=== PATIENT | female | born 1985 | race Caucasian/White ===

== ENCOUNTER 2016-06-13 00:58 | Emergency (ER) | payer SELFPAY ==
[~2016-06-13] VITALS: Ht 170.2 cm; Wt 63.7 kg
[~2016-06-13 00:58] MED LIST: CLIN150 PO; SULF-154 PO
[2016-06-13 01:06] VITALS: BP 123/92; PULSE 88; RESP 16; TEMP 97.9; O2SAT 100
[2016-06-13] MEDS ORDERED: VANCOMYCIN INJ 1,000 MG in SODIUM CHLOR 0.9% 250 ML INJ 250 ML IV ONE (01:30)
[2016-06-13] MEDS ORDERED: PIPERACIL-TAZO 3.375 GM PREMIX 50 ML IV ONE (01:30)
[2016-06-13 01:32] VITALS: BP 136/104; PULSE 102; RESP 20; TEMP 97.9; O2SAT 95
[2016-06-13 02:04] LABS: BLOOD, URINE SMALL (NEG); GLUCOSE,URINE NEG (NEG); KETONE, URINE NEG (NEG)
--- NOTE | 2016-06-13 02:09 | RADHPO ---
EXAM DATE/TIME: 06/13/2016 01:47 [facility] COMPARISON: No previous studies available for comparison. INDICATIONS : Right leg pain and swelling after shooting up. MEDICAL HISTORY : IV drug use. SURGICAL HISTORY : None. ENCOUNTER: Initial ACUITY: 2 days PAIN SCORE: 10/10 LOCATION: Right distal medial lower leg FINDINGS: Two view examination of the right tibia demonstrates no evidence of fracture or dislocation. Bony mi neralization is normal. The soft tissue structures are intact. CONCLUSION: No acute fracture or radiopaque foreign body. Jarred Mayfield MD on June 13, 2016 at 2:07 Board Certified Radiologist. This report was verified electronically.
[2016-06-13 02:17] LABS: NITRITE,URINE POS (NEG)
[2016-06-13 02:19] LABS: URINE COLOR YELLOW (YELLW/STRAW)
[2016-06-13 02:20] LABS: BACTERIA, URINE MANY /hpf; MUCUS URINE MOD /lpf (OCC)
[2016-06-13 02:21] LABS: COMMENT (UR) CULTURE INDICATED; CULTURE IF INDICATED CULTURE INDICATED
--- NOTE | 2016-06-13 02:25 | RADHPO ---
EXAM DATE/TIME: 06/13/2016 01:51 [facility] COMPARISON: No previous studies available for comparison. INDICATIONS : Right foot pain and swelling after shooting up. MEDICAL HISTORY : IV drug use. SURGICAL HISTORY : None. ENCOUNTER: Initial ACUITY: 2 days PAIN SCORE: 10/10 LOCATION: Right foot FINDINGS: Three view examination of the right foot demonstrates no soft tissue swelling, dislocation, or fractu re. The tarsal bones appear intact. The interphalangeal and metatarsophalangeal joints are intact. The calcaneus is intact. Bony mineralization is normal. CONCLUSION: No acute fracture or radiopaque foreign body. Jarred Mayfield MD on June 13, 2016 at 2:23 Board Certified Radiologist. This report was verified electronically.
[2016-06-13 02:26] LABS: AMPHETAMINE, URINE POS (NEG); BARBITURATES, URINE NEG (NEG); COCAINE, URINE NEG (NEG)
[2016-06-13 03:47] LABS: AUTOMATED NEUTROPHIL # 3.5 TH/MM3 (1.8-7.7); BASOPHIL # 0.1 TH/MM3 (0-0.2); BASOPHIL % 0.8 % (0.0-2.0); EOSINOPHIL # 0.2 TH/MM3 (0-0.4); EOSINOPHIL % 2.6 % (0.0-4.0); HEMATOCRIT 38.5 % (35.0-46.0); HEMO FLAGS DIFF FINAL; LYMPH % 31.2 % (9.0-44.0); LYMPHOCYTE # 2.1 TH/MM3 (1.0-4.8); MEAN CELL VOLUME 86.6 FL (80.0-100.0); MEAN CORPUSCULAR HEMOGLOBIN 29.3 PG (27.0-34.0); MEAN CORPUSCULAR HGB CONC 33.8 % (32.0-36.0); MONO % 13.4 % (0.0-8.0); PLATELET COUNT 202 TH/MM3 (150-450); RED BLOOD COUNT 4.44 MIL/MM3 (4.00-5.30); RED CELL DISTRIBUTION WIDTH 12.9 % (11.6-17.2); WHITE BLOOD COUNT 6.8 TH/MM3 (4.0-11.0)
[2016-06-13 03:54] LABS: CHLORIDE 102 MEQ/L (98-107); POTASSIUM 3.2 MEQ/L (3.5-5.1); SODIUM (NA) 140 MEQ/L (136-145)
[2016-06-13 03:58] LABS: ANION GAP 8 MEQ/L (5-15); BICARBONATE 30.1 MEQ/L (21.0-32.0); BLOOD UREA NITROGEN 8 MG/DL (7-18)
[2016-06-13 04:00] LABS: ALT (GPT) 22 U/L (10-53); AST (GOT) 23 U/L (15-37)
[2016-06-13 04:01] LABS: GLOMERULAR FILTRATION RATE 90 ML/MIN (>89)
[2016-06-13 04:02] LABS: TOTAL BILIRUBIN ADULT 0.3 MG/DL (0.2-1.0)
[2016-06-13 04:03] LABS: ALKALINE PHOSPHATASE 65 U/L (45-117)
[2016-06-13 04:35] VITALS: BP 120/71; PULSE 93; RESP 18; O2SAT 100
--- NOTE | 2016-06-13 05:35 | PD ---
HPI Chief Complaint: Skin Problem Time Seen by Provider: 03:15 Travel History International Travel<30 days: No Contact w/Intl Traveler<30days: No Traveled to known affect area: No History of Present Illness HPI 31-year-old female presents to the emergency department by private transportation in the care of her father for evaluation of multiple skin lesions. Patient admits to being an IV drug user. Patient injects methamphetamine. Patient states she has used methamphetamine for 5 years. Patient has multiple areas of excoriation consistent with pruritus associated with methamphetamine use. Patient presents because of area of soft tissue swelling and firmness and tenderness without redness or fluctuance affecting the left forearm as well as an area in the medial distal aspect of her right lower extremity of redness with warmth and tenderness. Patient admits to injecting at multiple sites including these areas. Patient states that she went to [facility] this evening voluntarily in order to be evaluated for inpatient detox due to recurrence of use of methamphetamine after being released from half-way 2 weeks ago; at [facility] she was informed that until she had had the areas of possible infection addressed she could not be further assessed at that facility. Patient states that she is not suicidal and does not want to harm herself or others; although in the past she has done things to harm herself including cutting on her left forearm which she has done intermittently since her teenage years and reportedly approximately a week or so ago; she denies denies any suicidal ideation at this time or at that time. Patient states since she was 13 intermittently she will cut herself because of pain reportedly in attempt to relieve her pain. Patient has had no fever or chills no nausea or vomiting no ascending erythema to the axilla or groin. Patient occasionally has intermittent lower abdominal pain. Patient has had no dysuria frequency or urgency. Patient does not report any vaginal discharge or abnormal vaginal bleeding or pelvic pain. Patient denies . Last period was in May 27, 2016. Patient is 6 para 2 AB 4. Tetanus updated 2015. [facility] Past Medical History Narrative Medical Polysubstance abuse, IV drug abuse, depression, hepatitis C D&C, Ab4, tobacco use polysubstance use; nursing notes reviewed Cancer: No Cardiovascular Problems: No Diminished Hearing: No Endocrine: No Gastrointestinal Disorders: Yes Genitourinary: No Hepatitis: Yes (C) Immune Disorder: No Musculoskeletal: No Neurologic: No Psychiatric: No Reproductive: Yes (4 MISCARRIAGES) Respiratory: No Tetanus Vaccination: < 5 Years ?: Not LMP: 05/27/16 Menopausal: No : 6 Para: 2 Miscarriage: 4 Dilation and Curettage (D&C): Yes (3 TIMES) Past Surgical History Abdominal Surgery: No Cardiac Surgery: No Ear Surgery: No Endocrine Surgery: No Eye Surgery: No Genitourinary Surgery: No Gynecologic Surgery: Yes (D AND C) Neurologic Surgery: No Oral Surgery: No Thoracic Surgery: No Other Surgery: Yes (D AND C) Social History Alcohol Use: No Tobacco Use: Yes Substance Use: Yes Allergies-Medications (Allergen,Severity, Reaction): Coded Allergies: Codeine (Verified Adverse Reaction, Mild, Nausea/Vomiting, 06/13/16) *MDRO Multi-Drug Resistant Organism (Unverified Adverse Reaction, Unknown , 06/13/16) MRSA (leg wound) - 04/2014 MRSA 08/2014. Reported Meds & Prescriptions Reported Meds & Active Scripts Active Clindamycin (Clindamycin HCl) 150 Mg Cap 300 Mg PO Q6H 7 Days Bactrim DS (Sulfamethoxazole-Trimethoprim) 800-160 Mg Tab 1 Tab PO BID Review of Systems Except as stated in HPI: all other systems reviewed are Neg (11 that she has Bactrim and Cleocin medications Aceon and she wasn't she's on clindamycin and Bactrim right now thinner. Computer) General / Constitutional: No: Fever, Chills HENT: No: Headaches, Congestion, Neck Stiffness, Neck Pain Cardiovascular: No: Chest Pain or Discomfort Respiratory: No: Cough, Shortness of Breath, Hemoptysis Gastrointestinal: No: Nausea, Vomiting, Abdominal Pain Genitourinary: No: Urgency, Frequency, Dysuria Musculoskeletal: Positive: Myalgias, Arthralgias Skin: Positive Rash (extensive excoriation associated with methamphetamine use) , Positive Itching, Positive Lumps, Positive Lesions (heel of right foot possible FB), Positive Other (focal localized area of erythema distal right lower leg medial aspect) Neurologic: No: Weakness, Dizziness, Syncope Psychiatric: Positive: Anxiety, Depression, Substance Abuse, No: Suicidal Ideations, Homicidal Ideation Endocrine: No: Heat Intolerance Hematologic/Lymphatic: No: Easy Bruising Physical Exam Narrative GENERAL: Well-developed thin female in no acute distress no respiratory distress ; GCS 15 SKIN: Warm and dry. Diffuse excoriations affecting bilateral upper extremities trunk and bilateral lower extremities; left forearm area of induration without redness fluctuance or tenderness is noted no pointing; right lower extremity distal medial aspect area of erythema 7 cm x 7 cm without crepitus or eschar or vesicle or pustule or petechia or purpura. Mild tenderness to palpation. Associated soft tissue swelling at the ankle. Also the undersurface of right foot small area of unroofed vesicles were patient has been probing the area with a needle concerned about a possible retained foreign body/splinter no evidence of splinter or foreign body identified as directed inspection. No induration no purulent drainage no erythema no ecchymosis. Distally foot is neurovascular tendon intact. No changes concerning for septic emboli of the hands or feet. HEAD: Atraumatic. Normocephalic. EYES: Pupils equal and round. No scleral icterus. No injection or drainage. ENT: No nasal bleeding or discharge. Mucous membranes pink and moist. NECK: Trachea midline. No JVD. CARDIOVASCULAR: Regular rate and rhythm. RESPIRATORY: No accessory muscle use. Clear to auscultation. Breath sounds equal bilaterally. GASTROINTESTINAL: Abdomen soft, non-tender, nondistended. Hepatic and splenic margins not palpable. MUSCULOSKELETAL: Extremities without clubbing, cyanosis, or edema. No obvious deformities. Bilateral upper extremity radial pulses 2+ to palpation bilateral lower extremity dorsalis pedis pulses 2+ to palpation capillary refill less than 2 seconds throughout. No deformity. NEUROLOGICAL: Awake and alert. GCS 15. No obvious cranial nerve deficits. Motor grossly within normal limits. Five out of 5 muscle strength in the arms and legs. Normal speech. PSYCHIATRIC: Appropriate mood; insight and judgment normal. Data Data Last Documented VS Vital Signs Date Time Temp Pulse Resp B/P Pulse Ox O2 Delivery O2 Flow Rate FiO2 06/13/16 06:29 143/77 97 06/13/16 04:35 93 18 Room Air 06/13/16 01:32 97.9 Orders Complete Blood Count With Diff (06/13/16 01:23) Blood Culture (06/13/16 01:23) Iv Access Insert/Monitor (06/13/16 01:23) Tibia/Fibula (Ap/Lat) (06/13/16 ) Foot, Complete ([id number]) (06/13/16 ) Ed Urine Pregnancytest Poc (06/13/16 01:23) Drug Screen, Random Urine (06/13/16 01:23) Alcohol (Ethanol) (06/13/16 01:23) Comprehensive Metabolic Panel (06/13/16 01:23) Urinalysis - C+S If Indicated (06/13/16 01:23) Piperacil-Tazo 3.375 Gm Premix (Zosyn 3. (06/13/16 01:30) Vancomycin Inj (Vancomycin Inj) (06/13/16 01:30) Urine Culture (06/13/16 01:45) Resp Request For Service (06/13/16 ) Lidocaine Pf 1% Inj (Xylocaine-Mpf 1% In (06/13/16 05:45) Wound Culture And Gram Stain (06/13/16 05:35) Potassium Chloride (Kcl) (06/13/16 05:45) Sodium Chlorid 0.9% 500 Ml Inj (Ns 500 M (06/13/16 05:45) Labs Laboratory Tests Test 06/13/16 06/13/16 01:45 03:40 Urine Color YELLOW Urine Turbidity MOD Urine pH 6.0 Urine Specific [place] 1.023 Urine Protein 30 mg/dL Urine Glucose (UA) NEG mg/dL Urine Ketones NEG mg/dL Urine Occult Blood SMALL Urine Nitrite POS Urine Bilirubin NEG Urine Leukocyte Esterase MOD Urine RBC 4-9 /hpf Urine WBC 50-99 /hpf Urine WBC Clumps FEW Urine Squamous Epithelial 6-8 /hpf Cells Urine Bacteria MANY /hpf Urine Mucus MOD /lpf Microscopic Urinalysis Comment CULTURE INDICATED Urine Opiates Screen POS Urine Barbiturates Screen NEG Urine Amphetamines Screen POS Urine Benzodiazepines Screen POS Urine Cocaine Screen NEG Urine Cannabinoids Screen NEG White Blood Count 6.8 TH/MM3 Red Blood Count 4.44 MIL/MM3 Hemoglobin 13.0 GM/DL Hematocrit 38.5 % Mean Corpuscular Volume 86.6 FL Mean Corpuscular Hemoglobin 29.3 PG Mean Corpuscular Hemoglobin 33.8 % Concent Red Cell Distribution Width 12.9 % Platelet Count 202 TH/MM3 Mean Platelet Volume 8.1 FL Neutrophils (%) (Auto) 52.0 % Lymphocytes (%) (Auto) 31.2 % Monocytes (%) (Auto) 13.4 % Eosinophils (%) (Auto) 2.6 % Basophils (%) (Auto) 0.8 % Neutrophils # (Auto) 3.5 TH/MM3 Lymphocytes # (Auto) 2.1 TH/MM3 Monocytes # (Auto) 0.9 TH/MM3 Eosinophils # (Auto) 0.2 TH/MM3 Basophils # (Auto) 0.1 TH/MM3 CBC Comment DIFF FINAL Differential Comment Sodium Level 140 MEQ/L Potassium Level 3.2 MEQ/L Chloride Level 102 MEQ/L Carbon Dioxide Level 30.1 MEQ/L Anion Gap 8 MEQ/L Blood Urea Nitrogen 8 MG/DL Creatinine 0.75 MG/DL Estimat Glomerular Filtration 90 ML/MIN Rate Random Glucose 119 MG/DL Calcium Level 8.4 MG/DL Total Bilirubin 0.3 MG/DL Aspartate Amino Transf 23 U/L (AST/SGOT) Alanine Aminotransferase 22 U/L (ALT/SGPT) Alkaline Phosphatase 65 U/L Total Protein 6.8 GM/DL Albumin 2.9 GM/DL Ethyl Alcohol Level LESS THAN 3 MG/DL MDM Medical Decision Making Medical Screen Exam Complete: Yes Emergency Medical Condition: Yes Medical Record Reviewed: Yes Interpretation(s) Last Impressions Tibia/Fibula X-Ray 06/13/16 0000 Signed Impressions: Service Date/Time: Monday, June 13, 2016 01:47 - CONCLUSION: No acute fracture or radiopaque foreign body. Jarred Mayfield MD Foot X-Ray 06/13/16 0000 Signed Impressions: Service Date/Time: Monday, June 13, 2016 01:51 - CONCLUSION: No acute fracture or radiopaque foreign body. Jarred Mayfield MD CBC & BMP Diagram 06/13/16 03:40 Vital Signs Date Time Temp Pulse Resp B/P Pulse Ox O2 Delivery O2 Flow Rate FiO2 06/13/16 04:35 93 18 120/71 100 Room Air 06/13/16 01:32 85 06/13/16 01:32 97.9 102 20 136/104 95 Room Air 06/13/16 01:06 97.9 88 16 123/92 100 Differential Diagnosis Polysubstance abuse, cellulitis, abscess, retained foreign body, mood disorder, depression; also to consider endocarditis in view of IV drug abuse no findings for necrotizing fasciitis Narrative Course IV access obtained specimens collected and sent for resulting blood cultures obtained patient; administered IV antibiotics; patient refusing iv access to the neck area --peripheral or or central line [id number] test negative CBC is automated differential values in normal range; complete metabolic panel values in normal range except for hypokalemia and mild hypocalcemia patient given oral replacement of potassium; normal bicarbonate and no anion gap; urinalysis markedly abnormal with positive nitrites positive leukocyte Estrace positive white blood cells clumped white blood cells and many bacteria; patient given first dose of antibiotic in the emergency department. Urine drug screen resulted in positive for opiates benzodiazepines and amphetamines; serum alcohol less than 3, not elevated After IV fluids and antibiotics patient again reassessed and continues to deny being suicidal or homicidal; patient states her plan however is to follow-up with [facility] for inpatient detox program. Right heel reassessed and explored for possible foreign body which was not identified. Recommendation for patient to be admitted for ongoing IV antibiotics for management of cellulitis of the right lower leg, early abscess of the left forearm, and ongoing antibiotic management of UTI and until blood cultures resulted. Patient reports that she does not want to be admitted; she wants to be released to go to detox at [facility] facility. Patient is adamant she has no suicidal ideation or homicidal ideation. Patient has remained afebrile in the emergency department. Patient states symptoms have all began since she was released from half-way and resumed abuse of methamphetamine and she feels that if she can get to a detox facility that she will improve quickly. Risk benefits discussed in detail with the patient regarding ongoing IV antibiotic administration versus oral antibiotic administration as an outpatient. Patient understands risk and benefits. Patient has been cooperative and appropriate during visit in the emergency department with appropriate mood and affect; no opiates or sedatives or pain medications administered during the patient's ED stay; does not meet sirs criteria. Patient will nor be signed out ama but is aware of need for antibiotic compliance and to return to the hospital for any worsening of condition or fever. Sepsis Criteria SIRS Criteria (2 or more): Heart rate over 90 Diagnosis Primary Impression: Cellulitis of right lower leg Additional Impressions: Puncture wound of right foot Qualified Code: S91.331A - Puncture wound of right foot, initial encounter Polysubstance abuse Methamphetamine addiction Referrals: Primary Care Physician 2 days [facility] 1 day Patient Instructions: General Instructions Additional Instructions: Complete antibiotic as prescribed elevate right lower extremity keep heel puncture wound clean and dry take acetaminophen/tylenol as needed for fever 100.4F or greater Return to the emergency department for any concerns or change in condition Med/Other Pt SpecificInfo: Prescription(s) given Scripts Clindamycin 150 Mg [id number] Mg PO Q6H 7 Days Ref 0 Prov:Delia Devries MD 06/13/16 Sulfamethoxazole-Trimethoprim (Bactrim DS)800-160 Mg Tab1 Tab PO BID #20 TAB Ref 0 Prov:Delia Devries MD 06/13/16 Disposition: 01 DISCHARGE HOME Condition: Stable Delia Devries MD Jun 13, 2016 05:35
[2016-06-13] MEDS ORDERED: SODIUM CHLORID 0.9% 500 ML INJ 500 ML IV ONE (05:45)
[2016-06-13] MEDS ORDERED: POTASSIUM CHLORIDE 20 MEQ CONTROLLED RELEASE TAB PO ONE (05:45)
[2016-06-13] MEDS ORDERED: LIDOCAINE HCL 1% PF 30 ML VIAL INFIL ONE (05:45)
[2016-06-13] MEDS ORDERED: CLIN1CAP5 PO (06:07)
[2016-06-13] MEDS ORDERED: BACT800T5 PO (06:07)
[2016-06-13 06:29] VITALS: BP 143/77
== END 2016-06-13 06:45 | disposition home or self-care (01) ==
LOC: PHED 00:58
DX: L03.115 Cellulitis of right lower limb (principal); S91.331A Puncture wound without foreign body, right foot, initial encounter; N39.0 Urinary tract infection, site not specified; B95.61 Methicillin susceptible Staphylococcus aureus infection as the cause of diseases classified elsewhere; B96.20 Unspecified Escherichia coli [E. coli] as the cause of diseases classified elsewhere; E87.6 Hypokalemia; E83.51 Hypocalcemia; F15.20 Other stimulant dependence, uncomplicated; F13.20 Sedative, hypnotic or anxiolytic dependence, uncomplicated; F17.210 Nicotine dependence, cigarettes, uncomplicated; K75.9 Inflammatory liver disease, unspecified; L02.414 Cutaneous abscess of left upper limb
CPT/HCPCS: 73590; 73630; 80053; 80307; 81001; 84703; 85025; 86403; 87040; 87070; 87077; 87086; 87186; 96361; 96365; 99283; J2543; J3370; J7040; J7050

== ENCOUNTER 2016-12-15 15:07 | Inpatient (IN) | payer SELFPAY ==
[~2016-12-15] VITALS: Ht 170.2 cm; Wt 60.0 kg
[~2016-12-15 15:07] MED LIST changes: +BACT800T5 PO; -CLIN150 PO; +CLIN1CAP5 PO; -SULF-154 PO
[2016-12-15 15:09] VITALS: BP 118/81; PULSE 105; RESP 20; TEMP 98.5; O2SAT 100
[2016-12-15 15:42] VITALS: BP 111/60; PULSE 86; RESP 17; O2SAT 100
[2016-12-15] MEDS ORDERED: VANCOMYCIN INJ 1,000 MG in SODIUM CHLOR 0.9% 250 ML INJ 250 ML IV ONE (15:45)
[2016-12-15] MEDS ORDERED: ONDANSETRON HCL 4 MG/2 ML VIAL IV PUSH ONE (15:45)
[2016-12-15] MEDS ORDERED: MORPHINE SULFATE 4 MG/ML INJ IV PUSH ONE (15:45)
[2016-12-15] MEDS ORDERED: SODIUM CHLOR 0.9% 1000 ML INJ 1,000 ML IV ONE (15:45)
[2016-12-15] MEDS ORDERED: PIPERACIL-TAZO 4.5 GM PREMIX 100 ML IV ONE (15:45)
--- NOTE | 2016-12-15 16:08 | PD ---
HPI Chief Complaint: Skin Problem Time Seen by Provider: 15:39 Travel History International Travel<30 days: No Contact w/Intl Traveler<30days: No Traveled to known affect area: No History of Present Illness HPI 31-year-old female presents to the emergency department for evaluation of painful, erythematous right foot that started 2 days ago. Patient reports history of IV drug use. However, she states she has not injected in 3 weeks. She was using heroin. She states that she did not inject into her foot. She denies any history of cellulitis or osteomyelitis to her right foot. She believes she has a runny fevers at home. She reports history of hepatitis C, is not currently on any medications. She denies any chance of . She has no other complaints at this time. PFS Past Medical History Cancer: No Cardiovascular Problems: No Diminished Hearing: No Endocrine: No Gastrointestinal Disorders: Yes Genitourinary: No Hepatitis: Yes (C) Immune Disorder: No Musculoskeletal: No Neurologic: No Psychiatric: No Reproductive: Yes (4 MISCARRIAGES) Respiratory: No Tetanus Vaccination: < 5 Years Influenza Vaccination: Yes ?: Not LMP: 12/15/16 Menopausal: No : 6 Para: 2 Miscarriage: 4 Dilation and Curettage (D&C): Yes (3 TIMES) Past Surgical History Abdominal Surgery: No AICD: No Cardiac Surgery: No Ear Surgery: No Endocrine Surgery: No Eye Surgery: No Genitourinary Surgery: No Gynecologic Surgery: Yes (D AND C) Neurologic Surgery: No Oral Surgery: No Thoracic Surgery: No Other Surgery: Yes (D AND C) Social History Alcohol Use: No Tobacco Use: Yes Substance Use: Yes (hx opitates) Allergies-Medications (Allergen,Severity, Reaction): Coded Allergies: codeine (Unverified Adverse Reaction, Mild, Nausea/Vomiting, 11/20/16) *MDRO Multi-Drug Resistant Organism (Unverified Adverse Reaction, Unknown , 06/13/16) MRSA (leg wound) - 04/2014 MRSA 08/2014. Reported Meds & Prescriptions Reported Meds & Active Scripts Active No Active Prescriptions or Reported Medications Review of Systems Except as stated in HPI: all other systems reviewed are Neg Physical Exam Narrative GENERAL: Well-nourished, well-developed female patient, Ambulatory. Afebrile. SKIN: Focused skin assessment warm/dry. Right foot is erythematous and swollen. Erythema extends midway up the calf. No obvious abscess formation. HEAD: Normocephalic. Atraumatic. EYES: No scleral icterus. No injection or drainage. NECK: Supple, trachea midline. No JVD or lymphadenopathy. CARDIOVASCULAR: Regular rate and rhythm without murmurs, gallops, or rubs. Bilateral pedal pulses are 2+. RESPIRATORY: Breath sounds equal bilaterally. No accessory muscle use. Lungs sounds are clear to auscultation. GASTROINTESTINAL: Abdomen soft, non-tender, nondistended. MUSCULOSKELETAL: No cyanosis, or edema. BACK: Nontender without obvious deformity. No CVA tenderness. Data Data Last Documented VS Vital Signs Date Time Temp Pulse Resp B/P (MAP) Pulse Ox O2 Delivery O2 Flow Rate FiO2 12/15/16 16:48 92 17 106/64 (78) 99 Room Air 12/15/16 15:09 98.5 Orders Orders Complete Blood Count With Diff (12/15/16 15:45) Comprehensive Metabolic Panel (12/15/16 15:45) Prothrombin Time / Inr (Pt) (12/15/16 15:45) Act Partial Throm Time (Ptt) (12/15/16 15:45) Lactic Acid Sepsis Protocol (12/15/16 15:45) Blood Culture (12/15/16 15:45) Blood Glucose (12/15/16 15:45) Ecg Monitoring (12/15/16 15:45) Iv Access Insert/Monitor (12/15/16 15:45) Oximetry (12/15/16 15:45) Oxygen Administration (12/15/16 15:45) Westergren Sedimentation Rate (12/15/16 15:45) C-Reactive Protein (Crp) (12/15/16 15:45) Sodium Chlor 0.9% 1000 Ml Inj (Ns 1000 M (12/15/16 15:45) Morphine Inj (Morphine Inj) (12/15/16 15:45) Ondansetron Inj (Zofran Inj) (12/15/16 15:45) Foot, Complete (Cco2fyw) (12/15/16 ) Ed Urine Pregnancytest Poc (12/15/16 15:45) Vancomycin Inj (Vancomycin Inj) (12/15/16 15:45) Piperacil-Tazo 4.5 Gm Premix (Zosyn 4.5 (12/15/16 15:45) Comprehensive Metabolic Panel (12/16/16 06:00) Free Thyroxine (T4) (12/16/16 06:00) Hemoglobin (Hgb) A1c (12/16/16 06:00) Magnesium (Mg) (12/16/16 06:00) Phosphorus (Po4) (12/16/16 06:00) Thyroid Stimulating Hormone (12/16/16 06:00) Complete Blood Count With Diff (12/16/16 06:00) Admit Order (Ed Use Only) (12/15/16 17:21) Labs Laboratory Tests Test 12/15/16 16:05 White Blood Count 10.6 TH/MM3 Red Blood Count 4.69 MIL/MM3 Hemoglobin 13.6 GM/DL Hematocrit 41.0 % Mean Corpuscular Volume 87.4 FL Mean Corpuscular Hemoglobin 28.9 PG Mean Corpuscular Hemoglobin Concent 33.1 % Red Cell Distribution Width 15.5 % Platelet Count 172 TH/MM3 Mean Platelet Volume 7.4 FL Neutrophils (%) (Auto) 83.5 % Lymphocytes (%) (Auto) 9.6 % Monocytes (%) (Auto) 6.5 % Eosinophils (%) (Auto) 0.2 % Basophils (%) (Auto) 0.2 % Neutrophils # (Auto) 8.8 TH/MM3 Lymphocytes # (Auto) 1.0 TH/MM3 Monocytes # (Auto) 0.7 TH/MM3 Eosinophils # (Auto) 0.0 TH/MM3 Basophils # (Auto) 0.0 TH/MM3 CBC Comment DIFF FINAL Differential Comment Erythrocyte Sedimentation Rate 28 mm/hr Prothrombin Time 14.3 SEC Prothromb Time International Ratio 1.3 RATIO Activated Partial Thromboplast Time 33.4 SEC Blood Urea Nitrogen 19 MG/DL Creatinine 1.01 MG/DL Random Glucose 101 MG/DL Total Protein 8.4 GM/DL Albumin 3.4 GM/DL Calcium Level 8.8 MG/DL Alkaline Phosphatase 67 U/L Aspartate Amino Transf (AST/SGOT) 43 U/L Alanine Aminotransferase (ALT/SGPT) 47 U/L Total Bilirubin 0.4 MG/DL Sodium Level 134 MEQ/L Potassium Level 3.6 MEQ/L Chloride Level 101 MEQ/L Carbon Dioxide Level 28.6 MEQ/L Anion Gap 4 MEQ/L Estimat Glomerular Filtration Rate 64 ML/MIN Lactic Acid Level 1.1 mmol/L C-Reactive Protein 17.80 MG/DL MDM Medical Decision Making Medical Screen Exam Complete: Yes Emergency Medical Condition: Yes Medical Record Reviewed: Yes Interpretation(s) x-ray of the right foot - CONCLUSION: Dorsal and lateral soft tissue swelling. Right foot series otherwise unremarkable. Differential Diagnosis Cellulitis versus osteomyelitis versus abscess versus sepsis Narrative Course 31-year-old female presents to the emergency department for evaluation of painful, erythematous, warmth to the right foot. CBC, CMP, PTT, PT/INR, lactic acid, blood cultures 2, sedimentation rate, CRP, urine test are ordered and pending. X-ray of the right foot is ordered and pending. Patient is given normal saline 1 L IV bolus, morphine 4 mg IV, Zofran 4 mg IV, vancomycin 1 g IV, Zosyn 4.5 g IV. CBC shows normal CBC of 10.6, neutrophilia 83.5. Sedimentation rate is 28. CMP shows no acute abnormality. CRP is 17.80. Lactic acid is 1.1. Coags show no acute abnormality. ED urine test is negative. X-ray of the right foot shows Dorsal and lateral soft tissue swelling. Right foot series otherwise unremarkable. Hospitalist collections technician is paged for admission. Dr. Diaz accepted admission. Diagnosis Primary Impression: Cellulitis of right lower leg Admitting Information Admitting Physician Requests: Admit Scripts No Active Prescriptions or Reported Meds Dorene Meyers Dec 15, 2016 16:08
[2016-12-15 16:10] VITALS: O2SAT 100
[2016-12-15 16:20] LABS: AUTOMATED NEUTROPHIL # 8.8 TH/MM3 (1.8-7.7); BASOPHIL % 0.2 % (0.0-2.0); EOSINOPHIL % 0.2 % (0.0-4.0); HEMO FLAGS DIFF FINAL; LYMPH % 9.6 % (9.0-44.0); MEAN CELL VOLUME 87.4 FL (80.0-100.0); MEAN CORPUSCULAR HEMOGLOBIN 28.9 PG (27.0-34.0); MEAN CORPUSCULAR HGB CONC 33.1 % (32.0-36.0); MONO % 6.5 % (0.0-8.0); NEUT % 83.5 % (16.0-70.0); PLATELET COUNT 172 TH/MM3 (150-450); RED BLOOD COUNT 4.69 MIL/MM3 (4.00-5.30); RED CELL DISTRIBUTION WIDTH 15.5 % (11.6-17.2); WHITE BLOOD COUNT 10.6 TH/MM3 (4.0-11.0)
[2016-12-15 16:32] LABS: APTT (PATIENT) 33.4 SEC (24.3-30.1); INTERNATIONAL NORMALIZED RATIO 1.3 RATIO; PROTHROMBIN TIME - PATIENT 14.3 SEC (9.8-11.6)
[2016-12-15 16:35] LABS: ALT (GPT) 47 U/L (10-53); ANION GAP 4 MEQ/L (5-15); AST (GOT) 43 U/L (15-37); BICARBONATE 28.6 MEQ/L (21.0-32.0); BLOOD UREA NITROGEN 19 MG/DL (7-18); CHLORIDE 101 MEQ/L (98-107); GLOMERULAR FILTRATION RATE 64 ML/MIN (>89); POTASSIUM 3.6 MEQ/L (3.5-5.1); SODIUM (NA) 134 MEQ/L (136-145)
[2016-12-15 16:37] LABS: ALKALINE PHOSPHATASE 67 U/L (45-117); TOTAL BILIRUBIN ADULT 0.4 MG/DL (0.2-1.0)
[2016-12-15 16:48] VITALS: BP 106/64; PULSE 92; RESP 17; O2SAT 99
--- NOTE | 2016-12-15 17:02 | RADRPT ---
EXAM DATE/TIME: 12/15/2016 16:29 [facility] COMPARISON: FOOT RIGHT COMPLETE ([id number]), June 13, 2016, 1:51. INDICATIONS : Right foot pain and swelling. MEDICAL HISTORY : IV drug use. SURGICAL HISTORY : None. ENCOUNTER: Initial ACUITY: 1 week PAIN SCORE: 10/10 LOCATION: Right foot. FINDINGS: 3 views right foot. Bone alignment within normal limits. No evidence of fracture. Dorsal and lateral soft tissue swelling. No evidence of bone erosion. Small plantar and Achilles calcaneal spurs. CONCLUSION: Dorsal and lateral soft tissue swelling. Right foot series otherwise unremarkable. Kyle Vega MD on December 15, 2016 at 16:59 Board Certified Radiologist. This report was verified electronically.
[2016-12-15] MEDS ORDERED: NICOTINE 14 MG/24 HR PATCH T-DERMAL ONE (17:30)
[2016-12-15] MEDS ORDERED: ZOLPIDEM TARTRATE 5 MG TAB PO PRN (17:30)
[2016-12-15] MEDS ORDERED: MAGNESIUM HYDROXIDE SUSP 30 ML CUP PO PRN (17:30)
[2016-12-15] MEDS ORDERED: traMADol HCL 50 MG TAB PO PRN (17:30)
[2016-12-15] MEDS ORDERED: RESP: ALBUTEROL 2.5 MG/IPRATROPIUM 0.5 MG NEB (PRN) NEB (17:30)
[2016-12-15] MEDS ORDERED: SODIUM CHLORIDE 0.9% FLUSH 10 ML FLUSH IV FLUSH PRN ×2 (17:30→17:45)
[2016-12-15] MEDS ORDERED: ONDANSETRON HCL 4 MG/2 ML VIAL IVP PRN (17:30)
[2016-12-15] MEDS ORDERED: NALOXONE HCL 0.4 MG/ML AMP IV PRN (17:30)
[2016-12-15] MEDS ORDERED: LACTULOSE SYRUP 20 GM/30 ML CUP PO PRN (17:30)
[2016-12-15] MEDS ORDERED: SENNOSIDES 8.6 MG TAB PO PRN (17:30)
[2016-12-15] MEDS ORDERED: PROCHLORPERAZINE 25 MG SUPP RECTAL PRN (17:30)
[2016-12-15] MEDS ORDERED: ACETAMINOPHEN 325 MG TAB PO PRN ×2 (17:30)
[2016-12-15] MEDS ORDERED: BISACODYL 10 MG SUPP RECTAL PRN (17:30)
[2016-12-15] MEDS: THIAMINE HCL 100 MG TAB PO SCH (17:45)
[2016-12-15] MEDS ORDERED: HALOPERIDOL LACTATE 5 MG/ML AMP IM PRN (17:45)
[2016-12-15] MEDS ORDERED: LORazepam 2 MG TAB PO PRN (17:45)
[2016-12-15] MEDS ORDERED: LORazepam 2 MG/ML VIAL IV PUSH PRN ×4 (17:45)
[2016-12-15] MEDS ORDERED: LORazepam 1 MG TAB PO PRN (17:45)
[2016-12-15] MEDS: FOLIC ACID 1 MG TAB PO SCH (17:45)
[2016-12-15] MEDS ORDERED: cloNIDine HCL 0.1 MG TAB PO PRN (17:45)
[2016-12-15] MEDS ORDERED: FLUMAZENIL 0.5 MG/5 ML VIAL IV PUSH PRN (17:45)
[2016-12-15] MEDS: SODIUM CHLOR 0.9% 1000 ML INJ 1,000 ML IV SCH ×4 (18:00→23:27)
--- NOTE | 2016-12-15 18:41 | HHI.HP ---
[facility] Primary Care Physician Admission Diagnosis right foot cellulitis Diagnoses: Chief Complaint: Right foot pain Travel History International Travel<30 Days: No Contact w/Intl Traveler <30 Da: No Traveled to Known Affected Are: No History of Present Illness Written by Alan Amos, acting as scribe for Dr. Ian Diaz on 12/15/16 at 18: 27. Ms. Ogden is 31-year-old, with history of hepatitis C, IV drug use ( heroin), acid reflux, Blake's palsy (2010), MRSA (2015 of leg and a subsequent wound), nicotine addiction. Ms. Ogden reported sudden onset of right foot pain and swelling. She noted that while she has dogs and cats around her she "doesn't mess with them." She stated she does not recall any of the animals brushing against her foot to cause any type of skin injury. Since the onset of the swelling, she developed cold chills, nausea, and right leg pain extending to her hip. She stated taking ibuprofen has helped her discomfort. Regarding her IV drug use, she reported that she has not used in the past 3 weeks and denied injecting her foot. She stated her usual site was her left forearm. Upon interview, Ms. Ogden reported feeling feverish, body aches, chills, nauseous, pain in her right foot, and difficulty ambulating because of pain. Ms. Ogden summed up her symptoms as "if I were going through withdrawal again ". She denied vomiting, diarrhea, chest pain, headaches, cough, and shortness of breath. A 10 point review of systems was completed and, except as noted above, was negative. Patient states she has not used any drugs of any type in the past few weeks she states that she uses Suboxone to come off heroin Patient's boyfriend states that he is clean and that he just got [facility] and they are both trying to make a clean break Review of Systems Constitutional: COMPLAINS OF: Diaphoretic episodes, Fever, Chills, DENIES: Fatigue, Weight gain, Weight loss, Dizziness, Change in appetite Endocrine: DENIES: Abnorml menstrual pattern, Heat/cold intolerance, Polydipsia Eyes: DENIES: Blurred vision, Diplopia, Eye inflammation, Eye pain Ears, nose, mouth, throat: DENIES: Tinnitus, Hearing loss, Vertigo, Nasal discharge Respiratory: DENIES: Apneas, Cough, Snoring, Wheezing, Hemoptysis Cardiovascular: DENIES: Chest pain, Palpitations, Syncope, Dyspnea on Exertion Gastrointestinal: COMPLAINS OF: Diarrhea, Nausea, Vomiting, DENIES: Abdominal pain, Black stools, Bloody stools, Constipation Genitourinary: DENIES: Abnormal vaginal bleeding, Dysmenorrhea, Dyspareunia, Sexual dysfunction Musculoskeletal: COMPLAINS OF: Joint Swelling (right lower extremity), DENIES: Joint pain, Muscle aches, Stiffness Integumentary: COMPLAINS OF: Abnormal pigmentation (right lower extremity cellulitis), Rash (right lower extremity cellulitis) Hematologic/lymphatic: DENIES: Bruising, Lymphadenopathy Immunologic/allergic: DENIES: Eczema, Urticaria Neurologic: DENIES: Abnormal gait, Headache, Localized weakness, Paresthesias, Seizures, Speech Problems, Tremor Psychiatric: COMPLAINS OF: Anxiety, Depression, Agitation, DENIES: Confusion, Mood changes, Hallucinations Except as stated in HPI: all other systems reviewed are Neg Past Family Social History Past Medical History hepatitis C IV drug use (heroin) acid reflux Blake's palsy (2010) MRSA (2014 of leg and a subsequent wound) nicotine addiction. Past Surgical History Dilation and curettage 3. Reported Medications Reported Meds & Active Scripts Active No Active Prescriptions or Reported Medications Allergies: Coded Allergies: codeine (Unverified Adverse Reaction, Mild, Nausea/Vomiting, 11/20/16) *MDRO Multi-Drug Resistant Organism (Unverified Adverse Reaction, Unknown , 06/13/16) MRSA (leg wound) - 04/2014 MRSA 08/2014. Active Ordered Medications Current Medications Medications (Trade) Dose Ordered Sig/Kenny Route Start Time Stop Time Status Last Admin Sodium Chloride 1,000 ml @ 100 mls/hr Q10H IV 12/15/16 18:00 (NS Flush) 2 ml UNSCH PRN IV FLUSH 12/15/16 17:30 (NS Flush) 2 ml BID IV FLUSH 12/15/16 21:00 (Tylenol) 650 mg Q4H PRN PO 12/15/16 17:30 (Zofran Inj) 4 mg Q6H PRN IVP 12/15/16 17:30 (Compazine Supp) 25 mg Q12H PRN RI 12/15/16 17:30 UNV (Ambien) 5 mg HS PRN PO 12/15/16 17:30 (Lovenox Inj) 40 mg Q24H SQ 12/15/16 18:00 (Tylenol) 650 mg Q6H PRN PO 12/15/16 17:30 (Morphine Inj) 2 mg Q3H PRN IV 12/15/16 17:30 (Ultram) 50 mg Q4H PRN PO 12/15/16 17:30 (Ultram) 100 mg Q4H PRN PO 12/15/16 17:30 (Narcan Inj) 0.4 mg UNSCH PRN IV 12/15/16 17:30 (Elisha-Colace) 1 tab BID PO 12/15/16 21:00 (Milk Of Magnesia Liq) 30 ml Q12H PRN PO 12/15/16 17:30 (Senokot) 17.2 mg Q12H PRN PO 12/15/16 17:30 (Dulcolax Supp) 10 mg DAILY PRN RECTAL 12/15/16 17:30 (Lactulose Liq) 30 ml DAILY PRN PO 12/15/16 17:30 Piperacillin Sod/ Tazobactam Sod 100 ml @ 200 mls/hr Q6H IV 12/16/16 00:00 (Duoneb Neb) 1 ampule Q4HR NEB PRN NEB 12/15/16 17:30 (Habitrol 14 Mg Patch.24 Hr) 1 patch DAILY T-DERMAL 12/16/16 09:00 Miscellaneous Information 1 DAILY T-DERMAL 12/16/16 09:00 (NS Flush) 2 ml UNSCH PRN IV FLUSH 12/15/16 17:45 (NS Flush) 2 ml BID IV FLUSH 12/15/16 21:00 Sodium Chloride 1,000 ml @ 100 mls/hr Q10H IV 12/15/16 18:00 (Folate) 1 mg DAILY PO 12/15/16 17:45 12/20/16 17:44 (Vitamin B1) 100 mg DAILY PO 12/15/16 17:45 (Theragran M Tab) 1 tab DAILY PO 12/15/16 17:45 12/20/16 17:44 (Pepcid) 20 mg BID PO 12/15/16 21:00 (Catapres) 0.1 mg Q6H PRN PO 12/15/16 17:45 (Romazicon Inj) 0.2 mg Q1M PRN IV PUSH 12/15/16 17:45 (Ativan) 1 mg Q4H PRN PO 12/15/16 17:45 UNV (Ativan Inj) 1 mg Q4H PRN IV PUSH 12/15/16 17:45 UNV (Ativan) 2 mg Q2H PRN PO 12/15/16 17:45 UNV (Ativan Inj) 2 mg Q2H PRN IV PUSH 12/15/16 17:45 UNV (Ativan Inj) 2 mg Q1H PRN IV PUSH 12/15/16 17:45 UNV (Ativan Inj) 2 mg Q15M PRN IV PUSH 12/15/16 17:45 UNV (Haldol Inj) 2 mg Q15M PRN IM 12/15/16 17:45 Family History Paternal great grandmother and grandmothers both had breast cancer. Paternal side of the family positive for diabetes. Social History Alcohol use was denied. Patient has history of IV drug use-heroin. No use for the past 3 weeks. Patient reported smoking cigarettes since the age of 10; at least half pack a day. Physical Exam Vital Signs Vital Signs Date Time Temp Pulse Resp B/P (MAP) Pulse Ox O2 Delivery O2 Flow Rate FiO2 12/15/16 16:48 92 17 106/64 (78) 99 Room Air 12/15/16 16:10 100 Room Air 12/15/16 16:10 100 Room Air 12/15/16 15:42 86 17 111/60 (77) 100 Room Air 12/15/16 15:39 16 12/15/16 15:09 98.5 105 20 118/81 (93) 100 Room Air Physical Exam GENERAL: This is a thin, well-developed patient, in mild distress secondary to pain. SKIN: No rashes. Right foot is swollen, warm to the touch and seemingly painful upon palpation. Lesions noted on both feet. Well-healed cut gonsales noted on left forearm. Her skin was otherwise cool and dry. Multiple tattoos noted. HEAD: Atraumatic. Normocephalic. EYES: Pupils equal round and reactive. Extraocular motions intact. No scleral icterus. No injection or drainage. Slight eyelid lag noted on the right. ENT: Nose without bleeding or purulent drainage. Airway patent. NECK: Trachea midline. No lymphadenopathy. Supple and nontender. CARDIOVASCULAR: Regular rate and rhythm without murmurs, gallops, or rubs. RESPIRATORY: Clear to auscultation. Breath sounds equal bilaterally. No wheezes , rales, or rhonchi. GASTROINTESTINAL: Abdomen soft, non-tender, nondistended. No hepato- splenomegaly or guarding. MUSCULOSKELETAL: Extremities without clubbing, cyanosis, or edema, except as noted above. NEUROLOGICAL: Awake and alert. Cranial nerves II through XII generally intact. Patient did evidence asymmetrical smile of the right side. Motor and sensory grossly within normal limits. Five out of 5 muscle strength in all muscle groups. Speech was clear and fluent. Laboratory Laboratory Tests Test 12/15/16 16:05 White Blood Count 10.6 Red Blood Count 4.69 Hemoglobin 13.6 Hematocrit 41.0 Mean Corpuscular Volume 87.4 Mean Corpuscular Hemoglobin 28.9 Mean Corpuscular Hemoglobin Concent 33.1 Red Cell Distribution Width 15.5 Platelet Count 172 Mean Platelet Volume 7.4 Neutrophils (%) (Auto) 83.5 Lymphocytes (%) (Auto) 9.6 Monocytes (%) (Auto) 6.5 Eosinophils (%) (Auto) 0.2 Basophils (%) (Auto) 0.2 Neutrophils # (Auto) 8.8 Lymphocytes # (Auto) 1.0 Monocytes # (Auto) 0.7 Eosinophils # (Auto) 0.0 Basophils # (Auto) 0.0 CBC Comment DIFF FINAL Differential Comment Erythrocyte Sedimentation Rate 28 Prothrombin Time 14.3 Prothromb Time International Ratio 1.3 Activated Partial Thromboplast Time 33.4 Blood Urea Nitrogen 19 Creatinine 1.01 Random Glucose 101 Total Protein 8.4 Albumin 3.4 Calcium Level 8.8 Alkaline Phosphatase 67 Aspartate Amino Transf (AST/SGOT) 43 Alanine Aminotransferase (ALT/SGPT) 47 Total Bilirubin 0.4 Sodium Level 134 Potassium Level 3.6 Chloride Level 101 Carbon Dioxide Level 28.6 Anion Gap 4 Estimat Glomerular Filtration Rate 64 Lactic Acid Level 1.1 C-Reactive Protein 17.80 Date/Time Source Procedure Growth Status 12/15/16 16:05 Blood Peripheral Aerobic Blood Culture Pending Received 12/15/16 16:05 Blood Peripheral Anaerobic Blood Culture Pending Received Result Diagram: 12/15/16 1605 12/15/16 1605 Imaging Last Impressions Foot X-Ray 12/15/16 0000 Signed Impressions: Service Date/Time: Thursday, December 15, 2016 16:29 - CONCLUSION: Dorsal and lateral soft tissue swelling. Right foot series otherwise unremarkable. MD Scarlet Mcgovern VTE Risk Assessment Caprini VTE Risk Assessment: No/Low Risk (score <= 1) Caprini Risk Assessment Model Point Value = 1 Point Value = 2 Point Value = 3 Point Value = 5 Age 41-60 Minor surgery BMI > 25 kg/m2 Swollen legs Varicose veins or History of unexplained or recurrent spontaneous Oral contraceptives or hormone replacement Sepsis (< 1 month) Serious lung disease, including pneumonia (< 1 month) Abnormal pulmonary function Acute myocardial infarction Congestive heart failure (< 1 month) History of inflammatory bowel disease Medical patient at bed rest Age 61-74 Arthroscopic surgery Major open surgery (> 45 min) Laparoscopic surgery (> 45 min) Malignancy Confined to bed (> 72 hours) Immobilizing plaster cast Central venous access Age >= 75 History of VTE Family history of VTE Factor V Leiden Prothrombin 24404A Lupus anticoagulant Anticardiolipin antibodies Elevated serum homocysteine Heparin-induced thrombocytopenia Other congenital or acquired thrombophilia Stroke (< 1 month) Elective arthroplasty Hip, pelvis, or leg fracture Acute spinal cord injury (< 1 month) Prophylaxis Regimen Total Risk Factor Score Risk Level Prophylaxis Regimen 0-1 Low Early ambulation 2 Moderate Order ONE of the following: *Sequential Compression Device (SCD) *Heparin 5000 units SQ BID 3-4 Higher Order ONE of the following medications: *Heparin 5000 units SQ TID *Enoxaparin/Lovenox 40 mg SQ daily (WT < 150 kg, CrCl > 30 mL/min) *Enoxaparin/Lovenox 30 mg SQ daily (WT < 150 kg, CrCl > 10-29 mL/min) *Enoxaparin/Lovenox 30 mg SQ BID (WT < 150 kg, CrCl > 30 mL/min) AND/OR *Sequential Compression Device (SCD) 5 or more Highest Order ONE of the following medications: *Heparin 5000 units SQ TID (Preferred with Epidurals) *Enoxaparin/Lovenox 40 mg SQ daily (WT < 150 kg, CrCl > 30 mL/min) *Enoxaparin/Lovenox 30 mg SQ daily (WT < 150 kg, CrCl > 10-29 mL/min) *Enoxaparin/Lovenox 30 mg SQ BID (WT < 150 kg, CrCl > 30 mL/min) AND *Sequential Compression Device (SCD) Assessment and Plan Problem List: (1) Cellulitis of right lower leg ICD Code: L03.115 - Cellulitis of right lower limb Status: Acute (2) Puncture wound of right foot ICD Code: S91.331A - Puncture wound without foreign body, right foot, initial encounter Status: Acute Assessment and Plan Ms. Ogden is 31-year-old, with history of hepatitis C, IV drug use (heroin), acid reflux, Blake's palsy (2010), MRSA (2015 of leg and a subsequent wound), nicotine addiction. Ms. Ogden reported sudden onset of right foot pain and swelling. She noted that while she has dogs and cats around her she "doesn't mess with them." She stated she does not recall any of the animals brushing against her foot to cause any type of skin injury. Since the onset of the swelling, she developed cold chills, nausea, and right leg pain extending to her hip. She stated taking ibuprofen has helped her discomfort. Regarding her IV drug use, she reported that she has not used in the past 3 weeks and denied injecting her foot. She stated her usual site was her left forearm. Cellulitis of the right lower leg Puncture wound of the right foot -Admit to inpatient service -Zosyn 4.5 mg IV every 6 hours Add vancomycin with pharmacy to dose We'll get an echocardiogram Nausea -Zofran 4 mg every 6 hours when necessary Phenergan as needed rectally Hepatitis C -AST elevated, otherwise LFTs within normal limits. -Patient requests ibuprofen instead of acetaminophen for pain and fever control. Nicotine addiction -Nicotine patch 14 mg daily. Diet -Healthy heart DVT prophylaxis -Lovenox 40 mg subcutaneous daily GI prophylaxis -Pepcid 20 mg twice a day Withdrawal protocol. We'll make Catapres available as well as Pepcid and multivitamin thiamine and folic acid Have discussed with patient and RN and ANGELI Swan labs The exam, history, and the medical decision-making described in the above note were completed with the assistance of the mid-level provider. I reviewed and agree with the findings presented. I attest that I had a [id number] encounter with the patient on the same day, and personally performed and documented my assessment and findings in the medical record. Have discussed extensively with the patient and RN and family Code Status Full code Discussed Condition With Patient and male significant other at bedside as well as ER and physician family assistant Physician Certification 2 Midnight Certification Type: Admission for Inpatient Services Order for Inpatient Services The services are ordered in accordance with Medicare regulations or non- Medicare payer requirements, as applicable. In the case of services not specified as inpatient-only, they are appropriately provided as inpatient services in accordance with the 2-midnight benchmark. Estimated LOS (days): 3 Three days is the estimated time the patient will need to remain in the hospital , assuming treatment plan goals are met and no additional complications. Post-Hospital Plan: Not yet determined Problem Qualifiers (1) Puncture wound of right foot: Qualified Codes: S91.331A - Puncture wound without foreign body, right foot, initial encounter Alan Amos Jr. Dec 15, 2016 18:41 Rayo Diaz DO Dec 15, 2016 18:57
[2016-12-15 18:43] VITALS: BP 106/64; TEMP 97.8
[2016-12-15 20:00] VITALS: BP 100/51; PULSE 80; RESP 20; TEMP 97.1; O2SAT 96
[2016-12-15] MEDS: ENOXAPARIN SODIUM 40 MG/0.4 ML SYRINGE SQ SCH (20:51)
[2016-12-15] MEDS: MULTIVITAMINS/MINERALS THERAPEUTIC TAB PO SCH (20:51)
[2016-12-15] MEDS: FAMOTIDINE 20 MG TAB PO SCH (20:51)
[2016-12-15] MEDS: SODIUM CHLORIDE 0.9% FLUSH 10 ML FLUSH IV FLUSH SCH ×2 (20:54)
[2016-12-15] MEDS: DOCUSATE SODIUM 50 MG/SENNA 8.6 MG TAB PO SCH (20:54)
[2016-12-15] MEDS: PIPERACIL-TAZO 4.5 GM PREMIX 100 ML IV SCH (23:26)
[2016-12-15] MEDS: MORPHINE SULFATE 4 MG/ML INJ IV PRN (23:34)
[2016-12-15 23:49] LABS: ALT (GPT) 37 U/L (10-53); ANION GAP 7 MEQ/L (5-15); AST (GOT) 35 U/L (15-37); BICARBONATE 24.6 MEQ/L (21.0-32.0); BLOOD UREA NITROGEN 17 MG/DL (7-18); CHLORIDE 105 MEQ/L (98-107); GLOMERULAR FILTRATION RATE 100 ML/MIN (>89); MAGNESIUM 1.8 MG/DL (1.5-2.5); POTASSIUM 3.7 MEQ/L (3.5-5.1); SODIUM (NA) 137 MEQ/L (136-145)
[2016-12-15 23:53] LABS: ALCOHOL LESS THAN 3 MG/DL (0-5)
[2016-12-15 23:58] LABS: ALKALINE PHOSPHATASE 58 U/L (45-117); FREE T4 1.11 NG/DL (0.76-1.46); TOTAL BILIRUBIN ADULT 0.3 MG/DL (0.2-1.0)
[2016-12-16] VITALS: BP 94/52; PULSE 65; RESP 20; TEMP 96.9; O2SAT 99
[2016-12-16] LABS: CREATINE KINASE 48 U/L (26-192)
[2016-12-16 03:25] VITALS: BP 95/53; PULSE 69; RESP 19; TEMP 96; O2SAT 95
[2016-12-16] MEDS: MORPHINE SULFATE 4 MG/ML INJ IV PRN ×3 (03:28→12:11)
[2016-12-16] MEDS ORDERED: IBUPROFEN 600 MG TAB PO ONE (04:00)
[2016-12-16] MEDS: PIPERACIL-TAZO 4.5 GM PREMIX 100 ML IV SCH ×3 (05:13→19:40)
[2016-12-16] MEDS: traMADol HCL 50 MG TAB PO PRN ×4 (05:22→19:54)
[2016-12-16] MEDS: REMOVE OLD PATCH T-DERMAL SCH (07:24)
[2016-12-16] MEDS: NICOTINE 14 MG/24 HR PATCH T-DERMAL SCH (07:24)
[2016-12-16] MEDS: MULTIVITAMINS/MINERALS THERAPEUTIC TAB PO SCH (07:25)
[2016-12-16] MEDS: DOCUSATE SODIUM 50 MG/SENNA 8.6 MG TAB PO SCH ×2 (07:25→19:53)
[2016-12-16] MEDS: THIAMINE HCL 100 MG TAB PO SCH (07:25)
[2016-12-16] MEDS: SODIUM CHLORIDE 0.9% FLUSH 10 ML FLUSH IV FLUSH SCH ×4 (07:25→19:40)
[2016-12-16] MEDS: FAMOTIDINE 20 MG TAB PO SCH ×2 (07:25→19:53)
[2016-12-16] MEDS: FOLIC ACID 1 MG TAB PO SCH (07:26)
[2016-12-16 07:27] LABS: AUTOMATED NEUTROPHIL # 6.1 TH/MM3 (1.8-7.7); BASOPHIL % 0.2 % (0.0-2.0); EOSINOPHIL # 0.1 TH/MM3 (0-0.4); EOSINOPHIL % 1.3 % (0.0-4.0); HEMATOCRIT 36.6 % (35.0-46.0); HEMO FLAGS DIFF FINAL; LYMPHOCYTE # 1.1 TH/MM3 (1.0-4.8); MEAN CELL VOLUME 88.3 FL (80.0-100.0); MEAN CORPUSCULAR HEMOGLOBIN 29.1 PG (27.0-34.0); MONO % 10.3 % (0.0-8.0); NEUT % 75.2 % (16.0-70.0); PLATELET COUNT 128 TH/MM3 (150-450); RED BLOOD COUNT 4.15 MIL/MM3 (4.00-5.30); RED CELL DISTRIBUTION WIDTH 15.7 % (11.6-17.2); WHITE BLOOD COUNT 8.1 TH/MM3 (4.0-11.0)
[2016-12-16 08:00] VITALS: BP 120/67; PULSE 80; RESP 18; TEMP 95.6; O2SAT 99
[2016-12-16 12:00] VITALS: BP 101/54; PULSE 78; RESP 17; TEMP 96; O2SAT 100
[2016-12-16] MEDS: IBUPROFEN 600 MG TAB PO PRN ×2 (12:10→19:53)
[2016-12-16 12:44] LABS: HEMOGLOBIN A1a 0.9 %; HEMOGLOBIN A1b 0.8 %; HEMOGLOBIN Ao 86.8 %; HEMOGLOBIN F 0.8 %; HEMOGLOBIN LA1C 1.8 %; HEMOGLOBIN P3 3.4 %
[2016-12-16] MEDS: SODIUM CHLOR 0.9% 1000 ML INJ 1,000 ML IV SCH ×3 (14:00→19:23)
[2016-12-16 16:00] VITALS: BP 97/56; PULSE 74; RESP 16; TEMP 96.2; O2SAT 99
--- NOTE | 2016-12-16 17:02 | PD.POD.CON ---
Patient Intake Chief Complaint Right lower extremity cellulitis and edema Consult Requested by Dr. Diaz Reason for Consult Evaluate and treat possible abscess of right foot Primary Care Physician No Primary Care Physician History of Present Illness Amputation is a 31-year-old female with history of hepatitis C and IV drug abuse with heroin and methamphetamine. Approximately 3 days ago she started having swelling and pain in the right lower extremity. Her right lower extremity has always been more swollen than the left but it became worse and she developed fever and chills. Radiographs show soft tissue swelling of the dorsal aspect of the right foot. Coded Allergies: codeine (Unverified Adverse Reaction, Mild, Nausea/Vomiting, 11/20/16) *MDRO Multi-Drug Resistant Organism (Unverified Adverse Reaction, Unknown , 06/13/16) MRSA (leg wound) - 04/2014 MRSA 08/2014. Preferred Language to Discuss: Welsh Barriers to Learning: None Teaching Method: Discussion Vital Signs Date Time Temp Pulse Resp B/P (MAP) Pulse Ox O2 Delivery O2 Flow Rate FiO2 12/16/16 16:00 96.2 74 16 97/56 (70) 99 12/16/16 12:00 96.0 78 17 101/54 (70) 100 12/16/16 08:00 95.6 80 18 120/67 (84) 99 12/16/16 03:25 96.0 69 19 95/53 (67) 95 12/16/16 00:00 96.9 65 20 94/52 (66) 99 12/15/16 20:00 97.1 80 20 100/51 (67) 96 12/15/16 18:43 97.8 92 17 106/64 (78) 99 Pain scale used: 0-10 numeric scale Pain score: 6 Medications Current Medications Sodium Chloride 1,000 ml @ 999 mls/hr BOLUS ONCE IV Last administered on 16:24; Start 12/15/16 at 15:45; Stop 12/15/16 at 16:45; Status DC Morphine Sulfate (Morphine Inj) 4 mg ONCE ONCE IV PUSH Last administered on 16:25; Start 12/15/16 at 15:45; Stop 12/15/16 at 15:49; Status DC Ondansetron HCl (Zofran Inj) 4 mg ONCE ONCE IV PUSH Last administered on 16:25; Start 12/15/16 at 15:45; Stop 12/15/16 at 15:49; Status DC Vancomycin HCl 1000 mg/Sodium Chloride 250 ml @ 250 mls/hr ONCE ONCE IV Last administered on 12/15/16 17:20; Start 12/15/16 at 15:45; Stop 12/15/16 at 16:44; Status DC Piperacillin Sod/ Tazobactam Sod 100 ml @ 200 mls/hr ONCE ONCE IV Last administered on 12/15/16 16:25; Start 12/15/16 at 15:45; Stop 12/15/16 at 16:14; Status DC Sodium Chloride 1,000 ml @ 100 mls/hr Q10H IV Last administered on 12/16/16 14:00; Start 12/15/16 at 18:00 Sodium Chloride (NS Flush) 2 ml UNSCH PRN IV FLUSH FLUSH AFTER USING IV ACCESS Last administered on 12/16/16 03:29; Start 12/15/16 at 17:30 Sodium Chloride (NS Flush) 2 ml BID IV FLUSH Last administered on 12/16/16 07: 25; Start 12/15/16 at 21:00 Acetaminophen (Tylenol) 650 mg Q4H PRN PO TEMP > 100.4; Start 12/15/16 at 17:30 Ondansetron HCl (Zofran Inj) 4 mg Q6H PRN IVP NAUSEA OR VOMITING; Start at 17:30 Prochlorperazine (Compazine Supp) 25 mg Q12H PRN RECTAL NAUSEA OR VOMITING; Start 12/15/16 at 17:30 Zolpidem Tartrate (Ambien) 5 mg HS PRN PO INSOMNIA; Start 12/15/16 at 17:30 Enoxaparin Sodium (Lovenox Inj) 40 mg Q24H SQ Last administered on 12/15/16 20: 51; Start 12/15/16 at 18:00 Acetaminophen (Tylenol) 650 mg Q6H PRN PO PAIN SCALE 1 TO 2; Start 12/15/16 at 17:30 Morphine Sulfate (Morphine Inj) 2 mg Q3H PRN IV Pain6-10; if unable to take PO Last administered on 12/16/16 12:11; Start 12/15/16 at 17:30 Tramadol HCl (Ultram) 50 mg Q4H PRN PO PAIN SCALE 3 TO 5 Last administered on 20:51; Start 12/15/16 at 17:30 Tramadol HCl (Ultram) 100 mg Q4H PRN PO PAIN SCALE 6 TO 10 Last administered on 12/16/16 15:42; Start 12/15/16 at 17:30 Naloxone HCl (Narcan Inj) 0.4 mg UNSCH PRN IV SEE LABEL COMMENTS; Start at 17:30 Senna/Docusate Sodium (Elisha-Colace) 1 tab BID PO Last administered on 07:25; Start 12/15/16 at 21:00 Magnesium Hydroxide (Milk Of Magnesia Liq) 30 ml Q12H PRN PO MILD - MODERATE CONSTIPATION; Start 12/15/16 at 17:30 Sennosides (Senokot) 17.2 mg Q12H PRN PO MODERATE - SEVERE CONSTIPATION; Start 12/15/16 at 17:30 Bisacodyl (Dulcolax Supp) 10 mg DAILY PRN RECTAL SEVERE CONSITIPATION; Start at 17:30 Lactulose (Lactulose Liq) 30 ml DAILY PRN PO SEVERE CONSITIPATION; Start at 17:30 Piperacillin Sod/ Tazobactam Sod 100 ml @ 200 mls/hr Q6H IV Last administered on 12/16/16 12:12; Start 12/16/16 at 00:00 Albuterol/ Ipratropium (Duoneb Neb) 1 ampule Q4HR NEB PRN NEB SHORTNESS OF BREATH; Start 12/15/16 at 17:30 Nicotine (Habitrol 14 Mg Patch.24 Hr) 1 patch ONCE ONCE T-DERMAL Last administered on 12/15/16 20:50; Start 12/15/16 at 17:30; Stop 12/15/16 at 17:31; Status DC Nicotine (Habitrol 14 Mg Patch.24 Hr) 1 patch DAILY T-DERMAL Last administered on 12/16/16 07:24; Start 12/16/16 at 09:00 Miscellaneous Information 1 DAILY T-DERMAL Last administered on 12/16/16 07:24 ; Start 12/16/16 at 09:00 Sodium Chloride (NS Flush) 2 ml UNSCH PRN IV FLUSH FLUSH AFTER USING IV ACCESS ; Start 12/15/16 at 17:45 Sodium Chloride (NS Flush) 2 ml BID IV FLUSH ; Start 12/15/16 at 21:00 Sodium Chloride 1,000 ml @ 100 mls/hr Q10H IV ; Start 12/15/16 at 18:00 Folic Acid (Folate) 1 mg DAILY PO Last administered on 12/16/16 07:26; Start 12/15/16 at 17:45; Stop 12/20/16 at 17:44 Thiamine HCl (Vitamin B1) 100 mg DAILY PO Last administered on 12/16/16 07:25 ; Start 12/15/16 at 17:45 Multivitamins/ Minerals Therapeutic (Theragran M Tab) 1 tab DAILY PO Last administered on 12/16/16 07:25; Start 12/15/16 at 17:45; Stop 12/20/16 at 17:44 Famotidine (Pepcid) 20 mg BID PO Last administered on 12/16/16 07:25; Start at 21:00 Clonidine (Catapres) 0.1 mg Q6H PRN PO SEE LABEL COMMENTS; Start 12/15/16 at 17: 45 Flumazenil (Romazicon Inj) 0.2 mg Q1M PRN IV PUSH SEE LABEL COMMENTS; Start 12/15/16 at 17:45 Lorazepam (Ativan) 1 mg Q4H PRN PO CIWA 8 - 10; Start 12/15/16 at 17:45 Lorazepam (Ativan Inj) 1 mg Q4H PRN IV PUSH CIWA 8 - 10; Start 12/15/16 at 17:45 Lorazepam (Ativan) 2 mg Q2H PRN PO CIWA 11-14; Start 12/15/16 at 17:45 Lorazepam (Ativan Inj) 2 mg Q2H PRN IV PUSH CIWA 11-14; Start 12/15/16 at 17:45 Lorazepam (Ativan Inj) 2 mg Q1H PRN IV PUSH CIWA 15-20; Start 12/15/16 at 17:45 Lorazepam (Ativan Inj) 2 mg Q15M PRN IV PUSH CIWA > 20; Start 12/15/16 at 17:45 Haloperidol Lactate (Haldol Inj) 2 mg Q15M PRN IM SEE LABEL COMMENTS; Start 12/15/16 at 17:45 Ibuprofen (Motrin) 600 mg ONCE ONCE PO Last administered on 12/16/16 03:52; Start 12/16/16 at 04:00; Stop 12/16/16 at 04:01; Status DC Ibuprofen (Motrin) 600 mg Q8H PRN PO fever>100, pain 1-10 Last administered on 12/16/16 12:10; Start 12/16/16 at 11:30 Past, Family & Social History Past Medical History PFS Reviewed: Yes Gastrointestinal: REPORTS HX OF: GERD, Liver disease Infectious Disease: REPORTS HX OF: Hepatitis Integumentary: REPORTS HX OF: Other integumentary hx (skin infections with MRSA ) Events: REPORTS HX OF: Other events (IV drug abuse) Past Surgical History Gynecologic: REPORTS HX OF: 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 Substance Use Substance Use: Amphetamines, Opiates, Injection drugs Review of Systems Constitutional: COMPLAINS OF: Pain Cardiovascular: COMPLAINS OF: Swelling legs / ankles (right lower extremity) Integumentary: COMPLAINS OF: Rash Hematologic/Lymphatic: COMPLAINS OF: Blood borne disease Exam-Podiatry Constitutional General appearance: comfortable Nutritional status: normal Orientation: alert and oriented x3 Dermatological Exam Skin Temp - Right: Within Normal Limits Skin Texture - Right: Within Normal Limits Skin Elasticity - Right: Within Normal Limits Skin Tugor - Right: Within Normal Limits Hair Growth - Right: Within Normal Limits Pigmentation - Right: Within Normal Limits Skin Temp - Left: Within Normal Limits Skin Texture - Left: Within Normal Limits Skin Elasticity - Left: Within Normal Limits Skin Tugor - Left: Within Normal Limits Hair Growth - Left: Within Normal Limits Pigmentation - Left: Within Normal Limits Ulcers: Location/Measurements Cellulitis and swelling of the right lower extremity and foot. No fluctuance seen on the dorsal aspect of the right foot with palpation Vascular/Lymphatic Exam R Dorsails Pedis: Palpable L Dorsails Pedis: Palpable R Posterior Tibial: Palpable L Posterior Tibial: Palpable Neurologic Exam Details Deferred exam Muscle Strength Dorsiflexion (Right): Normal Plantarflexion (Right): Normal Inversion (Right): Normal Eversion (Right): Normal Digital (Right): Normal Dorsiflexion (Left): Normal Plantarflexion (Left): Normal Inversion (Left): Normal Eversion (Left): Normal Digital (Left): Normal Foot Range of Motion Dorsiflexion (Right): Normal Plantarflexion (Right): Normal Inversion (Right): Normal Eversion (Right): Normal Digital (Right): Normal Dorsiflexion (Left): Normal Plantarflexion (Left): Normal Inversion (Left): Normal Eversion (Left): Normal Digital (Left): Normal Extremities Edema: Left lower extremity: none Right lower extremity: 3+, pitting, foot, ankle, leg Lab and Radiology Results Laboratory Laboratory Tests Test 12/15/16 16:05 12/16/16 06:56 White Blood Count 10.6 TH/MM3 8.1 TH/MM3 Red Blood Count 4.69 MIL/MM3 4.15 MIL/MM3 Hemoglobin 13.6 GM/DL 12.1 GM/DL Hematocrit 41.0 % 36.6 % Mean Corpuscular Volume 87.4 FL 88.3 FL Mean Corpuscular Hemoglobin 28.9 PG 29.1 PG Mean Corpuscular Hemoglobin Concent 33.1 % 33.0 % Red Cell Distribution Width 15.5 % 15.7 % Platelet Count 172 TH/MM3 128 TH/MM3 Mean Platelet Volume 7.4 FL 7.9 FL Neutrophils (%) (Auto) 83.5 % 75.2 % Lymphocytes (%) (Auto) 9.6 % 13.0 % Monocytes (%) (Auto) 6.5 % 10.3 % Eosinophils (%) (Auto) 0.2 % 1.3 % Basophils (%) (Auto) 0.2 % 0.2 % Neutrophils # (Auto) 8.8 TH/MM3 6.1 TH/MM3 Lymphocytes # (Auto) 1.0 TH/MM3 1.1 TH/MM3 Monocytes # (Auto) 0.7 TH/MM3 0.8 TH/MM3 Eosinophils # (Auto) 0.0 TH/MM3 0.1 TH/MM3 Basophils # (Auto) 0.0 TH/MM3 0.0 TH/MM3 CBC Comment DIFF FINAL DIFF FINAL Differential Comment Erythrocyte Sedimentation Rate 28 mm/hr Laboratory Tests Test 12/15/16 16:05 12/15/16 22:50 12/16/16 06:56 Blood Urea Nitrogen 19 MG/DL 17 MG/DL Creatinine 1.01 MG/DL 0.68 MG/DL Random Glucose 101 MG/DL 95 MG/DL Total Protein 8.4 GM/DL 6.3 GM/DL Albumin 3.4 GM/DL 2.6 GM/DL Calcium Level 8.8 MG/DL 7.5 MG/DL Alkaline Phosphatase 67 U/L 58 U/L Aspartate Amino Transf (AST/SGOT) 43 U/L 35 U/L Alanine Aminotransferase (ALT/SGPT) 47 U/L 37 U/L Total Bilirubin 0.4 MG/DL 0.3 MG/DL Sodium Level 134 MEQ/L 137 MEQ/L Potassium Level 3.6 MEQ/L 3.7 MEQ/L Chloride Level 101 MEQ/L 105 MEQ/L Carbon Dioxide Level 28.6 MEQ/L 24.6 MEQ/L Anion Gap 4 MEQ/L 7 MEQ/L Estimat Glomerular Filtration Rate 64 ML/MIN 100 ML/MIN Lactic Acid Level 1.1 mmol/L Magnesium Level 2.0 MG/DL 1.8 MG/DL Total Creatine Kinase 49 U/L 48 U/L C-Reactive Protein 17.80 MG/DL Phosphorus Level 2.8 MG/DL 2.8 MG/DL Hemoglobin A1c 5.0 % Free Thyroxine 1.11 NG/DL Thyroid Stimulating Hormone 3rd Gen 3.370 uIU/ML Microbiology Date/Time Source Procedure Growth Status 12/15/16 16:05 Blood Peripheral Aerobic Blood Culture - Preliminary NO GROWTH IN 1 DAY Resulted 12/15/16 16:05 Blood Peripheral Anaerobic Blood Culture - Preliminary NO GROWTH IN 1 DAY Resulted 12/15/16 15:55 Blood Peripheral Aerobic Blood Culture - Preliminary NO GROWTH IN 1 DAY Resulted 12/15/16 15:55 Blood Peripheral Anaerobic Blood Culture - Preliminary NO GROWTH IN 1 DAY Resulted Radiology Last Impressions Foot X-Ray 12/15/16 0000 Signed Impressions: Service Date/Time: Thursday, December 15, 2016 16:29 - CONCLUSION: Dorsal and lateral soft tissue swelling. Right foot series otherwise unremarkable. Kyle Vega MD Assessment/Plan Problem List: (1) Edema of right foot Status: Acute (2) Polysubstance abuse Status: Chronic (3) Cellulitis of right lower leg Status: Acute Additional Plans & Procedures PLAN: Ordered urgent MRI to her abscess. If she has an abscess I will take her to the OR tomorrow for an I&D. We'll start Rizvi- Tin dressings to reduce edema. Continue to follow Jimenez Ng DPM Dec 16, 2016 17:02
[2016-12-16] MEDS ORDERED: VANCOMYCIN INJ 1,000 MG in SODIUM CHLOR 0.9% 250 ML INJ 250 ML IV SCH (18:15)
[2016-12-16] MEDS ORDERED: Vancomycin Consult Pharmacy 1 EA OTHER SCH (18:15)
--- NOTE | 2016-12-16 18:15 | HHI.PR ---
Subjective Remarks Follow-up for right foot cellulitis. Patient seen and evaluated. Patient reported continuing pain managed with ibuprofen and morphine. Reported using ice on her foot for pain control. Patient reported having pain when she was walking from bed to bathroom and back ; patient noted she cannot fully weight-bear on the right foot. Patient denied fever, cough, shortness of breath, nausea, vomiting, diarrhea, chest, abdominal pain. No new issues noted or reported by patient. Per nursing (Dominique) patient had relief with ibuprofen. No new issues noted or reported overnight or since start of shift. Objective Vitals Vital Signs Date Time Temp Pulse Resp B/P (MAP) Pulse Ox O2 Delivery O2 Flow Rate FiO2 12/16/16 16:00 96.2 74 16 97/56 (70) 99 12/16/16 12:00 96.0 78 17 101/54 (70) 100 12/16/16 08:00 95.6 80 18 120/67 (84) 99 12/16/16 03:25 96.0 69 19 95/53 (67) 95 12/16/16 00:00 96.9 65 20 94/52 (66) 99 12/15/16 20:00 97.1 80 20 100/51 (67) 96 12/15/16 18:43 97.8 92 17 106/64 (78) 99 I/O 12/15/16 12/15/16 12/15/16 12/16/16 12/16/16 12/16/16 07:00 15:00 23:00 07:00 15:00 23:00 Intake Total 1340 ml 240 ml 100 ml Balance 1340 ml 240 ml 100 ml Intake Oral 240 ml 240 ml IV Total 1100 ml 100 ml # Voids 2 2 # Bowel Movements 0 0 Result Diagram: 12/16/16 0656 12/15/16 2250 Imaging Last Impressions Foot X-Ray 12/15/16 0000 Signed Impressions: Service Date/Time: Thursday, December 15, 2016 16:29 - CONCLUSION: Dorsal and lateral soft tissue swelling. Right foot series otherwise unremarkable. Kyle Vega MD Objective Remarks GENERAL: Patient encountered sitting up in bed eating lunch, significant other at bedside. NAD. SKIN: Warm and dry. Right foot swollen and warm to the touch. HEAD: Normocephalic. EYES: No scleral icterus. No injection or drainage. NECK: Supple, trachea midline. No lymphadenopathy. CARDIOVASCULAR: Regular rate and rhythm without murmurs, gallops, or rubs. RESPIRATORY: Breath sounds equal bilaterally. No wheezes rhonchi or crackles. No accessory muscle use. GASTROINTESTINAL: Abdomen soft, non-tender, nondistended. MUSCULOSKELETAL: No cyanosis. Creased movement of right foot. PSYCHIATRIC: Appropriate mood and affect; insight and judgment normal. Patient was pleasant and cooperative. Medications and IVs Current Medications Medications (Trade) Dose Ordered Sig/Kenny Route Start Time Stop Time Status Last Admin Sodium Chloride 1,000 ml @ 100 mls/hr Q10H IV 12/15/16 18:00 12/16/16 14:00 (NS Flush) 2 ml UNSCH PRN IV FLUSH 12/15/16 17:30 12/16/16 03:29 (NS Flush) 2 ml BID IV FLUSH 12/15/16 21:00 12/16/16 07:25 (Tylenol) 650 mg Q4H PRN PO 12/15/16 17:30 (Zofran Inj) 4 mg Q6H PRN IVP 12/15/16 17:30 (Compazine Supp) 25 mg Q12H PRN RECTAL 12/15/16 17:30 (Ambien) 5 mg HS PRN PO 12/15/16 17:30 (Lovenox Inj) 40 mg Q24H SQ 12/15/16 18:00 12/15/16 20:51 (Tylenol) 650 mg Q6H PRN PO 12/15/16 17:30 (Morphine Inj) 2 mg Q3H PRN IV 12/15/16 17:30 12/16/16 12:11 (Ultram) 50 mg Q4H PRN PO 12/15/16 17:30 12/15/16 20:51 (Ultram) 100 mg Q4H PRN PO 12/15/16 17:30 12/16/16 15:42 (Narcan Inj) 0.4 mg UNSCH PRN IV 12/15/16 17:30 (Elisha-Colace) 1 tab BID PO 12/15/16 21:00 12/16/16 07:25 (Milk Of Magnesia Liq) 30 ml Q12H PRN PO 12/15/16 17:30 (Senokot) 17.2 mg Q12H PRN PO 12/15/16 17:30 (Dulcolax Supp) 10 mg DAILY PRN RECTAL 12/15/16 17:30 (Lactulose Liq) 30 ml DAILY PRN PO 12/15/16 17:30 Piperacillin Sod/ Tazobactam Sod 100 ml @ 200 mls/hr Q6H IV 12/16/16 00:00 12/16/16 12:12 (Duoneb Neb) 1 ampule Q4HR NEB PRN NEB 12/15/16 17:30 (Habitrol 14 Mg Patch.24 Hr) 1 patch DAILY T-DERMAL 12/16/16 09:00 12/16/16 07:24 Miscellaneous Information 1 DAILY T-DERMAL 12/16/16 09:00 12/16/16 07:24 (NS Flush) 2 ml UNSCH PRN IV FLUSH 12/15/16 17:45 (NS Flush) 2 ml BID IV FLUSH 12/15/16 21:00 Sodium Chloride 1,000 ml @ 100 mls/hr Q10H IV 12/15/16 18:00 (Folate) 1 mg DAILY PO 12/15/16 17:45 12/20/16 17:44 12/16/16 07:26 (Vitamin B1) 100 mg DAILY PO 12/15/16 17:45 12/16/16 07:25 (Theragran M Tab) 1 tab DAILY PO 12/15/16 17:45 12/20/16 17:44 12/16/16 07:25 (Pepcid) 20 mg BID PO 12/15/16 21:00 12/16/16 07:25 (Catapres) 0.1 mg Q6H PRN PO 12/15/16 17:45 (Romazicon Inj) 0.2 mg Q1M PRN IV PUSH 12/15/16 17:45 (Ativan) 1 mg Q4H PRN PO 12/15/16 17:45 (Ativan Inj) 1 mg Q4H PRN IV PUSH 12/15/16 17:45 (Ativan) 2 mg Q2H PRN PO 12/15/16 17:45 (Ativan Inj) 2 mg Q2H PRN IV PUSH 12/15/16 17:45 (Ativan Inj) 2 mg Q1H PRN IV PUSH 12/15/16 17:45 (Ativan Inj) 2 mg Q15M PRN IV PUSH 12/15/16 17:45 (Haldol Inj) 2 mg Q15M PRN IM 12/15/16 17:45 (Motrin) 600 mg Q8H PRN PO 12/16/16 11:30 12/16/16 12:10 Urinary Catheter: No A/P Problem List: (1) Cellulitis of right lower leg ICD Code: L03.115 - Cellulitis of right lower limb Status: Acute (2) Puncture wound of right foot ICD Code: S91.331A - Puncture wound without foreign body, right foot, initial encounter Status: Acute Assessment and Plan Ms. Ogden is 31-year-old, with history of hepatitis C, IV drug use ( heroin), acid reflux, Blake's palsy (2010), MRSA (2015 of leg and a subsequent wound), nicotine addiction. Ms. Ogden reported sudden onset of right foot pain and swelling. She noted that while she has dogs and cats around her she "doesn't mess with them." She stated she does not recall any of the animals brushing against her foot to cause any type of skin injury. Since the onset of the swelling, she developed cold chills, nausea, and right leg pain extending to her hip. She stated taking ibuprofen has helped her discomfort. Regarding her IV drug use, she reported that she has not used in the past 3 weeks and denied injecting her foot. She stated her usual site was her left forearm. Cellulitis of the right lower leg: Podiatry consulted. MRI ordered. Pain being managed with ibuprofen and morphine. Zosyn and vancomycin continue. Ice pack ordered. History of IV drug abuse: Echocardiogram completed report pending. Cellulitis of the right lower leg Puncture wound of the right foot -Admit to inpatient service -Zosyn 4.5 mg IV every 6 hours Add vancomycin with pharmacy to dose We'll get an echocardiogram Nausea -Zofran 4 mg every 6 hours when necessary Phenergan as needed rectally Hepatitis C -AST elevated, otherwise LFTs within normal limits. -Patient requests ibuprofen instead of acetaminophen for pain and fever control. Nicotine addiction -Nicotine patch 14 mg daily. Diet -Healthy heart DVT prophylaxis -Lovenox 40 mg subcutaneous daily GI prophylaxis -Pepcid 20 mg twice a day Withdrawal protocol. We'll make Catapres available as well as Pepcid and multivitamin thiamine and folic acid Case discussed with patient, her significant other (at bedside), nursing, and Dr. Matute Problem Qualifiers (1) Puncture wound of right foot: Qualified Codes: S91.331A - Puncture wound without foreign body, right foot, initial encounter Alan Amos Jr. Dec 16, 2016 18:15
[2016-12-16] MEDS ORDERED: GADODIAMIDE PF 287 MG/ML 5 ML VIAL (for RAD MRI) IVCONTRAST ONE (19:04)
--- NOTE | 2016-12-16 19:22 | ECHRPT ---
Indication: sepsis endocarditis CONCLUSIONS Normal left ventricular size. Wall thickness is normal. The left ventricular systolic function is low normal with an estimated ejection fraction in the rang e of 50- 55%. Trace mitral valve regurgitation. The pulmonary valve is not well visualized. BP: / HR: Rhythm: Sinus MEASUREMENTS (Male / Female) Normal Values Technical Quality:Fair 2D ECHO LV Diastolic Diameter PLAX 4.2 cm 4.2 - 5.9 / 3.9 - 5.3 cm LV Systolic Diameter PLAX 2.8 cm IVS Diastolic Thickness 0.8 cm 0.6 - 1.0 / 0.6 - 0.9 cm LVPW Diastolic Thickness 0.6 cm 0.6 - 1.0 / 0.6 - 0.9 cm LV Relative Wall Thickness 0.3 RV Internal Dim ED PLAX 1.8 cm M-MODE Aortic Root Diameter MM 3.0 cm AV Cusp Separation MM 1.9 cm DOPPLER Mitral E Point Velocity 96.7 cm/s Mitral A Point Velocity 58.2 cm/s Mitral E to A Ratio 1.7 TR Peak Velocity 167.0 cm/s TR Peak Gradient 11.2 mmHg FINDINGS LEFT VENTRICLE Normal left ventricular size. Wall thickness is normal. The left ventricular systolic function is low normal with an estimated ejection fraction in the rang e of 50- 55%. RIGHT VENTRICLE Normal right ventricular size and systolic function. LEFT ATRIUM The left atrial size is normal. RIGHT ATRIUM The right atrial size is normal. ATRIAL SEPTUM Normal atrial septal thickness without atrial level shunting by limited color doppler interrogation. AORTA The aortic root and proximal ascending aorta are normal in size on limited imaging. MITRAL VALVE Trace mitral valve regurgitation. AORTIC VALVE Trileaflet aortic valve. No aortic valve stenosis or regurgitation. TRICUSPID VALVE Structurally normal tricuspid valve. No tricuspid valve stenosis or regurgitation. PULMONARY VALVE The pulmonary valve is not well visualized. VESSELS The inferior vena cava is normal in size. PERICARDIUM No pericardial effusion. Thiago Jose MD (Electronically Signed) Final Date:16 December 2016 19:21
--- NOTE | 2016-12-16 19:37 | RADRPT ---
EXAM DATE/TIME: 12/16/2016 18:29 [facility] COMPARISON: No previous studies available for comparison. INDICATIONS : Abscess. CONTRAST: 12 cc Omniscan (gadodiamide) IV MEDICAL HISTORY : Hepatitis C. IVDA SURGICAL HISTORY : None. ENCOUNTER: Initial ACUITY: 1 week PAIN SCORE: 5/10 LOCATION: Right foot TECHNIQUE: Multiplanar, multisequence MRI examination was performed without contrast and after the intravenous a dministration of gadolinium. FINDINGS: BONE/CARTILAGE: Bone marrow signal is homogeneous. Articular cartilage signal is within normal limits. TENDONS: All of the visualized tendons are intact. MISCELLANEOUS: Soft tissue swelling is seen along the dorsum of the ankle and foot. There is soft tissue fluid accum ulation identified superficial to the extensor tendons of the mid foot. The fluid tracks with the ten dons but does not encase the tendons. There is no evidence of localized mature fluid collection. Plantar aponeurosis is intact. Sinus tarsi is within normal limits. POST-CONTRAST: There are no abnormal areas of enhancement on the post-contrast images. CONCLUSION: 1. Extensive soft tissue swelling extending from the ankle into the dorsum of the foot characteristic of cellulitis 2. Fluid accumulation identified in the mid foot superficial to the extensor tendons. This may repres ent developing abscess. 3. No evidence of bone marrow edema or osteomyelitis. Lasha Sotomayor MD on December 16, 2016 at 19:24 Board Certified Radiologist. This report was verified electronically.
[2016-12-16] MEDS: ENOXAPARIN SODIUM 40 MG/0.4 ML SYRINGE SQ SCH (19:41)
[2016-12-16] MEDS: VANCOMYCIN INJ 700 MG in SODIUM CHLOR 0.9% 250 ML INJ 250 ML IV SCH (22:24)
[2016-12-17] VITALS: BP 100/50; PULSE 63; RESP 18; TEMP 96.9; O2SAT 100
[2016-12-17] MEDS: PIPERACIL-TAZO 4.5 GM PREMIX 100 ML IV SCH ×2 (00:31→05:43)
[2016-12-17] MEDS: traMADol HCL 50 MG TAB PO PRN ×5 (03:02→22:28)
[2016-12-17] MEDS: IBUPROFEN 600 MG TAB PO PRN ×3 (03:02→22:30)
[2016-12-17] MEDS: VANCOMYCIN INJ 700 MG in SODIUM CHLOR 0.9% 250 ML INJ 250 ML IV SCH ×3 (05:41→22:25)
[2016-12-17 06:17] VITALS: O2SAT 99
[2016-12-17 08:00] VITALS: BP 106/66; PULSE 74; RESP 16; TEMP 97.2; O2SAT 99
[2016-12-17] MEDS: NICOTINE 14 MG/24 HR PATCH T-DERMAL SCH (08:26)
[2016-12-17] MEDS: REMOVE OLD PATCH T-DERMAL SCH (08:26)
[2016-12-17] MEDS: FOLIC ACID 1 MG TAB PO SCH (08:27)
[2016-12-17] MEDS: FAMOTIDINE 20 MG TAB PO SCH ×2 (08:27→22:28)
[2016-12-17] MEDS: SODIUM CHLORIDE 0.9% FLUSH 10 ML FLUSH IV FLUSH SCH ×2 (08:27→21:00)
[2016-12-17] MEDS: MULTIVITAMINS/MINERALS THERAPEUTIC TAB PO SCH (08:27)
[2016-12-17] MEDS: SODIUM CHLOR 0.9% 1000 ML INJ 1,000 ML IV SCH ×5 (08:27→20:00)
[2016-12-17] MEDS: DOCUSATE SODIUM 50 MG/SENNA 8.6 MG TAB PO SCH ×2 (08:27→22:30)
[2016-12-17] MEDS: THIAMINE HCL 100 MG TAB PO SCH (08:27)
--- NOTE | 2016-12-17 09:28 | PD.POD ---
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 Social History Smoking Status: Current Every Day Smoker Review of Systems Notes Ascending cellulitis of the right lower extremity Integumentary: COMPLAINS OF: Rash Objective Vital Signs Vital Signs Date Time Temp Pulse Resp B/P (MAP) Pulse Ox O2 Delivery O2 Flow Rate FiO2 12/17/16 08:00 97.2 74 16 106/66 (79) 99 12/17/16 06:17 99 Nasal Cannula 2.00 12/17/16 00:00 96.9 63 18 100/50 (67) 100 12/16/16 16:00 96.2 74 16 97/56 (70) 99 12/16/16 12:00 96.0 78 17 101/54 (70) 100 Coded Allergies: codeine (Unverified Adverse Reaction, Mild, Nausea/Vomiting, 11/20/16) *MDRO Multi-Drug Resistant Organism (Unverified Adverse Reaction, Unknown , 06/13/16) MRSA (leg wound) - 04/2014 MRSA 08/2014. Medications and IVs Current Medications Sodium Chloride 1,000 ml @ 999 mls/hr BOLUS ONCE IV Last administered on 16:24; Start 12/15/16 at 15:45; Stop 12/15/16 at 16:45; Status DC Morphine Sulfate (Morphine Inj) 4 mg ONCE ONCE IV PUSH Last administered on 16:25; Start 12/15/16 at 15:45; Stop 12/15/16 at 15:49; Status DC Ondansetron HCl (Zofran Inj) 4 mg ONCE ONCE IV PUSH Last administered on 16:25; Start 12/15/16 at 15:45; Stop 12/15/16 at 15:49; Status DC Vancomycin HCl 1000 mg/Sodium Chloride 250 ml @ 250 mls/hr ONCE ONCE IV Last administered on 12/15/16 17:20; Start 12/15/16 at 15:45; Stop 12/15/16 at 16:44; Status DC Piperacillin Sod/ Tazobactam Sod 100 ml @ 200 mls/hr ONCE ONCE IV Last administered on 12/15/16 16:25; Start 12/15/16 at 15:45; Stop 12/15/16 at 16:14; Status DC Sodium Chloride 1,000 ml @ 100 mls/hr Q10H IV Last administered on 12/17/16 08:27; Start 12/15/16 at 18:00 Sodium Chloride (NS Flush) 2 ml UNSCH PRN IV FLUSH FLUSH AFTER USING IV ACCESS Last administered on 12/16/16 03:29; Start 12/15/16 at 17:30; Stop 12/16/16 at 20:22; Status DC Sodium Chloride (NS Flush) 2 ml BID IV FLUSH Last administered on 12/16/16 19: 40; Start 12/15/16 at 21:00; Stop 12/16/16 at 20:22; Status DC Acetaminophen (Tylenol) 650 mg Q4H PRN PO TEMP > 100.4; Start 12/15/16 at 17:30 Ondansetron HCl (Zofran Inj) 4 mg Q6H PRN IVP NAUSEA OR VOMITING; Start at 17:30 Prochlorperazine (Compazine Supp) 25 mg Q12H PRN RECTAL NAUSEA OR VOMITING; Start 12/15/16 at 17:30 Zolpidem Tartrate (Ambien) 5 mg HS PRN PO INSOMNIA; Start 12/15/16 at 17:30 Enoxaparin Sodium (Lovenox Inj) 40 mg Q24H SQ Last administered on 12/16/16 19 :41; Start 12/15/16 at 18:00 Acetaminophen (Tylenol) 650 mg Q6H PRN PO PAIN SCALE 1 TO 2; Start 12/15/16 at 17:30 Morphine Sulfate (Morphine Inj) 2 mg Q3H PRN IV Pain6-10; if unable to take PO Last administered on 12/16/16 12:11; Start 12/15/16 at 17:30 Tramadol HCl (Ultram) 50 mg Q4H PRN PO PAIN SCALE 3 TO 5 Last administered on 20:51; Start 12/15/16 at 17:30 Tramadol HCl (Ultram) 100 mg Q4H PRN PO PAIN SCALE 6 TO 10 Last administered on 12/17/16 08:26; Start 12/15/16 at 17:30 Naloxone HCl (Narcan Inj) 0.4 mg UNSCH PRN IV SEE LABEL COMMENTS; Start at 17:30 Senna/Docusate Sodium (Elisha-Colace) 1 tab BID PO Last administered on 08:27; Start 12/15/16 at 21:00 Magnesium Hydroxide (Milk Of Magnesia Liq) 30 ml Q12H PRN PO MILD - MODERATE CONSTIPATION; Start 12/15/16 at 17:30 Sennosides (Senokot) 17.2 mg Q12H PRN PO MODERATE - SEVERE CONSTIPATION; Start 12/15/16 at 17:30 Bisacodyl (Dulcolax Supp) 10 mg DAILY PRN RECTAL SEVERE CONSITIPATION; Start at 17:30 Lactulose (Lactulose Liq) 30 ml DAILY PRN PO SEVERE CONSITIPATION; Start at 17:30 Piperacillin Sod/ Tazobactam Sod 100 ml @ 200 mls/hr Q6H IV Last administered on 12/17/16 05:43; Start 12/16/16 at 00:00 Albuterol/ Ipratropium (Duoneb Neb) 1 ampule Q4HR NEB PRN NEB SHORTNESS OF BREATH; Start 12/15/16 at 17:30 Nicotine (Habitrol 14 Mg Patch.24 Hr) 1 patch ONCE ONCE T-DERMAL Last administered on 12/15/16 20:50; Start 12/15/16 at 17:30; Stop 12/15/16 at 17:31; Status DC Nicotine (Habitrol 14 Mg Patch.24 Hr) 1 patch DAILY T-DERMAL Last administered on 12/17/16 08:26; Start 12/16/16 at 09:00 Miscellaneous Information 1 DAILY T-DERMAL Last administered on 12/17/16 08:26 ; Start 12/16/16 at 09:00 Sodium Chloride (NS Flush) 2 ml UNSCH PRN IV FLUSH FLUSH AFTER USING IV ACCESS ; Start 12/15/16 at 17:45 Sodium Chloride (NS Flush) 2 ml BID IV FLUSH Last administered on 12/17/16 08: 27; Start 12/15/16 at 21:00 Sodium Chloride 1,000 ml @ 100 mls/hr Q10H IV ; Start 12/15/16 at 18:00 Folic Acid (Folate) 1 mg DAILY PO Last administered on 12/17/16 08:27; Start 12/15/16 at 17:45; Stop 12/20/16 at 17:44 Thiamine HCl (Vitamin B1) 100 mg DAILY PO Last administered on 12/17/16 08:27 ; Start 12/15/16 at 17:45 Multivitamins/ Minerals Therapeutic (Theragran M Tab) 1 tab DAILY PO Last administered on 12/17/16 08:27; Start 12/15/16 at 17:45; Stop 12/20/16 at 17:44 Famotidine (Pepcid) 20 mg BID PO Last administered on 12/17/16 08:27; Start at 21:00 Clonidine (Catapres) 0.1 mg Q6H PRN PO SEE LABEL COMMENTS; Start 12/15/16 at 17: 45 Flumazenil (Romazicon Inj) 0.2 mg Q1M PRN IV PUSH SEE LABEL COMMENTS; Start 12/15/16 at 17:45 Lorazepam (Ativan) 1 mg Q4H PRN PO CIWA 8 - 10; Start 12/15/16 at 17:45 Lorazepam (Ativan Inj) 1 mg Q4H PRN IV PUSH CIWA 8 - 10; Start 12/15/16 at 17:45 Lorazepam (Ativan) 2 mg Q2H PRN PO CIWA 11-14; Start 12/15/16 at 17:45 Lorazepam (Ativan Inj) 2 mg Q2H PRN IV PUSH CIWA 11-14; Start 12/15/16 at 17:45 Lorazepam (Ativan Inj) 2 mg Q1H PRN IV PUSH CIWA 15-20; Start 12/15/16 at 17:45 Lorazepam (Ativan Inj) 2 mg Q15M PRN IV PUSH CIWA > 20; Start 12/15/16 at 17:45 Haloperidol Lactate (Haldol Inj) 2 mg Q15M PRN IM SEE LABEL COMMENTS; Start 12/15/16 at 17:45 Ibuprofen (Motrin) 600 mg ONCE ONCE PO Last administered on 12/16/16 03:52; Start 12/16/16 at 04:00; Stop 12/16/16 at 04:01; Status DC Ibuprofen (Motrin) 600 mg Q8H PRN PO fever>100, pain 1-10 Last administered on 12/17/16 03:02; Start 12/16/16 at 11:30 Vancomycin HCl 1000 mg/Sodium Chloride 250 ml @ 250 mls/hr Q24H IV ; Start 01/22 at 18:15; Status UNV Pharmacy Profile Note 0 ml @ 0 mls/hr UNSCH OTHER ; Start 12/16/16 at 18:15 Gadodiamide (Omniscan Pf Inj) 12 ml STK-MED ONCE IVCONTRAST ; Start 12/16/16 at 19:04; Stop 12/16/16 at 19:05; Status DC Vancomycin HCl 700 mg/Sodium Chloride 257 ml @ 250 mls/hr Q8H IV Last administered on 12/17/16 05:41; Start 12/16/16 at 21:00 Miscellaneous Information SPECIFIC LAB TO BE DRAWN:VANCO TROUGH DATE TO BE DR... ONCE ONCE .XX ; Start 12/18/16 at 04:45; Stop 12/18/16 at 04:46 Other Results Laboratory Tests Test 12/15/16 16:05 12/16/16 06:56 White Blood Count 10.6 TH/MM3 8.1 TH/MM3 Red Blood Count 4.69 MIL/MM3 4.15 MIL/MM3 Hemoglobin 13.6 GM/DL 12.1 GM/DL Hematocrit 41.0 % 36.6 % Mean Corpuscular Volume 87.4 FL 88.3 FL Mean Corpuscular Hemoglobin 28.9 PG 29.1 PG Mean Corpuscular Hemoglobin Concent 33.1 % 33.0 % Red Cell Distribution Width 15.5 % 15.7 % Platelet Count 172 TH/MM3 128 TH/MM3 Mean Platelet Volume 7.4 FL 7.9 FL Neutrophils (%) (Auto) 83.5 % 75.2 % Lymphocytes (%) (Auto) 9.6 % 13.0 % Monocytes (%) (Auto) 6.5 % 10.3 % Eosinophils (%) (Auto) 0.2 % 1.3 % Basophils (%) (Auto) 0.2 % 0.2 % Neutrophils # (Auto) 8.8 TH/MM3 6.1 TH/MM3 Lymphocytes # (Auto) 1.0 TH/MM3 1.1 TH/MM3 Monocytes # (Auto) 0.7 TH/MM3 0.8 TH/MM3 Eosinophils # (Auto) 0.0 TH/MM3 0.1 TH/MM3 Basophils # (Auto) 0.0 TH/MM3 0.0 TH/MM3 CBC Comment DIFF FINAL DIFF FINAL Differential Comment Erythrocyte Sedimentation Rate 28 mm/hr Laboratory Tests Test 12/15/16 16:05 12/15/16 22:50 12/16/16 06:56 Blood Urea Nitrogen 19 MG/DL 17 MG/DL Creatinine 1.01 MG/DL 0.68 MG/DL Random Glucose 101 MG/DL 95 MG/DL Total Protein 8.4 GM/DL 6.3 GM/DL Albumin 3.4 GM/DL 2.6 GM/DL Calcium Level 8.8 MG/DL 7.5 MG/DL Alkaline Phosphatase 67 U/L 58 U/L Aspartate Amino Transf (AST/SGOT) 43 U/L 35 U/L Alanine Aminotransferase (ALT/SGPT) 47 U/L 37 U/L Total Bilirubin 0.4 MG/DL 0.3 MG/DL Sodium Level 134 MEQ/L 137 MEQ/L Potassium Level 3.6 MEQ/L 3.7 MEQ/L Chloride Level 101 MEQ/L 105 MEQ/L Carbon Dioxide Level 28.6 MEQ/L 24.6 MEQ/L Anion Gap 4 MEQ/L 7 MEQ/L Estimat Glomerular Filtration Rate 64 ML/MIN 100 ML/MIN Lactic Acid Level 1.1 mmol/L Magnesium Level 2.0 MG/DL 1.8 MG/DL Total Creatine Kinase 49 U/L 48 U/L C-Reactive Protein 17.80 MG/DL Phosphorus Level 2.8 MG/DL 2.8 MG/DL Hemoglobin A1c 5.0 % Free Thyroxine 1.11 NG/DL Thyroid Stimulating Hormone 3rd Gen 3.370 uIU/ML Microbiology Date/Time Source Procedure Growth Status 12/16/16 23:00 Blood Peripheral Aerobic Blood Culture Pending Received 12/16/16 23:00 Blood Peripheral Anaerobic Blood Culture Pending Received 12/15/16 16:05 Blood Peripheral Aerobic Blood Culture - Preliminary NO GROWTH IN 1 DAY Resulted 12/15/16 16:05 Blood Peripheral Anaerobic Blood Culture - Preliminary NO GROWTH IN 1 DAY Resulted 12/15/16 15:55 Blood Peripheral Aerobic Blood Culture - Preliminary NO GROWTH IN 1 DAY Resulted 12/15/16 15:55 Blood Peripheral Anaerobic Blood Culture - Preliminary NO GROWTH IN 1 DAY Resulted Objective Remarks Last Impressions Foot MRI 12/16/16 0000 Signed Impressions: Service Date/Time: Friday, December 16, 2016 18:29 - CONCLUSION: 1. Extensive soft tissue swelling extending from the ankle into the dorsum of the foot characteristic of cellulitis 2. Fluid accumulation identified in the mid foot superficial to the extensor tendons. This may represent developing abscess. 3. No evidence of bone marrow edema or osteomyelitis. Lasha Sotomayor MD Foot X-Ray 12/15/16 0000 Signed Impressions: Service Date/Time: Thursday, December 15, 2016 16:29 - CONCLUSION: Dorsal and lateral soft tissue swelling. Right foot series otherwise unremarkable. Kyle Vega MD Exam-Podiatry Constitutional General appearance: uncomfortable Nutritional status: normal Orientation: alert and oriented x3 Dermatological Exam Skin Temp - Right: Hot Skin Texture - Right: Thin Skin Elasticity - Right: Decreased Skin Tugor - Right: Decreased Hair Growth - Right: Within Normal Limits Pigmentation - Right: No Changes Skin Temp - Left: Within Normal Limits Skin Texture - Left: Within Normal Limits Skin Tugor - Left: Within Normal Limits Hair Growth - Left: Within Normal Limits Pigmentation - Left: Within Normal Limits Present on right: Cellulitis Vascular/Lymphatic Exam R Dorsails Pedis: Palpable L Dorsails Pedis: Palpable R Posterior Tibial: Palpable L Posterior Tibial: Palpable Neurologic Exam Details No neurological deficits seen Muscle Strength Dorsiflexion (Right): Normal Plantarflexion (Right): Normal Inversion (Right): Normal Eversion (Right): Normal Digital (Right): Normal Dorsiflexion (Left): Normal Plantarflexion (Left): Normal Inversion (Left): Normal Eversion (Left): Normal Digital (Left): Normal Foot Range of Motion Dorsiflexion (Right): Normal Plantarflexion (Right): Normal Inversion (Right): Normal Eversion (Right): Normal Digital (Right): Normal Dorsiflexion (Left): Normal Plantarflexion (Left): Normal Inversion (Left): Normal Eversion (Left): Normal Digital (Left): Normal Extremities Edema: Right lower extremity: 3+, pitting, foot, ankle, leg Assessment & Plan Diagnosis: (1) Cellulitis of right lower leg ICD Codes: L03.115 - Cellulitis of right lower limb Status: Acute (2) Edema of right foot ICD Codes: R60.0 - Localized edema Status: Acute A/P PLAN: Discussed with patient that she may need an incision and drainage for abscess. Patient refuses at this time. Await infectious disease consultation. Continue to follow. Jimenez Ng DPM Dec 17, 2016 09:28
[2016-12-17] MEDS: MORPHINE SULFATE 4 MG/ML INJ IV PRN ×2 (10:14→15:16)
--- NOTE | 2016-12-17 11:02 | PD.CONS ---
History of Present Illness Service Infectious disease Consult Requested By Dr Matute Reason for Consult Evaluate patient with cellulitis of the right lower extremity Primary Care Physician No Primary Care Physician Diagnoses: History of Present Illness Patient seen and examined. Records reviewed. Patient is a 31-year-old female, presented to the hospital complaining of increasing pain and swelling and redness on her right lower extremity. It initially started on her right foot, and it progressively worsened and gotten up to her right leg. It was getting red and more swollen, and she was experiencing a lot of pain. There was no fever or chills. She denies any respiratory complaint. No nausea or vomiting, diarrhea or any urinary complaint. Patient has known IV drug use, but she denies injecting drugs in her lower extremity. She apparently has had some problem with picking on her lower extremity resulting in multiple wounds in both feet. This was related to her previous IV drugs, but she denies using drugs in the last 3 weeks. The wounds are all dry, but taking a while to heal up. Since admission, she has not been febrile. She was started on Zosyn, and there was progression of her cellulitis. She is complaining of pain and redness going up her right thigh, as well as discomfort on her right groin. IV vancomycin was added yesterday. Podiatry also evaluated the patient. An MRI of the foot was ordered, but there was no obvious fluid collection seen. There is some suggestion that they may be something that is just starting. Infectious disease consultation has been requested to evaluate the patient. Review of Systems Constitutional: DENIES: Fever, Chills Eyes: DENIES: Eye pain Ears, nose, mouth, throat: DENIES: Nasal discharge, Oral lesions, Throat pain, Sinus Pain Respiratory: DENIES: Cough, Shortness of breath Cardiovascular: DENIES: Chest pain, Palpitations Gastrointestinal: DENIES: Abdominal pain, Diarrhea, Nausea, Vomiting, Difficulty Swallowing Genitourinary: DENIES: Urinary frequency, Dysuria Musculoskeletal: COMPLAINS OF: Joint pain, Joint Swelling, DENIES: Back pain, Neck pain Integumentary: DENIES: Rash Neurologic: DENIES: Headache Psychiatric: DENIES: Hallucinations Past Family Social History Allergies: Coded Allergies: codeine (Unverified Adverse Reaction, Mild, Nausea/Vomiting, 11/20/16) *MDRO Multi-Drug Resistant Organism (Unverified Adverse Reaction, Unknown , 06/13/16) MRSA (leg wound) - 04/2014 MRSA 08/2014. 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 Past Surgical History Dilation and curettage 3. Active Ordered Medications Tylenol Albuterol Dulcolax Clonidine Lovenox Pepcid Romazicon Folic acid Haldol Motrin Lactulose Ativan MOM Morphine MVI Nicotine patch Zofran Zosyn Vancomycin Compazine Pericolace Senokot Thiamine Ultram Ambien Family History Paternal great grandmother and grandmothers both had breast cancer. Paternal side of the family positive for diabetes. Social History Patient has history of IV drug use-heroin. No use for the past 3 weeks. Patient reported smoking cigarettes since the age of 10; at least half pack a day. Denies ETOH abuse Physical Exam Vital Signs Vital Signs Date Time Temp Pulse Resp B/P (MAP) Pulse Ox O2 Delivery O2 Flow Rate FiO2 12/17/16 08:00 97.2 74 16 106/66 (79) 99 12/17/16 06:17 99 Nasal Cannula 2.00 12/17/16 00:00 96.9 63 18 100/50 (67) 100 12/16/16 16:00 96.2 74 16 97/56 (70) 99 12/16/16 12:00 96.0 78 17 101/54 (70) 100 Physical Exam GENERAL: Patient is a thin, well-developed patient, awake and alert, not in respiratory distress. SKIN: Warm and dry. Has scattered tattoos. Has linear scars in her L forearm. Has dry healing wounds both feet. NO embolic lesions noted HEAD: Atraumatic. Normocephalic. No temporal wasting, or tenderness. EYES: [place] conjunctiva. No petechia or hemorrhage. Pupils equal, round and reactive to light. Extraocular movements full and intact. No scleral icterus. No injection or drainage. EARS, NOSE AND THROAT: Nose without bleeding or purulent nasal discharge. No sinus tenderness. Mucous membranes pink and moist. No oral lesions noted. No exudate. No oral thrush.Wears upper dentures NECK: Trachea midline. Supple and not tender, no meningeal signs. Has some small lymphadenopathy CARDIOVASCULAR: Regular rate and rhythm. No murmurs, rubs or gallops heard RESPIRATORY: Clear to auscultation. Breath sounds equal bilaterally. No rales , wheezing or rhonchi ABDOMEN: Soft, non-tender, nondistended. Bowel sounds present and normoactive. No guarding. No rebound. No organomegaly. EXTREMITIES: No clubbing, cyanosis, or edema in her LLE. RLE is larger compared to her LLE. The L foot is swollen and has erythema from distal half of the her R leg down to her R foot, there is an area of [id number] skin in middle portion of her RLE. There is swelling at ankle joint but has good ROM, Her R 3rd toe is pink and swollen. There is lymphangitis going up her thigh and some tender R groin LN. No calf tenderness. Well perfused and warm. NEUROLOGICAL: Awake and alert. Cranial nerves grossly intact. Motor grossly within normal limits. PSYCHIATRIC: Normal affect, calm and cooperative. LINE: No evidence of infection Laboratory Date/Time Source Procedure Growth Status 12/16/16 23:00 Blood Peripheral Aerobic Blood Culture Pending Received 12/16/16 23:00 Blood Peripheral Anaerobic Blood Culture Pending Received Result Diagram: 12/16/16 0656 12/15/16 2250 Imaging RADIOLOGY STUDIES/FILMS REVIEWED Foot MRI 12/16/16 0000 Signed Impressions: Service Date/Time: Friday, December 16, 2016 18:29 - CONCLUSION: 1. Extensive soft tissue swelling extending from the ankle into the dorsum of the foot characteristic of cellulitis 2. Fluid accumulation identified in the mid foot superficial to the extensor tendons. This may represent developing abscess. 3. No evidence of bone marrow edema or osteomyelitis. Lasha Sotomayor MD Foot X-Ray 12/15/16 0000 Signed Impressions: Service Date/Time: Thursday, December 15, 2016 16:29 - CONCLUSION: Dorsal and lateral soft tissue swelling. Right foot series otherwise unremarkable. Kyle Vega MD Assessment and Plan Assessment and Plan IMPRESSION Cellulitis RLE with lymphangitis, likely due to GPC, has [id number] skin typical of Strep - ?beginning abscess of her R foot - clinically no evidence of septic ankle Known IVDU, denies injecting in her R foot RECOMMENDATION Follow C/S Continue Vanco - pharm doing dosing Change Zosyn to Levaquin Monitor R foot for development of any fluid collection Elevate RLE Monitor progress I will determine course of Rx depending on her clinical progress I will follow along with you Thank you for this consultation Discussed Condition With Explained plan to the patient D/W Vianey Arceo MD Dec 17, 2016 11:02
[2016-12-17 11:34] LABS: AUTOMATED NEUTROPHIL # 3.6 TH/MM3 (1.8-7.7); BASOPHIL % 0.6 % (0.0-2.0); EOSINOPHIL # 0.2 TH/MM3 (0-0.4); HEMATOCRIT 37.5 % (35.0-46.0); HEMO FLAGS DIFF FINAL; LYMPH % 19.1 % (9.0-44.0); LYMPHOCYTE # 1.1 TH/MM3 (1.0-4.8); MEAN CELL VOLUME 87.4 FL (80.0-100.0); MEAN CORPUSCULAR HEMOGLOBIN 28.7 PG (27.0-34.0); MEAN CORPUSCULAR HGB CONC 32.9 % (32.0-36.0); MONO % 11.5 % (0.0-8.0); NEUT % 65.8 % (16.0-70.0); PLATELET COUNT 176 TH/MM3 (150-450); RED CELL DISTRIBUTION WIDTH 15.5 % (11.6-17.2); WHITE BLOOD COUNT 5.6 TH/MM3 (4.0-11.0)
[2016-12-17 12:00] VITALS: BP 102/57; PULSE 70; RESP 16; TEMP 97.9; O2SAT 100
[2016-12-17 12:05] LABS: BICARBONATE 27.2 MEQ/L (21.0-32.0); POTASSIUM 4.1 MEQ/L (3.5-5.1)
[2016-12-17] MEDS: LEVOFLOXACIN 750 MG TAB PO SCH (12:27)
[2016-12-17 16:00] VITALS: BP 107/66; PULSE 63; RESP 17; TEMP 96.9; O2SAT 100
[2016-12-17] MEDS: ENOXAPARIN SODIUM 40 MG/0.4 ML SYRINGE SQ SCH (16:57)
[2016-12-17 20:44] VITALS: BP 119/72; PULSE 74; RESP 18; TEMP 97.6; O2SAT 99
[2016-12-18] VITALS (7 sets, daily range): BP systolic 97–126; BP diastolic 55–78; PULSE 72–80; RESP 16–20; TEMP 96.7–98.5; O2SAT 95–100
[2016-12-18] MEDS: MORPHINE SULFATE 4 MG/ML INJ IV PRN (00:23)
[2016-12-18] MEDS: traMADol HCL 50 MG TAB PO PRN ×4 (02:42→16:49)
[2016-12-18] MEDS ORDERED: diphenhydrAMINE HCL 50 MG CAP PO ONE (02:45)
[2016-12-18] MEDS: SODIUM CHLOR 0.9% 1000 ML INJ 1,000 ML IV SCH ×5 (04:44→23:16)
[2016-12-18] MEDS: VANCOMYCIN INJ 700 MG in SODIUM CHLOR 0.9% 250 ML INJ 250 ML IV SCH ×2 (04:44→12:57)
[2016-12-18] MEDS ORDERED: PHARMACY ORDERED LAB ONE (04:45)
[2016-12-18] MEDS: DOCUSATE SODIUM 50 MG/SENNA 8.6 MG TAB PO SCH (08:26)
[2016-12-18] MEDS: IBUPROFEN 600 MG TAB PO PRN (08:26)
[2016-12-18] MEDS: MULTIVITAMINS/MINERALS THERAPEUTIC TAB PO SCH (08:26)
[2016-12-18] MEDS: THIAMINE HCL 100 MG TAB PO SCH (08:26)
[2016-12-18] MEDS: FAMOTIDINE 20 MG TAB PO SCH ×2 (08:26→20:39)
[2016-12-18] MEDS: FOLIC ACID 1 MG TAB PO SCH (08:26)
[2016-12-18] MEDS: NICOTINE 14 MG/24 HR PATCH T-DERMAL SCH (08:29)
[2016-12-18] MEDS: REMOVE OLD PATCH T-DERMAL SCH (08:29)
--- NOTE | 2016-12-18 08:36 | PD.POD ---
Subjective Podiatric Problems Edema and cellulitis of right lower extremity Pain scale used: 0-10 numeric scale Pain score: 3 Remarks 31-year-old female with history of IV drug abuse presented with swelling and edema and cellulitis of the right lower extremity. MRI of the right foot showed fluid with possible early abscess. Patient now has a blister on the right lateral leg. Patient was seen by infectious disease who added vancomycin. Patient states she is feeling a little better today. 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 Social History Smoking Status: Current Every Day Smoker Review of Systems Notes No changes in her 14 point review of systems exam from yesterday Objective Vital Signs Vital Signs Date Time Temp Pulse Resp B/P (MAP) Pulse Ox O2 Delivery O2 Flow Rate FiO2 12/18/16 08:00 97.4 72 16 107/60 (76) 99 12/18/16 00:52 97.8 72 18 126/78 (94) 100 12/17/16 20:44 97.6 74 18 119/72 (88) 99 12/17/16 16:00 96.9 63 17 107/66 (80) 100 12/17/16 12:00 97.9 70 16 102/57 (72) 100 12/17/16 09:20 Nasal Cannula 2.00 Coded Allergies: codeine (Unverified Adverse Reaction, Mild, Nausea/Vomiting, 11/20/16) *MDRO Multi-Drug Resistant Organism (Unverified Adverse Reaction, Unknown , 06/13/16) MRSA (leg wound) - 04/2014 MRSA 08/2014. Medications and IVs Current Medications Sodium Chloride 1,000 ml @ 999 mls/hr BOLUS ONCE IV Last administered on 16:24; Start 12/15/16 at 15:45; Stop 12/15/16 at 16:45; Status DC Morphine Sulfate (Morphine Inj) 4 mg ONCE ONCE IV PUSH Last administered on 16:25; Start 12/15/16 at 15:45; Stop 12/15/16 at 15:49; Status DC Ondansetron HCl (Zofran Inj) 4 mg ONCE ONCE IV PUSH Last administered on 16:25; Start 12/15/16 at 15:45; Stop 12/15/16 at 15:49; Status DC Vancomycin HCl 1000 mg/Sodium Chloride 250 ml @ 250 mls/hr ONCE ONCE IV Last administered on 12/15/16 17:20; Start 12/15/16 at 15:45; Stop 12/15/16 at 16:44; Status DC Piperacillin Sod/ Tazobactam Sod 100 ml @ 200 mls/hr ONCE ONCE IV Last administered on 12/15/16 16:25; Start 12/15/16 at 15:45; Stop 12/15/16 at 16:14; Status DC Sodium Chloride 1,000 ml @ 100 mls/hr Q10H IV Last administered on 12/17/16 08:27; Start 12/15/16 at 18:00 Sodium Chloride (NS Flush) 2 ml UNSCH PRN IV FLUSH FLUSH AFTER USING IV ACCESS Last administered on 12/16/16 03:29; Start 12/15/16 at 17:30; Stop 12/16/16 at 20:22; Status DC Sodium Chloride (NS Flush) 2 ml BID IV FLUSH Last administered on 12/16/16 19: 40; Start 12/15/16 at 21:00; Stop 12/16/16 at 20:22; Status DC Acetaminophen (Tylenol) 650 mg Q4H PRN PO TEMP > 100.4; Start 12/15/16 at 17:30 Ondansetron HCl (Zofran Inj) 4 mg Q6H PRN IVP NAUSEA OR VOMITING; Start at 17:30 Prochlorperazine (Compazine Supp) 25 mg Q12H PRN RECTAL NAUSEA OR VOMITING; Start 12/15/16 at 17:30 Zolpidem Tartrate (Ambien) 5 mg HS PRN PO INSOMNIA; Start 12/15/16 at 17:30 Enoxaparin Sodium (Lovenox Inj) 40 mg Q24H SQ Last administered on 12/17/16 16 :57; Start 12/15/16 at 18:00 Acetaminophen (Tylenol) 650 mg Q6H PRN PO PAIN SCALE 1 TO 2; Start 12/15/16 at 17:30 Morphine Sulfate (Morphine Inj) 2 mg Q3H PRN IV Pain6-10; if unable to take PO Last administered on 12/18/16 00:23; Start 12/15/16 at 17:30 Tramadol HCl (Ultram) 50 mg Q4H PRN PO PAIN SCALE 3 TO 5 Last administered on 20:51; Start 12/15/16 at 17:30 Tramadol HCl (Ultram) 100 mg Q4H PRN PO PAIN SCALE 6 TO 10 Last administered on 12/18/16 02:42; Start 12/15/16 at 17:30 Naloxone HCl (Narcan Inj) 0.4 mg UNSCH PRN IV SEE LABEL COMMENTS; Start at 17:30 Senna/Docusate Sodium (Elisha-Colace) 1 tab BID PO Last administered on 22:30; Start 12/15/16 at 21:00 Magnesium Hydroxide (Milk Of Magnesia Liq) 30 ml Q12H PRN PO MILD - MODERATE CONSTIPATION; Start 12/15/16 at 17:30 Sennosides (Senokot) 17.2 mg Q12H PRN PO MODERATE - SEVERE CONSTIPATION; Start 12/15/16 at 17:30 Bisacodyl (Dulcolax Supp) 10 mg DAILY PRN RECTAL SEVERE CONSITIPATION; Start at 17:30 Lactulose (Lactulose Liq) 30 ml DAILY PRN PO SEVERE CONSITIPATION; Start at 17:30 Piperacillin Sod/ Tazobactam Sod 100 ml @ 200 mls/hr Q6H IV Last administered on 12/17/16 05:43; Start 12/16/16 at 00:00; Stop 12/17/16 at 10:45; Status DC Albuterol/ Ipratropium (Duoneb Neb) 1 ampule Q4HR NEB PRN NEB SHORTNESS OF BREATH; Start 12/15/16 at 17:30 Nicotine (Habitrol 14 Mg Patch.24 Hr) 1 patch ONCE ONCE T-DERMAL Last administered on 12/15/16 20:50; Start 12/15/16 at 17:30; Stop 12/15/16 at 17:31; Status DC Nicotine (Habitrol 14 Mg Patch.24 Hr) 1 patch DAILY T-DERMAL Last administered on 12/17/16 08:26; Start 12/16/16 at 09:00 Miscellaneous Information 1 DAILY T-DERMAL Last administered on 12/17/16 08:26 ; Start 12/16/16 at 09:00 Sodium Chloride (NS Flush) 2 ml UNSCH PRN IV FLUSH FLUSH AFTER USING IV ACCESS ; Start 12/15/16 at 17:45 Sodium Chloride (NS Flush) 2 ml BID IV FLUSH Last administered on 12/17/16 08: 27; Start 12/15/16 at 21:00 Sodium Chloride 1,000 ml @ 100 mls/hr Q10H IV ; Start 12/15/16 at 18:00 Folic Acid (Folate) 1 mg DAILY PO Last administered on 12/17/16 08:27; Start 12/15/16 at 17:45; Stop 12/20/16 at 17:44 Thiamine HCl (Vitamin B1) 100 mg DAILY PO Last administered on 12/17/16 08:27 ; Start 12/15/16 at 17:45 Multivitamins/ Minerals Therapeutic (Theragran M Tab) 1 tab DAILY PO Last administered on 12/17/16 08:27; Start 12/15/16 at 17:45; Stop 12/20/16 at 17:44 Famotidine (Pepcid) 20 mg BID PO Last administered on 12/17/16 22:28; Start at 21:00 Clonidine (Catapres) 0.1 mg Q6H PRN PO SEE LABEL COMMENTS; Start 12/15/16 at 17: 45 Flumazenil (Romazicon Inj) 0.2 mg Q1M PRN IV PUSH SEE LABEL COMMENTS; Start 12/15/16 at 17:45 Lorazepam (Ativan) 1 mg Q4H PRN PO CIWA 8 - 10; Start 12/15/16 at 17:45 Lorazepam (Ativan Inj) 1 mg Q4H PRN IV PUSH CIWA 8 - 10; Start 12/15/16 at 17:45 Lorazepam (Ativan) 2 mg Q2H PRN PO CIWA 11-14; Start 12/15/16 at 17:45 Lorazepam (Ativan Inj) 2 mg Q2H PRN IV PUSH CIWA 11-14; Start 12/15/16 at 17:45 Lorazepam (Ativan Inj) 2 mg Q1H PRN IV PUSH CIWA 15-20; Start 12/15/16 at 17:45 Lorazepam (Ativan Inj) 2 mg Q15M PRN IV PUSH CIWA > 20; Start 12/15/16 at 17:45 Haloperidol Lactate (Haldol Inj) 2 mg Q15M PRN IM SEE LABEL COMMENTS; Start 12/15/16 at 17:45 Ibuprofen (Motrin) 600 mg ONCE ONCE PO Last administered on 12/16/16 03:52; Start 12/16/16 at 04:00; Stop 12/16/16 at 04:01; Status DC Ibuprofen (Motrin) 600 mg Q8H PRN PO fever>100, pain 1-10 Last administered on 12/17/16 22:30; Start 12/16/16 at 11:30 Vancomycin HCl 1000 mg/Sodium Chloride 250 ml @ 250 mls/hr Q24H IV ; Start 01/22 at 18:15; Status UNV Pharmacy Profile Note 0 ml @ 0 mls/hr UNSCH OTHER ; Start 12/16/16 at 18:15 Gadodiamide (Omniscan Pf Inj) 12 ml STK-MED ONCE IVCONTRAST ; Start 12/16/16 at 19:04; Stop 12/16/16 at 19:05; Status DC Vancomycin HCl 700 mg/Sodium Chloride 257 ml @ 250 mls/hr Q8H IV Last administered on 12/17/16 22:25; Start 12/16/16 at 21:00 Miscellaneous Information SPECIFIC LAB TO BE DRAWN:VANCO TROUGH DATE TO BE DR... ONCE ONCE .XX ; Start 12/18/16 at 04:45; Stop 12/18/16 at 04:46; Status DC Levofloxacin (Levaquin) 750 mg Q24H PO Last administered on 12/17/16 12:27; Start 12/17/16 at 12:00 Diphenhydramine HCl (Benadryl) 50 mg ONCE ONCE PO Last administered on 02:39; Start 12/18/16 at 02:45; Stop 12/18/16 at 02:46; Status DC Other Results Laboratory Tests Test 12/17/16 11:02 White Blood Count 5.6 TH/MM3 Red Blood Count 4.30 MIL/MM3 Hemoglobin 12.3 GM/DL Hematocrit 37.5 % Mean Corpuscular Volume 87.4 FL Mean Corpuscular Hemoglobin 28.7 PG Mean Corpuscular Hemoglobin Concent 32.9 % Red Cell Distribution Width 15.5 % Platelet Count 176 TH/MM3 Mean Platelet Volume 8.1 FL Neutrophils (%) (Auto) 65.8 % Lymphocytes (%) (Auto) 19.1 % Monocytes (%) (Auto) 11.5 % Eosinophils (%) (Auto) 3.0 % Basophils (%) (Auto) 0.6 % Neutrophils # (Auto) 3.6 TH/MM3 Lymphocytes # (Auto) 1.1 TH/MM3 Monocytes # (Auto) 0.6 TH/MM3 Eosinophils # (Auto) 0.2 TH/MM3 Basophils # (Auto) 0.0 TH/MM3 CBC Comment DIFF FINAL Differential Comment Laboratory Tests Test 12/17/16 11:02 Blood Urea Nitrogen 11 MG/DL Creatinine 0.58 MG/DL Random Glucose 63 MG/DL Calcium Level 8.8 MG/DL Sodium Level 135 MEQ/L Potassium Level 4.1 MEQ/L Chloride Level 104 MEQ/L Carbon Dioxide Level 27.2 MEQ/L Anion Gap 4 MEQ/L Estimat Glomerular Filtration Rate 120 ML/MIN Microbiology Date/Time Source Procedure Growth Status 12/17/16 11:02 Blood Peripheral Aerobic Blood Culture Pending Received 12/17/16 11:02 Blood Peripheral Anaerobic Blood Culture Pending Received 12/16/16 23:00 Blood Peripheral Aerobic Blood Culture - Preliminary NO GROWTH IN 1 DAY Resulted 12/16/16 23:00 Blood Peripheral Anaerobic Blood Culture - Preliminary NO GROWTH IN 1 DAY Resulted 12/15/16 16:05 Blood Peripheral Aerobic Blood Culture - Preliminary NO GROWTH IN 2 DAYS Resulted 12/15/16 16:05 Blood Peripheral Anaerobic Blood Culture - Preliminary NO GROWTH IN 2 DAYS Resulted 12/15/16 15:55 Blood Peripheral Aerobic Blood Culture - Preliminary NO GROWTH IN 2 DAYS Resulted 12/15/16 15:55 Blood Peripheral Anaerobic Blood Culture - Preliminary NO GROWTH IN 2 DAYS Resulted Objective Remarks Last Impressions Foot MRI 12/16/16 0000 Signed Impressions: Service Date/Time: Friday, December 16, 2016 18:29 - CONCLUSION: 1. Extensive soft tissue swelling extending from the ankle into the dorsum of the foot characteristic of cellulitis 2. Fluid accumulation identified in the mid foot superficial to the extensor tendons. This may represent developing abscess. 3. No evidence of bone marrow edema or osteomyelitis. Lasha Sotomayor MD Foot X-Ray 12/15/16 0000 Signed Impressions: Service Date/Time: Saturday, December 15, 2016 16:29 - CONCLUSION: Dorsal and lateral soft tissue swelling. Right foot series otherwise unremarkable. Kyle Vega MD Exam-Podiatry Constitutional General appearance: comfortable Nutritional status: normal Orientation: alert and oriented x3 Dermatological Exam Skin Temp - Right: Hot Skin Texture - Right: Thin Skin Elasticity - Right: Decreased Skin Tugor - Right: Decreased Hair Growth - Right: Within Normal Limits Pigmentation - Right: Abnormal Skin Temp - Left: Within Normal Limits Skin Texture - Left: Within Normal Limits Skin Elasticity - Left: Within Normal Limits Skin Tugor - Left: Within Normal Limits Hair Growth - Left: Within Normal Limits Pigmentation - Left: Within Normal Limits Vascular/Lymphatic Exam R Dorsails Pedis: Palpable L Dorsails Pedis: Palpable R Posterior Tibial: Palpable L Posterior Tibial: Palpable Neurologic Exam Details Deferred exam Muscle Strength Dorsiflexion (Right): Normal Plantarflexion (Right): Normal Inversion (Right): Normal Eversion (Right): Normal Digital (Right): Normal Dorsiflexion (Left): Normal Plantarflexion (Left): Normal Inversion (Left): Normal Eversion (Left): Normal Digital (Left): Normal Foot Range of Motion Dorsiflexion (Right): Normal Plantarflexion (Right): Normal Inversion (Right): Normal Eversion (Right): Normal Digital (Right): Normal Dorsiflexion (Left): Normal Plantarflexion (Left): Normal Inversion (Left): Normal Eversion (Left): Normal Digital (Left): Normal Extremities Edema: Left lower extremity: none Right lower extremity: 3+, pitting, foot, ankle, leg Other (describe): blistering of the right lateral leg. Assessment & Plan Diagnosis: (1) Cellulitis of right lower leg ICD Codes: L03.115 - Cellulitis of right lower limb Status: Acute (2) Edema of right foot ICD Codes: R60.0 - Localized edema Status: Acute A/P PLAN: Discussed with patient that she may need an incision and drainage for abscess. Patient refuses exploratory I&D at this time. Appreciate infectious disease consultation. Continue to follow. Discussed with Dr. Ramirez yesterday Jimenez Ng DPM Dec 18, 2016 08:36
[2016-12-18] MEDS: SODIUM CHLORIDE 0.9% FLUSH 10 ML FLUSH IV FLUSH SCH ×2 (09:00→20:40)
[2016-12-18] MEDS: LEVOFLOXACIN 750 MG TAB PO SCH (12:56)
--- NOTE | 2016-12-18 13:40 | HHI.PR ---
Subjective Remarks Follow up on patient with cellulitis RLE. Patient seen and examined today. Patient reports some improvement in RLE warmth and redness. She has new blister formation on leg. Denies any fever or chills. Complaining pain medications are not working well. Denies any N/V or abdominal pain. Denies any chest pain or shortness of breath. Patient states she did not refuse blood draw this morning, she just did not want that particular supervisor laboratory animal facility to draw her blood. Objective Vitals Vital Signs Date Time Temp Pulse Resp B/P (MAP) Pulse Ox O2 Delivery O2 Flow Rate FiO2 12/18/16 12:00 97.1 75 17 110/60 (77) 97 12/18/16 10:06 99 21 12/18/16 08:00 97.4 72 16 107/60 (76) 99 12/18/16 00:52 97.8 72 18 126/78 (94) 100 12/17/16 20:44 97.6 74 18 119/72 (88) 99 12/17/16 16:00 96.9 63 17 107/66 (80) 100 I/O 12/17/16 12/17/16 12/17/16 12/18/16 12/18/16 12/18/16 07:00 15:00 23:00 07:00 15:00 23:00 Intake Total 360 ml 257 ml 900 ml Output Total 10 ml Balance 360 ml 257 ml 890 ml Intake Oral 360 ml 900 ml IV Total 257 ml Output Urine Total 10 ml # Voids 3 2 # Bowel Movements 0 Result Diagram: 12/17/16 1102 12/17/16 1102 Imaging Last Impressions Foot MRI 12/16/16 0000 Signed Impressions: Service Date/Time: Friday, December 16, 2016 18:29 - CONCLUSION: 1. Extensive soft tissue swelling extending from the ankle into the dorsum of the foot characteristic of cellulitis 2. Fluid accumulation identified in the mid foot superficial to the extensor tendons. This may represent developing abscess. 3. No evidence of bone marrow edema or osteomyelitis. Lasha Sotomayor MD Foot X-Ray 12/15/16 0000 Signed Impressions: Service Date/Time: Thursday, December 15, 2016 16:29 - CONCLUSION: Dorsal and lateral soft tissue swelling. Right foot series otherwise unremarkable. Kyle Vega MD Objective Remarks GENERAL: WDWN female, INAD. Appears comfortable. Sitting up in bed. Awake and alert. SKIN: Warm and dry. Right foot swollen and warm to the touch. Large area of erythema circumferentially around the lower leg with blister formation. HEAD: Normocephalic. EYES: EOMI. No scleral icterus. No injection or drainage. NECK: Supple, trachea midline. CARDIOVASCULAR: Regular rate and rhythm without murmurs, gallops, or rubs. RESPIRATORY: Breath sounds equal bilaterally. No wheezes rhonchi or crackles. No accessory muscle use. GASTROINTESTINAL: Abdomen soft, non-tender, nondistended. MUSCULOSKELETAL: No cyanosis. Decreased movement of right foot. (+)edema in right foot and lower leg. NEUROLOGIC: Awake and alert. Patient is able to move all extremities spontaneously with noted exception of decreased ROM right foot. Normal speech. PSYCHIATRIC: Appropriate mood and affect; insight and judgment normal. Patient was pleasant and cooperative. Medications and IVs Current Medications Medications (Trade) Dose Ordered Sig/Kenny Route Start Time Stop Time Status Last Admin Sodium Chloride 1,000 ml @ 100 mls/hr Q10H IV 12/15/16 18:00 12/17/16 08:27 (Tylenol) 650 mg Q4H PRN PO 12/15/16 17:30 (Zofran Inj) 4 mg Q6H PRN IVP 12/15/16 17:30 (Compazine Supp) 25 mg Q12H PRN RECTAL 12/15/16 17:30 (Ambien) 5 mg HS PRN PO 12/15/16 17:30 (Lovenox Inj) 40 mg Q24H SQ 12/15/16 18:00 12/17/16 16:57 (Tylenol) 650 mg Q6H PRN PO 12/15/16 17:30 (Morphine Inj) 2 mg Q3H PRN IV 12/15/16 17:30 12/18/16 00:23 (Ultram) 50 mg Q4H PRN PO 12/15/16 17:30 12/15/16 20:51 (Ultram) 100 mg Q4H PRN PO 12/15/16 17:30 12/18/16 12:56 (Narcan Inj) 0.4 mg UNSCH PRN IV 12/15/16 17:30 (Elisha-Colace) 1 tab BID PO 12/15/16 21:00 12/18/16 08:26 (Milk Of Magnesia Liq) 30 ml Q12H PRN PO 12/15/16 17:30 (Senokot) 17.2 mg Q12H PRN PO 12/15/16 17:30 (Dulcolax Supp) 10 mg DAILY PRN RECTAL 12/15/16 17:30 (Lactulose Liq) 30 ml DAILY PRN PO 12/15/16 17:30 (Duoneb Neb) 1 ampule Q4HR NEB PRN NEB 12/15/16 17:30 (Habitrol 14 Mg Patch.24 Hr) 1 patch DAILY T-DERMAL 12/16/16 09:00 12/18/16 08:29 Miscellaneous Information 1 DAILY T-DERMAL 12/16/16 09:00 12/18/16 08:29 (NS Flush) 2 ml UNSCH PRN IV FLUSH 12/15/16 17:45 (NS Flush) 2 ml BID IV FLUSH 12/15/16 21:00 12/17/16 08:27 Sodium Chloride 1,000 ml @ 100 mls/hr Q10H IV 12/15/16 18:00 (Folate) 1 mg DAILY PO 12/15/16 17:45 12/20/16 17:44 12/18/16 08:26 (Vitamin B1) 100 mg DAILY PO 12/15/16 17:45 12/18/16 08:26 (Theragran M Tab) 1 tab DAILY PO 12/15/16 17:45 12/20/16 17:44 12/18/16 08:26 (Pepcid) 20 mg BID PO 12/15/16 21:00 12/18/16 08:26 (Catapres) 0.1 mg Q6H PRN PO 12/15/16 17:45 (Romazicon Inj) 0.2 mg Q1M PRN IV PUSH 12/15/16 17:45 (Ativan) 1 mg Q4H PRN PO 12/15/16 17:45 (Ativan Inj) 1 mg Q4H PRN IV PUSH 12/15/16 17:45 (Ativan) 2 mg Q2H PRN PO 12/15/16 17:45 (Ativan Inj) 2 mg Q2H PRN IV PUSH 12/15/16 17:45 (Ativan Inj) 2 mg Q1H PRN IV PUSH 12/15/16 17:45 (Ativan Inj) 2 mg Q15M PRN IV PUSH 12/15/16 17:45 (Haldol Inj) 2 mg Q15M PRN IM 12/15/16 17:45 (Motrin) 600 mg Q8H PRN PO 12/16/16 11:30 12/18/16 08:26 Pharmacy Profile Note 0 ml @ 0 mls/hr UNSCH OTHER 12/16/16 18:15 Vancomycin HCl 700 mg/Sodium Chloride 257 ml @ 250 mls/hr Q8H IV 12/16/16 21:00 12/18/16 12:57 (Levaquin) 750 mg Q24H PO 12/17/16 12:00 12/18/16 12:56 A/P Problem List: (1) Cellulitis of right lower leg ICD Code: L03.115 - Cellulitis of right lower limb Status: Acute (2) Puncture wound of right foot ICD Code: S91.331A - Puncture wound without foreign body, right foot, initial encounter Status: Acute Assessment and Plan Ms. Ogden is 31-year-old, with history of hepatitis C, IV drug use ( heroin), acid reflux, Blake's palsy (2010), MRSA (2015 of leg and a subsequent wound), nicotine addiction. Ms. Ogden reported sudden onset of right foot pain and swelling. She noted that while she has dogs and cats around her she "doesn't mess with them." She stated she does not recall any of the animals brushing against her foot to cause any type of skin injury. Since the onset of the swelling, she developed cold chills, nausea, and right leg pain extending to her hip. She stated taking ibuprofen has helped her discomfort. Regarding her IV drug use, she reported that she has not used in the past 3 weeks and denied injecting her foot. She stated her usual site was her left forearm. Cellulitis of the right lower leg Puncture wound of the right foot h/o IVDU, clean x 3 weeks ppr - Podiatry following - appreciate their assistance. MRI completed showing 1. Extensive soft tissue swelling extending from the ankle into the dorsum of the foot characteristic of cellulitis 2. Fluid accumulation identified in the mid foot superficial to the extensor tendons. This may represent developing abscess. 3. No evidence of bone marrow edema or osteomyelitis. Podiatry discussed I&D but patient refusing at this time. - ID following - appreciate their assistance. Per their note, likely GPC, Strep - continue Levaquin, change Vanco to Ancef. - Echo completed showing EF 50-55%, trace mitral regurgitation, no mention of vegetation - elevate RLE - continue current pain management except increase Ibuprofen to 800mg Nausea - Zofran 4 mg every 6 hours when necessary - Phenergan as needed rectally Hepatitis C - AST elevated, now normal, otherwise LFTs within normal limits. Nicotine addiction - Nicotine patch 14 mg daily. DVT prophylaxis -Lovenox 40 mg subcutaneous daily GI prophylaxis -Pepcid 20 mg twice a day Discussed with patient and Dr. Matute Problem Qualifiers (1) Puncture wound of right foot: Qualified Codes: S91.331A - Puncture wound without foreign body, right foot, initial encounter Leona Kinney Dec 18, 2016 13:40
[2016-12-18 13:54] LABS: VANCOMYCIN TROUGH 7.3 MCG/ML (5.0-10.0)
[2016-12-18 13:55] LABS: BICARBONATE 27.4 MEQ/L (21.0-32.0)
[2016-12-18 14:01] LABS: POTASSIUM 4.5 MEQ/L (3.5-5.1)
--- NOTE | 2016-12-18 14:54 | HHI.IDPN ---
Subjective Subjective Remarks Patient is a 31-year-old female, presented to the hospital complaining of increasing pain and swelling and redness on her right lower extremity. It initially started on her right foot, and it progressively worsened and gotten up to her right leg. It was getting red and more swollen, and she was experiencing a lot of pain. There was no fever or chills. She denies any respiratory complaint. No nausea or vomiting, diarrhea or any urinary complaint. Patient has known IV drug use, but she denies injecting drugs in her lower extremity. She apparently has had some problem with picking on her lower extremity resulting in multiple wounds in both feet. This was related to her previous IV drugs, but she denies using drugs in the last 3 weeks. The wounds are all dry, but taking a while to heal up. Since admission, she has not been febrile. She was started on Zosyn, and there was progression of her cellulitis. She is complaining of pain and redness going up her right thigh, as well as discomfort on her right groin. IV vancomycin was added yesterday. Podiatry also evaluated the patient. An MRI of the foot was ordered, but there was no obvious fluid collection seen. There is some suggestion that they may be something that is just starting. Infectious disease consultation has been requested to evaluate the patient. 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 Past Surgical History Dilation and curettage 3. Allergies: Coded Allergies: codeine (Unverified Adverse Reaction, Mild, Nausea/Vomiting, 11/20/16) *MDRO Multi-Drug Resistant Organism (Unverified Adverse Reaction, Unknown , 06/13/16) MRSA (leg wound) - 04/2014 MRSA 08/2014. Objective . Vital Signs Date Time Temp Pulse Resp B/P (MAP) Pulse Ox O2 Delivery O2 Flow Rate FiO2 12/18/16 12:00 97.1 75 17 110/60 (77) 97 12/18/16 10:06 99 21 12/18/16 08:00 97.4 72 16 107/60 (76) 99 12/18/16 00:52 97.8 72 18 126/78 (94) 100 12/17/16 20:44 97.6 74 18 119/72 (88) 99 12/17/16 16:00 96.9 63 17 107/66 (80) 100 . Laboratory Tests Test 12/17/16 11:02 White Blood Count 5.6 TH/MM3 Red Blood Count 4.30 MIL/MM3 Hemoglobin 12.3 GM/DL Hematocrit 37.5 % Mean Corpuscular Volume 87.4 FL Mean Corpuscular Hemoglobin 28.7 PG Mean Corpuscular Hemoglobin Concent 32.9 % Red Cell Distribution Width 15.5 % Platelet Count 176 TH/MM3 Mean Platelet Volume 8.1 FL Neutrophils (%) (Auto) 65.8 % Lymphocytes (%) (Auto) 19.1 % Monocytes (%) (Auto) 11.5 % Eosinophils (%) (Auto) 3.0 % Basophils (%) (Auto) 0.6 % Neutrophils # (Auto) 3.6 TH/MM3 Lymphocytes # (Auto) 1.1 TH/MM3 Monocytes # (Auto) 0.6 TH/MM3 Eosinophils # (Auto) 0.2 TH/MM3 Basophils # (Auto) 0.0 TH/MM3 CBC Comment DIFF FINAL Differential Comment Laboratory Tests Test 12/17/16 11:02 12/18/16 13:05 Blood Urea Nitrogen 11 MG/DL 9 MG/DL Creatinine 0.58 MG/DL 0.60 MG/DL Random Glucose 63 MG/DL 64 MG/DL Calcium Level 8.8 MG/DL 8.4 MG/DL Sodium Level 135 MEQ/L 138 MEQ/L Potassium Level 4.1 MEQ/L 4.5 MEQ/L Chloride Level 104 MEQ/L 105 MEQ/L Carbon Dioxide Level 27.2 MEQ/L 27.4 MEQ/L Anion Gap 4 MEQ/L 6 MEQ/L Estimat Glomerular Filtration Rate 120 ML/MIN 116 ML/MIN Microbiology Date/Time Source Procedure Growth Status 12/17/16 11:02 Blood Peripheral Aerobic Blood Culture - Preliminary NO GROWTH IN 1 DAY Resulted 12/17/16 11:02 Blood Peripheral Anaerobic Blood Culture - Preliminary NO GROWTH IN 1 DAY Resulted 12/16/16 23:00 Blood Peripheral Aerobic Blood Culture - Preliminary NO GROWTH IN 2 DAYS Resulted 12/16/16 23:00 Blood Peripheral Anaerobic Blood Culture - Preliminary NO GROWTH IN 2 DAYS Resulted 12/15/16 16:05 Blood Peripheral Aerobic Blood Culture - Preliminary NO GROWTH IN 3 DAYS Resulted 12/15/16 16:05 Blood Peripheral Anaerobic Blood Culture - Preliminary NO GROWTH IN 3 DAYS Resulted 12/15/16 15:55 Blood Peripheral Aerobic Blood Culture - Preliminary NO GROWTH IN 3 DAYS Resulted 12/15/16 15:55 Blood Peripheral Anaerobic Blood Culture - Preliminary NO GROWTH IN 3 DAYS Resulted Imaging Last Impressions Foot MRI 12/16/16 0000 Signed Impressions: Service Date/Time: Friday, December 16, 2016 18:29 - CONCLUSION: 1. Extensive soft tissue swelling extending from the ankle into the dorsum of the foot characteristic of cellulitis 2. Fluid accumulation identified in the mid foot superficial to the extensor tendons. This may represent developing abscess. 3. No evidence of bone marrow edema or osteomyelitis. Lasha Sotomayor MD Foot X-Ray 12/15/16 0000 Signed Impressions: Service Date/Time: Thursday, December 15, 2016 16:29 - CONCLUSION: Dorsal and lateral soft tissue swelling. Right foot series otherwise unremarkable. Kyle Vega MD Physical Exam GENERAL: awake and alert, not in respiratory distress. SKIN: Warm and dry. Has scattered tattoos. Has linear scars in her L forearm. Has dry healing wounds both feet. NO embolic lesions noted HEAD: Atraumatic. Normocephalic. No temporal wasting, or tenderness. EYES: [place] conjunctiva. No petechia or hemorrhage. Pupils equal, round and reactive to light. Extraocular movements full and intact. No scleral icterus. No injection or drainage. EARS, NOSE AND THROAT: Nose without bleeding or purulent nasal discharge. Mucous membranes pink and moist. No oral lesions noted. No exudate. No oral thrush.Wears upper dentures NECK: Trachea midline. Supple and not tender, no meningeal signs. Has some small lymphadenopathy CARDIOVASCULAR: Regular rate and rhythm. No murmurs, rubs or gallops heard RESPIRATORY: Clear to auscultation. Breath sounds equal bilaterally. No rales , wheezing or rhonchi ABDOMEN: Soft, non-tender, nondistended. Bowel sounds present and normoactive. No guarding. No rebound. No organomegaly. EXTREMITIES: No clubbing, cyanosis, or edema in her LLE. RLE is larger compared to her LLE. The L foot and leg has improving swelling and redness. There is an area of [id number] skin in middle portion of her RLE, which is better, and one area has a quarter size bulla. There is swelling at ankle joint which in better. There is resolving lymphangitis going up her thigh and some tender R groin LN. No calf tenderness. Well perfused and warm. NEUROLOGICAL: Non-focal PSYCHIATRIC: Normal affect, calm and cooperative. LINE: No evidence of infection Assessment & Plan Remarks IMPRESSION Cellulitis RLE with lymphangitis, likely due to GPC, has [id number] skin typical of Strep - improving - clinically no evidence of septic ankle Known IVDU, denies injecting in her R foot RECOMMENDATION Follow C/S Change Vanco to Ancef Continue Levaquin Monitor R foot for development of any fluid collection Elevate RLE Monitor progress I will determine course of Rx depending on her clinical progress Vianey Giron MD Dec 18, 2016 14:54
[2016-12-18] MEDS: IBUPROFEN 800 MG TAB PO PRN (16:49)
[2016-12-18] MEDS: ceFAZolin 2 GM PREMIX 50 ML IV SCH ×2 (16:49→23:14)
[2016-12-18] MEDS: ENOXAPARIN SODIUM 40 MG/0.4 ML SYRINGE SQ SCH (17:54)
[2016-12-19] MEDS ORDERED: diphenhydrAMINE HCL 50 MG CAP PO ONE
[2016-12-19] MEDS: IBUPROFEN 800 MG TAB PO PRN ×3 (00:15→17:34)
[2016-12-19 01:03] VITALS: BP 118/70; PULSE 75; RESP 18; TEMP 98.5; O2SAT 100
[2016-12-19] MEDS: traMADol HCL 50 MG TAB PO PRN (06:30)
[2016-12-19 08:00] VITALS: BP 128/69; PULSE 66; RESP 16; TEMP 98.2; O2SAT 100
[2016-12-19] MEDS: REMOVE OLD PATCH T-DERMAL SCH (09:00)
[2016-12-19] MEDS: NICOTINE 14 MG/24 HR PATCH T-DERMAL SCH (09:39)
[2016-12-19] MEDS: MULTIVITAMINS/MINERALS THERAPEUTIC TAB PO SCH (09:40)
[2016-12-19] MEDS: THIAMINE HCL 100 MG TAB PO SCH (09:40)
[2016-12-19] MEDS: FAMOTIDINE 20 MG TAB PO SCH ×2 (09:40→19:51)
[2016-12-19] MEDS: FOLIC ACID 1 MG TAB PO SCH (09:40)
[2016-12-19] MEDS: ceFAZolin 2 GM PREMIX 50 ML IV SCH ×3 (09:40→23:51)
--- NOTE | 2016-12-19 10:31 | HHI.PR ---
Subjective Remarks Follow up on patient with cellulitis RLE, h/o IVDU. Patient seen and examined today. Patient complaining of diarrhea, poor appetite and nausea. She denies any fevers but reports chills. She denies any abdominal pain. She denies any vomiting. She denies any chest pain or shortness of breath. She states the Tramadol is making her sick at her stomach. She does report her RLE has improved some with less pain and swelling. Objective Vitals Vital Signs Date Time Temp Pulse Resp B/P (MAP) Pulse Ox O2 Delivery O2 Flow Rate FiO2 12/19/16 08:00 98.2 66 16 128/69 (88) 100 12/19/16 01:03 98.5 75 18 118/70 (86) 100 12/18/16 20:00 97.1 80 20 97/55 (69) 95 12/18/16 16:00 96.7 78 17 117/68 (84) 97 12/18/16 12:00 97.1 75 17 110/60 (77) 97 I/O 12/18/16 12/18/16 12/18/16 12/19/16 12/19/16 12/19/16 07:00 15:00 23:00 07:00 15:00 23:00 Intake Total 659 ml 1010 ml Balance 659 ml 1010 ml Intake Oral 480 ml 360 ml IV Total 179 ml 650 ml # Voids 2 5 2 # Bowel Movements 3 Result Diagram: 12/17/16 1102 12/18/16 1305 Imaging Last Impressions Foot MRI 12/16/16 0000 Signed Impressions: Service Date/Time: Friday, December 16, 2016 18:29 - CONCLUSION: 1. Extensive soft tissue swelling extending from the ankle into the dorsum of the foot characteristic of cellulitis 2. Fluid accumulation identified in the mid foot superficial to the extensor tendons. This may represent developing abscess. 3. No evidence of bone marrow edema or osteomyelitis. Lasha Sotomayor MD Foot X-Ray 12/15/16 0000 Signed Impressions: Service Date/Time: Thursday, December 15, 2016 16:29 - CONCLUSION: Dorsal and lateral soft tissue swelling. Right foot series otherwise unremarkable. Kyle Vega MD Objective Remarks GENERAL: WDWN female, INAD. Lying in bed. Asleep but easily awakens to voice. SKIN: Warm and dry. Right foot swollen and warm to the touch, improving. Large area of erythema circumferentially around the lower leg with blister formation. HEAD: Normocephalic. EYES: EOMI. No scleral icterus. No injection or drainage. NECK: Supple, trachea midline. CARDIOVASCULAR: Regular rate and rhythm without murmurs, gallops, or rubs. RESPIRATORY: Breath sounds equal bilaterally. No wheezes rhonchi or crackles. No accessory muscle use. GASTROINTESTINAL: Abdomen soft, non-tender, nondistended. (+)BS MUSCULOSKELETAL: No cyanosis. Decreased movement of right foot. (+)edema in right foot and lower leg, slightly improved. NEUROLOGIC: Awake and alert. Patient is able to move all extremities spontaneously with noted exception of decreased ROM right foot. Normal speech. Medications and IVs Current Medications Medications (Trade) Dose Ordered Sig/Kenny Route Start Time Stop Time Status Last Admin Sodium Chloride 1,000 ml @ 100 mls/hr Q10H IV 12/15/16 18:00 12/18/16 23:16 (Tylenol) 650 mg Q4H PRN PO 12/15/16 17:30 (Zofran Inj) 4 mg Q6H PRN IVP 12/15/16 17:30 (Compazine Supp) 25 mg Q12H PRN RECTAL 12/15/16 17:30 (Ambien) 5 mg HS PRN PO 12/15/16 17:30 (Lovenox Inj) 40 mg Q24H SQ 12/15/16 18:00 12/18/16 17:54 (Tylenol) 650 mg Q6H PRN PO 12/15/16 17:30 12/18/16 23:22 (Morphine Inj) 2 mg Q3H PRN IV 12/15/16 17:30 12/18/16 00:23 (Ultram) 50 mg Q4H PRN PO 12/15/16 17:30 12/15/16 20:51 (Ultram) 100 mg Q4H PRN PO 12/15/16 17:30 12/19/16 06:30 (Narcan Inj) 0.4 mg UNSCH PRN IV 12/15/16 17:30 (Elisha-Colace) 1 tab BID PO 12/15/16 21:00 Future Hold 12/18/16 08:26 (Milk Of Magnesia Liq) 30 ml Q12H PRN PO 12/15/16 17:30 (Senokot) 17.2 mg Q12H PRN PO 12/15/16 17:30 (Dulcolax Supp) 10 mg DAILY PRN RECTAL 12/15/16 17:30 (Lactulose Liq) 30 ml DAILY PRN PO 12/15/16 17:30 (Duoneb Neb) 1 ampule Q4HR NEB PRN NEB 12/15/16 17:30 (Habitrol 14 Mg Patch.24 Hr) 1 patch DAILY T-DERMAL 12/16/16 09:00 12/19/16 09:39 Miscellaneous Information 1 DAILY T-DERMAL 12/16/16 09:00 12/19/16 09:00 (NS Flush) 2 ml UNSCH PRN IV FLUSH 12/15/16 17:45 (NS Flush) 2 ml BID IV FLUSH 12/15/16 21:00 12/18/16 20:40 (Folate) 1 mg DAILY PO 12/15/16 17:45 12/20/16 17:44 12/19/16 09:40 (Vitamin B1) 100 mg DAILY PO 12/15/16 17:45 12/19/16 09:40 (Theragran M Tab) 1 tab DAILY PO 12/15/16 17:45 12/20/16 17:44 12/19/16 09:40 (Pepcid) 20 mg BID PO 12/15/16 21:00 12/19/16 09:40 (Catapres) 0.1 mg Q6H PRN PO 12/15/16 17:45 (Romazicon Inj) 0.2 mg Q1M PRN IV PUSH 12/15/16 17:45 (Ativan) 1 mg Q4H PRN PO 12/15/16 17:45 (Ativan Inj) 1 mg Q4H PRN IV PUSH 12/15/16 17:45 (Ativan) 2 mg Q2H PRN PO 12/15/16 17:45 (Ativan Inj) 2 mg Q2H PRN IV PUSH 12/15/16 17:45 (Ativan Inj) 2 mg Q1H PRN IV PUSH 12/15/16 17:45 (Ativan Inj) 2 mg Q15M PRN IV PUSH 12/15/16 17:45 (Haldol Inj) 2 mg Q15M PRN IM 12/15/16 17:45 (Levaquin) 750 mg Q24H PO 12/17/16 12:00 12/18/16 12:56 (Motrin) 800 mg Q8H PRN PO 12/18/16 19:30 12/19/16 09:40 Cefazolin Sodium/ Dextrose 50 ml @ 100 mls/hr Q8H IV 12/18/16 16:00 12/19/16 09:40 A/P Problem List: (1) Cellulitis of right lower leg ICD Code: L03.115 - Cellulitis of right lower limb Status: Acute (2) Puncture wound of right foot ICD Code: S91.331A - Puncture wound without foreign body, right foot, initial encounter Status: Acute Assessment and Plan Ms. Ogden is 31-year-old, with history of hepatitis C, IV drug use ( heroin), acid reflux, Blake's palsy (2010), MRSA (2015 of leg and a subsequent wound), nicotine addiction. Ms. Ogden reported sudden onset of right foot pain and swelling. She noted that while she has dogs and cats around her she "doesn't mess with them." She stated she does not recall any of the animals brushing against her foot to cause any type of skin injury. Since the onset of the swelling, she developed cold chills, nausea, and right leg pain extending to her hip. She stated taking ibuprofen has helped her discomfort. Regarding her IV drug use, she reported that she has not used in the past 3 weeks and denied injecting her foot. She stated her usual site was her left forearm. Cellulitis of the right lower leg Puncture wound of the right foot h/o IVDU, clean x 3 weeks ppr - Podiatry following - appreciate their assistance. MRI completed showing 1. Extensive soft tissue swelling extending from the ankle into the dorsum of the foot characteristic of cellulitis 2. Fluid accumulation identified in the mid foot superficial to the extensor tendons. This may represent developing abscess. 3. No evidence of bone marrow edema or osteomyelitis. Podiatry discussed I&D but patient refusing at this time. - ID following - appreciate their assistance. Per their note, likely GPC, Strep - continue Levaquin, change Vanco to Ancef. - Echo completed showing EF 50-55%, trace mitral regurgitation, no mention of vegetation - elevate RLE - continue pain management - repeat blood cx shows no growth in 1 day. Initial BCX show NG x 3 days. Nausea Diarrhea - denies any associated vomiting or abdominal pain. She is afebrile. - reports Tramadol upsetting her stomach - D/C Tramadol. Oxycodone 5mg q6h prn pain - UA ordered - C Diff ordered - obtain lab studies - add Lactobacillus TID - Zofran 4 mg every 6 hours when necessary - Phenergan as needed rectally Hepatitis C - AST elevated, now normal, otherwise LFTs within normal limits. Nicotine addiction - Nicotine patch 14 mg daily. DVT prophylaxis -Lovenox 40 mg subcutaneous daily GI prophylaxis -Pepcid 20 mg twice a day Discussed with patient and Dr. Matute Problem Qualifiers (1) Puncture wound of right foot: Qualified Codes: S91.331A - Puncture wound without foreign body, right foot, initial encounter Leona Kinney Dec 19, 2016 10:31
[2016-12-19] MEDS: SODIUM CHLOR 0.9% 1000 ML INJ 1,000 ML IV SCH ×2 (11:07→22:00)
[2016-12-19] MEDS: LEVOFLOXACIN 750 MG TAB PO SCH (11:07)
[2016-12-19 12:00] VITALS: BP 106/63; PULSE 73; RESP 17; TEMP 97.7; O2SAT 100
[2016-12-19 12:24] LABS: BLOOD, URINE TRACE (NEG); COMMENT (UR) CULT NOT INDICATED; CULTURE IF INDICATED CULT NOT INDICATED; GLUCOSE,URINE NEG (NEG); KETONE, URINE NEG (NEG); NITRITE,URINE NEG (NEG); URINE COLOR LIGHT-YELLOW (YELLW/STRAW)
[2016-12-19] MEDS: LACTOBACILLUS ACIDOPHILUS TAB PO SCH ×2 (12:30→17:34)
[2016-12-19] MEDS: SODIUM CHLORIDE 0.9% FLUSH 10 ML FLUSH IV FLUSH SCH ×2 (12:30→19:51)
--- NOTE | 2016-12-19 12:38 | PD.POD ---
Subjective Podiatric Problems Edema and cellulitis of right lower extremity Pain scale used: 0-10 numeric scale Pain score: 3 Remarks 31-year-old female with history of IV drug abuse presented with swelling and edema and cellulitis of the right lower extremity. MRI of the right foot showed fluid with possible early abscess. Patient now has a blister on the right lateral leg. Patient was seen by infectious disease who added vancomycin. Patient states her foot and leg feeling better today. 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 Social History Smoking Status: Current Every Day Smoker Review of Systems Notes No changes in her 14 point review of systems exam since yesterday Objective Vital Signs Vital Signs Date Time Temp Pulse Resp B/P (MAP) Pulse Ox O2 Delivery O2 Flow Rate FiO2 12/19/16 08:00 98.2 66 16 128/69 (88) 100 12/19/16 01:03 98.5 75 18 118/70 (86) 100 12/18/16 20:00 97.1 80 20 97/55 (69) 95 12/18/16 16:00 96.7 78 17 117/68 (84) 97 Coded Allergies: codeine (Unverified Adverse Reaction, Mild, Nausea/Vomiting, 11/20/16) *MDRO Multi-Drug Resistant Organism (Unverified Adverse Reaction, Unknown , 06/13/16) MRSA (leg wound) - 04/2014 MRSA 08/2014. Medications and IVs Current Medications Sodium Chloride 1,000 ml @ 999 mls/hr BOLUS ONCE IV Last administered on 16:24; Start 12/15/16 at 15:45; Stop 12/15/16 at 16:45; Status DC Morphine Sulfate (Morphine Inj) 4 mg ONCE ONCE IV PUSH Last administered on 16:25; Start 12/15/16 at 15:45; Stop 12/15/16 at 15:49; Status DC Ondansetron HCl (Zofran Inj) 4 mg ONCE ONCE IV PUSH Last administered on 16:25; Start 12/15/16 at 15:45; Stop 12/15/16 at 15:49; Status DC Vancomycin HCl 1000 mg/Sodium Chloride 250 ml @ 250 mls/hr ONCE ONCE IV Last administered on 12/15/16 17:20; Start 12/15/16 at 15:45; Stop 12/15/16 at 16:44; Status DC Piperacillin Sod/ Tazobactam Sod 100 ml @ 200 mls/hr ONCE ONCE IV Last administered on 12/15/16 16:25; Start 12/15/16 at 15:45; Stop 12/15/16 at 16:14; Status DC Sodium Chloride 1,000 ml @ 100 mls/hr Q10H IV Last administered on 12/19/16 11:07; Start 12/15/16 at 18:00 Sodium Chloride (NS Flush) 2 ml UNSCH PRN IV FLUSH FLUSH AFTER USING IV ACCESS Last administered on 12/16/16 03:29; Start 12/15/16 at 17:30; Stop 12/16/16 at 20:22; Status DC Sodium Chloride (NS Flush) 2 ml BID IV FLUSH Last administered on 12/16/16 19: 40; Start 12/15/16 at 21:00; Stop 12/16/16 at 20:22; Status DC Acetaminophen (Tylenol) 650 mg Q4H PRN PO TEMP > 100.4; Start 12/15/16 at 17:30 Ondansetron HCl (Zofran Inj) 4 mg Q6H PRN IVP NAUSEA OR VOMITING Last administered on 12/19/16 12:30; Start 12/15/16 at 17:30 Prochlorperazine (Compazine Supp) 25 mg Q12H PRN RECTAL NAUSEA OR VOMITING; Start 12/15/16 at 17:30 Zolpidem Tartrate (Ambien) 5 mg HS PRN PO INSOMNIA; Start 12/15/16 at 17:30 Enoxaparin Sodium (Lovenox Inj) 40 mg Q24H SQ Last administered on 12/18/16 17 :54; Start 12/15/16 at 18:00 Acetaminophen (Tylenol) 650 mg Q6H PRN PO PAIN SCALE 1 TO 2 Last administered on 12/18/16 23:22; Start 12/15/16 at 17:30; Stop 12/19/16 at 12:30; Status DC Morphine Sulfate (Morphine Inj) 2 mg Q3H PRN IV Pain6-10; if unable to take PO Last administered on 12/18/16 00:23; Start 12/15/16 at 17:30 Tramadol HCl (Ultram) 50 mg Q4H PRN PO PAIN SCALE 3 TO 5 Last administered on 20:51; Start 12/15/16 at 17:30; Stop 12/19/16 at 10:22; Status DC Tramadol HCl (Ultram) 100 mg Q4H PRN PO PAIN SCALE 6 TO 10 Last administered on 12/19/16 06:30; Start 12/15/16 at 17:30; Stop 12/19/16 at 10:22; Status DC Naloxone HCl (Narcan Inj) 0.4 mg UNSCH PRN IV SEE LABEL COMMENTS; Start at 17:30 Senna/Docusate Sodium (Elisha-Colace) 1 tab BID PO Last administered on 08:26; Start 12/15/16 at 21:00; Status Future Hold Magnesium Hydroxide (Milk Of Magnesia Liq) 30 ml Q12H PRN PO MILD - MODERATE CONSTIPATION; Start 12/15/16 at 17:30 Sennosides (Senokot) 17.2 mg Q12H PRN PO MODERATE - SEVERE CONSTIPATION; Start 12/15/16 at 17:30 Bisacodyl (Dulcolax Supp) 10 mg DAILY PRN RECTAL SEVERE CONSITIPATION; Start at 17:30 Lactulose (Lactulose Liq) 30 ml DAILY PRN PO SEVERE CONSITIPATION; Start at 17:30 Piperacillin Sod/ Tazobactam Sod 100 ml @ 200 mls/hr Q6H IV Last administered on 12/17/16 05:43; Start 12/16/16 at 00:00; Stop 12/17/16 at 10:45; Status DC Albuterol/ Ipratropium (Duoneb Neb) 1 ampule Q4HR NEB PRN NEB SHORTNESS OF BREATH; Start 12/15/16 at 17:30 Nicotine (Habitrol 14 Mg Patch.24 Hr) 1 patch ONCE ONCE T-DERMAL Last administered on 12/15/16 20:50; Start 12/15/16 at 17:30; Stop 12/15/16 at 17:31; Status DC Nicotine (Habitrol 14 Mg Patch.24 Hr) 1 patch DAILY T-DERMAL Last administered on 12/19/16 09:39; Start 12/16/16 at 09:00 Miscellaneous Information 1 DAILY T-DERMAL Last administered on 12/19/16 09:00 ; Start 12/16/16 at 09:00 Sodium Chloride (NS Flush) 2 ml UNSCH PRN IV FLUSH FLUSH AFTER USING IV ACCESS ; Start 12/15/16 at 17:45 Sodium Chloride (NS Flush) 2 ml BID IV FLUSH Last administered on 12/19/16 12: 30; Start 12/15/16 at 21:00 Sodium Chloride 1,000 ml @ 100 mls/hr Q10H IV ; Start 12/15/16 at 18:00; Stop at 16:56; Status DC Folic Acid (Folate) 1 mg DAILY PO Last administered on 12/19/16 09:40; Start 12/15/16 at 17:45; Stop 12/20/16 at 17:44 Thiamine HCl (Vitamin B1) 100 mg DAILY PO Last administered on 12/19/16 09:40 ; Start 12/15/16 at 17:45 Multivitamins/ Minerals Therapeutic (Theragran M Tab) 1 tab DAILY PO Last administered on 12/19/16 09:40; Start 12/15/16 at 17:45; Stop 12/20/16 at 17:44 Famotidine (Pepcid) 20 mg BID PO Last administered on 12/19/16 09:40; Start at 21:00 Clonidine (Catapres) 0.1 mg Q6H PRN PO SEE LABEL COMMENTS; Start 12/15/16 at 17: 45 Flumazenil (Romazicon Inj) 0.2 mg Q1M PRN IV PUSH SEE LABEL COMMENTS; Start 12/15/16 at 17:45 Lorazepam (Ativan) 1 mg Q4H PRN PO CIWA 8 - 10; Start 12/15/16 at 17:45 Lorazepam (Ativan Inj) 1 mg Q4H PRN IV PUSH CIWA 8 - 10; Start 12/15/16 at 17:45 Lorazepam (Ativan) 2 mg Q2H PRN PO CIWA 11-14; Start 12/15/16 at 17:45 Lorazepam (Ativan Inj) 2 mg Q2H PRN IV PUSH CIWA 11-14; Start 12/15/16 at 17:45 Lorazepam (Ativan Inj) 2 mg Q1H PRN IV PUSH CIWA 15-20; Start 12/15/16 at 17:45 Lorazepam (Ativan Inj) 2 mg Q15M PRN IV PUSH CIWA > 20; Start 12/15/16 at 17:45 Haloperidol Lactate (Haldol Inj) 2 mg Q15M PRN IM SEE LABEL COMMENTS; Start 12/15/16 at 17:45 Ibuprofen (Motrin) 600 mg ONCE ONCE PO Last administered on 12/16/16 03:52; Start 12/16/16 at 04:00; Stop 12/16/16 at 04:01; Status DC Ibuprofen (Motrin) 600 mg Q8H PRN PO fever>100, pain 1-10 Last administered on 12/18/16 08:26; Start 12/16/16 at 11:30; Stop 12/18/16 at 13:57; Status DC Vancomycin HCl 1000 mg/Sodium Chloride 250 ml @ 250 mls/hr Q24H IV ; Start 01/22 at 18:15; Status UNV Pharmacy Profile Note 0 ml @ 0 mls/hr UNSCH OTHER ; Start 12/16/16 at 18:15; Stop 12/18/16 at 14:55; Status DC Gadodiamide (Omniscan Pf Inj) 12 ml STK-MED ONCE IVCONTRAST ; Start 12/16/16 at 19:04; Stop 12/16/16 at 19:05; Status DC Vancomycin HCl 700 mg/Sodium Chloride 257 ml @ 250 mls/hr Q8H IV Last administered on 12/18/16 12:57; Start 12/16/16 at 21:00; Stop 12/18/16 at 14:55 ; Status DC Miscellaneous Information SPECIFIC LAB TO BE DRAWN:VANCO TROUGH DATE TO BE DR... ONCE ONCE .XX ; Start 12/18/16 at 04:45; Stop 12/18/16 at 04:46; Status DC Levofloxacin (Levaquin) 750 mg Q24H PO Last administered on 12/19/16 11:07; Start 12/17/16 at 12:00 Diphenhydramine HCl (Benadryl) 50 mg ONCE ONCE PO Last administered on 02:39; Start 12/18/16 at 02:45; Stop 12/18/16 at 02:46; Status DC Ibuprofen (Motrin) 800 mg Q8H PRN PO fever>100, pain 1-4 Last administered on 09:40; Start 12/18/16 at 19:30 Cefazolin Sodium/ Dextrose 50 ml @ 100 mls/hr Q8H IV Last administered on 12/19 09:40; Start 12/18/16 at 16:00 Diphenhydramine HCl (Benadryl) 50 mg ONCE ONCE PO Last administered on 00:13; Start 12/19/16 at 00:00; Stop 12/19/16 at 00:09; Status DC Oxycodone HCl (Roxicodone) 5 mg Q6H PRN PO PAIN SCALE 5 TO 10; Start 12/19/16 at 10:30; Status UNV Lactobacillus Acidophilus (Lactinex) 1 tab TID PO Last administered on 12:30; Start 12/19/16 at 13:00 Other Results Laboratory Tests Test 12/18/16 13:05 Blood Urea Nitrogen 9 MG/DL Creatinine 0.60 MG/DL Random Glucose 64 MG/DL Calcium Level 8.4 MG/DL Sodium Level 138 MEQ/L Potassium Level 4.5 MEQ/L Chloride Level 105 MEQ/L Carbon Dioxide Level 27.4 MEQ/L Anion Gap 6 MEQ/L Estimat Glomerular Filtration Rate 116 ML/MIN Microbiology Date/Time Source Procedure Growth Status 12/17/16 11:02 Blood Peripheral Aerobic Blood Culture - Preliminary NO GROWTH IN 2 DAYS Resulted 12/17/16 11:02 Blood Peripheral Anaerobic Blood Culture - Preliminary NO GROWTH IN 2 DAYS Resulted 12/16/16 23:00 Blood Peripheral Aerobic Blood Culture - Preliminary NO GROWTH IN 3 DAYS Resulted 12/16/16 23:00 Blood Peripheral Anaerobic Blood Culture - Preliminary NO GROWTH IN 3 DAYS Resulted Objective Remarks Last Impressions Foot MRI 12/16/16 0000 Signed Impressions: Service Date/Time: Friday, December 16, 2016 18:29 - CONCLUSION: 1. Extensive soft tissue swelling extending from the ankle into the dorsum of the foot characteristic of cellulitis 2. Fluid accumulation identified in the mid foot superficial to the extensor tendons. This may represent developing abscess. 3. No evidence of bone marrow edema or osteomyelitis. Lasha Sotomayor MD Foot X-Ray 12/15/16 0000 Signed Impressions: Service Date/Time: Thursday, December 15, 2016 16:29 - CONCLUSION: Dorsal and lateral soft tissue swelling. Right foot series otherwise unremarkable. Kyle Vega MD Exam-Podiatry Constitutional General appearance: comfortable Nutritional status: normal Orientation: alert and oriented x3 Dermatological Exam Skin Temp - Right: Within Normal Limits Skin Texture - Right: Within Normal Limits Skin Elasticity - Right: Within Normal Limits Skin Tugor - Right: Within Normal Limits Hair Growth - Right: Within Normal Limits Pigmentation - Right: Within Normal Limits Skin Temp - Left: Within Normal Limits Skin Texture - Left: Within Normal Limits Skin Elasticity - Left: Within Normal Limits Skin Tugor - Left: Within Normal Limits Hair Growth - Left: Within Normal Limits Pigmentation - Left: Within Normal Limits Ulcers: Location/Measurements There is some light blistering on the lateral aspect of the right leg. There is decreased cellulitis of the lower extremity. Decreased pain to palpation of the right foot. Vascular/Lymphatic Exam R Dorsails Pedis: Palpable L Dorsails Pedis: Palpable R Posterior Tibial: Palpable L Posterior Tibial: Palpable Neurologic Exam Details Deferred exam Assessment & Plan Diagnosis: (1) Cellulitis of right lower leg ICD Codes: L03.115 - Cellulitis of right lower limb Status: Acute (2) Edema of right foot ICD Codes: R60.0 - Localized edema Status: Acute A/P PLAN: Continue to monitor the patient. She might need an MRI of the right leg to rule out abscess. However, looks like the vancomycin is helping. Jimenez Ng DPM Dec 19, 2016 12:38
--- NOTE | 2016-12-19 13:52 | HHI.IDPN ---
Subjective Subjective Remarks Patient is a 31-year-old female, presented to the hospital complaining of increasing pain and swelling and redness on her right lower extremity. It initially started on her right foot, and it progressively worsened and gotten up to her right leg. It was getting red and more swollen, and she was experiencing a lot of pain. There was no fever or chills. She denies any respiratory complaint. No nausea or vomiting, diarrhea or any urinary complaint. Patient has known IV drug use, but she denies injecting drugs in her lower extremity. She apparently has had some problem with picking on her lower extremity resulting in multiple wounds in both feet. This was related to her previous IV drugs, but she denies using drugs in the last 3 weeks. The wounds are all dry, but taking a while to heal up. Since admission, she has not been febrile. She was started on Zosyn, and there was progression of her cellulitis. She is complaining of pain and redness going up her right thigh, as well as discomfort on her right groin. IV vancomycin was added yesterday. Podiatry also evaluated the patient. An MRI of the foot was ordered, but there was no obvious fluid collection seen. There is some suggestion that they may be something that is just starting. Infectious disease consultation has been requested to evaluate the patient. 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 Past Surgical History Dilation and curettage 3. Allergies: Coded Allergies: codeine (Unverified Adverse Reaction, Mild, Nausea/Vomiting, 11/20/16) *MDRO Multi-Drug Resistant Organism (Unverified Adverse Reaction, Unknown , 06/13/16) MRSA (leg wound) - 04/2014 MRSA 08/2014. Objective . Vital Signs Date Time Temp Pulse Resp B/P (MAP) Pulse Ox O2 Delivery O2 Flow Rate FiO2 12/19/16 12:00 97.7 73 17 106/63 (77) 100 12/19/16 10:40 18 12/19/16 08:00 98.2 66 16 128/69 (88) 100 12/19/16 01:03 98.5 75 18 118/70 (86) 100 12/18/16 20:00 97.1 80 20 97/55 (69) 95 12/18/16 16:00 96.7 78 17 117/68 (84) 97 . Laboratory Tests Test 12/18/16 13:05 Blood Urea Nitrogen 9 MG/DL Creatinine 0.60 MG/DL Random Glucose 64 MG/DL Calcium Level 8.4 MG/DL Sodium Level 138 MEQ/L Potassium Level 4.5 MEQ/L Chloride Level 105 MEQ/L Carbon Dioxide Level 27.4 MEQ/L Anion Gap 6 MEQ/L Estimat Glomerular Filtration Rate 116 ML/MIN Microbiology Date/Time Source Procedure Growth Status 12/17/16 11:02 Blood Peripheral Aerobic Blood Culture - Preliminary NO GROWTH IN 2 DAYS Resulted 12/17/16 11:02 Blood Peripheral Anaerobic Blood Culture - Preliminary NO GROWTH IN 2 DAYS Resulted 12/16/16 23:00 Blood Peripheral Aerobic Blood Culture - Preliminary NO GROWTH IN 3 DAYS Resulted 12/16/16 23:00 Blood Peripheral Anaerobic Blood Culture - Preliminary NO GROWTH IN 3 DAYS Resulted Imaging Last Impressions Foot MRI 12/16/16 0000 Signed Impressions: Service Date/Time: Friday, December 16, 2016 18:29 - CONCLUSION: 1. Extensive soft tissue swelling extending from the ankle into the dorsum of the foot characteristic of cellulitis 2. Fluid accumulation identified in the mid foot superficial to the extensor tendons. This may represent developing abscess. 3. No evidence of bone marrow edema or osteomyelitis. Lasha Sotomayor MD Foot X-Ray 12/15/16 0000 Signed Impressions: Service Date/Time: Thursday, December 15, 2016 16:29 - CONCLUSION: Dorsal and lateral soft tissue swelling. Right foot series otherwise unremarkable. Kyle Vega MD Physical Exam GENERAL: awake and alert, NAD SKIN: Warm and dry. Has scattered tattoos. Has linear scars in her L forearm. Has dry healing wounds both feet. HEAD: Atraumatic. Normocephalic. No temporal wasting, or tenderness. EYES: Floris conjunctiva. No petechia or hemorrhage. Pupils equal, round and reactive to light. No scleral icterus. No injection or drainage. EARS, NOSE AND THROAT: Nose without bleeding or purulent nasal discharge. Mucous membranes pink and moist. No oral lesions noted. No exudate. No oral thrush.Wears upper dentures NECK: Trachea midline. Supple and not tender, no meningeal signs. Has some small lymphadenopathy CARDIOVASCULAR: Regular rate and rhythm. No murmurs, rubs or gallops heard RESPIRATORY: Clear to auscultation. Breath sounds equal bilaterally. No rales , wheezing or rhonchi ABDOMEN: Soft, non-tender, nondistended. Bowel sounds present and normoactive. No guarding. No rebound. No organomegaly. EXTREMITIES: No clubbing, cyanosis, or edema in her LLE. RLE is larger compared to her LLE. The R foot and leg has improving swelling and redness. The bullous lesion is larger with clear serous fluid. Lymphangitis has resolved NEUROLOGICAL: Non-focal PSYCHIATRIC: Normal affect, calm and cooperative. LINE: No evidence of infection Assessment & Plan Remarks IMPRESSION Cellulitis RLE with lymphangitis, likely due to GPC, has [id number] skin typical of Strep - improving - clinically no evidence of septic ankle Known IVDU, denies injecting in her R foot RECOMMENDATION Stop Levaquin Patient can be D/C on keflex 500 mg QID - will ask CM to assist with getting Ab Patient instructed to continue with leg elevation Vianey Giron MD Dec 19, 2016 13:52
[2016-12-19 16:00] VITALS: BP 120/67; PULSE 70; RESP 16; TEMP 97.9; O2SAT 99
[2016-12-19] MEDS: ENOXAPARIN SODIUM 40 MG/0.4 ML SYRINGE SQ SCH (17:35)
[2016-12-19 20:00] VITALS: BP 132/69; PULSE 65; RESP 17; TEMP 98.2; O2SAT 100
[2016-12-19] MEDS ORDERED: diphenhydrAMINE HCL 50 MG CAP PO PRN (22:45)
[2016-12-20] VITALS: BP 127/67; PULSE 66; RESP 17; TEMP 98.7; O2SAT 100
[2016-12-20] MEDS: IBUPROFEN 800 MG TAB PO PRN ×2 (02:28→11:46)
[2016-12-20 08:00] VITALS: BP 101/58; PULSE 85; RESP 16; TEMP 96.8; O2SAT 98
[2016-12-20] MEDS: SODIUM CHLOR 0.9% 1000 ML INJ 1,000 ML IV SCH (08:00)
[2016-12-20 08:18] LABS: AUTOMATED NEUTROPHIL # 2.4 TH/MM3 (1.8-7.7); BASOPHIL % 0.7 % (0.0-2.0); EOSINOPHIL # 0.1 TH/MM3 (0-0.4); EOSINOPHIL % 1.6 % (0.0-4.0); HEMATOCRIT 38.2 % (35.0-46.0); HEMO FLAGS DIFF FINAL; LYMPH % 39.6 % (9.0-44.0); LYMPHOCYTE # 1.8 TH/MM3 (1.0-4.8); MEAN CELL VOLUME 85.8 FL (80.0-100.0); MEAN CORPUSCULAR HEMOGLOBIN 28.4 PG (27.0-34.0); MEAN CORPUSCULAR HGB CONC 33.1 % (32.0-36.0); MONO % 6.3 % (0.0-8.0); NEUT % 51.8 % (16.0-70.0); PLATELET COUNT 232 TH/MM3 (150-450); RED BLOOD COUNT 4.46 MIL/MM3 (4.00-5.30); RED CELL DISTRIBUTION WIDTH 14.9 % (11.6-17.2); WHITE BLOOD COUNT 4.6 TH/MM3 (4.0-11.0)
[2016-12-20 08:38] LABS: ANION GAP 7 MEQ/L (5-15); AST (GOT) 25 U/L (15-37); BICARBONATE 28.5 MEQ/L (21.0-32.0); BLOOD UREA NITROGEN 8 MG/DL (7-18); CHLORIDE 102 MEQ/L (98-107); GLOMERULAR FILTRATION RATE 84 ML/MIN (>89); POTASSIUM 3.8 MEQ/L (3.5-5.1); SODIUM (NA) 137 MEQ/L (136-145)
[2016-12-20 08:39] LABS: ALT (GPT) 29 U/L (10-53)
[2016-12-20 08:41] LABS: ALKALINE PHOSPHATASE 83 U/L (45-117); TOTAL BILIRUBIN ADULT 0.2 MG/DL (0.2-1.0)
[2016-12-20] MEDS: NICOTINE 14 MG/24 HR PATCH T-DERMAL SCH (08:48)
[2016-12-20] MEDS: REMOVE OLD PATCH T-DERMAL SCH (08:48)
[2016-12-20] MEDS: ceFAZolin 2 GM PREMIX 50 ML IV SCH (08:48)
[2016-12-20] MEDS: MULTIVITAMINS/MINERALS THERAPEUTIC TAB PO SCH (08:48)
[2016-12-20] MEDS: FAMOTIDINE 20 MG TAB PO SCH (08:49)
[2016-12-20] MEDS: SODIUM CHLORIDE 0.9% FLUSH 10 ML FLUSH IV FLUSH SCH (08:49)
[2016-12-20] MEDS: FOLIC ACID 1 MG TAB PO SCH (08:49)
[2016-12-20] MEDS: THIAMINE HCL 100 MG TAB PO SCH (08:49)
[2016-12-20] MEDS: LACTOBACILLUS ACIDOPHILUS TAB PO SCH ×2 (08:49→12:47)
--- NOTE | 2016-12-20 11:20 | RADRPT ---
EXAM DATE/TIME: 12/20/2016 10:47 [facility] COMPARISON: No previous studies available for comparison. INDICATIONS : Abscess, right proximal medial calf. MEDICAL HISTORY : Gastroesophageal reflux disease. IV substance use. History of MRSA. Hepatitis. SURGICAL HISTORY : Dilation and curettage. ENCOUNTER: Initial ACUITY: 1 day PAIN SCORE: 3/10 LOCATION: Right leg. AREA EVALUATED: Right proximal medial calf. FINDINGS: MASSES: None. FLUID COLLECTIONS: None. OTHER: Very edematous subcutaneous and soft tissues. No drainable abscess is seen.. CONCLUSION: Edematous subcutaneous tissues. No abscess. Javon Dinh MD on December 20, 2016 at 11:18 Board Certified Radiologist. This report was verified electronically.
[2016-12-20 12:00] VITALS: BP 115/69; PULSE 77; RESP 16; TEMP 97.1; O2SAT 100
--- NOTE | 2016-12-20 13:07 | PD.POD ---
Subjective Podiatric Problems Edema and cellulitis of right lower extremity Pain scale used: 0-10 numeric scale Pain score: 3 Remarks 31-year-old female with history of IV drug abuse presented with swelling and edema and cellulitis of the right lower extremity. MRI of the right foot showed fluid with possible early abscess. Patient now has a blister on the right lateral leg. Patient was seen by infectious disease who added vancomycin. Patient now on cephalexin. She was complaining of pain in the lateral posterior leg. Ultrasound showed no fluid collections or DVT. Her cellulitis is markedly improved. 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 Social History Smoking Status: Current Every Day Smoker Review of Systems Notes No changes in her 14 point review of systems exam since yesterday Objective Vital Signs Vital Signs Date Time Temp Pulse Resp B/P (MAP) Pulse Ox O2 Delivery O2 Flow Rate FiO2 12/20/16 12:00 97.1 77 16 115/69 (84) 100 12/20/16 08:00 96.8 85 16 101/58 (72) 98 12/20/16 00:00 98.7 66 17 127/67 (87) 100 12/19/16 20:00 98.2 65 17 132/69 (90) 100 12/19/16 18:52 16 12/19/16 16:00 97.9 70 16 120/67 (84) 99 Coded Allergies: codeine (Unverified Adverse Reaction, Mild, Nausea/Vomiting, 11/20/16) *MDRO Multi-Drug Resistant Organism (Unverified Adverse Reaction, Unknown , 06/13/16) MRSA (leg wound) - 04/2014 MRSA 08/2014. Medications and IVs Current Medications Sodium Chloride 1,000 ml @ 999 mls/hr BOLUS ONCE IV Last administered on 16:24; Start 12/15/16 at 15:45; Stop 12/15/16 at 16:45; Status DC Morphine Sulfate (Morphine Inj) 4 mg ONCE ONCE IV PUSH Last administered on 16:25; Start 12/15/16 at 15:45; Stop 12/15/16 at 15:49; Status DC Ondansetron HCl (Zofran Inj) 4 mg ONCE ONCE IV PUSH Last administered on 16:25; Start 12/15/16 at 15:45; Stop 12/15/16 at 15:49; Status DC Vancomycin HCl 1000 mg/Sodium Chloride 250 ml @ 250 mls/hr ONCE ONCE IV Last administered on 12/15/16 17:20; Start 12/15/16 at 15:45; Stop 12/15/16 at 16:44; Status DC Piperacillin Sod/ Tazobactam Sod 100 ml @ 200 mls/hr ONCE ONCE IV Last administered on 12/15/16 16:25; Start 12/15/16 at 15:45; Stop 12/15/16 at 16:14; Status DC Sodium Chloride 1,000 ml @ 100 mls/hr Q10H IV Last administered on 12/19/16 11:07; Start 12/15/16 at 18:00; Stop 12/20/16 at 10:40; Status DC Sodium Chloride (NS Flush) 2 ml UNSCH PRN IV FLUSH FLUSH AFTER USING IV ACCESS Last administered on 12/16/16 03:29; Start 12/15/16 at 17:30; Stop 12/16/16 at 20:22; Status DC Sodium Chloride (NS Flush) 2 ml BID IV FLUSH Last administered on 12/16/16 19: 40; Start 12/15/16 at 21:00; Stop 12/16/16 at 20:22; Status DC Acetaminophen (Tylenol) 650 mg Q4H PRN PO TEMP > 100.4; Start 12/15/16 at 17:30 Ondansetron HCl (Zofran Inj) 4 mg Q6H PRN IVP NAUSEA OR VOMITING Last administered on 12/19/16 12:30; Start 12/15/16 at 17:30 Prochlorperazine (Compazine Supp) 25 mg Q12H PRN RECTAL NAUSEA OR VOMITING; Start 12/15/16 at 17:30 Zolpidem Tartrate (Ambien) 5 mg HS PRN PO INSOMNIA; Start 12/15/16 at 17:30 Enoxaparin Sodium (Lovenox Inj) 40 mg Q24H SQ Last administered on 12/19/16 17 :35; Start 12/15/16 at 18:00 Acetaminophen (Tylenol) 650 mg Q6H PRN PO PAIN SCALE 1 TO 2 Last administered on 12/18/16 23:22; Start 12/15/16 at 17:30; Stop 12/19/16 at 12:30; Status DC Morphine Sulfate (Morphine Inj) 2 mg Q3H PRN IV Pain6-10; if unable to take PO Last administered on 12/18/16 00:23; Start 12/15/16 at 17:30 Tramadol HCl (Ultram) 50 mg Q4H PRN PO PAIN SCALE 3 TO 5 Last administered on 20:51; Start 12/15/16 at 17:30; Stop 12/19/16 at 10:22; Status DC Tramadol HCl (Ultram) 100 mg Q4H PRN PO PAIN SCALE 6 TO 10 Last administered on 12/19/16 06:30; Start 12/15/16 at 17:30; Stop 12/19/16 at 10:22; Status DC Naloxone HCl (Narcan Inj) 0.4 mg UNSCH PRN IV SEE LABEL COMMENTS; Start at 17:30 Senna/Docusate Sodium (Elisha-Colace) 1 tab BID PO Last administered on 08:26; Start 12/15/16 at 21:00; Status Future Hold Magnesium Hydroxide (Milk Of Magnesia Liq) 30 ml Q12H PRN PO MILD - MODERATE CONSTIPATION; Start 12/15/16 at 17:30 Sennosides (Senokot) 17.2 mg Q12H PRN PO MODERATE - SEVERE CONSTIPATION; Start 12/15/16 at 17:30 Bisacodyl (Dulcolax Supp) 10 mg DAILY PRN RECTAL SEVERE CONSITIPATION; Start at 17:30 Lactulose (Lactulose Liq) 30 ml DAILY PRN PO SEVERE CONSITIPATION; Start at 17:30 Piperacillin Sod/ Tazobactam Sod 100 ml @ 200 mls/hr Q6H IV Last administered on 12/17/16 05:43; Start 12/16/16 at 00:00; Stop 12/17/16 at 10:45; Status DC Albuterol/ Ipratropium (Duoneb Neb) 1 ampule Q4HR NEB PRN NEB SHORTNESS OF BREATH; Start 12/15/16 at 17:30 Nicotine (Habitrol 14 Mg Patch.24 Hr) 1 patch ONCE ONCE T-DERMAL Last administered on 12/15/16 20:50; Start 12/15/16 at 17:30; Stop 12/15/16 at 17:31; Status DC Nicotine (Habitrol 14 Mg Patch.24 Hr) 1 patch DAILY T-DERMAL Last administered on 12/20/16 08:48; Start 12/16/16 at 09:00 Miscellaneous Information 1 DAILY T-DERMAL Last administered on 12/20/16 08:48 ; Start 12/16/16 at 09:00 Sodium Chloride (NS Flush) 2 ml UNSCH PRN IV FLUSH FLUSH AFTER USING IV ACCESS ; Start 12/15/16 at 17:45 Sodium Chloride (NS Flush) 2 ml BID IV FLUSH Last administered on 12/20/16 08: 49; Start 12/15/16 at 21:00 Sodium Chloride 1,000 ml @ 100 mls/hr Q10H IV ; Start 12/15/16 at 18:00; Stop at 16:56; Status DC Folic Acid (Folate) 1 mg DAILY PO Last administered on 12/20/16 08:49; Start 12/15/16 at 17:45; Stop 12/20/16 at 17:44 Thiamine HCl (Vitamin B1) 100 mg DAILY PO Last administered on 12/20/16 08:49 ; Start 12/15/16 at 17:45 Multivitamins/ Minerals Therapeutic (Theragran M Tab) 1 tab DAILY PO Last administered on 12/20/16 08:48; Start 12/15/16 at 17:45; Stop 12/20/16 at 17:44 Famotidine (Pepcid) 20 mg BID PO Last administered on 12/20/16 08:49; Start at 21:00 Clonidine (Catapres) 0.1 mg Q6H PRN PO SEE LABEL COMMENTS; Start 12/15/16 at 17: 45 Flumazenil (Romazicon Inj) 0.2 mg Q1M PRN IV PUSH SEE LABEL COMMENTS; Start 12/15/16 at 17:45 Lorazepam (Ativan) 1 mg Q4H PRN PO CIWA 8 - 10; Start 12/15/16 at 17:45 Lorazepam (Ativan Inj) 1 mg Q4H PRN IV PUSH CIWA 8 - 10; Start 12/15/16 at 17:45 Lorazepam (Ativan) 2 mg Q2H PRN PO CIWA 11-14; Start 12/15/16 at 17:45 Lorazepam (Ativan Inj) 2 mg Q2H PRN IV PUSH CIWA 11-14; Start 12/15/16 at 17:45 Lorazepam (Ativan Inj) 2 mg Q1H PRN IV PUSH CIWA 15-20; Start 12/15/16 at 17:45 Lorazepam (Ativan Inj) 2 mg Q15M PRN IV PUSH CIWA > 20; Start 12/15/16 at 17:45 Haloperidol Lactate (Haldol Inj) 2 mg Q15M PRN IM SEE LABEL COMMENTS; Start 12/15/16 at 17:45 Ibuprofen (Motrin) 600 mg ONCE ONCE PO Last administered on 12/16/16 03:52; Start 12/16/16 at 04:00; Stop 12/16/16 at 04:01; Status DC Ibuprofen (Motrin) 600 mg Q8H PRN PO fever>100, pain 1-10 Last administered on 12/18/16 08:26; Start 12/16/16 at 11:30; Stop 12/18/16 at 13:57; Status DC Vancomycin HCl 1000 mg/Sodium Chloride 250 ml @ 250 mls/hr Q24H IV ; Start 01/22 at 18:15; Status UNV Pharmacy Profile Note 0 ml @ 0 mls/hr UNSCH OTHER ; Start 12/16/16 at 18:15; Stop 12/18/16 at 14:55; Status DC Gadodiamide (Omniscan Pf Inj) 12 ml STK-MED ONCE IVCONTRAST ; Start 12/16/16 at 19:04; Stop 12/16/16 at 19:05; Status DC Vancomycin HCl 700 mg/Sodium Chloride 257 ml @ 250 mls/hr Q8H IV Last administered on 12/18/16 12:57; Start 12/16/16 at 21:00; Stop 12/18/16 at 14:55 ; Status DC Miscellaneous Information SPECIFIC LAB TO BE DRAWN:VANCO TROUGH DATE TO BE DRApril.. ONCE ONCE .XX ; Start 12/18/16 at 04:45; Stop 12/18/16 at 04:46; Status DC Levofloxacin (Levaquin) 750 mg Q24H PO Last administered on 12/19/16 11:07; Start 12/17/16 at 12:00; Stop 12/19/16 at 13:50; Status DC Diphenhydramine HCl (Benadryl) 50 mg ONCE ONCE PO Last administered on 02:39; Start 12/18/16 at 02:45; Stop 12/18/16 at 02:46; Status DC Ibuprofen (Motrin) 800 mg Q8H PRN PO fever>100, pain 1-4 Last administered on 11:46; Start 12/18/16 at 19:30 Cefazolin Sodium/ Dextrose 50 ml @ 100 mls/hr Q8H IV Last administered on 12/20 08:48; Start 12/18/16 at 16:00 Diphenhydramine HCl (Benadryl) 50 mg ONCE ONCE PO Last administered on 00:13; Start 12/19/16 at 00:00; Stop 12/19/16 at 00:09; Status DC Oxycodone HCl (Roxicodone) 5 mg Q6H PRN PO PAIN SCALE 5 TO 10 Last administered on 12/20/16 06:52; Start 12/19/16 at 10:30 Lactobacillus Acidophilus (Lactinex) 1 tab TID PO Last administered on 17:34; Start 12/19/16 at 13:00 Diphenhydramine HCl (Benadryl) 50 mg HS PRN PO insomnia Last administered on 01:06; Start 12/19/16 at 22:45 Other Results Laboratory Tests Test 12/20/16 07:13 White Blood Count 4.6 TH/MM3 Red Blood Count 4.46 MIL/MM3 Hemoglobin 12.7 GM/DL Hematocrit 38.2 % Mean Corpuscular Volume 85.8 FL Mean Corpuscular Hemoglobin 28.4 PG Mean Corpuscular Hemoglobin Concent 33.1 % Red Cell Distribution Width 14.9 % Platelet Count 232 TH/MM3 Mean Platelet Volume 7.8 FL Neutrophils (%) (Auto) 51.8 % Lymphocytes (%) (Auto) 39.6 % Monocytes (%) (Auto) 6.3 % Eosinophils (%) (Auto) 1.6 % Basophils (%) (Auto) 0.7 % Neutrophils # (Auto) 2.4 TH/MM3 Lymphocytes # (Auto) 1.8 TH/MM3 Monocytes # (Auto) 0.3 TH/MM3 Eosinophils # (Auto) 0.1 TH/MM3 Basophils # (Auto) 0.0 TH/MM3 CBC Comment DIFF FINAL Differential Comment Laboratory Tests Test 12/20/16 07:13 Blood Urea Nitrogen 8 MG/DL Creatinine 0.79 MG/DL Random Glucose 112 MG/DL Total Protein 7.2 GM/DL Albumin 2.7 GM/DL Calcium Level 9.0 MG/DL Alkaline Phosphatase 83 U/L Aspartate Amino Transf (AST/SGOT) 25 U/L Alanine Aminotransferase (ALT/SGPT) 29 U/L Total Bilirubin 0.2 MG/DL Sodium Level 137 MEQ/L Potassium Level 3.8 MEQ/L Chloride Level 102 MEQ/L Carbon Dioxide Level 28.5 MEQ/L Anion Gap 7 MEQ/L Estimat Glomerular Filtration Rate 84 ML/MIN Objective Remarks Last Impressions Foot MRI 12/16/16 0000 Signed Impressions: Service Date/Time: Friday, December 16, 2016 18:29 - CONCLUSION: 1. Extensive soft tissue swelling extending from the ankle into the dorsum of the foot characteristic of cellulitis 2. Fluid accumulation identified in the mid foot superficial to the extensor tendons. This may represent developing abscess. 3. No evidence of bone marrow edema or osteomyelitis. Lasha Sotomayor MD Foot X-Ray 12/15/16 0000 Signed Impressions: Service Date/Time: Thursday, December 15, 2016 16:29 - CONCLUSION: Dorsal and lateral soft tissue swelling. Right foot series otherwise unremarkable. Kyle Vega MD Exam-Podiatry Constitutional General appearance: comfortable Nutritional status: normal Orientation: alert and oriented x3 Dermatological Exam Skin Temp - Right: Within Normal Limits Skin Texture - Right: Within Normal Limits Skin Elasticity - Right: Within Normal Limits Skin Tugor - Right: Within Normal Limits Hair Growth - Right: Within Normal Limits Pigmentation - Right: Within Normal Limits Skin Temp - Left: Within Normal Limits Skin Texture - Left: Within Normal Limits Skin Elasticity - Left: Within Normal Limits Skin Tugor - Left: Within Normal Limits Hair Growth - Left: Within Normal Limits Pigmentation - Left: Within Normal Limits Present on right: Papules Vascular/Lymphatic Exam R Dorsails Pedis: Palpable L Dorsails Pedis: Palpable R Posterior Tibial: Palpable L Posterior Tibial: Palpable Neurologic Exam Details Deferred exam Muscle Strength Dorsiflexion (Right): Normal Plantarflexion (Right): Normal Inversion (Right): Normal Eversion (Right): Normal Digital (Right): Normal Dorsiflexion (Left): Normal Plantarflexion (Left): Normal Inversion (Left): Normal Eversion (Left): Normal Digital (Left): Normal Foot Range of Motion Dorsiflexion (Right): Normal Plantarflexion (Right): Normal Inversion (Right): Normal Eversion (Right): Normal Digital (Right): Normal Dorsiflexion (Left): Normal Plantarflexion (Left): Normal Inversion (Left): Normal Eversion (Left): Normal Digital (Left): Normal Extremities Edema: Left lower extremity: none Right lower extremity: 1+, nonpitting, foot, ankle, leg Assessment & Plan Diagnosis: (1) Cellulitis of right lower leg ICD Codes: L03.115 - Cellulitis of right lower limb Status: Acute (2) Edema of right foot ICD Codes: R60.0 - Localized edema Status: Acute A/P PLAN: Patient can be discharged from a podiatry standpoint. Patient to start oral antibiotics as ordered by infectious disease. Follow-up as necessary. Jimenez Ng DPM Dec 20, 2016 13:07
[2016-12-20] MEDS ORDERED: CEPH-460 PO (13:15)
[2016-12-20] MEDS ORDERED: PERC5TAB12 PO (13:15)
--- NOTE | 2016-12-20 13:17 | HHI.DCPOC ---
Discharge Care Plan Diagnosis: (1) Lymphangitis (2) Polysubstance abuse (3) Puncture wound of right foot (4) Cellulitis of right lower leg (5) Edema of right foot (6) Methamphetamine addiction Goals to Promote Your Health * To prevent worsening of your condition and complications * To maintain your health at the optimal level Directions to Meet Your Goals Take your medications as prescribed Follow your dietary instruction Follow activity as directed Keep your appointments as scheduled Take your immunizations and boosters as scheduled If your symptoms worsen call your PCP, if no PCP go to Urgent Care Center or Emergency Room Smoking is Dangerous to Your Health. Avoid second hand smoke Call the 24-hour hour crisis hotline for domestic abuse at Leona Kinney Dec 20, 2016 13:17
--- NOTE | 2016-12-20 13:25 | HHI.DS ---
Discharge Summary Admission Date Dec 15, 2016 at 17:23 Discharge Date: Dec 20, 2016 Admitting Diagnosis right foot cellulitis (1) Cellulitis of right lower leg ICD Code: L03.115 - Cellulitis of right lower limb Status: Acute (2) Puncture wound of right foot ICD Code: S91.331A - Puncture wound without foreign body, right foot, initial encounter Status: Acute (3) Lymphangitis ICD Code: I89.1 - Lymphangitis (4) Edema of right foot ICD Code: R60.0 - Localized edema Status: Acute (5) Polysubstance abuse ICD Code: F19.10 - Other psychoactive substance abuse, uncomplicated Status: Chronic (6) Methamphetamine addiction ICD Code: F15.20 - Other stimulant dependence, uncomplicated Status: Acute Procedures None Brief History - From Admission Written by Alan Amos, acting as scribe for Dr. Ian Diaz on 12/15/16 at 18: 27. Ms. Ogden is 31-year-old, with history of hepatitis C, IV drug use ( heroin), acid reflux, Blake's palsy (2010), MRSA (2015 of leg and a subsequent wound), nicotine addiction. Ms. Ogden reported sudden onset of right foot pain and swelling. She noted that while she has dogs and cats around her she "doesn't mess with them." She stated she does not recall any of the animals brushing against her foot to cause any type of skin injury. Since the onset of the swelling, she developed cold chills, nausea, and right leg pain extending to her hip. She stated taking ibuprofen has helped her discomfort. Regarding her IV drug use, she reported that she has not used in the past 3 weeks and denied injecting her foot. She stated her usual site was her left forearm. Upon interview, Ms. Ogden reported feeling feverish, body aches, chills, nauseous, pain in her right foot, and difficulty ambulating because of pain. Ms. Ogden summed up her symptoms as "if I were going through withdrawal again ". She denied vomiting, diarrhea, chest pain, headaches, cough, and shortness of breath. A 10 point review of systems was completed and, except as noted above, was negative. Patient states she has not used any drugs of any type in the past few weeks she states that she uses Suboxone to come off heroin Patient's boyfriend states that he is clean and that he just got out of [facility] and they are both trying to make a clean break CBC/BMP: 12/20/16 0713 12/20/16 0713 Significant Findings Laboratory Tests Test 12/18/16 13:05 12/19/16 10:59 12/20/16 07:13 Random Glucose 64 MG/DL (74-106) 112 MG/DL (74-106) Calcium Level 8.4 MG/DL (8.5-10.1) Urine Occult Blood TRACE (NEG) Urine RBC 4 /hpf (0-3) Albumin 2.7 GM/DL (3.4-5.0) Estimat Glomerular Filtration Rate 84 ML/MIN (>89) Imaging Last Impressions Lower Extremity Ultrasound 12/20/16 0000 Signed Impressions: Service Date/Time: December 10:47 - CONCLUSION: Edematous subcutaneous tissues. No abscess. Javon Dinh MD Foot MRI 12/16/16 0000 Signed Impressions: Service Date/Time: Friday, December 16, 2016 18:29 - CONCLUSION: 1. Extensive soft tissue swelling extending from the ankle into the dorsum of the foot characteristic of cellulitis 2. Fluid accumulation identified in the mid foot superficial to the extensor tendons. This may represent developing abscess. 3. No evidence of bone marrow edema or osteomyelitis. Lasha Sotomayor MD Foot X-Ray 12/15/16 0000 Signed Impressions: Service Date/Time: Thursday, December 15, 2016 16:29 - CONCLUSION: Dorsal and lateral soft tissue swelling. Right foot series otherwise unremarkable. Kyle Vega MD PE at Discharge GENERAL: WDWN female, INAD. Lying in bed. Asleep but easily awakens to voice. SKIN: Warm and dry. Right foot swollen and warm to the touch, improving. Large area of erythema circumferentially around the lower leg with blister formation. HEAD: Normocephalic. EYES: EOMI. No scleral icterus. No injection or drainage. NECK: Supple, trachea midline. CARDIOVASCULAR: Regular rate and rhythm without murmurs, gallops, or rubs. RESPIRATORY: Breath sounds equal bilaterally. No wheezes rhonchi or crackles. No accessory muscle use. GASTROINTESTINAL: Abdomen soft, non-tender, nondistended. (+)BS MUSCULOSKELETAL: No cyanosis. Decreased movement of right foot. (+)edema in right foot and lower leg, slightly improved. NEUROLOGIC: Awake and alert. Patient is able to move all extremities spontaneously with noted exception of decreased ROM right foot. Normal speech. Pt update on day of discharge Patient seen and examined. Patient states she feels better today overall. Denies any diarrhea today. Reports good appetite. Still with some nausea but no vomiting. Denies any fever or chills. Reports increased redness and tenderness over area of previous abscess over upper medial aspect of lower leg. US obtained showing edematous subcutaneous tissues and no abscess. Patient evaluated today by Dr. Ng and has cleared patient for discharge from podiatry standpoint. Patient cleared for discharge from ID standpoint with po Keflex x 10 days. Hospital Course Ms. Ogden is 31-year-old, with history of hepatitis C, IV drug use ( heroin), acid reflux, Blake's palsy (2010), MRSA (2015 of leg and a subsequent wound), nicotine addiction. Ms. Ogden reported sudden onset of right foot pain and swelling. She noted that while she has dogs and cats around her she "doesn't mess with them." She stated she does not recall any of the animals brushing against her foot to cause any type of skin injury. Since the onset of the swelling, she developed cold chills, nausea, and right leg pain extending to her hip. She stated taking ibuprofen has helped her discomfort. Regarding her IV drug use, she reported that she has not used in the past 3 weeks and denied injecting her foot. She stated her usual site was her left forearm. Cellulitis of the right lower leg Puncture wound of the right foot h/o IVDU, clean x 3 weeks ppr - Podiatry following - appreciate their assistance. MRI completed showing 1. Extensive soft tissue swelling extending from the ankle into the dorsum of the foot characteristic of cellulitis 2. Fluid accumulation identified in the mid foot superficial to the extensor tendons. This may represent developing abscess. 3. No evidence of bone marrow edema or osteomyelitis. Podiatry discussed I&D but patient refused. Patient improved clinically with marked improvement in cellulitis. - ID following - appreciate their assistance. Per their note, likely GPC, Strep - continue Levaquin, change Vanco to Ancef. Cleared for discharge by ID on Keflex 500mg QID x 10 days. - Echo completed showing EF 50-55%, trace mitral regurgitation, no mention of vegetation - elevate RLE - continue pain management - repeat blood cx shows no growth in 3 day. Initial BCX show NG x 5 days. Nausea Diarrhea - denies any associated vomiting or abdominal pain. She is afebrile. - reports Tramadol upsetting her stomach - D/C Tramadol. Oxycodone 5mg q6h prn pain - UA unremarkable. - C Diff ordered. Diarrhea resolved. Unable to obtain specimen. - lab studies - unremarkable - continue Lactobacillus TID - Zofran 4 mg every 6 hours when necessary - Phenergan as needed rectally Hepatitis C - AST elevated, now normal, otherwise LFTs within normal limits. Nicotine addiction - Nicotine patch 14 mg daily. DVT prophylaxis -Lovenox 40 mg subcutaneous daily GI prophylaxis -Pepcid 20 mg twice a day Discussed with patient, Dr. Ng, Dr. Giron and Dr. Matute Pt Condition on Discharge: Stable Discharge Disposition: Discharge Home Discharge Time: > 30 minutes Discharge Instructions DIET: Follow Instructions for: As Tolerated, No Restrictions Activities you can perform: Regular-No Restrictions Follow up Referrals: PCP Follow-up - 1 Week New Medications: Cephalexin (Keflex) 500 Mg Capsule 500 MG PO QID for Infection, #40 CAP 0 Refills Oxycodone-Acetaminophen (Percocet) 5-325 mg Tab 1 TAB PO Q6H PRN for PAIN, #20 TAB 0 Refills Leona Kinney Dec 20, 2016 13:25
[2016-12-20] MEDS ORDERED: LACT PO (13:26)
== END 2016-12-20 15:07 | disposition home or self-care (01) | DRG 603 ==
LOC: NEPD 15:07 → NEDA 17:23 → N07B 19:16
PROVIDERS: ADMIT Family Medicine; ATTEND Family Medicine
DX: L03.115 Cellulitis of right lower limb (principal); F15.20 Other stimulant dependence, uncomplicated; B19.20 Unspecified viral hepatitis C without hepatic coma; F17.210 Nicotine dependence, cigarettes, uncomplicated; F19.10 Other psychoactive substance abuse, uncomplicated; K21.9 Gastro-esophageal reflux disease without esophagitis; S91.331A Puncture wound without foreign body, right foot, initial encounter; F11.10 Opioid abuse, uncomplicated; R19.7 Diarrhea, unspecified; Z86.14 Personal history of Methicillin resistant Staphylococcus aureus infection
CPT/HCPCS: 73630; 73720; 76882; 80048; 80053; 80202; 80307; 81001; 82550; 82948; 83036; 83605; 83735; 84100; 84439; 84443; 84703; 85025; 85610; 85652; 85730; 86140; 87040; 93306; 96365; 96375; A9579; J0690; J1650; J2270; J2405; J2543; J3370; J7030; J7050; Q0163

== ENCOUNTER 2017-05-29 01:36 | Emergency (ER) | payer OTHER ==
[~2017-05-29] VITALS: Ht 170.2 cm; Wt 55.0 kg
[~2017-05-29 01:36] MED LIST changes: -BACT800T5 PO; +CEPH-460 PO; -CLIN1CAP5 PO; +LACT PO; +PERC5TAB12 PO
[2017-05-29 01:57] VITALS: BP 142/70; PULSE 136; RESP 24; TEMP 99; O2SAT 97
[2017-05-29 02:06] LABS: AUTOMATED NEUTROPHIL # 11.6 TH/MM3 (1.8-7.7); BASOPHIL # 0.1 TH/MM3 (0-0.2); BASOPHIL % 0.5 % (0.0-2.0); EOSINOPHIL % 0.1 % (0.0-4.0); HEMATOCRIT 37.8 % (35.0-46.0); HEMOGLOBIN 13.2 GM/DL (11.6-15.3); LYMPH % 19.4 % (9.0-44.0); LYMPHOCYTE # 3.4 TH/MM3 (1.0-4.8); MEAN CELL VOLUME 85.3 FL (80.0-100.0); MEAN CORPUSCULAR HEMOGLOBIN 29.8 PG (27.0-34.0); MEAN CORPUSCULAR HGB CONC 34.9 % (32.0-36.0); MEAN PLATELET VOLUME 7.9 FL (7.0-11.0); MONO % 13.3 % (0.0-8.0); MONOCYTE # 2.3 TH/MM3 (0-0.9); NEUT % 66.7 % (16.0-70.0); PLATELET COUNT 285 TH/MM3 (150-450); RED BLOOD COUNT 4.43 MIL/MM3 (4.00-5.30); RED CELL DISTRIBUTION WIDTH 14.1 % (11.6-17.2); WHITE BLOOD COUNT 17.4 TH/MM3 (4.0-11.0)
--- NOTE | 2017-05-29 02:06 | PD ---
HPI Chief Complaint: Psychiatric Symptoms Time Seen by Provider: 01:42 Travel History International Travel<30 days: No Contact w/Intl Traveler<30days: No Traveled to known affect area: No History of Present Illness HPI 31-year-old white female presents to emergency department under [place] Cruz act by PD. Patient is a 7 para 4 AB 2 with a proximally ten-week . She has a history of IV substance abuse. She is brought here under [place] act due to her substance abuse and as well as concern for self-harm cording to her boyfriend. The patient here states that she is not suicidal homicidal. She does want to have her . She does want to get detox and start back on Suboxone. She does admit to using IV Dilaudid and heroin. She does also complain of diffuse body aches, abdominal cramping and some nausea. She denies any fever or chills. No chest pain or shortness of breath. No vaginal bleeding or leakage of fluid. PFSH Past Medical History Narrative Medical Depression, cellulitis, hepatitis C, intravenous drug abuse Bipolar Disorder: Yes Depression: Yes Cancer: No Cardiovascular Problems: No Diminished Hearing: No Endocrine: No Gastrointestinal Disorders: Yes Genitourinary: No Hepatitis: Yes (C) Immune Disorder: No Musculoskeletal: No Neurologic: Yes (BELLS PALSY) Psychiatric: Yes (PTSD) Reproductive: Yes (4 MISCARRIAGES) Respiratory: No Tetanus Vaccination: < 5 Years Influenza Vaccination: No ?: Menopausal: No : 7 Para: 2 Miscarriage: 4 Dilation and Curettage (D&C): Yes (3 TIMES) Past Surgical History Abdominal Surgery: No AICD: No Cardiac Surgery: No Ear Surgery: No Endocrine Surgery: No Eye Surgery: No Genitourinary Surgery: No Gynecologic Surgery: Yes (D AND C) Neurologic Surgery: No Oral Surgery: No Thoracic Surgery: No Other Surgery: Yes (D AND C) Social History Alcohol Use: No Tobacco Use: Yes Substance Use: Yes ( opitates, HEROIN, DILAUDID) Allergies-Medications (Allergen,Severity, Reaction): Coded Allergies: codeine (Unverified Adverse Reaction, Mild, Nausea/Vomiting, 11/20/16) *MDRO Multi-Drug Resistant Organism (Unverified Adverse Reaction, Unknown , 06/13/16) MRSA (leg wound) - 04/2014 MRSA 08/2014. Reported Meds & Prescriptions Reported Meds & Active Scripts Active Acidophilus/l-Sporogenes (Lactobacillus Acidophilus) 35 Million Cell-25 Million Cell Tab 1 Tab PO TID 30 Days Keflex (Cephalexin) 500 Mg Capsule 500 Mg PO QID Percocet (Oxycodone-Acetaminophen) 5-325 mg Tab 1 Tab PO Q6H PRN Review of Systems General / Constitutional: No: Fever Eyes: No: Visual changes HENT: No: Headaches Cardiovascular: No: Chest Pain or Discomfort Respiratory: No: Shortness of Breath Gastrointestinal: Positive: Nausea, Diarrhea, Abdominal Pain Genitourinary: No: Dysuria Musculoskeletal: Positive: Myalgias, Arthralgias, No: Pain Skin: No Rash Neurologic: No: Weakness Psychiatric: Positive: Anxiety, Mood Disorder, Substance Abuse, No: Depression , Suicidal Ideations, Disorder of Thought, Homicidal Ideation Endocrine: No: Polydipsia Hematologic/Lymphatic: No: Easy Bruising Physical Exam Narrative GENERAL: Thin appearing, well-developed patient. Patient is acting very bizarre and has of her son of a person on methamphetamine SKIN: Patient has multiple sores from picking and IV drug abuse. No obvious abscess. HEAD: Normocephalic and atraumatic. EYES: No scleral icterus. No injection or drainage. ENT: No nasal drainage noted. Mucous membranes pink. Airway patent. NECK: Supple, trachea midline. Moves head freely without obvious discomfort. CARDIOVASCULAR: Regular rate and rhythm without murmurs, gallops, or rubs. RESPIRATORY: Breath sounds equal bilaterally. No accessory muscle use. GASTROINTESTINAL: Abdomen soft, non-tender, nondistended. EXTREMITIES: No cyanosis or edema. BACK: Nontender without obvious deformity. No CVA tenderness. NEURO: Patient is alert and oriented. no sensorimotor deficits. Nonfocal. Normal speech. PSYCH: No delusions. No auditory or visual hallucinations. Data Data Last Documented VS Vital Signs Date Time Temp Pulse Resp B/P (MAP) Pulse Ox O2 Delivery O2 Flow Rate FiO2 05/29/17 01:57 99.0 136 24 142/70 (94) 97 Room Air Orders Orders Complete Blood Count With Diff (05/29/17 01:50) Comprehensive Metabolic Panel (05/29/17 01:50) Thyroid Stimulating Hormone (05/29/17 01:50) Urinalysis - C+S If Indicated (05/29/17 01:50) Ed Urine Pregnancytest Poc (05/29/17 01:50) Beta Hcg (Quant/Titer) (05/29/17 01:50) Psych Screen (05/29/17 01:50) Drug Screen, Random Urine (05/29/17 01:50) Alcohol (Ethanol) (05/29/17 01:50) Sodium Chlor 0.9% 1000 Ml Inj (Ns 1000 M (05/29/17 02:15) Diphenhydramine Inj (Benadryl Inj) (05/29/17 02:15) Ns (Bolus) Inj (05/29/17 03:15) Labs Laboratory Tests Test 05/29/17 01:58 White Blood Count 17.4 TH/MM3 Red Blood Count 4.43 MIL/MM3 Hemoglobin 13.2 GM/DL Hematocrit 37.8 % Mean Corpuscular Volume 85.3 FL Mean Corpuscular Hemoglobin 29.8 PG Mean Corpuscular Hemoglobin Concent 34.9 % Red Cell Distribution Width 14.1 % Platelet Count 285 TH/MM3 Mean Platelet Volume 7.9 FL Neutrophils (%) (Auto) 66.7 % Lymphocytes (%) (Auto) 19.4 % Monocytes (%) (Auto) 13.3 % Eosinophils (%) (Auto) 0.1 % Basophils (%) (Auto) 0.5 % Neutrophils # (Auto) 11.6 TH/MM3 Lymphocytes # (Auto) 3.4 TH/MM3 Monocytes # (Auto) 2.3 TH/MM3 Eosinophils # (Auto) 0.0 TH/MM3 Basophils # (Auto) 0.1 TH/MM3 CBC Comment AUTO DIFF Differential Comment AUTO DIFF CONFIRMED Platelet Estimate NORMAL Platelet Morphology Comment NORMAL Red Cell Morphology Comment NORMAL Blood Urea Nitrogen 23 MG/DL Creatinine 1.48 MG/DL Random Glucose 76 MG/DL Total Protein 8.3 GM/DL Albumin 3.9 GM/DL Calcium Level 9.0 MG/DL Alkaline Phosphatase 65 U/L Aspartate Amino Transf (AST/SGOT) 61 U/L Alanine Aminotransferase (ALT/SGPT) 59 U/L Total Bilirubin 0.6 MG/DL Sodium Level 138 MEQ/L Potassium Level 3.8 MEQ/L Chloride Level 104 MEQ/L Carbon Dioxide Level 26.3 MEQ/L Anion Gap 8 MEQ/L Estimat Glomerular Filtration Rate 41 ML/MIN Thyroid Stimulating Hormone 3rd Gen 0.575 uIU/ML Human Chorionic Gonadotropin, Quant 417131 MIU/ML Ethyl Alcohol Level LESS THAN 3 MG/DL MDM Medical Decision Making Medical Screen Exam Complete: Yes Emergency Medical Condition: Yes Medical Record Reviewed: Yes Interpretation(s) ABO: O positive Laboratory Tests Test 05/29/17 01:58 White Blood Count 17.4 TH/MM3 Red Blood Count 4.43 MIL/MM3 Hemoglobin 13.2 GM/DL Hematocrit 37.8 % Mean Corpuscular Volume 85.3 FL Mean Corpuscular Hemoglobin 29.8 PG Mean Corpuscular Hemoglobin Concent 34.9 % Red Cell Distribution Width 14.1 % Platelet Count 285 TH/MM3 Mean Platelet Volume 7.9 FL Neutrophils (%) (Auto) 66.7 % Lymphocytes (%) (Auto) 19.4 % Monocytes (%) (Auto) 13.3 % Eosinophils (%) (Auto) 0.1 % Basophils (%) (Auto) 0.5 % Neutrophils # (Auto) 11.6 TH/MM3 Lymphocytes # (Auto) 3.4 TH/MM3 Monocytes # (Auto) 2.3 TH/MM3 Eosinophils # (Auto) 0.0 TH/MM3 Basophils # (Auto) 0.1 TH/MM3 CBC Comment AUTO DIFF Differential Comment AUTO DIFF CONFIRMED Platelet Estimate NORMAL Platelet Morphology Comment NORMAL Red Cell Morphology Comment NORMAL Blood Urea Nitrogen 23 MG/DL Creatinine 1.48 MG/DL Random Glucose 76 MG/DL Total Protein 8.3 GM/DL Albumin 3.9 GM/DL Calcium Level 9.0 MG/DL Alkaline Phosphatase 65 U/L Aspartate Amino Transf (AST/SGOT) 61 U/L Alanine Aminotransferase (ALT/SGPT) 59 U/L Total Bilirubin 0.6 MG/DL Sodium Level 138 MEQ/L Potassium Level 3.8 MEQ/L Chloride Level 104 MEQ/L Carbon Dioxide Level 26.3 MEQ/L Anion Gap 8 MEQ/L Estimat Glomerular Filtration Rate 41 ML/MIN Thyroid Stimulating Hormone 3rd Gen 0.575 uIU/ML Human Chorionic Gonadotropin, Quant [id number] MIU/ML Ethyl Alcohol Level LESS THAN 3 MG/DL Differential Diagnosis MDM: High Differential diagnoses: Schizophrenia, schizoaffective disorder, bipolar, anxiety, depression, adjustment reaction, mood disorder NOS, ODD, depressive disorder NOS, dementia, dementia with agitation, psychosis NOS, substance induced mood disorder, DMDD, Asperger syndrome, infection,electrolyte abnormality, malingering. Narrative Course Mental health screening discussed with the patient. Psychiatric screen ordered. IV access is obtained. Patient's given a liter bolus of saline, 50 mg of Benadryl IV. The patient is been medically cleared. This is medical clearance for psychiatric admission, first trimester , IV drug abuse Procedures Procedure Narrative Bedside ultrasound performed which reveals a viable IUP with a heart rate of approximately 140. This was in the presence of the nurse. Diagnosis Primary Impression: Medical clearance for psychiatric admission Additional Impressions: First trimester IV drug abuse Condition: Stable Blaise Ralph May 29, 2017 02:06
[2017-05-29] MEDS ORDERED: diphenhydrAMINE HCL 50 MG/ML VIAL IV PUSH ONE ×2 (02:15→06:15)
[2017-05-29] MEDS ORDERED: SODIUM CHLOR 0.9% 1000 ML INJ 1,000 ML IV ONE ×2 (02:15→03:15)
[2017-05-29 02:31] LABS: ALBUMIN 3.9 GM/DL (3.4-5.0); ALT (GPT) 59 U/L (10-53); AST (GOT) 61 U/L (15-37); BICARBONATE 26.3 MEQ/L (21.0-32.0); BLOOD UREA NITROGEN 23 MG/DL (7-18); CHLORIDE 104 MEQ/L (98-107); CREATININE 1.48 MG/DL (0.50-1.00); GLOMERULAR FILTRATION RATE 41 ML/MIN (>89); GLUCOSE,RANDOM 76 MG/DL (74-106); SODIUM (NA) 138 MEQ/L (136-145)
[2017-05-29 02:47] LABS: ALKALINE PHOSPHATASE 65 U/L (45-117); TOTAL BILIRUBIN ADULT 0.6 MG/DL (0.2-1.0); TOTAL PROTEIN 8.3 GM/DL (6.4-8.2)
[2017-05-29 05:00] LABS: BACTERIA, URINE RARE /hpf; BILIRUBIN, URINE NEG (NEG); BLOOD, URINE TRACE (NEG); GLUCOSE,URINE NEG (NEG); HYALINE CAST, URINE 17 /lpf (RARE); KETONE, URINE TRACE mg/dL (NEG); MUCUS URINE FEW /lpf (OCC); NITRITE,URINE NEG (NEG); PH, URINE 5.5 (5.0-8.5); SQUAMOUS EPITHELIAL CELL URINE 7 /hpf (0-5); TRANSITIONAL EPI CELLS, URINE <1 /hpf; URINE COLOR YELLOW (YELLW/STRAW); URINE LEUKOCYTE ESTERASE LARGE (NEG)
[2017-05-29] MEDS ORDERED: AZITHROMYCIN 250 MG TAB PO ONE (05:45)
[2017-05-29] MEDS ORDERED: cefTRIAXone INJ 1,000 MG in SODIUM CHLORIDE 0.9% INJ 100 ML IV ONE (05:45)
[2017-05-29] MEDS ORDERED: METOCLOPRAMIDE HCL 10 MG/2 ML VIAL IV PUSH ONE (06:15)
[2017-05-29 07:30] VITALS: O2SAT 100
[2017-05-29 10:02] VITALS: BP 124/74; PULSE 106; RESP 16; TEMP 97.6; O2SAT 100
[2017-05-29 14:35] VITALS: BP 105/50; PULSE 72; RESP 16; TEMP 98.4; O2SAT 99
--- NOTE | 2017-05-29 15:08 | PD ---
History of Present Illness Chief Complaint: Psychiatric Symptoms Time Seen by Provider: 14:45 Travel History International Travel<30 Days: No Contact w/Intl Traveler<30days: No Known affected area: No Legal Status Legal Status: De La Cruz Act De [place] Act Signed By: Emely Stephens History of Present Illness: History of Present Illness HPI 31-year-old white female who is approximately 10 week with history of IV substance use disorder who presents to emergency department under De [place] Cruz act initiated by PD. The De La Cruz act alleges that the police responded to a call in reference to a suicidal person call-in by the patient's boyfriend. The boyfriend alleged Forker freaked out and advised that she wanted to kill herself , and attempted to harm herself several times in the past. A friend at the scene reported to police that the patient screaming that she wanted out of this life and wanted to end it. Patient also made statements to police that she wanted to end her life. She admits to using IV Dilaudid and heroin. Electronic medical record is reviewed the patient was last evaluated in 2014 for substance abuse and suicidality. She has one admission to our inpatient psychiatric unit in 2010 after substance abuse and suicidal ideation. Current toxicology is positive for amphetamines and opiates. The patient is seen in [facility] pod. She is asleep but awakens with verbal stimuli. She has jerking movements of her arms. Her speech is clear, logical and goal- directed. She does report that she feels like she is detoxing from opiates. She denies suicidal ideation and states that she told the police that she wanted out of of the relationship and out of the chaos that they were living in. She wants to be discharge because she wants to begin treatment with Suboxone. She tells me that she was supposed to be seen by an OB provider who would place her on medications to help with the withdrawal while she is . Patient states that she was in [facility] and released recently but did not have her Medicaid available to make the appointment with the OB doctor. PFSH Past Medical History Bipolar Disorder: Yes Depression: Yes Cancer: No Cardiovascular Problems: No Diminished Hearing: No Endocrine: No Gastrointestinal Disorders: Yes Genitourinary: No Hepatitis: Yes (C) Immune Disorder: No Musculoskeletal: No Neurologic: Yes (BELLS PALSY) Psychiatric: Yes (PTSD) Reproductive: Yes (4 MISCARRIAGES) Respiratory: No Tetanus Vaccination: < 5 Years Influenza Vaccination: No ?: Menopausal: No : 7 Para: 2 Miscarriage: 4 Dilation and Curettage (D&C): Yes (3 TIMES) Past Surgical History Abdominal Surgery: No AICD: No Cardiac Surgery: No Ear Surgery: No Endocrine Surgery: No Eye Surgery: No Genitourinary Surgery: No Gynecologic Surgery: Yes (D AND C) Neurologic Surgery: No Oral Surgery: No Thoracic Surgery: No Other Surgery: Yes (D AND C) Psychiatric History Psychiatric History Hx Psychiatric Treatment: DENIED. Was admitted once in the past in context of opiate abuse. History of Inpatient Treatment: Yes ([facility]) Guns or firearms in home: No Social History Single, never . Mother of 4 children. Currently . Was living with her boyfriend. Unemployed. Hx Alcohol Use: No Hx Tobacco Use: Yes Hx Substance Use: Yes ( opitates, HEROIN, DILAUDID) Substance Use Type: Amphetamines-Stimulants, Prescription Medications, Synth Opiates-Pain Pills Other Substances Used: FREEDOM ONLY Hx of Substance Use Treatment: Yes Family Psychiatric History Negative Allergies-Medications (Allergen,Severity, Reaction): Coded Allergies: codeine (Unverified Adverse Reaction, Mild, Nausea/Vomiting, 11/20/16) *MDRO Multi-Drug Resistant Organism (Unverified Adverse Reaction, Unknown , 06/13/16) MRSA (leg wound) - 04/2014 MRSA 08/2014. Reported Meds & Prescriptions Reported Meds & Active Scripts Active Acidophilus/l-Sporogenes (Lactobacillus Acidophilus) 35 Million Cell-25 Million Cell Tab 1 Tab PO TID 30 Days Keflex (Cephalexin) 500 Mg Capsule 500 Mg PO QID Percocet (Oxycodone-Acetaminophen) 5-325 mg Tab 1 Tab PO Q6H PRN Review of Systems Constitutional: COMPLAINS OF: Chills Gastrointestinal: COMPLAINS OF: Nausea Psychiatric: DENIES: Anxiety, Confusion, Mood changes, Depression, Hallucinations, Agitation, Suicidal Ideation, Homicidal Ideation, Delusions Except as stated in HPI: all other systems reviewed are Neg Mental Status Examination Appearance: Disheveled (in hospital gown) Consciousness: Alert Orientation: x4 Motor Activity: Normal gait Speech: Unremarkable Language: Adequate Fund of Knowledge: Adequate Attention and Concentration: Adequate Memory: Unremarkable Mood: Appropriate Affect: Appropriate Thought Process & Associations: Intact, Logical, Goal directed Thought Content: Appropriate Hallucination Type: None Delusion Type: None Suicidal Ideation: No Suicidal Plan: No Suicidal Intention: No Homicidal Ideation: No Homicidal Intention: No Insight: Fair Judgment: Impulsive MDM Medical Decision Making Medical Record Reviewed: Yes Assessment/Plan 31-year-old female with history of IV substance abuse, 10 weeks who was placed under De La Cruz act after her boyfriend called the police and reported that she had made suicidal statements. The patient did not make any attempt at harming herself. Patient is not psychotic. She is not manic. She wants to be able to get into treatment to avoid withdrawal symptoms. She wants to be able to keep the . We have contacted [facility] who will take the patient as a priority due to her . The De La Cruz act is lifted. The patient will be transported to [facility] for detox. Orders Orders Complete Blood Count With Diff (05/29/17 01:50) Comprehensive Metabolic Panel (05/29/17 01:50) Thyroid Stimulating Hormone (05/29/17 01:50) Urinalysis - C+S If Indicated (05/29/17 01:50) Ed Urine Pregnancytest Poc (05/29/17 01:50) Beta Hcg (Quant/Titer) (05/29/17 01:50) Psych Screen (05/29/17 01:50) Drug Screen, Random Urine (05/29/17 01:50) Alcohol (Ethanol) (05/29/17 01:50) Sodium Chlor 0.9% 1000 Ml Inj (Ns 1000 M (05/29/17 02:15) Diphenhydramine Inj (Benadryl Inj) (05/29/17 02:15) Sodium Chlor 0.9% 1000 Ml Inj (Ns 1000 M (05/29/17 03:15) Urine Culture (05/29/17 04:43) Gc And Chlamydia Pcr (05/29/17 05:32) Ceftriaxone Inj (Rocephin Inj) (05/29/17 05:45) Azithromycin (Zithromax) (05/29/17 05:45) Diphenhydramine Inj (Benadryl Inj) (05/29/17 06:15) Metoclopramide Inj (Reglan Inj) (05/29/17 06:15) Diet Regular Basic (05/29/17 Lunch) Results Vital Signs Date Time Temp Pulse Resp B/P (MAP) Pulse Ox O2 Delivery O2 Flow Rate FiO2 05/29/17 14:35 98.4 72 16 105/50 (68) 99 Room Air 05/29/17 10:02 97.6 106 16 124/74 (91) 100 Room Air 05/29/17 07:30 100 05/29/17 01:57 99.0 136 24 142/70 (94) 97 Room Air Laboratory Tests Test 05/29/17 01:58 05/29/17 04:43 White Blood Count 17.4 Red Blood Count 4.43 Hemoglobin 13.2 Hematocrit 37.8 Mean Corpuscular Volume 85.3 Mean Corpuscular Hemoglobin 29.8 Mean Corpuscular Hemoglobin Concent 34.9 Red Cell Distribution Width 14.1 Platelet Count 285 Mean Platelet Volume 7.9 Neutrophils (%) (Auto) 66.7 Lymphocytes (%) (Auto) 19.4 Monocytes (%) (Auto) 13.3 Eosinophils (%) (Auto) 0.1 Basophils (%) (Auto) 0.5 Neutrophils # (Auto) 11.6 Lymphocytes # (Auto) 3.4 Monocytes # (Auto) 2.3 Eosinophils # (Auto) 0.0 Basophils # (Auto) 0.1 CBC Comment AUTO DIFF Differential Comment AUTO DIFF CONFIRMED Platelet Estimate NORMAL Platelet Morphology Comment NORMAL Red Cell Morphology Comment NORMAL Blood Urea Nitrogen 23 Creatinine 1.48 Random Glucose 76 Total Protein 8.3 Albumin 3.9 Calcium Level 9.0 Alkaline Phosphatase 65 Aspartate Amino Transf (AST/SGOT) 61 Alanine Aminotransferase (ALT/SGPT) 59 Total Bilirubin 0.6 Sodium Level 138 Potassium Level 3.8 Chloride Level 104 Carbon Dioxide Level 26.3 Anion Gap 8 Estimat Glomerular Filtration Rate 41 Thyroid Stimulating Hormone 3rd Gen 0.575 Human Chorionic Gonadotropin, Quant [id number] Ethyl Alcohol Level LESS THAN 3 Urine Color YELLOW Urine Turbidity HAZY Urine pH 5.5 Urine Specific [place] 1.016 Urine Protein 100 Urine Glucose (UA) NEG Urine Ketones TRACE Urine Occult Blood TRACE Urine Nitrite NEG Urine Bilirubin NEG Urine Urobilinogen LESS THAN 2.0 Urine Leukocyte Esterase LARGE Urine RBC 3 Urine WBC 19 Urine Squamous Epithelial Cells 7 Urine Transitional Epithelial Cells <1 Urine Bacteria RARE Urine Hyaline Casts 17 Urine Granular Casts 1 Urine Mucus FEW Microscopic Urinalysis Comment CULTURE INDICATED Urine Opiates Screen POS Urine Barbiturates Screen NEG Urine Amphetamines Screen POS Urine Benzodiazepines Screen NEG Urine Cocaine Screen NEG Urine Cannabinoids Screen NEG Date/Time Source Procedure Growth Status 05/29/17 04:43 Urine Random Urine Urine Culture Pending Worksheet Diagnosis Primary Impression: IV drug abuse Additional Impressions: First trimester Substance abuse requiring supervised withdrawal Psychiatrically Cleared: Yes Disposition: 65 DISC TO PSYCH CARE FACILITY Condition: Stable Problem Qualifiers Liliana Pandey May 29, 2017 15:08
== END 2017-05-29 16:11 | disposition home or self-care (01) ==
LOC: NEPD 01:36 → NEPJ 16:11
DX: O99.321 Drug use complicating pregnancy, first trimester (principal); F11.20 Opioid dependence, uncomplicated; O99.341 Other mental disorders complicating pregnancy, first trimester; F31.9 Bipolar disorder, unspecified; F43.10 Post-traumatic stress disorder, unspecified; O98.411 Viral hepatitis complicating pregnancy, first trimester; B19.20 Unspecified viral hepatitis C without hepatic coma; Z3A.10 10 weeks gestation of pregnancy; Z87.891 Personal history of nicotine dependence; Z88.5 Allergy status to narcotic agent
CPT/HCPCS: 80053; 80307; 81001; 84443; 84702; 84703; 85025; 87086; 87491; 87591; 96361; 96365; 99284; J0696; J1200; J7030

== ENCOUNTER 2017-11-24 12:12 | Inpatient (IN) ==
--- NOTE | 2017-11-24 13:00 | ED ---
History of Present Illness Service: ob Primary Care Physician: No Primary Care Physician Chief Complaint: contractions, PPROM,35 07/13 History of Present Illness: PPROM today at 1030, clear, amnisure + Weeks Gestation:: 35 Para: 2 : 4 Last menstrual period: 03/13/17 Total # of Abortions (Spontaneous & Elective): 4 Review of Systems All other systems reviewed negative except as stated in [facility] - Medical History Medical History: Medical History (Last Updated 10/30/17 @ 17:37 by Pavan Gallardo MD) Anxiety Bipolar disorder Depression PTSD (post-traumatic stress disorder) - Tobacco History Tobacco Use In Past 30 Days: Yes Smoking Status: Smoker, status unknown Tobacco Type: Cigarettes - Alcohol History How Often Do You Have a Drink Containing Alcohol: Monthly or less - Substance Use History Substance History: Active Abuse - Travel History History of Recent Travel: No Recent Travel in the [place] Within the Last 8 Weeks: No Recent Travel Out of the Country Within the Last 8 Weeks: No Medications and Allergies Allergies Allergy/AdvReac Type Severity Reaction Status Date / Time *MDRO Multi-Drug Resistant AdvReac Unknown unknown Uncoded 10/30/17 18:14 Organism Home Medications Medication Instructions Recorded Confirmed Type buprenorphine HCl 16 mg SUBLINGUAL DAILY 10/30/17 10/30/17 History Exam Narrative: GENERAL: Well-nourished, well-developed patient. SKIN: Warm and dry.multiple gonsales all over the body HEAD: Normocephalic and atraumatic. EYES: No scleral icterus. No injection or drainage. ENT: No nasal drainage noted. Mucous membranes pink. Airway patent. NECK: Supple, trachea midline. No JVD. CARDIOVASCULAR: Regular rate and rhythm without murmurs, gallops, or rubs. RESPIRATORY: Breath sounds equal bilaterally. No accessory muscle use. BREASTS: Bilateral exam showed no masses , no retractions, no nipple discharge. ABDOMEN/GI: Abdomen soft, non-tender, bowel sounds present, no rebound, no guarding Gravid to [35] weeks size Fundal Height: [35] GENITOURINARY: External Genitalia: intact and normal in appearance BUS glands: [0] Cervix: ant] Dilatation: [5] Effacement: [100] Station: [0] Presentation: vx-] Membranes:PPROM 1030 am] Uterine Contractions: [6 min] FHT's: Category: [1] Baseline: [135] Reactive: [yes] Variability: [mod] Decels: [none] EXTREMITIES: No cyanosis or edema. BACK: Nontender without obvious deformity. No CVA tenderness. NEUROLOGICAL: Awake and alert. Motor and sensory grossly within normal limits. Five out of 5 muscle strength in all muscle groups. Normal speech. Assessment and Plan - Diagnosis (1) labor in third trimester Code(s): O60.03 - labor without delivery, third trimester Status: Acute (2) Abdominal pain affecting , antepartum Code(s): O26.899 - Other specified related conditions, unspecified trimester; R10.9 - Unspecified abdominal pain Status: Acute (3) Drug use affecting in third trimester Code(s): O99.323 - Drug use complicating , third trimester Status: Acute Discharge Plan - Discharge Disposition Patient Disposition: 30 Still Patient - Physicians Team ED Provider: Je Mckeon Primary Care Provider: Primary Care Physici,Noni - Rxs /Orders / Referrals /Forms Prescriptions: No Action buprenorphine HCl 8 mg Tablet, Sublingual 16 mg SUBLINGUAL DAILY - Discharge Instructions Print Language: Bengali
--- NOTE | 2017-11-24 13:19 | P.HPOB ---
History of Present Illness Primary Care Physician: No Primary Care Physician Chief Complaint: contractions, PPROM,35 07/13 History of Present Illness: PPROM at 1030 today Weeks Gestation:: 35 Last menstrual period: 03/13/18 Review of Systems All other systems reviewed negative except as stated in [facility] - Medical History Medical History: Medical History (Last Reviewed 11/24/17 @ 13:14 by Je Mckeon MD) Anxiety Bipolar disorder Depression PTSD (post-traumatic stress disorder) - Tobacco History Tobacco Use In Past 30 Days: Yes Smoking Status: Smoker, status unknown Tobacco Type: Cigarettes - Alcohol History How Often Do You Have a Drink Containing Alcohol: Monthly or less - Substance Use History Substance History: Active Abuse - Travel History History of Recent Travel: No Recent Travel in the [place] Within the Last 8 Weeks: No Recent Travel Out of the Country Within the Last 8 Weeks: No Medications and Allergies Allergies Allergy/AdvReac Type Severity Reaction Status Date / Time *MDRO Multi-Drug Resistant AdvReac Unknown unknown Uncoded 10/30/17 18:14 Organism Home Medications Medication Instructions Recorded Confirmed Type buprenorphine HCl 16 mg SUBLINGUAL DAILY 10/30/17 10/30/17 History Exam Narrative: Exam Narrative: GENERAL: Well-nourished, well-developed patient. SKIN: Warm and dry.multiple gonsales all over the body HEAD: Normocephalic and atraumatic. EYES: No scleral icterus. No injection or drainage. ENT: No nasal drainage noted. Mucous membranes pink. Airway patent. NECK: Supple, trachea midline. No JVD. CARDIOVASCULAR: Regular rate and rhythm without murmurs, gallops, or rubs. RESPIRATORY: Breath sounds equal bilaterally. No accessory muscle use. BREASTS: Bilateral exam showed no masses , no retractions, no nipple discharge. ABDOMEN/GI: Abdomen soft, non-tender, bowel sounds present, no rebound, no guarding Gravid to [35] weeks size Fundal Height: [35] GENITOURINARY: External Genitalia: intact and normal in appearance BUS glands: [0] Cervix: ant] Dilatation: [5] Effacement: [100] Station: [0] Presentation: vx-] Membranes:PPROM 1030 am] Uterine Contractions: [6 min] FHT's: Category: [1] Baseline: [135] Reactive: [yes] Variability: [mod] Decels: [none] EXTREMITIES: No cyanosis or edema. BACK: Nontender without obvious deformity. No CVA tenderness. NEUROLOGICAL: Awake and alert. Motor and sensory grossly within normal limits. Five out of 5 muscle strength in all muscle groups. Normal speech. Caprini VTE Risk Assessment Caprini VTE Risk Assessment: No/Low Risk (score <= 1) (none) Caprini Risk Assessment Model: Point Value = 1 Point Value = 2 Point Value = 3 Point Value = 5 Age 41-60 Minor surgery BMI > 25 kg/m2 Swollen legs Varicose veins or History of unexplained or recurrent spontaneous Oral contraceptives or hormone replacement Sepsis (< 1 month) Serious lung disease, including pneumonia (< 1 month) Abnormal pulmonary function Acute myocardial infarction Congestive heart failure (< 1 month) History of inflammatory bowel disease Medical patient at bed rest Age 61-74 Arthroscopic surgery Major open surgery (> 45 min) Laparoscopic surgery (> 45 min) Malignancy Confined to bed (> 72 hours) Immobilizing plaster cast Central venous access Age >= 75 History of VTE Family history of VTE Factor V Leiden Prothrombin [id number] Lupus anticoagulant Anticardiolipin antibodies Elevated serum homocysteine Heparin-induced thrombocytopenia Other congenital or acquired thrombophilia Stroke (< 1 month) Elective arthroplasty Hip, pelvis, or leg fracture Acute spinal cord injury (< 1 month) Prophylaxis Regimen: Total Risk Factor Score Risk Level Prophylaxis Regimen 0-1 Low Early ambulation 2 Moderate Order ONE of the following: *Sequential Compression Device (SCD) *Heparin 5000 units SQ BID 3-4 Higher Order ONE of the following medications: *Heparin 5000 units SQ TID *Enoxaparin/Lovenox 40 mg SQ daily (WT < 150 kg, CrCl > 30 mL/min) *Enoxaparin/Lovenox 30 mg SQ daily (WT < 150 kg, CrCl > 10-29 mL/min) *Enoxaparin/Lovenox 30 mg SQ BID (WT < 150 kg, CrCl > 30 mL/min) AND/OR *Sequential Compression Device (SCD) 5 or more Highest Order ONE of the following medications: *Heparin 5000 units SQ TID (Preferred with Epidurals) *Enoxaparin/Lovenox 40 mg SQ daily (WT < 150 kg, CrCl > 30 mL/min) *Enoxaparin/Lovenox 30 mg SQ daily (WT < 150 kg, CrCl > 10-29 mL/min) *Enoxaparin/Lovenox 30 mg SQ BID (WT < 150 kg, CrCl > 30 mL/min) AND *Sequential Compression Device (SCD) Assessment and Plan - Diagnosis (1) labor in third trimester Code(s): O60.03 - labor without delivery, third trimester Status: Acute (2) Abdominal pain affecting , antepartum Code(s): O26.899 - Other specified related conditions, unspecified trimester; R10.9 - Unspecified abdominal pain Status: Acute (3) Drug use affecting in third trimester Code(s): O99.323 - Drug use complicating , third trimester Status: Acute Current Visit: No (4) premature rupture of membranes (PPROM) with onset of labor after 24 hours of rupture in first trimester, antepartum Code(s): O42.111 - premature rupture of membranes, onset of labor more than 24 hours following rupture, first trimester Status: Acute (5) Hep C w/o coma, chronic Code(s): B18.2 - Chronic viral hepatitis C Status: Acute - Plan anticipate steroids antibiotics (1) labor in third trimester Qualifiers: labor delivery status: without delivery
[2017-11-24] MEDS ORDERED: Naloxone Inj 0.4 MG/ML Vial IV.PUSH PRN ×2 (13:21→14:47)
[2017-11-24] MEDS ORDERED: Sod Chloride 0.9% Inj 1,000 ML IV.CONT PRN (13:21)
[2017-11-24] MEDS ORDERED: Sodium Chlor 0.9% Inj 500 ML IV.SIG PRN (13:21)
[2017-11-24] MEDS ORDERED: Penicillin G Potassium Inj 5,000,000 UNIT in Sodium Chloride 0.9% Inj 100 ML IV.SIG ONE (13:21)
[2017-11-24] MEDS ORDERED: Oxytocin 30 Units/500ml Premix 30 UNITS/500 ML BAG IV.SIG ONE (13:21)
[2017-11-24] MEDS ORDERED: fentaNYL Citrate Inj 100 MCG/2 ML Ampul IV.PUSH PRN ×2 (13:21)
[2017-11-24] MEDS ORDERED: Betamethasone Sod Phos/Acetate Inj 30 MG/5 ML Vial IM ONE (13:24)
[2017-11-24] MEDS ORDERED: Citric Acid/Sodium Citrate Liq 30 ML UDC PO SCH (13:30)
[2017-11-24] MEDS ORDERED: fentaNYL 2MCG-Bupiv 0.125% Epi 150 ML EPIDURAL ONE (13:37)
[2017-11-24] MEDS: Penicillin G Potassium Inj 2,500,000 UNIT in Sodium Chlor 0.9% Inj 100 ML IV.SIG SCH ×3 (13:48→22:39)
[2017-11-24 14:18] LABS: Baso % (Auto) 0.5 % (0.0-2.0); Eos # (Auto) 0.1 th/mm3 (0.0-0.4); Hemoglobin 11.4 gm/dL (11.6-15.3); Lymph # (Auto) 1.6 th/mm3 (1.0-4.8); Lymph % (Auto) 24.5 % (9.0-44.0); Mean Corpuscular HGB Conc 33.4 % (32.0-36.0); Mean Corpuscular Hemoglobin 27.1 pg (27.0-34.0); Mean Platelet Volume 7.5 fL (7.0-11.0); Mono # (Auto) 0.6 th/mm3 (0.0-0.9); Mono % (Auto) 8.3 % (0.0-8.0); Neut # (Auto) 4.4 th/mm3 (1.8-7.7); Neut % (Auto) 64.7 % (16.0-70.0); Platelet Count 226 th/mm3 (150-450); Red Blood Count 4.19 mil/mm3 (4.00-5.30); Red Cell Distribution Width 13.3 % (11.6-17.2); White Blood Count 6.7 th/mm3 (4.0-11.0)
[2017-11-24] MEDS ORDERED: Benzocaine 20% Top Spray 60 ML Can TOPICAL PRN (14:47)
[2017-11-24] MEDS ORDERED: Acetaminophen 325 MG Tablet PO PRN (14:47)
[2017-11-24] MEDS ORDERED: Bisacodyl 10 MG Supp RECTAL PRN (14:47)
[2017-11-24] MEDS ORDERED: Zolpidem Tartrate 5 MG Tablet PO PRN (14:47)
[2017-11-24] MEDS ORDERED: Witch Hazel 50%/Glyderin 12.5% 40 Pad Jar RECTAL PRN (14:47)
[2017-11-24 14:52] LABS: Alanine Aminotransferase 20 U/L (10-53); Albumin 2.1 g/dL (3.4-5.0); Anion Gap 6 meq/L (5-15); Aspartate Aminotransferase 30 U/L (15-37); Blood Urea Nitrogen 9 mg/dL (7-18); Calcium 8.1 mg/dL (8.5-10.1); Carbon Dioxide 25.2 meq/L (21.0-32.0); Chloride 106 meq/L (98-107); Glomerular Filtration Rate 89 mL/min (>89); Glucose,Random 69 mg/dL (74-106); Potassium 3.9 meq/L (3.5-5.1); Sodium 137 meq/L (136-145)
[2017-11-24 14:55] LABS: Alkaline Phosphatase 204 U/L (45-117); Total Protein 7.4 g/dL (6.4-8.2)
[2017-11-24] MEDS ORDERED: Oxytocin 30 Units/500ml Premix 30 UNITS/500 ML BAG IV.CONT SCH (15:00)
--- NOTE | 2017-11-24 15:01 | P.OBDELI ---
Weeks Gestation: 35 Patient Started Active Labor: Yes Active Labor Start Date: 11/24/17 Active Labor Start Time: 11:00 Medical Induction of Labor: No Artificial Rupture of Membrane: No Anesthesia: None Episiotomy: none Vaginal Delivery: Normal Presentation: Occiput anterior Nuchal Cord: x1 Delayed Cord Clamping (45 sec): Yes Placenta: Spontaneous delivery Laceration: None Infant: Male (EBL 150 ml)
[2017-11-24] MEDS ORDERED: Diphtheria/Tetanus/Pertussis Vaccine Inj 0.5 ML Syringe IM ONE (16:00)
[2017-11-24] MEDS ORDERED: Measles/Mumps/Rubella Vaccine Inj 0.5 ML Vial SQ ONE (16:00)
[2017-11-24 16:23] LABS: Benzodiazepine Urine With Conf Neg (Neg)
[2017-11-24 16:25] LABS: Bilirubin,Urine Negative (Negative); Clarity,Urine Clear (Clear); Color,Urine Yellow (Yellw/Straw); Glucose,Urine (UA) Negative (Negative); Leukocyte Esterase,Urine Negative (Negative); Mucus,Urine Few /lpf (Occasional); Nitrite,Urine Negative (Negative); Specific Gravity,Urine 1.016 (1.002-1.035); Squamous Epithelial Cell,Urine <1 /hpf (0-5)
[2017-11-24 16:28] LABS: Amphetamine Urine With Conf Pos (Neg)
[2017-11-24] MEDS: Senna/Docusate Sodium 8.6/50 MG Tablet PO SCH (22:39)
[2017-11-25] MEDS: Penicillin G Potassium Inj 2,500,000 UNIT in Sodium Chlor 0.9% Inj 100 ML IV.SIG SCH ×5 (04:20→22:31)
[2017-11-25] MEDS: Ibuprofen 400 MG Tablet PO PRN (08:54)
--- NOTE | 2017-11-25 08:54 | P.PNOB ---
Subjective Interval history: day #1 AFVSS overnight. Decreased lochia. Denies dysuria. No breast tenderness. Appetite good. No nausea or vomiting. Ambulating well. Denies calf pain or shortness of breath. Otherwise, she is doing well this morning and has no other complaints. Objective Vital Signs/I&O: Vital Signs 11/24/17 13:56 11/24/17 14:53 11/24/17 14:54 Temperature 97.7 F Pulse Rate 67 58 L Respiratory Rate 18 18 Blood Pressure 147/83 H 152/86 H 11/24/17 15:00 11/24/17 15:15 11/24/17 15:16 Temperature 97.6 F Pulse Rate 56 L 59 L Respiratory Rate 18 Blood Pressure 152/89 H 153/90 H 11/24/17 15:32 11/24/17 15:45 11/24/17 17:00 Temperature Pulse Rate 68 52 L Respiratory Rate 18 Blood Pressure 136/85 150/90 H 11/24/17 18:00 11/24/17 20:00 11/24/17 22:35 Temperature 97.7 F 98.4 F Pulse Rate 55 L 68 Respiratory Rate 16 18 18 Blood Pressure 133/84 150/87 H 120/65 Result Diagrams: 11/24/17 14:05 11/24/17 14:05 Objective Remarks: GENERAL: Well-nourished, well-developed patient. CARDIOVASCULAR: Regular rate and rhythm without murmurs, gallops, or rubs. RESPIRATORY: Breath sounds equal bilaterally. No accessory muscle use. ABDOMEN/GI: Abdomen soft, non-tender. Fundus: Firm, non-tender at umbilicus. GENITOURINARY: Light to moderate bleeding. EXTREMITIES: No cyanosis or edema, non-tender, without signs of DVT. Medications and IVs: Active Medications Acetaminophen (Tylenol) 650 mg PO Q4H PRN PRN Reason: PAIN SCALE 1 TO 2 Al Hydroxide/Mg Hydroxide (Milk Of Magnesia Liq) 30 ml PO Q12H PRN PRN Reason: Mild Constipation Benzocaine (Americaine 20% Top [place]) 1 spray TOPICAL Q4H PRN PRN Reason: For Perineum Discomfort Bisacodyl (Dulcolax Supp) 10 mg RECTAL DAILY PRN PRN Reason: SEVERE CONSITIPATION Buprenorphine HCl (Sublingual) 4 mg SL Q6HR [facility] Stop: 11/27/17 12:01 Last Admin: 11/25/17 05:59 Dose: 4 mg Citric Acid/Sodium Citrate (Sodium Citrate/Citric Acid Liq) 30 ml PO PROCESS T[employer] [facility] Stop: 11/28/17 13:29 Fentanyl Citrate (Fentanyl Inj) 50 mcg IV.PUSH Q1H PRN PRN Reason: Pain Scale 3 - 5 Fentanyl Citrate (Fentanyl Inj) 100 mcg IV.PUSH Q1H PRN PRN Reason: PAIN SCALE 6 TO 10 Lactated Ringer's (Lr 1000 Ml Inj) 1,000 mls @ 125 mls/hr IV.CONT .Q8H [facility] Last Admin: 11/25/17 08:49 Dose: Not Given Lactated Ringer's (Lr 1000 Ml Inj) 1,000 mls @ 3,000 mls/hr IV.SIG UNSCH PRN PRN Reason: compromise or epidural Sodium Chloride (Ns Inj) 1,000 mls @ 100 mls/hr IV.CONT .Q10H PRN PRN Reason: SEE LABEL COMMENTS Penicillin G Potassium 2,500, (000 unit/ Sodium Chloride) 100 mls @ 200 mls/hr IV.SIG Q4H [facility] Last Admin: 11/25/17 08:49 Dose: Not Given Sodium Chloride (Ns Inj) 500 mls @ 1,000 mls/hr IV.SIG UNSCH PRN PRN Reason: SEE LABEL COMMENTS Ibuprofen (Motrin) 800 mg PO Q8H PRN PRN Reason: For cramping Lactulose (Lactulose Liq) 30 ml PO DAILY PRN PRN Reason: SEVERE CONSITIPATION Lidocaine HCl (Xylocaine 1% Inj) 0.1 ml I-DERMAL PRN PRN PRN Reason: For IV start Stop: 11/27/17 13:20 Lidocaine HCl (Xylocaine 1% Inj) 10 ml INFILTRATN PRN PRN PRN Reason: For episiotomy repair Stop: 11/26/17 13:20 Mineral Oil (Muri-Lube Oil) 10 ml TOPICAL PRN PRN PRN Reason: PRN perineal massage Naloxone HCl (Narcan Inj) 0.1 mg IV.PUSH Q2M PRN PRN Reason: for opiate reversal Naloxone HCl (Narcan Inj) 0.1 mg IV.PUSH Q2M PRN PRN Reason: for opiate reversal Ondansetron HCl (Zofran Odt) 4 mg PO Q6H PRN PRN Reason: NAUSEA OR VOMITING Senna/Docusate Sodium (Elisha-Colace) 1 tab PO BID [facility] Last Admin: 11/24/17 22:39 Dose: Not Given Sennosides (Senokot) 17.2 mg PO Q12H PRN PRN Reason: Moderate Constipation Sodium Chloride (Ns Flush) 2 ml IV.FLUSH BID [facility] Last Admin: 11/24/17 22:38 Dose: Not Given Sodium Chloride (Ns Flush) 2 ml IV.FLUSH PRN PRN PRN Reason: FLUSH AFTER USING IV ACCESS Witch Ava/Glycerin (Tucks Pads) 1 applicatio RECTAL QID PRN PRN Reason: HEMORRHOIDS Zolpidem Tartrate (Ambien) 5 mg PO HS PRN PRN Reason: SLEEP Assessment and Plan - Plan 32y/o female who is PPD#1 s/p . -Continue routine care. -Motrin PRN pain. -Encouraged OOB. Advised pelvic rest for 6 wks. -Re: ctrl, she would like Depo-Provera. -D/c in 1-[address] Gallardo
[2017-11-25] MEDS ORDERED: medroxyPROGESTERone Acetate Inj 150 MG/ML Syringe IM ONE (10:00)
[2017-11-25] MEDS: Senna/Docusate Sodium 8.6/50 MG Tablet PO SCH ×2 (18:09→20:15)
[2017-11-26] MEDS: Penicillin G Potassium Inj 2,500,000 UNIT in Sodium Chlor 0.9% Inj 100 ML IV.SIG SCH ×3 (04:14→18:25)
[2017-11-26] MEDS: Senna/Docusate Sodium 8.6/50 MG Tablet PO SCH (08:40)
--- NOTE | 2017-11-26 09:42 | P.PNOB ---
Subjective Interval history: Patient is a on post day 2 after uncomplicated spontaneous vaginal delivery. Patient had no acute events overnight and denies any chest pain, shortness of breath, headache, dizziness, lower extremity swelling, calf pain, nausea, vomiting, fevers or chills. According to the patient she has felt cold recently, not like herself, and repeated several times that she was tired. This may very well be due to probable withdrawal as patient was positive for opiates and amphetamines on admission. Patient is also a smoker and a nicotine patch was order for her. Patient had no questions or concerns. Objective Vital Signs/I&O: Vital Signs 11/25/17 20:00 11/26/17 08:00 Temperature 98.3 F 98.4 F Pulse Rate 67 56 L Respiratory Rate 18 18 Blood Pressure 126/69 142/82 H Result Diagrams: 11/24/17 14:05 11/24/17 14:05 Objective Remarks: GENERAL: Well-nourished, well-developed patient, restless but in no acute distress, smelled of cigarettes CARDIOVASCULAR: Regular rate and rhythm without murmurs, gallops, or rubs. RESPIRATORY: Breath sounds equal bilaterally. No accessory muscle use. ABDOMEN/GI: Abdomen soft, non-tender. Fundus: Firm, non-tender at umbilicus. GENITOURINARY: Light to moderate bleeding. EXTREMITIES: No cyanosis or edema, non-tender, without signs of DVT. Medications and IVs: Active Medications Acetaminophen (Tylenol) 650 mg PO Q4H PRN PRN Reason: PAIN SCALE 1 TO 2 Al Hydroxide/Mg Hydroxide (Milk Of Magnesia Liq) 30 ml PO Q12H PRN PRN Reason: Mild Constipation Benzocaine (Americaine 20% Top [place]) 1 spray TOPICAL Q4H PRN PRN Reason: For Perineum Discomfort Bisacodyl (Dulcolax Supp) 10 mg RECTAL DAILY PRN PRN Reason: SEVERE CONSITIPATION Buprenorphine HCl (Sublingual) 4 mg SL Q6HR [facility] Stop: 11/27/17 12:01 Last Admin: 11/26/17 06:33 Dose: 4 mg Citric Acid/Sodium Citrate (Sodium Citrate/Citric Acid Liq) 30 ml PO CLOTHES [employer]ONER [facility] Stop: 11/28/17 13:29 Fentanyl Citrate (Fentanyl Inj) 50 mcg IV.PUSH Q1H PRN PRN Reason: Pain Scale 3 - 5 Fentanyl Citrate (Fentanyl Inj) 100 mcg IV.PUSH Q1H PRN PRN Reason: PAIN SCALE 6 TO 10 Lactated Ringer's (Lr 1000 Ml Inj) 1,000 mls @ 125 mls/hr IV.CONT .Q8H [facility] Last Admin: 11/25/17 22:31 Dose: Not Given Lactated Ringer's (Lr 1000 Ml Inj) 1,000 mls @ 3,000 mls/hr IV.SIG UNSCH PRN PRN Reason: compromise or epidural Sodium Chloride (Ns Inj) 1,000 mls @ 100 mls/hr IV.CONT .Q10H PRN PRN Reason: SEE LABEL COMMENTS Penicillin G Potassium 2,500, (000 unit/ Sodium Chloride) 100 mls @ 200 mls/hr IV.SIG Q4H [facility] Last Admin: 11/26/17 04:14 Dose: Not Given Sodium Chloride (Ns Inj) 500 mls @ 1,000 mls/hr IV.SIG UNSCH PRN PRN Reason: SEE LABEL COMMENTS Ibuprofen (Motrin) 800 mg PO Q8H PRN PRN Reason: For cramping Last Admin: 11/25/17 08:54 Dose: 800 mg Lactulose (Lactulose Liq) 30 ml PO DAILY PRN PRN Reason: SEVERE CONSITIPATION Lidocaine HCl (Xylocaine 1% Inj) 0.1 ml I-DERMAL PRN PRN PRN Reason: For IV start Lidocaine HCl (Xylocaine 1% Inj) 10 ml INFILTRATN PRN PRN PRN Reason: For episiotomy repair Mineral Oil (Muri-Lube Oil) 10 ml TOPICAL PRN PRN PRN Reason: PRN perineal massage Naloxone HCl (Narcan Inj) 0.1 mg IV.PUSH Q2M PRN PRN Reason: for opiate reversal Naloxone HCl (Narcan Inj) 0.1 mg IV.PUSH Q2M PRN PRN Reason: for opiate reversal Nicotine (Habitrol 21 Mg Patch.24 Hr) 1 patch T-DERMAL DAILY [facility] Ondansetron HCl (Zofran Odt) 4 mg PO Q6H PRN PRN Reason: NAUSEA OR VOMITING Patch Removal (Remove Old Patch) 1 each T-DERMAL HS [facility] Senna/Docusate Sodium (Elisha-Colace) 1 tab PO BID [facility] Last Admin: 11/25/17 20:15 Dose: Not Given Sennosides (Senokot) 17.2 mg PO Q12H PRN PRN Reason: Moderate Constipation Sodium Chloride (Ns Flush) 2 ml IV.FLUSH BID [facility] Last Admin: 11/25/17 20:14 Dose: Not Given Sodium Chloride (Ns Flush) 2 ml IV.FLUSH PRN PRN PRN Reason: FLUSH AFTER USING IV ACCESS Witch Ava/Glycerin (Tucks Pads) 1 applicatio RECTAL QID PRN PRN Reason: HEMORRHOIDS Zolpidem Tartrate (Ambien) 5 mg PO HS PRN PRN Reason: SLEEP Assessment and Plan - Plan Patient is a on post day 2 after uncomplicated spontaneous vaginal delivery. Patient continues to have vital signs within normal limits and no acute events overnight. Patient reports to be doing well but is very tired. -Continue routine care. -Motrin PRN pain. -Encouraged OOB. Advised pelvic rest for 6 wks. -Patient received Depo-Provera yesterday. Heroin abuse and withdrawal: - Follow up with Medicine consult - Follow medicine team recommendations. krystal Gallardo - Attending Attestation The patient was seen and examined by me and I participated in all almendarez decision making. Continue routine care. Will obtain medicine consult prior to discharge. SMS
[2017-11-26] MEDS: Ibuprofen 400 MG Tablet PO PRN (12:34)
--- NOTE | 2017-11-26 14:41 | P.HPFP ---
History of Present Illness Primary Care Physician: No Primary Care Physician Chief Complaint: contractions, PPROM,35 4/7 History of Present Illness: 32 yo F with history of IVDU, Hepatitis C who is post day 2 from a vaginal delivery. Medicine team consulted for evaluation of opioid withdrawal. Patient states that she has has been injecting heroin since age 18. She has been on Subutex 16 mg daily throughout this and , but continues to inject heroin (1/4 g) roughly every other day. She states that she has tried to quit using in the past and was most successful while going to a methadone clinic. She smokes 1 pack per day but otherwise denies any other substance or alcohol use. Currently she is having anxiety, nausea, abdominal pain and insomnia. Denies any chest pain, shortness of breath, headache or blurry vision currently. - Diagnosis (1) History of intravenous drug abuse Inpatient Certification: I certify that the inpatient services were ordered in accordance with Medicare regulations governing the order. This includes certification that hospital inpatient services are reasonable and necessary and in the case of services not specified as inpatient-only under 42 CFR 419.22(n), that they are appropriately provided as inpatient services in accordance to with the 2-midnight benchmark under 43 CFR 412.3(e) Review of Systems All other systems reviewed negative except as stated in HPI [facility] - Medical History Medical History: Medical History (Last Reviewed 11/26/17 @ 16:14 by Aron Marshall MD, R2) Anxiety Bipolar disorder Depression PTSD (post-traumatic stress disorder) - Tobacco History Tobacco Use In Past 30 Days: Yes Smoking Status: Smoker, status unknown Tobacco Type: Cigarettes - Alcohol History How Often Do You Have a Drink Containing Alcohol: Monthly or less - Substance Use History Substance History: Active Abuse - Travel History History of Recent Travel: No Recent Travel in the [place] Within the Last 8 Weeks: No Recent Travel Out of the Country Within the Last 8 Weeks: No Medications and Allergies Active Medications: Active Medications Acetaminophen (Tylenol) 650 mg PO Q4H PRN PRN Reason: PAIN SCALE 1 TO 2 Al Hydroxide/Mg Hydroxide (Milk Of Magnesia Liq) 30 ml PO Q12H PRN PRN Reason: Mild Constipation Benzocaine (Americaine 20% [place]) 1 spray TOPICAL Q4H PRN PRN Reason: For Perineum Discomfort Bisacodyl (Dulcolax Supp) 10 mg RECTAL DAILY PRN PRN Reason: SEVERE CONSITIPATION Buprenorphine HCl (Sublingual) 4 mg SL Q6HR [facility] Stop: 11/27/17 12:01 Last Admin: 11/26/17 11:31 Dose: 4 mg Citric Acid/Sodium Citrate (Sodium Citrate/Citric Acid Liq) 30 ml PO CRITICAL CARE PHYSICIAN [facility] Stop: 11/28/17 13:29 Fentanyl Citrate (Fentanyl Inj) 50 mcg IV.PUSH Q1H PRN PRN Reason: Pain Scale 3 - 5 Fentanyl Citrate (Fentanyl Inj) 100 mcg IV.PUSH Q1H PRN PRN Reason: PAIN SCALE 6 TO 10 Gabapentin (Neurontin) 100 mg PO TID [facility] Lactated Ringer's (Lr 1000 Ml Inj) 1,000 mls @ 125 mls/hr IV.CONT .Q8H [facility] Last Admin: 11/25/17 22:31 Dose: Not Given Lactated Ringer's (Lr 1000 Ml Inj) 1,000 mls @ 3,000 mls/hr IV.SIG UNSCH PRN PRN Reason: compromise or epidural Sodium Chloride (Ns Inj) 1,000 mls @ 100 mls/hr IV.CONT .Q10H PRN PRN Reason: SEE LABEL COMMENTS Penicillin G Potassium 2,500, (000 unit/ Sodium Chloride) 100 mls @ 200 mls/hr IV.SIG Q4H [facility] Last Admin: 11/26/17 04:14 Dose: Not Given Sodium Chloride (Ns Inj) 500 mls @ 1,000 mls/hr IV.SIG UNSCH PRN PRN Reason: SEE LABEL COMMENTS Ibuprofen (Motrin) 800 mg PO Q8H PRN PRN Reason: For cramping Last Admin: 11/26/17 12:34 Dose: 800 mg Lactulose (Lactulose Liq) 30 ml PO DAILY PRN PRN Reason: SEVERE CONSITIPATION Lidocaine HCl (Xylocaine 1% Inj) 0.1 ml I-DERMAL PRN PRN PRN Reason: For IV start Lidocaine HCl (Xylocaine 1% Inj) 10 ml INFILTRATN PRN PRN PRN Reason: For episiotomy repair Mineral Oil (Muri-Lube Oil) 10 ml TOPICAL PRN PRN PRN Reason: PRN perineal massage Naloxone HCl (Narcan Inj) 0.1 mg IV.PUSH Q2M PRN PRN Reason: for opiate reversal Naloxone HCl (Narcan Inj) 0.1 mg IV.PUSH Q2M PRN PRN Reason: for opiate reversal Nicotine (Habitrol 21 Mg Patch.24 Hr) 1 patch T-DERMAL DAILY [facility] Last Admin: 11/26/17 11:31 Dose: 1 patch Ondansetron HCl (Zofran Odt) 4 mg PO Q6H PRN PRN Reason: NAUSEA OR VOMITING Patch Removal (Remove Old Patch) 1 each T-DERMAL HS [facility] Senna/Docusate Sodium (Elisha-Colace) 1 tab PO BID [facility] Last Admin: 11/26/17 08:40 Dose: Not Given Sennosides (Senokot) 17.2 mg PO Q12H PRN PRN Reason: Moderate Constipation Sodium Chloride (Ns Flush) 2 ml IV.FLUSH BID [facility] Last Admin: 11/26/17 10:35 Dose: Not Given Sodium Chloride (Ns Flush) 2 ml IV.FLUSH PRN PRN PRN Reason: FLUSH AFTER USING IV ACCESS Witch Ava/Glycerin (Tucks Pads) 1 applicatio RECTAL QID PRN PRN Reason: HEMORRHOIDS Zolpidem Tartrate (Ambien) 5 mg PO HS PRN PRN Reason: SLEEP Allergies Allergy/AdvReac Type Severity Reaction Status Date / Time *MDRO Multi-Drug Resistant AdvReac Unknown unknown Uncoded 10/30/17 18:14 Organism Home Medications Medication Instructions Recorded Confirmed Type buprenorphine HCl 16 mg SUBLINGUAL DAILY 10/30/17 10/30/17 History Exam Vital signs: Vital Signs 11/25/17 20:00 11/26/17 08:00 Temperature 98.3 F 98.4 F Pulse Rate 67 56 L Respiratory Rate 18 18 Blood Pressure 126/69 142/82 H Narrative: GENERAL: Thin female sitting upright in bed in no acute distress. SKIN: Warm and dry. Several small healed scabs on the upper and lower extremities. No infectious appearing lesions HEAD: Normocephalic. EYES: No scleral icterus. No injection or drainage. NECK: Supple, trachea midline. No JVD or lymphadenopathy. CARDIOVASCULAR: Regular rate and rhythm without murmurs, gallops, or rubs. RESPIRATORY: Breath sounds equal bilaterally. No accessory muscle use. GASTROINTESTINAL: Abdomen soft, nondistended. Mildly tender to palpation MUSCULOSKELETAL: No cyanosis, or edema. BACK: Nontender without obvious deformity. Results - Labs Result diagrams: 11/24/17 14:05 11/24/17 14:05 Caprini VTE Risk Assessment Caprini VTE Risk Assessment: No/Low Risk (score <= 1) (none) Caprini Risk Assessment Model: Point Value = 1 Point Value = 2 Point Value = 3 Point Value = 5 Age 41-60 Minor surgery BMI > 25 kg/m2 Swollen legs Varicose veins or History of unexplained or recurrent spontaneous Oral contraceptives or hormone replacement Sepsis (< 1 month) Serious lung disease, including pneumonia (< 1 month) Abnormal pulmonary function Acute myocardial infarction Congestive heart failure (< 1 month) History of inflammatory bowel disease Medical patient at bed rest Age 61-74 Arthroscopic surgery Major open surgery (> 45 min) Laparoscopic surgery (> 45 min) Malignancy Confined to bed (> 72 hours) Immobilizing plaster cast Central venous access Age >= 75 History of VTE Family history of VTE Factor V Leiden Prothrombin [id number] Lupus anticoagulant Anticardiolipin antibodies Elevated serum homocysteine Heparin-induced thrombocytopenia Other congenital or acquired thrombophilia Stroke (< 1 month) Elective arthroplasty Hip, pelvis, or leg fracture Acute spinal cord injury (< 1 month) Prophylaxis Regimen: Total Risk Factor Score Risk Level Prophylaxis Regimen 0-1 Low Early ambulation 2 Moderate Order ONE of the following: *Sequential Compression Device (SCD) *Heparin 5000 units SQ BID 3-4 Higher Order ONE of the following medications: *Heparin 5000 units SQ TID *Enoxaparin/Lovenox 40 mg SQ daily (WT < 150 kg, CrCl > 30 mL/min) *Enoxaparin/Lovenox 30 mg SQ daily (WT < 150 kg, CrCl > 10-29 mL/min) *Enoxaparin/Lovenox 30 mg SQ BID (WT < 150 kg, CrCl > 30 mL/min) AND/OR *Sequential Compression Device (SCD) 5 or more Highest Order ONE of the following medications: *Heparin 5000 units SQ TID (Preferred with Epidurals) *Enoxaparin/Lovenox 40 mg SQ daily (WT < 150 kg, CrCl > 30 mL/min) *Enoxaparin/Lovenox 30 mg SQ daily (WT < 150 kg, CrCl > 10-29 mL/min) *Enoxaparin/Lovenox 30 mg SQ BID (WT < 150 kg, CrCl > 30 mL/min) AND *Sequential Compression Device (SCD) Assessment and Plan - Assessment (1) History of intravenous drug abuse Code(s): Z87.898 - Personal history of other specified conditions Status: Acute Plan: 32-year-old female with 14 year history of IV heroin use. Reporting injecting 0.25 g 1-2 days - Currently being treated with Subutex 16 milligrams daily - Patient currently having signs of withdrawal - Patient states that she will likely resume using after being discharged - Medication options discussed with patient's at length. As patient is likely to resume using, clonidine would likely not be a good option for -Will prescribe gabapentin 100 mg 3 times daily for pain. Highly encouraged patient to establish with methadone clinic if she has had success with that in the past and to avoid street drug use of possible -Cleared from a medicine standpoint for discharge. -Seen and discussed with Dr. Parada
--- NOTE | 2017-11-26 17:15 | P.PNFP ---
Subjective Interval history: Attending medicine note: 32-year-old day 2 seen with resident team, Dr. Griffiths and significant other at bedside. Medicine service requested to evaluate and make recommendations regarding discharge plans, patient having been on Suboxone 16 mg with her stating that she also had been using some heroin injections prior to delivery 2 days prior. Patient was candid in stating that she would most likely go back on the Suboxone and could well possibly use some street heroin. Discussed with the patient consideration of clonidine, gabapentin, she states that she is going to try to go to the methadone clinic for management. Previously she had been seeing Dr. Socrates Felipe for Suboxone management. Is observed to be calm, feeding her with bottle. Results - Labs Result diagrams: 11/24/17 14:05 11/24/17 14:05 Physical Exam Vital signs: Vital Signs 11/25/17 20:00 11/26/17 08:00 Temperature 98.3 F 98.4 F Pulse Rate 67 56 L Respiratory Rate 18 18 Blood Pressure 126/69 142/82 H Narrative: Vital signs reviewed, some lability to her blood pressure noted i.e. 128/76-140 2/82. Afebrile. Pulse 56 respirations 18. General appearance: Young woman who makes eye contact, is conversive, feeding her child with a bottle. Refer to resident history and physical for complete discussion of physical examination. Assessment and Plan - Assessment (1) History of intravenous drug abuse Code(s): Z87.898 - Personal history of other specified conditions Status: Acute Plan: 32-year-old female with 14 year history of IV heroin use. Reporting injecting 0.25 g 1-2 days - Currently being treated with Subutex 16 milligrams daily - Patient currently having signs of withdrawal - Patient states that she will likely resume using after being discharged - Medication options discussed with patient's at length. As patient is likely to resume using, clonidine would likely not be a good option for -Will prescribe gabapentin 100 mg 3 times daily for pain. Highly encouraged patient to establish with methadone clinic if she has had success with that in the past and to avoid street drug use of possible -Cleared from a medicine standpoint for discharge. -Seen and discussed with Dr. Parada Attending note assessment: 32-year-old woman day 2 vaginal delivery planning on discharge with a history of hepatitis C, IV drug use, current Suboxone treatment with plans to transition to methadone openly admitting that most likely she will access her one on the street. Will plan gabapentin treatment for pain for her consideration. Follow-up will be arranged through OB department per protocol for patients. Agree with orders as written by resident team. Alex Parada MD 11/26/2017.
[2017-11-26] MEDS ORDERED: Gabapentin 100 MG Capsule PO SCH (18:00)
== END 2017-11-26 19:20 | disposition home or self-care (01) ==
LOC: HOBED 12:12 → H2E 13:04 → H1EA 16:09
PROVIDERS: ADMIT Obstetrics & Gynecology; ATTEND Obstetrics & Gynecology

== ENCOUNTER 2018-02-10 17:55 | Inpatient (IN) ==
[2018-02-10] MEDS ORDERED: Morphine Inj 4 MG/ML Vial ONE ×3 (18:02→18:45)
[2018-02-10] MEDS ORDERED: ceFAZolin 2 GM Premix Inj 2 GM/50 ML PIGGYBACK IV.SIG ONE (18:02)
[2018-02-10] MEDS ORDERED: Diphtheria/Tetanus/Pertussis Vaccine Inj 0.5 ML Syringe IM ONE (18:03)
[2018-02-10 18:21] LABS: Baso % (Auto) 0.5 % (0.0-2.0); Eos # (Auto) 0.1 th/mm3 (0.0-0.4); Hematocrit 32.6 % (35.0-46.0); Lymph # (Auto) 2.4 th/mm3 (1.0-4.8); Lymph % (Auto) 40.8 % (9.0-44.0); Mean Corpuscular HGB Conc 33.7 % (32.0-36.0); Mean Corpuscular Hemoglobin 25.7 pg (27.0-34.0); Mean Platelet Volume 7.1 fL (7.0-11.0); Mono # (Auto) 0.4 th/mm3 (0.0-0.9); Mono % (Auto) 6.9 % (0.0-8.0); Neut # (Auto) 2.9 th/mm3 (1.8-7.7); Neut % (Auto) 49.8 % (16.0-70.0); Platelet Count 286 th/mm3 (150-450); Red Blood Count 4.29 mil/mm3 (4.00-5.30); Red Cell Distribution Width 15.4 % (11.6-17.2); White Blood Count 5.9 th/mm3 (4.0-11.0)
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
[2018-02-10 18:31] LABS: INR 1.1 Ratio; Prothrombin Time 10.7 sec (9.8-11.6)
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
[2018-02-10] MEDS ORDERED: Lidocaine PF 1% Inj 30 ML Vial ONE (18:47)
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
[2018-02-10 20:09] LABS: ABG Base Excess 2.8 mmol/L (-2-2); ABG PCO2 46 mmHg (38-42); ABG PO2 78 mmHg (61-120)
[2018-02-10] MEDS: HYDROmorphone PF Inj 2 MG/ML Vial IV.PUSH PRN ×2 (20:16→22:07)
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
[2018-02-10] MEDS: Multivitamin Inj 10 ML, Thiamine Inj 100 MG, Folic Acid Inj 1 MG in Sodium Chlor 0.9% I... IV.SIG SCH (20:46)
[2018-02-10] MEDS: Docusate Sodium 100 MG Capsule PO SCH (21:07)
[2018-02-10] MEDS: Pantoprazole Inj 40 MG Vial IV.PUSH SCH (21:30)
[2018-02-10 21:44] LABS: Hematocrit 30.5 % (35.0-46.0); Hemoglobin 10.3 gm/dL (11.6-15.3)
[2018-02-11] MEDS: HYDROmorphone PF Inj 2 MG/ML Vial IV.PUSH PRN ×13 (00:13→23:28)
[2018-02-11 00:30] LABS: Hematocrit 30.9 % (35.0-46.0)
[2018-02-11] MEDS ORDERED: Chlorhexidine Gluconate 2% 1 Pack (2 Cloths) TOPICAL PRN (04:00)
[2018-02-11] MEDS: Chlorhexidine Gluconate 2% 1 Pack (2 Cloths) TOPICAL SCH (04:49)
--- NOTE | 2018-02-11 05:25 | XR ---
EXAM DATE: 02/11/2018 4:51 AM EST AGE/SEX: 32 years / Female INDICATIONS: Chest pain, shortness of breath. CLINICAL DATA: This is the patient's subsequent encounter. Patient reports that signs and symptoms h ave been present for 2 days and indicates a pain score of 5/10. MEDICAL/SURGICAL HISTORY: . Right side pneumothorax. None. COMPARISON: [facility], CHEST 1V SINGLE AP, 02/10/2018. . FINDINGS: Right thoracostomy tube remains in place. No significant pneumothorax. Persistent elevation of the ri ght diaphragm and parenchymal opacities in the perihilar regions bilaterally and at the right lung ba se. Cardiac contours are grossly unchanged. CONCLUSION: Near complete resolution of right pneumothorax. Otherwise stable Electronically signed by: Socrates Quintana MD 02/11/2018 5:23 AM EST
[2018-02-11 05:52] LABS: Baso % (Auto) 0.3 % (0.0-2.0); Hematocrit 36.5 % (35.0-46.0); Hemoglobin 11.8 gm/dL (11.6-15.3); Hemoglobin 11.9 gm/dL (11.6-15.3); Lymph # (Auto) 0.7 th/mm3 (1.0-4.8); Lymph % (Auto) 14.3 % (9.0-44.0); Mean Corpuscular HGB Conc 32.3 % (32.0-36.0); Mean Corpuscular Hemoglobin 24.7 pg (27.0-34.0); Mean Corpuscular Volume 76.4 fL (80.0-100.0); Mean Platelet Volume 7.5 fL (7.0-11.0); Mono # (Auto) 0.5 th/mm3 (0.0-0.9); Mono % (Auto) 8.8 % (0.0-8.0); Neut % (Auto) 76.6 % (16.0-70.0); Platelet Count 251 th/mm3 (150-450); Red Blood Count 4.84 mil/mm3 (4.00-5.30); Red Cell Distribution Width 14.6 % (11.6-17.2); White Blood Count 5.2 th/mm3 (4.0-11.0)
[2018-02-11 06:16] LABS: Calcium 8.4 mg/dL (8.5-10.1); Carbon Dioxide 28.2 meq/L (21.0-32.0); Potassium 4.4 meq/L (3.5-5.1)
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
[2018-02-11] MEDS ORDERED: HYDROmorphone PF Inj 1 MG/ML Ampul IV.PUSH ONE (09:25)
[2018-02-11] MEDS ORDERED: *HYDROmorphone PF Inj 1 MG/ML Ampul PERIprocedural Use ONLY ONE ×2 (09:26→14:04)
[2018-02-11] MEDS ORDERED: Ketamine Inj 50 MG/5 ML Syringe IV.PUSH ONE (09:39)
[2018-02-11] MEDS ORDERED: Neostigmine Inj 5 MG/5 ML Syringe IV.PUSH ONE (10:05)
[2018-02-11] MEDS ORDERED: Normosol-R pH 7.4 Inj 2,000 ML IV.CONT ONE (10:05)
[2018-02-11] MEDS ORDERED: Glycopyrrolate Inj 1 MG/5 ML Syringe IV.PUSH ONE (10:05)
[2018-02-11] MEDS ORDERED: Lidocaine PF 1% Inj 5 ML Syringe OTHER ONE (10:05)
[2018-02-11] MEDS ORDERED: Sodium Chlor 0.9% Inj 500 ML IV.CONT ONE (10:05)
[2018-02-11] MEDS ORDERED: Phenylephrine/NS 1000 MCG/10ML Syringe IV.PUSH ONE (10:05)
[2018-02-11] MEDS ORDERED: ceFAZolin 1 GM Premix Inj 1 GM/50 ML PIGGYBACK IV.SIG ONE (10:12)
[2018-02-11] MEDS ORDERED: Post-op Orders (for Pharmacy) OTHER STA (11:03)
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
[2018-02-11] MEDS ORDERED: HYDROmorphone PF Inj 2 MG/ML Vial ONE (13:08)
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
[2018-02-11] MEDS ORDERED: *Meperidine Inj 25 MG/ML Vial PERIprocedural Use ONLY ONE (13:54)
--- NOTE | 2018-02-11 13:56 | XR ---
EXAM DATE: 02/11/2018 1:16 PM EST AGE/SEX: 32 years / Female INDICATIONS: Pelvic ex fix. CLINICAL DATA: This is the patient's initial encounter. Patient reports that signs and symptoms have been present for 1 day and indicates a pain score of Nonresponsive. MEDICAL/SURGICAL HISTORY: Hepatitis C. None. COMPARISON: [facility] [place]V, [place]. . FINDINGS: Multiple coned down views of the pelvis were obtained intraoperatively using the matrix camera. This demonstrates placement of an external fixation device with pins extending into both iliac bones. Comm inuted fracture of the right symphysis pubis is again noted the right side is displaced superiorly co mpared to the left. The comminuted fracture of the right ilium is not well delineated. CONCLUSION: Interval placement of external fixation device. Electronically signed by: Je Nino MD 02/11/2018 1:55 PM EST
[2018-02-11] MEDS: Docusate Sodium 100 MG Capsule PO SCH ×2 (15:12→22:11)
[2018-02-11] MEDS: Lidocaine 5% Patch T-DERMAL SCH (16:17)
[2018-02-11] MEDS: Calcium/Vitamin D 250/125 MG Tablet PO SCH ×2 (16:18→18:17)
[2018-02-11] MEDS: diazePAM 2 MG Tablet PO SCH (16:18)
[2018-02-11 18:20] LABS: Hemoglobin 9.1 gm/dL (11.6-15.3)
[2018-02-11 18:21] LABS: Hematocrit 27.5 % (35.0-46.0)
[2018-02-11] MEDS: Pantoprazole Inj 40 MG Vial IV.PUSH SCH (19:52)
[2018-02-11] MEDS: Multivitamin Inj 10 ML, Thiamine Inj 100 MG, Folic Acid Inj 1 MG in Sodium Chlor 0.9% I... IV.SIG SCH (21:10)
[2018-02-12 00:02] LABS: Hematocrit 25.7 % (35.0-46.0); Hemoglobin 8.6 gm/dL (11.6-15.3)
[2018-02-12] MEDS: hydrALAZINE HCl Inj 20 MG/ML Vial IV.PUSH PRN (00:48)
[2018-02-12] MEDS: HYDROmorphone PF Inj 2 MG/ML Vial IV.PUSH PRN ×12 (00:51→22:21)
[2018-02-12 03:59] LABS: Baso % (Auto) 0.2 % (0.0-2.0); Hematocrit 23.9 % (35.0-46.0); Hemoglobin 8.3 gm/dL (11.6-15.3); Lymph # (Auto) 1.4 th/mm3 (1.0-4.8); Lymph % (Auto) 12.8 % (9.0-44.0); Mean Corpuscular HGB Conc 34.6 % (32.0-36.0); Mean Corpuscular Hemoglobin 25.4 pg (27.0-34.0); Mean Corpuscular Volume 73.5 fL (80.0-100.0); Mean Platelet Volume 7.6 fL (7.0-11.0); Mono # (Auto) 1.3 th/mm3 (0.0-0.9); Mono % (Auto) 11.7 % (0.0-8.0); Neut # (Auto) 8.3 th/mm3 (1.8-7.7); Neut % (Auto) 75.3 % (16.0-70.0); Platelet Count 312 th/mm3 (150-450); Red Blood Count 3.26 mil/mm3 (4.00-5.30); Red Cell Distribution Width 14.9 % (11.6-17.2); White Blood Count 11.1 th/mm3 (4.0-11.0)
[2018-02-12] MEDS: Chlorhexidine Gluconate 2% 1 Pack (2 Cloths) TOPICAL SCH (04:00)
[2018-02-12 04:22] LABS: Albumin 2.2 g/dL (3.4-5.0); Anion Gap 7 meq/L (5-15); Aspartate Aminotransferase 191 U/L (15-37); Blood Urea Nitrogen 19 mg/dL (7-18); Calcium 7.7 mg/dL (8.5-10.1); Carbon Dioxide 27.8 meq/L (21.0-32.0); Chloride 104 meq/L (98-107); Glomerular Filtration Rate 88 mL/min (>89); Glucose,Random 118 mg/dL (74-106); Potassium 4.4 meq/L (3.5-5.1); Sodium 139 meq/L (136-145)
[2018-02-12 04:23] LABS: Alanine Aminotransferase 113 U/L (10-53)
[2018-02-12 04:25] LABS: Alkaline Phosphatase 107 U/L (45-117); Total Protein 6.3 g/dL (6.4-8.2)
--- NOTE | 2018-02-12 04:44 | XR ---
EXAM DATE: 02/12/2018 4:17 AM EST AGE/SEX: 32 years / Female INDICATIONS: Shortness of breath. CLINICAL DATA: This is the patient's subsequent encounter. Patient reports that signs and symptoms h ave been present for 3 days and indicates a pain score of Nonresponsive. MEDICAL/SURGICAL HISTORY: None. None. COMPARISON: [facility] – [place], CHEST 1V SINGLE AP, 02/11/2018. . FINDINGS: Right thoracostomy tube remains in place. There has been redevelopment of moderate right pneumothorax with somewhat greater than 2 cm separation of apical pleural layers in the apex and along the right lateral chest. Mild diffuse hazy opacity in the right lung. Slight stable interstitial prominence in the contralateral left lung. Cardiac contours are unchanged. CONCLUSION: Redevelopment of moderate right pneumothorax. Electronically signed by: Socrates Quintana MD 02/12/2018 4:43 AM EST
--- NOTE | 2018-02-12 07:29 | P.PNOP ---
Subjective Interval history: POD 1 s/p exfix pelvis stable. no changes Physical Exam Vital signs: Vital Signs 02/11/18 07:30 02/11/18 07:43 02/11/18 07:45 Temperature Pulse Rate 57 L 58 L Respiratory Rate 79 H 12 73 H Blood Pressure 131/86 130/84 Pulse Oximetry 100 100 02/11/18 08:00 02/11/18 08:15 02/11/18 08:30 Temperature 98.3 F Pulse Rate 61 58 L 57 L Respiratory Rate 63 H 58 H 62 H Blood Pressure 132/83 123/72 121/78 Pulse Oximetry 100 100 100 02/11/18 08:31 02/11/18 08:45 02/11/18 08:47 Temperature Pulse Rate 59 L Respiratory Rate 66 H 16 Blood Pressure 131/77 Pulse Oximetry 100 100 02/11/18 09:00 02/11/18 09:01 02/11/18 09:02 Temperature Pulse Rate 61 60 60 Respiratory Rate 29 H 27 H 19 Blood Pressure 131/85 131/85 Pulse Oximetry 100 100 100 02/11/18 09:06 02/11/18 13:25 02/11/18 13:26 Temperature 97.4 F L 97 F L Pulse Rate 63 63 63 Respiratory Rate 22 22 22 Blood Pressure 129/84 111/72 Pulse Oximetry 100 100 02/11/18 13:45 02/11/18 14:00 02/11/18 14:15 Temperature 97.2 F L Pulse Rate 67 57 L 57 L Respiratory Rate 25 H 20 22 Blood Pressure 111/75 122/60 Pulse Oximetry 100 100 100 02/11/18 14:22 02/11/18 14:23 02/11/18 15:00 Temperature 97 F L Pulse Rate 56 L 59 L 63 Respiratory Rate 33 H 44 H Blood Pressure 128/71 Pulse Oximetry 02/11/18 15:35 02/11/18 16:00 02/11/18 17:00 Temperature 97.6 F Pulse Rate 54 L 70 Respiratory Rate 16 25 H 52 H Blood Pressure Pulse Oximetry 100 97 02/11/18 17:11 02/11/18 18:00 02/11/18 19:00 Temperature 97.9 F Pulse Rate 58 L 77 66 Respiratory Rate 28 H 48 H 54 H Blood Pressure 163/93 H Pulse Oximetry 100 98 100 02/11/18 20:00 02/11/18 20:46 02/11/18 21:00 Temperature Pulse Rate 58 L 58 L Respiratory Rate 28 H 25 H Blood Pressure Pulse Oximetry 100 100 100 02/11/18 22:00 02/11/18 23:00 02/11/18 23:58 Temperature Pulse Rate 72 83 Respiratory Rate 65 H 54 H 20 Blood Pressure Pulse Oximetry 96 91 L 02/12/18 00:00 02/12/18 01:00 02/12/18 02:00 Temperature 98.1 F Pulse Rate 61 61 74 Respiratory Rate 26 H 31 H 51 H Blood Pressure Pulse Oximetry 100 100 99 02/12/18 03:00 02/12/18 04:00 02/12/18 05:00 Temperature 98.3 F Pulse Rate 89 71 64 Respiratory Rate 63 H 18 24 Blood Pressure Pulse Oximetry 98 100 100 02/12/18 06:00 Temperature Pulse Rate 63 Respiratory Rate 24 Blood Pressure Pulse Oximetry 100 Intake & Output 02/11/18 02/12/18 02/12/18 18:59 06:59 18:59 Intake Total 2800 / 2800 1940 / 1940 Output Total 970 / 970 350 / 350 Balance 1830 / 1830 1590 / 1590 Weight 58.7 kg Intake: IV 1700 / 1700 LR 1000 mL Inj 1,000 ML @ 125 1700 / 1700 mls/hr IV.CONT .Q8H [facility] Rx#: [id number] Oral 100 / 100 240 / 240 Anesthesia Amount 2700 / 2700 Output: Urine 50 / 50 Estimated Blood Loss 200 / 200 Urine Amount (Catheter) 300 / 300 350 / 350 Indwelling Temp Sensing 300 / 300 350 / 350 Catheter Chest Tube Drainage 420 / 420 0 / 0 Right 420 / 420 0 / 0 Narrative: Pelvis: pin sites clean and dry - Urinary Catheter Management Indwelling Temp Sensing Catheter Cath placed during this visit: yes Reason for continuing: Acute urinary retention Insertion date: 02/10/18 Results - Labs CBC & Chem 7: 02/12/18 03:30 02/12/18 03:30 Laboratory Results - last 24 hr 02/11/18 02/11/18 02/11/18 09:52 17:00 23:30 WBC RBC Hgb 9.1 L D 8.6 L Hct 27.5 L 25.7 L MCV MCH MCHC RDW Plt Count MPV Neut % (Auto) Lymph % (Auto) [place] % (Auto) Eos % (Auto) Baso % (Auto) Neut # (Auto) Lymph # (Auto) [place] # (Auto) Eos # (Auto) Baso # (Auto) WBC Differential Differential Comment Sodium Potassium Chloride Carbon Dioxide Anion Gap BUN Creatinine Estimated GFR Random Glucose Calcium Total Bilirubin AST ALT Alkaline Phosphatase Total Protein Albumin MTS Gel Crossmatch See Detail 02/12/18 02/12/18 03:30 03:30 WBC 11.1 H D RBC 3.26 L Hgb 8.3 L Hct 23.9 L MCV 73.5 L MCH 25.4 L MCHC 34.6 RDW 14.9 Plt Count 312 MPV 7.6 Neut % (Auto) 75.3 H Lymph % (Auto) 12.8 [place] % (Auto) 11.7 H Eos % (Auto) 0.0 Baso % (Auto) 0.2 Neut # (Auto) 8.3 H Lymph # (Auto) 1.4 [place] # (Auto) 1.3 H Eos # (Auto) 0.0 Baso # (Auto) 0.0 WBC Differential . Differential Comment Auto diff final Sodium 139 Potassium 4.4 Chloride 104 Carbon Dioxide 27.8 Anion Gap 7 BUN 19 H Creatinine 0.76 Estimated GFR 88 L Random Glucose 118 H Calcium 7.7 L Total Bilirubin 0.3 AST 191 H ALT 113 H Alkaline Phosphatase 107 Total Protein 6.3 L Albumin 2.2 L MTS Gel Crossmatch - Imaging Impressions Pelvis X-Ray 02/11/18 00:00 CONCLUSION: Interval placement of external fixation device. Chest X-Ray 02/12/18 06:00 CONCLUSION: Redevelopment of moderate right pneumothorax. Assessment and Plan - Assessment and Plan 1) Right Hemipelvis disruption s/p exfix - POD 1 -NWB BLE -pin care BID -will need definitive fixation of pelvis likely next week
[2018-02-12 07:33] LABS: Hematocrit 24.8 % (35.0-46.0); Hemoglobin 8.2 gm/dL (11.6-15.3)
[2018-02-12] MEDS: Lidocaine 5% Patch T-DERMAL SCH (08:49)
[2018-02-12] MEDS: Calcium/Vitamin D 250/125 MG Tablet PO SCH ×3 (08:49→17:17)
[2018-02-12] MEDS: diazePAM 2 MG Tablet PO SCH ×3 (08:49→16:01)
[2018-02-12] MEDS: Docusate Sodium 100 MG Capsule PO SCH ×2 (08:49→20:50)
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
[2018-02-12] MEDS ORDERED: Lidocaine 1% Inj 50 ML Vial ONE (12:36)
--- NOTE | 2018-02-12 13:02 | P.OP ---
Date of procedure: 02/12/18 Procedure: Right tube thoracostomy placement Anesthesia: local (5cc 1% lidocaine) Surgeon: Luis Almanza MD Wood Inspector: None Operation and Findings: After obtaining informed consent patient was prepped and draped in a standard sterile manner. 5 cc 1% plain lidocaine was infused over the second rib in the midclavicular line down through to the pleural space with aspiration of air. A small 5 mm horizontal incision was then made. The 8 Divehi pigtail catheter was then carefully placed into the pleural space when resistance was no longer encountered the trocar advancement ceased and the catheter was threaded into the pleural space with return of air. It was secured with a sterile occlusive dressing and connected to 20 cm of wall suction. The patient tolerated the procedure well there were no complications. All sharps were accounted for disposed of properly. Portable chest x-ray was ordered to confirm placement and resolution of pneumothorax.
--- NOTE | 2018-02-12 15:10 | XR ---
EXAM DATE: 02/12/2018 3:02 PM EST AGE/SEX: 32 years / Female INDICATIONS: Fracture CLINICAL DATA: This is the patient's subsequent encounter. Patient reports that signs and symptoms h ave been present for 2 days and indicates a pain score of 10/10. MEDICAL/SURGICAL HISTORY: Hepatitis C. . Pelvic. COMPARISON: [facility] [place]V, 02/10/[place]. . FINDINGS: Pelvic fractures including a fracture of the right ilium and fracture pubic symphysis are again ident ified. External fixator has been applied. Intestinal gas pattern appears normal. Abdominal pelvic lidia from surgery are noted. Catheter is identified in the bladder. CONCLUSION: Stable pelvic fractures. External fixator applied. Electronically signed by: Lasha Sotomayor MD 02/12/2018 3:08 PM EST
--- NOTE | 2018-02-12 15:11 | XR ---
EXAM DATE: 02/12/2018 3:04 PM EST AGE/SEX: 32 years / Female INDICATIONS: Chest tube. CLINICAL DATA: This is the patient's subsequent encounter. Patient reports that signs and symptoms h ave been present for 2 days and indicates a pain score of 10/10. MEDICAL/SURGICAL HISTORY: Hepatitis C. . Chest tube placement. Pelvic open reduction with exter nal fixation. COMPARISON: [facility] [place] 1V SINGLE AP, 02/12/2018. . FINDINGS: Small right pneumothorax remains evident. Pneumothorax has decreased in size following placement of a right apical chest tube. Previous thoracostomy tube remains in good position. Lungs are hypoaerated with scattered airspace disease. Heart and mediastinal structures are stable. CONCLUSION: Persistent but decreased size of right pneumothorax following placement of a right apical chest tube. Mild bilateral airspace disease; stable. Electronically signed by: Lasha Sotomayor MD 02/12/2018 3:10 PM EST
[2018-02-12 16:45] LABS: Hematocrit 21.6 % (35.0-46.0); Hemoglobin 7.5 gm/dL (11.6-15.3)
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
[2018-02-12] MEDS: Multivitamin Inj 10 ML, Thiamine Inj 100 MG, Folic Acid Inj 1 MG in Sodium Chlor 0.9% I... IV.SIG SCH (20:27)
[2018-02-12] MEDS: Enoxaparin Inj 30 MG/0.3 ML Syringe SQ SCH (20:27)
[2018-02-12] MEDS: Pantoprazole Inj 40 MG Vial IV.PUSH SCH (20:37)
[2018-02-13] MEDS: diazePAM 2 MG Tablet PO SCH ×4 (00:09→23:56)
[2018-02-13] MEDS: Chlorhexidine Gluconate 2% 1 Pack (2 Cloths) TOPICAL SCH (04:20)
[2018-02-13 05:23] LABS: Baso # (Auto) 0.1 th/mm3 (0.0-0.2); Baso % (Auto) 0.6 % (0.0-2.0); Eos # (Auto) 0.1 th/mm3 (0.0-0.4); Eos % (Auto) 1.1 % (0.0-4.0); Hemoglobin 8.9 gm/dL (11.6-15.3); Lymph # (Auto) 1.6 th/mm3 (1.0-4.8); Lymph % (Auto) 18.3 % (9.0-44.0); Mean Corpuscular HGB Conc 34.1 % (32.0-36.0); Mean Corpuscular Hemoglobin 26.5 pg (27.0-34.0); Mean Corpuscular Volume 77.6 fL (80.0-100.0); Mean Platelet Volume 7.7 fL (7.0-11.0); Mono # (Auto) 1.5 th/mm3 (0.0-0.9); Mono % (Auto) 16.4 % (0.0-8.0); Neut # (Auto) 5.6 th/mm3 (1.8-7.7); Neut % (Auto) 63.6 % (16.0-70.0); Platelet Count 356 th/mm3 (150-450); Red Blood Count 3.35 mil/mm3 (4.00-5.30); Red Cell Distribution Width 17.4 % (11.6-17.2); White Blood Count 8.8 th/mm3 (4.0-11.0)
[2018-02-13 05:51] LABS: Anion Gap 7 meq/L (5-15); Aspartate Aminotransferase 99 U/L (15-37); Blood Urea Nitrogen 14 mg/dL (7-18); Calcium 7.9 mg/dL (8.5-10.1); Carbon Dioxide 28.4 meq/L (21.0-32.0); Chloride 104 meq/L (98-107); Glomerular Filtration Rate Greater Than 89 mL/min (>89); Glucose,Random 99 mg/dL (74-106); Potassium 4.2 meq/L (3.5-5.1); Sodium 139 meq/L (136-145)
[2018-02-13 05:52] LABS: Alanine Aminotransferase 80 U/L (10-53)
[2018-02-13 05:54] LABS: Alkaline Phosphatase 94 U/L (45-117)
--- NOTE | 2018-02-13 06:05 | XR ---
EXAM DATE: 02/13/2018 5:36 AM EST AGE/SEX: 32 years / Female INDICATIONS: Shortness of breath, possible respiratory disease. CLINICAL DATA: This is the patient's subsequent encounter. Patient reports that signs and symptoms h ave been present for 3 days and indicates a pain score of 10/10. MEDICAL/SURGICAL HISTORY: . Hepatitis C. Chest tube placement . Pelvic open reduction with ext ernal fixation. COMPARISON: [facility], CHEST 1V SINGLE AP, 02/12/2018. . FINDINGS: Right thoracostomy tubes remain in place. No evidence of pneumothorax. Persistent mild perihilar pare nchymal opacities. Cardiac contours are unchanged. CONCLUSION: No pneumothorax. Mild persistent infiltrates Electronically signed by: oScrates Quintana MD 02/13/2018 6:04 AM EST
[2018-02-13] MEDS: Enoxaparin Inj 30 MG/0.3 ML Syringe SQ SCH ×2 (08:56→20:40)
[2018-02-13] MEDS: Multivitamin/Minerals Therapeutic Tablet PO SCH (08:57)
[2018-02-13] MEDS: Lidocaine 5% Patch T-DERMAL SCH (08:57)
[2018-02-13] MEDS: Docusate Sodium 100 MG Capsule PO SCH ×2 (08:57→20:40)
[2018-02-13] MEDS: Calcium/Vitamin D 250/125 MG Tablet PO SCH ×3 (08:57→17:12)
[2018-02-13] MEDS: HYDROmorphone PF Inj 2 MG/ML Vial IV.PUSH PRN ×6 (08:58→22:19)
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
[2018-02-13] MEDS: hydrALAZINE HCl Inj 20 MG/ML Vial IV.PUSH PRN (17:44)
[2018-02-13 17:55] LABS: Hematocrit 25.7 % (35.0-46.0); Hemoglobin 9.1 gm/dL (11.6-15.3)
[2018-02-13] MEDS: Pantoprazole Inj 40 MG Vial IV.PUSH SCH (20:39)
[2018-02-14] MEDS: HYDROmorphone PF Inj 2 MG/ML Vial IV.PUSH PRN ×5 (00:27→12:23)
[2018-02-14] MEDS: Chlorhexidine Gluconate 2% 1 Pack (2 Cloths) TOPICAL SCH (03:33)
--- NOTE | 2018-02-14 04:32 | XR ---
EXAM DATE: 02/14/2018 4:23 AM EST AGE/SEX: 32 years / Female INDICATIONS: Pneumothorax. CLINICAL DATA: This is the patient's subsequent encounter. Patient reports that signs and symptoms h ave been present for 4 - 6 days and indicates a pain score of Nonresponsive. MEDICAL/SURGICAL HISTORY: . Hepatitis C. . Chest tube placement . Pelvic open reduction with external fixation. COMPARISON: [facility] [place], CHEST 1V SINGLE AP, 02/13/2018. . FINDINGS: A single AP view of the chest demonstrates interval removal of a small caliber right chest tube. The larger caliber right chest tube remains. There is a small pneumothorax now noted laterally and to a l julia degree at the apex. No shift of the mediastinal structures. Both lungs are clear. Heart is norm al in size. No effusions. CONCLUSION: New small lateral pneumothorax on the right following small caliber right chest tube removal. A large r caliber right chest tube remains. Electronically signed by: Jone Recinos MD 02/14/2018 4:30 AM EST
[2018-02-14 06:05] LABS: Baso # (Auto) 0.1 th/mm3 (0.0-0.2); Baso % (Auto) 0.7 % (0.0-2.0); Eos # (Auto) 0.1 th/mm3 (0.0-0.4); Eos % (Auto) 1.7 % (0.0-4.0); Hematocrit 26.8 % (35.0-46.0); Hemoglobin 9.3 gm/dL (11.6-15.3); Lymph # (Auto) 1.3 th/mm3 (1.0-4.8); Lymph % (Auto) 15.5 % (9.0-44.0); Mean Corpuscular HGB Conc 34.7 % (32.0-36.0); Mean Corpuscular Hemoglobin 26.8 pg (27.0-34.0); Mean Corpuscular Volume 77.3 fL (80.0-100.0); Mean Platelet Volume 8.1 fL (7.0-11.0); Mono # (Auto) 1.3 th/mm3 (0.0-0.9); Mono % (Auto) 15.8 % (0.0-8.0); Neut # (Auto) 5.7 th/mm3 (1.8-7.7); Neut % (Auto) 66.3 % (16.0-70.0); Platelet Count 466 th/mm3 (150-450); Red Blood Count 3.47 mil/mm3 (4.00-5.30); Red Cell Distribution Width 17.2 % (11.6-17.2); White Blood Count 8.5 th/mm3 (4.0-11.0)
[2018-02-14 06:32] LABS: Alanine Aminotransferase 57 U/L (10-53)
[2018-02-14 06:34] LABS: Alkaline Phosphatase 89 U/L (45-117); Total Protein 5.9 g/dL (6.4-8.2)
[2018-02-14 06:35] LABS: Anion Gap 7 meq/L (5-15); Aspartate Aminotransferase 59 U/L (15-37); Blood Urea Nitrogen 9 mg/dL (7-18); Carbon Dioxide 29.3 meq/L (21.0-32.0); Chloride 103 meq/L (98-107); Glomerular Filtration Rate Greater Than 89 mL/min (>89); Glucose,Random 92 mg/dL (74-106); Potassium 3.9 meq/L (3.5-5.1); Sodium 139 meq/L (136-145)
[2018-02-14] MEDS: Enoxaparin Inj 30 MG/0.3 ML Syringe SQ SCH ×2 (08:10→20:22)
[2018-02-14] MEDS: Lidocaine 5% Patch T-DERMAL SCH (08:13)
[2018-02-14] MEDS: Calcium/Vitamin D 250/125 MG Tablet PO SCH ×3 (08:14→18:19)
[2018-02-14] MEDS: Docusate Sodium 100 MG Capsule PO SCH ×2 (08:15→20:22)
[2018-02-14] MEDS: Multivitamin/Minerals Therapeutic Tablet PO SCH (08:15)
[2018-02-14] MEDS: diazePAM 2 MG Tablet PO SCH ×3 (08:15→23:02)
--- NOTE | 2018-02-14 08:34 | P.PNOP ---
Subjective Interval history: s/p exfix of pelvis stable. no changes Physical Exam Vital signs: Vital Signs 02/13/18 08:57 02/13/18 09:00 02/13/18 09:28 Temperature Pulse Rate 49 L Respiratory Rate 21 21 21 Pulse Oximetry 100 02/13/18 10:00 02/13/18 11:00 02/13/18 12:00 Temperature 97.6 F Pulse Rate 50 L 47 L 56 L Respiratory Rate 18 19 27 H Pulse Oximetry 100 100 100 02/13/18 13:00 02/13/18 13:17 02/13/18 13:37 Temperature Pulse Rate 47 L Respiratory Rate 19 21 20 Pulse Oximetry 100 02/13/18 14:00 02/13/18 15:00 02/13/18 16:00 Temperature 98.3 F Pulse Rate 48 L 54 L 52 L Respiratory Rate 22 19 20 Pulse Oximetry 100 100 100 02/13/18 16:19 02/13/18 17:00 02/13/18 17:42 Temperature Pulse Rate 49 L Respiratory Rate 21 17 25 H Pulse Oximetry 100 02/13/18 18:00 02/13/18 18:06 02/13/18 19:00 Temperature 98.4 F Pulse Rate 61 72 Respiratory Rate 20 19 23 Pulse Oximetry 100 100 02/13/18 20:00 02/13/18 21:00 02/13/18 22:00 Temperature 98.4 F 98.3 F Pulse Rate 63 76 62 Respiratory Rate 21 39 H 19 Pulse Oximetry 100 99 100 02/13/18 23:00 02/14/18 00:00 02/14/18 01:00 Temperature 98.4 F Pulse Rate 59 L 75 59 L Respiratory Rate 17 30 H 17 Pulse Oximetry 100 99 100 02/14/18 02:00 02/14/18 03:00 02/14/18 04:00 Temperature 98.6 F 98.6 F 98.5 F Pulse Rate 58 L 59 L 58 L Respiratory Rate 20 19 18 Pulse Oximetry 100 100 100 02/14/18 05:00 02/14/18 06:00 02/14/18 06:46 Temperature 98.3 F 98.4 F Pulse Rate 59 L 56 L Respiratory Rate 19 22 24 Pulse Oximetry 98 99 02/14/18 07:55 Temperature Pulse Rate Respiratory Rate Pulse Oximetry 100 Intake & Output 02/13/18 02/14/18 02/14/18 18:59 06:59 18:59 Intake Total 480 / 480 1999 Output Total 1840 / 1840 2099 / 2099 Balance -1360 / -1360 -100 / -100 Weight 58.9 kg Intake: IV 1999 LR 1000 mL Inj 1,000 ML @ 125 2000 / 1999 mls/hr IV.CONT .Q8H [facility] Rx#: [id number] Oral 480 / 480 Output: Urine Amount (Catheter) 1750 / 1750 1999 Indwelling Temp Sensing 1750 / 1750 1999 Catheter Chest Tube Drainage 90 / 90 100 / 100 Right 90 / 90 100 / 100 Right Upper 0 / 0 0 / 0 Narrative: pelvis: exfix in place. pin sites clean and dry - Urinary Catheter Management Indwelling Temp Sensing Catheter Cath placed during this visit: yes Reason for continuing: Hourly intake/output Insertion date: 02/10/18 Results - Labs CBC & Chem 7: 02/14/18 05:30 02/14/18 05:30 Laboratory Results - last 24 hr 02/13/18 02/14/18 02/14/18 17:00 05:30 05:30 WBC 8.5 RBC 3.47 L Hgb 9.1 L 9.3 L Hct 25.7 L 26.8 L MCV 77.3 L MCH 26.8 L MCHC 34.7 RDW 17.2 Plt Count 466 H D MPV 8.1 Neut % (Auto) 66.3 Lymph % (Auto) 15.5 Bennett % (Auto) 15.8 H Eos % (Auto) 1.7 Baso % (Auto) 0.7 Neut # (Auto) 5.7 Lymph # (Auto) 1.3 Bennett # (Auto) 1.3 H Eos # (Auto) 0.1 Baso # (Auto) 0.1 WBC Differential . Differential Comment Auto diff final Sodium 139 Potassium 3.9 Chloride 103 Carbon Dioxide 29.3 Anion Gap 7 BUN 9 Creatinine 0.62 Estimated GFR Greater than 89 Random Glucose 92 Calcium 8.0 L Total Bilirubin 0.4 AST 59 H ALT 57 H Alkaline Phosphatase 89 Total Protein 5.9 L Albumin 2.0 L - Imaging Impressions Chest X-Ray 02/14/18 06:00 CONCLUSION: New small lateral pneumothorax on the right following small caliber right chest tube removal. A larger caliber right chest tube remains. Assessment and Plan - Assessment and Plan 1) Right Hemipelvis disruption s/p exfix - POD 2 -NWB BLE -pin care BID -after reviewing CT scan, may plan for exfix as definitive treatment -ortho surgeries complete at this point -will check XR again next week to assess alignment, but assuming maintaining , will plan for exfix as treatment method
[2018-02-14] MEDS ORDERED: HYDROmorphone PF Inj 1 MG/ML Ampul IV.PUSH STA (12:21)
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
[2018-02-14] MEDS: hydrALAZINE HCl Inj 20 MG/ML Vial IV.PUSH PRN (14:01)
[2018-02-14] MEDS ORDERED: Heparin Central Flush 100 UNIT/ML 5 ML Vial IV.FLUSH PRN (16:10)
[2018-02-14] MEDS: Pantoprazole Inj 40 MG Vial IV.PUSH SCH (19:53)
[2018-02-14] MEDS: HYDROmorphone PF Inj 1 MG/ML Ampul IV.PUSH PRN ×2 (19:54→23:02)
[2018-02-14 20:40] LABS: Hematocrit 29.2 % (35.0-46.0); Hemoglobin 9.9 gm/dL (11.6-15.3)
[2018-02-15] MEDS: hydrALAZINE HCl Inj 20 MG/ML Vial IV.PUSH PRN (00:06)
[2018-02-15] MEDS: HYDROmorphone PF Inj 1 MG/ML Ampul IV.PUSH PRN ×4 (03:17→20:27)
[2018-02-15] MEDS: Chlorhexidine Gluconate 2% 1 Pack (2 Cloths) TOPICAL SCH (04:08)
[2018-02-15 04:51] LABS: Baso # (Auto) 0.1 th/mm3 (0.0-0.2); Eos # (Auto) 0.2 th/mm3 (0.0-0.4); Eos % (Auto) 3.2 % (0.0-4.0); Hemoglobin 9.8 gm/dL (11.6-15.3); Lymph # (Auto) 1.8 th/mm3 (1.0-4.8); Lymph % (Auto) 24.2 % (9.0-44.0); Mean Corpuscular HGB Conc 32.7 % (32.0-36.0); Mean Corpuscular Hemoglobin 25.8 pg (27.0-34.0); Mean Corpuscular Volume 78.8 fL (80.0-100.0); Mean Platelet Volume 7.4 fL (7.0-11.0); Mono # (Auto) 1.2 th/mm3 (0.0-0.9); Mono % (Auto) 16.1 % (0.0-8.0); Neut # (Auto) 4.2 th/mm3 (1.8-7.7); Neut % (Auto) 55.5 % (16.0-70.0); Platelet Count 575 th/mm3 (150-450); Red Blood Count 3.81 mil/mm3 (4.00-5.30); White Blood Count 7.5 th/mm3 (4.0-11.0)
[2018-02-15 05:17] LABS: Anion Gap 8 meq/L (5-15); Aspartate Aminotransferase 37 U/L (15-37); Blood Urea Nitrogen 8 mg/dL (7-18); Calcium 8.2 mg/dL (8.5-10.1); Chloride 102 meq/L (98-107); Glomerular Filtration Rate Greater Than 89 mL/min (>89); Glucose,Random 106 mg/dL (74-106); Sodium 139 meq/L (136-145)
[2018-02-15 05:18] LABS: Alanine Aminotransferase 42 U/L (10-53)
[2018-02-15 05:20] LABS: Alkaline Phosphatase 89 U/L (45-117); Total Protein 5.9 g/dL (6.4-8.2)
[2018-02-15] MEDS ORDERED: Polyethylene Glycol 3350 17 GM Packet PO ONE (07:19)
[2018-02-15] MEDS ORDERED: Bisacodyl 10 MG Supp RECTAL ONE (07:19)
--- NOTE | 2018-02-15 07:49 | XR ---
EXAM DATE: 02/15/2018 7:40 AM EST AGE/SEX: 32 years / Female INDICATIONS: Pneumothorax. CLINICAL DATA: This is the patient's subsequent encounter. Patient reports that signs and symptoms h ave been present for 4 - 6 days and indicates a pain score of Nonresponsive. MEDICAL/SURGICAL HISTORY: . Hepatitis C. . Chest tube placement . Pelvic open reduction with external fixation. [place] [facility] [place]14/[place]. . FINDINGS: Right-sided chest tube is noted. There is patchy consolidation or atelectasis at the right lung base. The right-sided pneumothorax noted previously has increased in size extending from apex to the right lung base with maximal transverse width of approximately 4.1 cm. A right PICC line is present and th e tip overlies the expected location of the SVC. Heart size normal. CONCLUSION: Increase in size of right-sided pneumothorax. Electronically signed by: Amador Sylvester MD 02/15/2018 7:47 AM EST
[2018-02-15] MEDS: diazePAM 2 MG Tablet PO SCH ×3 (08:29→23:26)
[2018-02-15] MEDS: Enoxaparin Inj 30 MG/0.3 ML Syringe SQ SCH ×2 (08:30→20:27)
[2018-02-15] MEDS: Docusate Sodium 100 MG Capsule PO SCH ×2 (08:30→20:27)
[2018-02-15] MEDS: Lidocaine 5% Patch T-DERMAL SCH (08:30)
[2018-02-15] MEDS: Calcium/Vitamin D 250/125 MG Tablet PO SCH ×3 (08:31→17:01)
[2018-02-15] MEDS: Multivitamin/Minerals Therapeutic Tablet PO SCH (08:31)
[2018-02-15] MEDS: Heparin Central Flush 100 UNIT/ML 5 ML Vial IV.FLUSH SCH (09:14)
[2018-02-15] MEDS: Ketorolac Inj 30 MG/ML (IVP) Vial IV.PUSH SCH ×3 (11:08→23:26)
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
[2018-02-15] MEDS ORDERED: Magnesium Citrate Liq 300 ML Bottle PO ONE (18:00)
[2018-02-15 18:50] LABS: Hematocrit 28.8 % (35.0-46.0); Hemoglobin 9.5 gm/dL (11.6-15.3)
[2018-02-15] MEDS: Pantoprazole Inj 40 MG Vial IV.PUSH SCH (20:26)
[2018-02-16] MEDS: HYDROmorphone PF Inj 1 MG/ML Ampul IV.PUSH PRN ×4 (03:06→23:18)
[2018-02-16] MEDS: Ketorolac Inj 30 MG/ML (IVP) Vial IV.PUSH SCH ×4 (05:47→23:18)
[2018-02-16 06:52] LABS: Baso % (Auto) 0.6 % (0.0-2.0); Eos # (Auto) 0.6 th/mm3 (0.0-0.4); Eos % (Auto) 8.1 % (0.0-4.0); Hemoglobin 9.4 gm/dL (11.6-15.3); Lymph # (Auto) 1.4 th/mm3 (1.0-4.8); Lymph % (Auto) 19.8 % (9.0-44.0); Mean Corpuscular HGB Conc 33.5 % (32.0-36.0); Mean Corpuscular Hemoglobin 26.8 pg (27.0-34.0); Mean Corpuscular Volume 80.1 fL (80.0-100.0); Mean Platelet Volume 7.5 fL (7.0-11.0); Mono % (Auto) 13.9 % (0.0-8.0); Neut # (Auto) 4.1 th/mm3 (1.8-7.7); Neut % (Auto) 57.6 % (16.0-70.0); Platelet Count 632 th/mm3 (150-450); Red Blood Count 3.49 mil/mm3 (4.00-5.30); Red Cell Distribution Width 18.2 % (11.6-17.2); White Blood Count 7.1 th/mm3 (4.0-11.0)
[2018-02-16 07:10] LABS: Albumin 1.8 g/dL (3.4-5.0); Anion Gap 6 meq/L (5-15); Aspartate Aminotransferase 42 U/L (15-37); Blood Urea Nitrogen 9 mg/dL (7-18); Carbon Dioxide 31.2 meq/L (21.0-32.0); Chloride 104 meq/L (98-107); Glomerular Filtration Rate Greater Than 89 mL/min (>89); Glucose,Random 90 mg/dL (74-106); Potassium 4.2 meq/L (3.5-5.1); Sodium 141 meq/L (136-145)
[2018-02-16 07:14] LABS: Alanine Aminotransferase 37 U/L (10-53); Alkaline Phosphatase 85 U/L (45-117); Total Protein 5.5 g/dL (6.4-8.2)
--- NOTE | 2018-02-16 09:04 | XR ---
EXAM DATE: 02/16/2018 9:01 AM EST AGE/SEX: 32 years / Female INDICATIONS: Follow up trauma. Chest tube. Respiratory status. CLINICAL DATA: This is the patient's subsequent encounter. Patient reports that signs and symptoms h ave been present for 1 week and indicates a pain score of 6/10. MEDICAL/SURGICAL HISTORY: None. Splenectomy. . COMPARISON: [facility] – [place] 1V SINGLE AP, 02/15/2018. . FINDINGS: Right-sided chest tube is noted. I do not see a pneumothorax. There is streaky atelectasis or airspac e disease at the bases improved from previous. There is cardiomegaly. The osseous structures are inta ct. CONCLUSION: The previously noted right-sided pneumothorax is not clearly seen on the current study. Electronically signed by: Amador Sylvester MD 02/16/2018 9:03 AM EST
[2018-02-16] MEDS: Multivitamin/Minerals Therapeutic Tablet PO SCH (09:10)
[2018-02-16] MEDS: diazePAM 2 MG Tablet PO SCH ×3 (09:10→23:18)
[2018-02-16] MEDS: Calcium/Vitamin D 250/125 MG Tablet PO SCH ×3 (09:10→19:00)
[2018-02-16] MEDS: Enoxaparin Inj 30 MG/0.3 ML Syringe SQ SCH ×2 (09:11→20:06)
[2018-02-16] MEDS: Heparin Central Flush 100 UNIT/ML 5 ML Vial IV.FLUSH SCH (09:11)
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
--- NOTE | 2018-02-16 12:48 | XR ---
EXAM DATE: 02/16/2018 12:44 PM EST AGE/SEX: 32 years / Female INDICATIONS: Follow up chest tube. CLINICAL DATA: This is the patient's subsequent encounter. Patient reports that signs and symptoms h ave been present for 4 - 6 days and indicates a pain score of 5/10. MEDICAL/SURGICAL HISTORY: None. Splenectomy. COMPARISON: C, CHEST 1V SINGLE AP, 02/16/2018. . FINDINGS: Right-sided PICC line in superior vena cava. Right chest tube without significant pneumothorax. Mild basilar airspace. No significant effusion. CONCLUSION: Right chest tube without effusion or pneumothorax. Basilar airspace disease similar to earlier exam. Electronically signed by: Blaise Jarvis MD 02/16/2018 12:47 PM EST
[2018-02-16] MEDS: Lidocaine 5% Patch T-DERMAL SCH (16:06)
[2018-02-16] MEDS: Docusate Sodium 100 MG Capsule PO SCH ×2 (16:06→20:06)
[2018-02-16] MEDS: Pantoprazole Inj 40 MG Vial IV.PUSH SCH (20:06)
[2018-02-17] MEDS: Ketorolac Inj 30 MG/ML (IVP) Vial IV.PUSH SCH ×4 (04:00→23:30)
[2018-02-17 05:19] LABS: Baso # (Auto) 0.1 th/mm3 (0.0-0.2); Hematocrit 27.3 % (35.0-46.0); Hemoglobin 9.2 gm/dL (11.6-15.3); Lymph # (Auto) 2.5 th/mm3 (1.0-4.8); Lymph % (Auto) 28.9 % (9.0-44.0); Mean Corpuscular HGB Conc 33.8 % (32.0-36.0); Mean Corpuscular Hemoglobin 26.9 pg (27.0-34.0); Mean Corpuscular Volume 79.4 fL (80.0-100.0); Mean Platelet Volume 7.7 fL (7.0-11.0); Mono # (Auto) 1.4 th/mm3 (0.0-0.9); Mono % (Auto) 16.6 % (0.0-8.0); Neut # (Auto) 3.5 th/mm3 (1.8-7.7); Neut % (Auto) 41.5 % (16.0-70.0); Platelet Count 710 th/mm3 (150-450); Red Blood Count 3.43 mil/mm3 (4.00-5.30); Red Cell Distribution Width 19.5 % (11.6-17.2); White Blood Count 8.5 th/mm3 (4.0-11.0)
[2018-02-17 05:39] LABS: Albumin 1.8 g/dL (3.4-5.0); Anion Gap 6 meq/L (5-15); Aspartate Aminotransferase 41 U/L (15-37); Blood Urea Nitrogen 10 mg/dL (7-18); Carbon Dioxide 30.9 meq/L (21.0-32.0); Chloride 104 meq/L (98-107); Glomerular Filtration Rate Greater Than 89 mL/min (>89); Glucose,Random 85 mg/dL (74-106); Potassium 4.3 meq/L (3.5-5.1); Sodium 141 meq/L (136-145)
[2018-02-17 05:40] LABS: Alanine Aminotransferase 34 U/L (10-53)
[2018-02-17 05:42] LABS: Alkaline Phosphatase 93 U/L (45-117); Total Protein 5.5 g/dL (6.4-8.2)
[2018-02-17] MEDS: HYDROmorphone PF Inj 1 MG/ML Ampul IV.PUSH PRN ×4 (06:45→21:37)
--- NOTE | 2018-02-17 06:52 | P.PNOP ---
Subjective Interval history: Resting in bed comfortably. Pain is controlled Physical Exam Vital signs: Vital Signs 02/16/18 07:00 02/16/18 08:00 02/16/18 09:00 Temperature 98 F Pulse Rate 73 63 63 Respiratory Rate 23 39 H 113 H Blood Pressure 129/82 138/80 133/77 Pulse Oximetry 97 99 100 02/16/18 10:00 02/16/18 11:00 02/16/18 12:00 Temperature Pulse Rate 62 69 84 Respiratory Rate 89 H 70 H Blood Pressure 148/81 H 139/82 137/83 Pulse Oximetry 100 100 95 02/16/18 13:00 02/16/18 14:00 02/16/18 15:00 Temperature Pulse Rate 78 87 77 Respiratory Rate 24 18 Blood Pressure 121/80 128/77 124/65 Pulse Oximetry 97 97 96 02/16/18 16:00 02/16/18 16:07 02/16/18 17:00 Temperature 97.6 F Pulse Rate 73 63 Respiratory Rate 32 H 18 19 Blood Pressure 121/73 119/70 Pulse Oximetry 100 97 02/16/18 17:11 02/16/18 18:00 02/16/18 19:00 Temperature Pulse Rate 66 85 Respiratory Rate 18 22 Blood Pressure 119/71 137/66 Pulse Oximetry 98 96 02/16/18 20:00 02/16/18 20:30 02/16/18 21:00 Temperature 99.1 F Pulse Rate 76 77 Respiratory Rate 18 16 19 Blood Pressure 126/74 124/68 Pulse Oximetry 98 98 02/16/18 22:00 02/16/18 23:00 02/16/18 23:48 Temperature Pulse Rate 87 83 Respiratory Rate 22 23 16 Blood Pressure 128/71 122/60 Pulse Oximetry 98 98 02/17/18 00:00 02/17/18 01:00 02/17/18 04:00 Temperature 99.0 F Pulse Rate 80 80 Respiratory Rate 18 22 18 Blood Pressure 119/56 L 122/71 Pulse Oximetry 99 95 Intake & Output 02/16/18 02/16/18 02/17/18 06:59 18:59 06:59 Intake Total 3000 / 3000 2200 / 2200 1900 / 1900 Output Total 2500 / 2500 2100 / 2100 Balance 500 / 500 100 / 100 1900 / 1900 Weight 60.2 kg Intake: IV 1800 / 1800 1000 / 1000 1900 / 1900 LR 1000 mL Inj 1,000 ML @ 125 1800 / 1800 1000 / 1000 1900 / 1900 mls/hr IV.CONT .Q8H [facility] Rx#: [id number] Oral 1200 / 1200 1200 / 1200 Output: Urine Amount (Catheter) 2374 Indwelling Temp Sensing 2374 Catheter Chest Tube Drainage 125 / 125 100 / 100 Right 125 / 125 100 / 100 Other: Date of Last Bowel Movement 02/15/18 02/15/18 02/15/18 Narrative: External fixator in place. Site is clean and dry. Bilateral lower extremities neurovascularly intact with active dorsiflexion plantar flexion of feet. - Urinary Catheter Management Indwelling Temp Sensing Catheter Cath placed during this visit: yes Reason for continuing: Acute urinary retention Insertion date: 02/10/18 Results - Labs CBC & Chem 7: 02/17/18 03:41 02/17/18 03:41 Laboratory Results - last 24 hr 02/16/18 02/16/18 02/17/18 05:55 05:55 03:41 WBC 7.1 8.5 RBC 3.49 L 3.43 L Hgb 9.4 L 9.2 L Hct 28.0 L 27.3 L MCV 80.1 79.4 L MCH 26.8 L 26.9 L MCHC 33.5 33.8 RDW 18.2 H 19.5 H Plt Count 632 H 710 H MPV 7.5 7.7 Neut % (Auto) 57.6 41.5 Lymph % (Auto) 19.8 28.9 [place] % (Auto) 13.9 H 16.6 H Eos % (Auto) 8.1 H 12.0 H Baso % (Auto) 0.6 1.0 Neut # (Auto) 4.1 3.5 Lymph # (Auto) 1.4 2.5 [place] # (Auto) 1.0 H 1.4 H Eos # (Auto) 0.6 H 1.0 H Baso # (Auto) 0.0 0.1 WBC Differential . . Differential Comment Auto diff final Auto diff final Sodium 141 Potassium 4.2 Chloride 104 Carbon Dioxide 31.2 Anion Gap 6 BUN 9 Creatinine 0.70 Estimated GFR Greater than 89 Random Glucose 90 Calcium 8.0 L Total Bilirubin 0.4 AST 42 H ALT 37 Alkaline Phosphatase 85 Total Protein 5.5 L Albumin 1.8 L 02/17/18 03:41 WBC RBC Hgb Hct MCV MCH MCHC RDW Plt Count MPV Neut % (Auto) Lymph % (Auto) [place] % (Auto) Eos % (Auto) Baso % (Auto) Neut # (Auto) Lymph # (Auto) [place] # (Auto) Eos # (Auto) Baso # (Auto) WBC Differential Differential Comment Sodium 141 Potassium 4.3 Chloride 104 Carbon Dioxide 30.9 Anion Gap 6 BUN 10 Creatinine 0.67 Estimated GFR Greater than 89 Random Glucose 85 Calcium 8.0 L Total Bilirubin 0.3 AST 41 H ALT 34 Alkaline Phosphatase 93 Total Protein 5.5 L Albumin 1.8 L - Imaging Impressions Chest X-Ray 02/16/18 00:00 CONCLUSION: Right chest tube without effusion or pneumothorax. Basilar airspace disease similar to earlier exam. Chest X-Ray 02/16/18 06:00 CONCLUSION: The previously noted right-sided pneumothorax is not clearly seen on the current study. Assessment and Plan - Assessment and Plan 1) Right Hemipelvis disruption s/p exfix - POD 6 -Transfer training from bed to wheelchair.Toe-touch weightbearing right leg, weight-bear as tolerated left leg for transfers only. No gait training -pin care BID -Orthopedic surgeries complete at this time. We will continue to treat the iliac wing nonoperatively.
--- NOTE | 2018-02-17 09:03 | XR ---
EXAM DATE: 02/17/2018 9:00 AM EST AGE/SEX: 32 years / Female INDICATIONS: Shortness of breath. CLINICAL DATA: This is the patient's subsequent encounter. Patient reports that signs and symptoms h ave been present for 1 week and indicates a pain score of 5/10. MEDICAL/SURGICAL HISTORY: None. Splenectomy. COMPARISON: C, CHEST 1V SINGLE AP, 02/16/2018. . FINDINGS: There is a chest tube in place on the right. There is very minimal right-sided pneumothorax measuring 4 mm. The lungs are clear. The heart is normal in size. The visualized bony structures are grossly i ntact. The PICC is in good position. CONCLUSION: Support equipment in good position. Very minimal right-sided pneumothorax. Electronically signed by: Poncho Vásquez MD 02/17/2018 9:02 AM EST
[2018-02-17] MEDS: diazePAM 2 MG Tablet PO SCH ×3 (09:37→23:30)
[2018-02-17] MEDS: Multivitamin/Minerals Therapeutic Tablet PO SCH (09:37)
[2018-02-17] MEDS: Docusate Sodium 100 MG Capsule PO SCH ×2 (09:37→21:25)
[2018-02-17] MEDS: Calcium/Vitamin D 250/125 MG Tablet PO SCH ×3 (09:38→18:36)
[2018-02-17] MEDS: Enoxaparin Inj 30 MG/0.3 ML Syringe SQ SCH ×2 (09:39→21:27)
[2018-02-17] MEDS: Lidocaine 5% Patch T-DERMAL SCH (09:40)
[2018-02-17] MEDS: Heparin Central Flush 100 UNIT/ML 5 ML Vial IV.FLUSH SCH (09:40)
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
[2018-02-17] MEDS: oxyCODONE/Acetaminophen 10/325 Tablet PO PRN (18:55)
[2018-02-17] MEDS: Pantoprazole Inj 40 MG Vial IV.PUSH SCH (21:25)
[2018-02-18] MEDS: oxyCODONE/Acetaminophen 10/325 Tablet PO PRN ×2 (01:17→06:03)
[2018-02-18] MEDS: HYDROmorphone PF Inj 1 MG/ML Ampul IV.PUSH PRN ×4 (03:31→21:45)
[2018-02-18] MEDS: Ketorolac Inj 30 MG/ML (IVP) Vial IV.PUSH SCH ×3 (05:56→19:02)
[2018-02-18 06:26] LABS: Baso # (Auto) 0.1 th/mm3 (0.0-0.2); Baso % (Auto) 0.7 % (0.0-2.0); Eos # (Auto) 0.9 th/mm3 (0.0-0.4); Eos % (Auto) 10.2 % (0.0-4.0); Hematocrit 28.1 % (35.0-46.0); Lymph % (Auto) 21.5 % (9.0-44.0); Mean Corpuscular HGB Conc 31.9 % (32.0-36.0); Mean Corpuscular Hemoglobin 25.7 pg (27.0-34.0); Mean Corpuscular Volume 80.6 fL (80.0-100.0); Mean Platelet Volume 7.7 fL (7.0-11.0); Mono # (Auto) 1.5 th/mm3 (0.0-0.9); Mono % (Auto) 15.7 % (0.0-8.0); Neut # (Auto) 4.8 th/mm3 (1.8-7.7); Neut % (Auto) 51.9 % (16.0-70.0); Platelet Count 825 th/mm3 (150-450); Red Blood Count 3.48 mil/mm3 (4.00-5.30); Red Cell Distribution Width 19.3 % (11.6-17.2); White Blood Count 9.2 th/mm3 (4.0-11.0)
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
[2018-02-18 06:58] LABS: Alanine Aminotransferase 38 U/L (10-53); Albumin 1.5 g/dL (3.4-5.0); Alkaline Phosphatase 77 U/L (45-117); Anion Gap 8 meq/L (5-15); Aspartate Aminotransferase 21 U/L (15-37); Blood Urea Nitrogen 12 mg/dL (7-18); Calcium 6.6 mg/dL (8.5-10.1); Carbon Dioxide 27.2 meq/L (21.0-32.0); Chloride 108 meq/L (98-107); Glomerular Filtration Rate Greater Than 89 mL/min (>89); Glucose,Random 76 mg/dL (74-106); Potassium 3.6 meq/L (3.5-5.1); Sodium 143 meq/L (136-145); Total Protein 4.6 g/dL (6.4-8.2)
[2018-02-18] MEDS ORDERED: oxyCODONE/Acetaminophen 10/325 Tablet PO PRN (08:45)
[2018-02-18] MEDS ORDERED: HYDROmorphone PF Inj 1 MG/ML Ampul IV.PUSH PRN (08:45)
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
[2018-02-18] MEDS: diazePAM 2 MG Tablet PO SCH (09:46)
[2018-02-18] MEDS: Heparin Central Flush 100 UNIT/ML 5 ML Vial IV.FLUSH SCH (09:47)
[2018-02-18] MEDS: Multivitamin/Minerals Therapeutic Tablet PO SCH (09:47)
[2018-02-18] MEDS: Enoxaparin Inj 30 MG/0.3 ML Syringe SQ SCH ×2 (09:47→21:45)
[2018-02-18] MEDS: Lidocaine 5% Patch T-DERMAL SCH (09:47)
[2018-02-18] MEDS: Docusate Sodium 100 MG Capsule PO SCH ×2 (09:48→21:45)
[2018-02-18] MEDS: Calcium/Vitamin D 250/125 MG Tablet PO SCH ×3 (09:49→17:04)
[2018-02-19] MEDS: Ketorolac Inj 30 MG/ML (IVP) Vial IV.PUSH SCH ×2 (01:00→04:00)
[2018-02-19] MEDS: HYDROmorphone PF Inj 1 MG/ML Ampul IV.PUSH PRN ×5 (01:44→20:53)
[2018-02-19] MEDS: Heparin Central Flush 100 UNIT/ML 5 ML Vial IV.FLUSH SCH (08:12)
[2018-02-19] MEDS: Calcium/Vitamin D 250/125 MG Tablet PO SCH ×3 (08:12→18:17)
[2018-02-19] MEDS: Multivitamin/Minerals Therapeutic Tablet PO SCH (08:12)
[2018-02-19] MEDS: Enoxaparin Inj 30 MG/0.3 ML Syringe SQ SCH ×2 (08:12→20:52)
[2018-02-19] MEDS: Lidocaine 5% Patch T-DERMAL SCH (08:13)
--- NOTE | 2018-02-19 09:25 | P.PNOP ---
Subjective Interval history: Resting in bed with pain controlled. Physical Exam Vital signs: Vital Signs 02/18/18 11:08 02/18/18 12:00 02/18/18 16:00 Temperature 98.1 F 98.6 F Pulse Rate 87 103 H Respiratory Rate 16 16 Blood Pressure 125/66 119/58 L Pulse Oximetry 99 99 99 02/18/18 20:17 02/19/18 00:39 02/19/18 03:24 Temperature 98.2 F 100.1 F H 98.7 F Pulse Rate 100 H 103 H 102 H Respiratory Rate 18 18 17 Blood Pressure 114/56 L 129/70 128/72 Pulse Oximetry 94 L 96 96 02/19/18 05:45 02/19/18 07:30 02/19/18 08:00 Temperature 97.6 F Pulse Rate 84 Respiratory Rate 17 17 16 Blood Pressure 117/70 Pulse Oximetry 95 Intake & Output 02/18/18 02/19/18 02/19/18 18:59 06:59 18:59 Intake Total 520 / 520 480 / 480 Output Total 3000 / 3000 130 / 130 Balance -2480 / -2480 480 / 480 -130 / -130 Weight 56.5 kg Intake: IV 0 / 0 LR 1000 mL Inj 1,000 ML @ 50 0 / 0 mls/hr IV.CONT .Q20H [facility] Rx#: [id number] Oral 520 / 520 480 / 480 Output: Urine 800 / 800 Urine Amount (Catheter) 2200 / 2200 Indwelling Temp Sensing 2200 / 2200 Catheter Chest Tube Drainage 130 / 130 Right 130 / 130 Other: # Voids 5 3 Date of Last Bowel Movement 02/15/18 02/15/18 # Bowel Movements 1 0 Narrative: External fixation in place. Pin sites clean and dry. Intact sensation bilateral lower extremities with active dorsiflexion and plantarflexion of feet. Intact distal pulses and good capillary refills - Urinary Catheter Management Indwelling Temp Sensing Catheter Cath placed during this visit: yes, but has since been removed by the nurse Reason for continuing: Acute urinary retention Insertion date: 02/10/18 Removal date: 02/18/18 Removal time: 11:45 Results - Labs CBC & Chem 7: 02/18/18 05:15 02/18/18 05:15 Assessment and Plan - Assessment and Plan 1) Right Hemipelvis disruption s/p exfix - POD 8 -Transfer training from bed to wheelchair.Toe-touch weightbearing right leg, weight-bear as tolerated left leg for transfers only. No gait training -pin care BID -Orthopedic surgeries complete at this time. We will continue to treat the iliac wing nonoperatively. Case management for rehab placement
[2018-02-19] MEDS: Senna/Docusate Sodium 8.6/50 MG Tablet PO SCH ×2 (10:42→20:52)
[2018-02-19] MEDS: Famotidine 20 MG Tablet PO SCH ×2 (10:42→20:52)
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
--- NOTE | 2018-02-19 21:01 | XR ---
EXAM DATE: 02/19/2018 8:55 PM EST AGE/SEX: 32 years / Female INDICATIONS: Pneumothorax. CLINICAL DATA: This is the patient's initial encounter. Patient reports that signs and symptoms have been present for 1 week and indicates a pain score of 4/10. MEDICAL/SURGICAL HISTORY: None. None. COMPARISON: C, CHEST 1V SINGLE AP, 02/18/2018. . FINDINGS: Right apical pneumothorax has decreased in size to 2 mm (previously measured 5 mm). Right chest tube remains projected in the lateral right midlung. PICC line catheter tip in the mid superior vena cava. The lungs are symmetrically aerated. The heart is normal size. Both hemidiaphragms well delineated. CONCLUSION: Decrease in size of right apical pneumothorax to 2 mm. Electronically signed by: Jone Luke MD 02/19/2018 9:00 PM EST
[2018-02-20] MEDS: HYDROmorphone PF Inj 1 MG/ML Ampul IV.PUSH PRN ×5 (03:45→21:08)
[2018-02-20] MEDS: Multivitamin/Minerals Therapeutic Tablet PO SCH (08:08)
[2018-02-20] MEDS: Famotidine 20 MG Tablet PO SCH ×2 (08:08→21:00)
[2018-02-20] MEDS: Calcium/Vitamin D 250/125 MG Tablet PO SCH ×3 (08:09→18:35)
[2018-02-20] MEDS: Enoxaparin Inj 30 MG/0.3 ML Syringe SQ SCH ×2 (08:10→22:18)
[2018-02-20] MEDS: Lidocaine 5% Patch T-DERMAL SCH (08:10)
[2018-02-20] MEDS: Heparin Central Flush 100 UNIT/ML 5 ML Vial IV.FLUSH SCH (08:10)
[2018-02-20] MEDS: Senna/Docusate Sodium 8.6/50 MG Tablet PO SCH ×2 (08:10→21:03)
[2018-02-20] MEDS ORDERED: QUEtiapine 25 MG Tablet PO SCH (11:45)
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
[2018-02-20] MEDS: Metoclopramide 10 MG Tablet PO SCH ×3 (14:27→21:01)
[2018-02-20] MEDS: Sertraline 50 MG Tablet PO SCH (16:51)
--- NOTE | 2018-02-20 21:39 | XR ---
EXAM DATE: 02/20/2018 9:30 PM EST AGE/SEX: 32 years / Female INDICATIONS: Evaluate pelvic fractures. CLINICAL DATA: This is the patient's initial encounter. Patient reports that signs and symptoms have been present for 2 weeks and indicates a pain score of 10/10. MEDICAL/SURGICAL HISTORY: None. None. COMPARISON: [facility] [place], CT ABDOMEN & PELVIS W CONTRAST, 02/12/2018. . FINDINGS: There is external fixation of multiple pelvic fractures. Comminuted right iliac bone fractures extend into the right sacroiliac joint. The pubic symphysis appears intact. The left superior pubic ramus f ractures displaced superiorly and slightly internally which is similar to prior CT exam. CONCLUSION: External fixation with comminuted fractures of the right iliac bone extending into the SI joint and r ight superior and inferior pubic rami. Displacement is similar to the prior CT from February 12. Electronically signed by: Blaise Jarvis MD 02/20/2018 9:38 PM EST
[2018-02-21] MEDS: HYDROmorphone PF Inj 1 MG/ML Ampul IV.PUSH PRN ×5 (02:52→20:28)
--- NOTE | 2018-02-21 08:53 | XR ---
EXAM DATE: 02/21/2018 8:47 AM EST AGE/SEX: 32 years / Female INDICATIONS: Post chest tube removal. CLINICAL DATA: This is the patient's subsequent encounter. Patient reports that signs and symptoms h ave been present for 4 - 6 days and indicates a pain score of 6/10. MEDICAL/SURGICAL HISTORY: Hepatitis C. IVDA. . External fixator to pelvis. COMPARISON: [facility], CHEST 1V SINGLE AP, 02/19/2018. . FINDINGS: The patient's right-sided chest tube has been removed. There is a 1.2 cm right pneumothorax. Follow-u p to ensure this does not enlarge is warranted. The PICC is in good position. The heart and mediastinal contours are within normal limits. The lungs are clear. CONCLUSION: Small to moderate-sized right sided pneumothorax following chest tube removal. This measures approxim ately 1.2 cm. Follow-up to ensure this does not continued to enlarge is warranted. Electronically signed by: Pocnho Vásquez MD 02/21/2018 8:52 AM EST
[2018-02-21] MEDS: Enoxaparin Inj 30 MG/0.3 ML Syringe SQ SCH ×2 (09:10→20:20)
[2018-02-21] MEDS: Multivitamin/Minerals Therapeutic Tablet PO SCH (09:11)
[2018-02-21] MEDS: Calcium/Vitamin D 250/125 MG Tablet PO SCH ×3 (09:11→17:45)
[2018-02-21] MEDS: Sertraline 50 MG Tablet PO SCH (09:11)
[2018-02-21] MEDS: Senna/Docusate Sodium 8.6/50 MG Tablet PO SCH ×2 (09:12→20:21)
[2018-02-21] MEDS: Famotidine 20 MG Tablet PO SCH ×2 (09:13→20:22)
[2018-02-21] MEDS: Lidocaine 5% Patch T-DERMAL SCH (09:14)
[2018-02-21] MEDS: Heparin Central Flush 100 UNIT/ML 5 ML Vial IV.FLUSH SCH (09:15)
[2018-02-21] MEDS: Metoclopramide 10 MG Tablet PO SCH ×4 (09:37→20:21)
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
[2018-02-22] MEDS: HYDROmorphone PF Inj 1 MG/ML Ampul IV.PUSH PRN ×6 (00:22→22:22)
--- NOTE | 2018-02-22 06:12 | XR ---
EXAM DATE: 02/22/2018 5:47 AM EST AGE/SEX: 32 years / Female INDICATIONS: Evaluate for pneumothorax. CLINICAL DATA: This is the patient's subsequent encounter. Patient reports that signs and symptoms h ave been present for 2 weeks and indicates a pain score of 0/10. MEDICAL/SURGICAL HISTORY: Hepatitis C. Gastroesophageal reflux disease. Smoker. . PICC Line. Dilation and curettage. Right side chest tube removal. [place] [facility] [place]. . FINDINGS: Single view the chest demonstrates a right-sided PICC line is in good position. There again is a tiny amount residual pleural air at the right lung apex. It's less than on the previous day's study. The small amount of pleural air in the right lateral chest similar to the previous day's study. The small right pleural effusion. Left lungs clear. Heart and mediastinum are unremarkable. CONCLUSION: Some persistent consolidation right lung base. Small remaining right pneumothorax. Electronically signed by: Javon Dinh MD 02/22/2018 6:11 AM EST
[2018-02-22] MEDS: Senna/Docusate Sodium 8.6/50 MG Tablet PO SCH ×2 (08:27→20:32)
[2018-02-22] MEDS: Multivitamin/Minerals Therapeutic Tablet PO SCH (08:27)
[2018-02-22] MEDS: Sertraline 50 MG Tablet PO SCH (08:27)
[2018-02-22] MEDS: Calcium/Vitamin D 250/125 MG Tablet PO SCH ×3 (08:27→18:12)
[2018-02-22] MEDS: Famotidine 20 MG Tablet PO SCH ×2 (08:28→20:32)
[2018-02-22] MEDS: Metoclopramide 10 MG Tablet PO SCH ×5 (08:28→20:32)
[2018-02-22] MEDS: Enoxaparin Inj 30 MG/0.3 ML Syringe SQ SCH ×2 (08:29→20:32)
[2018-02-22] MEDS: Heparin Central Flush 100 UNIT/ML 5 ML Vial IV.FLUSH SCH (08:29)
[2018-02-22] MEDS: Lidocaine 5% Patch T-DERMAL SCH (08:31)
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
[2018-02-23 06:33] LABS: Baso # (Auto) 0.1 th/mm3 (0.0-0.2); Eos # (Auto) 0.6 th/mm3 (0.0-0.4); Eos % (Auto) 7.6 % (0.0-4.0); Hematocrit 29.4 % (35.0-46.0); Hemoglobin 9.3 gm/dL (11.6-15.3); Lymph # (Auto) 1.5 th/mm3 (1.0-4.8); Lymph % (Auto) 20.8 % (9.0-44.0); Mean Corpuscular HGB Conc 31.8 % (32.0-36.0); Mean Corpuscular Hemoglobin 25.7 pg (27.0-34.0); Mean Corpuscular Volume 80.8 fL (80.0-100.0); Mean Platelet Volume 6.9 fL (7.0-11.0); Mono # (Auto) 1.4 th/mm3 (0.0-0.9); Mono % (Auto) 19.5 % (0.0-8.0); Neut # (Auto) 3.7 th/mm3 (1.8-7.7); Neut % (Auto) 50.1 % (16.0-70.0); Platelet Count 1106 th/mm3 (150-450); Red Blood Count 3.64 mil/mm3 (4.00-5.30); Red Cell Distribution Width 19.6 % (11.6-17.2); White Blood Count 7.3 th/mm3 (4.0-11.0)
[2018-02-23 06:57] LABS: Anion Gap 6 meq/L (5-15); Blood Urea Nitrogen 12 mg/dL (7-18); Calcium 8.3 mg/dL (8.5-10.1); Carbon Dioxide 31.4 meq/L (21.0-32.0); Chloride 99 meq/L (98-107); Glomerular Filtration Rate Greater Than 89 mL/min (>89); Glucose,Random 81 mg/dL (74-106); Potassium 4.3 meq/L (3.5-5.1); Sodium 136 meq/L (136-145)
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
[2018-02-23] MEDS: Sertraline 50 MG Tablet PO SCH (08:30)
[2018-02-23] MEDS: Heparin Central Flush 100 UNIT/ML 5 ML Vial IV.FLUSH SCH (08:30)
[2018-02-23] MEDS: Multivitamin/Minerals Therapeutic Tablet PO SCH (08:31)
[2018-02-23] MEDS: Enoxaparin Inj 30 MG/0.3 ML Syringe SQ SCH ×2 (08:31→20:14)
[2018-02-23] MEDS: Senna/Docusate Sodium 8.6/50 MG Tablet PO SCH ×2 (08:31→20:15)
[2018-02-23] MEDS: Calcium/Vitamin D 250/125 MG Tablet PO SCH ×3 (08:31→17:32)
[2018-02-23] MEDS: Famotidine 20 MG Tablet PO SCH ×2 (08:31→20:14)
[2018-02-23] MEDS: Metoclopramide 10 MG Tablet PO SCH ×4 (08:31→20:13)
[2018-02-23] MEDS: HYDROmorphone PF Inj 1 MG/ML Ampul IV.PUSH PRN ×4 (08:31→21:15)
[2018-02-23] MEDS: Lidocaine 5% Patch T-DERMAL SCH (08:32)
[2018-02-24] MEDS: HYDROmorphone PF Inj 1 MG/ML Ampul IV.PUSH PRN ×4 (03:43→16:10)
[2018-02-24] MEDS: Enoxaparin Inj 30 MG/0.3 ML Syringe SQ SCH ×2 (08:53→22:37)
[2018-02-24] MEDS: Heparin Central Flush 100 UNIT/ML 5 ML Vial IV.FLUSH SCH (08:53)
[2018-02-24] MEDS: Multivitamin/Minerals Therapeutic Tablet PO SCH (08:54)
[2018-02-24] MEDS: Senna/Docusate Sodium 8.6/50 MG Tablet PO SCH ×2 (08:54→22:37)
[2018-02-24] MEDS: Calcium/Vitamin D 250/125 MG Tablet PO SCH ×3 (08:54→16:59)
[2018-02-24] MEDS: Famotidine 20 MG Tablet PO SCH ×2 (08:54→22:36)
[2018-02-24] MEDS: Metoclopramide 10 MG Tablet PO SCH ×4 (08:55→22:36)
[2018-02-24] MEDS: Sertraline 50 MG Tablet PO SCH (08:55)
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
[2018-02-24] MEDS: Lidocaine 5% Patch T-DERMAL SCH (09:02)
[2018-02-24] MEDS ORDERED: Pneumococcal-13 Valent Ped Vacc Inj 0.5 ML Syringe IM ONE (11:00)
[2018-02-24] MEDS ORDERED: [UNRECOGNIZED DRUG - OTHER] IM ONE (11:00)
[2018-02-24] MEDS ORDERED: Pneumococcal-23 Polyvalent Vaccine Inj 25 MCG/0.5 ML Syringe SQ ONE (11:00)
[2018-02-24] MEDS: Gabapentin 300 MG Capsule PO SCH ×3 (12:13→16:59)
[2018-02-25] MEDS: HYDROmorphone PF Inj 1 MG/ML Ampul IV.PUSH PRN ×5 (00:04→20:31)
--- NOTE | 2018-02-25 06:40 | P.PNOP ---
Subjective Interval history: Complains of continued pain of her pelvis and drainage of her right pin site Physical Exam Vital signs: Vital Signs 02/24/18 08:00 02/24/18 12:00 02/24/18 14:30 Temperature 99.0 F 97.5 F L Pulse Rate 99 H 79 Respiratory Rate 16 16 Blood Pressure 105/57 L 92/51 L Pulse Oximetry 94 L 96 95 02/24/18 16:00 02/24/18 20:00 02/24/18 23:50 Temperature 98.3 F 98.2 F Pulse Rate 90 99 H Respiratory Rate 16 18 16 Blood Pressure 119/58 L 112/72 Pulse Oximetry 95 93 L 02/25/18 00:00 02/25/18 04:00 Temperature 99 F 100.2 F H Pulse Rate 93 H 103 H Respiratory Rate 18 18 Blood Pressure 121/76 118/67 Pulse Oximetry 93 L 93 L Intake & Output 02/24/18 02/24/18 02/25/18 06:59 18:59 06:59 Intake Total 880 / 880 Balance 880 / 880 Intake: Oral 880 / 880 Other: # Voids 3 4 Date of Last Bowel Movement 02/21/18 02/21/18 02/22/18 Narrative: Pelvis Xfix in place and intact. Clean pin with mild drainage of her left. External fixator pin site on the right hip with some mild skin breakdown and mild drainage. - Urinary Catheter Management Indwelling Temp Sensing Catheter Cath placed during this visit: yes, but has since been removed by the nurse Reason for continuing: Acute urinary retention Insertion date: 02/10/18 Removal date: 02/18/18 Removal time: 11:45 Results - Labs CBC & Chem 7: 02/23/18 05:59 02/23/18 05:59 Assessment and Plan - Assessment and Plan 1) Right Hemipelvis disruption s/p exfix - POD 14 (02/11) -Transfer training from bed to wheelchair.Toe-touch weightbearing right leg, weight-bear as tolerated left leg for transfers only. No gait training -pin care TID -Orthopedic surgeries complete at this time. We will continue to treat the iliac wing nonoperatively. Case management for rehab placement
[2018-02-25] MEDS: Enoxaparin Inj 30 MG/0.3 ML Syringe SQ SCH ×2 (08:02→20:33)
[2018-02-25] MEDS: Multivitamin/Minerals Therapeutic Tablet PO SCH (08:03)
[2018-02-25] MEDS: Heparin Central Flush 100 UNIT/ML 5 ML Vial IV.FLUSH SCH (08:03)
[2018-02-25] MEDS: Sertraline 50 MG Tablet PO SCH (08:03)
[2018-02-25] MEDS: Senna/Docusate Sodium 8.6/50 MG Tablet PO SCH ×2 (08:03→20:32)
[2018-02-25] MEDS: Lidocaine 5% Patch T-DERMAL SCH (08:04)
[2018-02-25] MEDS: Calcium/Vitamin D 250/125 MG Tablet PO SCH ×3 (08:04→17:50)
[2018-02-25] MEDS: Famotidine 20 MG Tablet PO SCH ×2 (08:04→20:32)
[2018-02-25] MEDS: Gabapentin 300 MG Capsule PO SCH ×3 (08:05→18:27)
[2018-02-25] MEDS: Metoclopramide 10 MG Tablet PO SCH ×4 (08:12→20:32)
--- NOTE | 2018-02-25 09:55 | XR ---
EXAM DATE: 02/25/2018 9:51 AM EST AGE/SEX: 32 years / Female INDICATIONS: Trauma. CLINICAL DATA: This is the patient's initial encounter. Patient reports that signs and symptoms have been present for 1 week and indicates a pain score of 0/10. MEDICAL/SURGICAL HISTORY: Hepatitis C. Gastroesophageal reflux disease. smoker Splenectomy. p icc line, dilation and curettage COMPARISON: [facility], CHEST 1V SINGLE AP, 02/22/2018. . FINDINGS: Significant airspace disease remains evident within the right lung base. Left lung is relatively amanda r. Heart and mediastinal structures are stable. Right upper extremity PICC line remains in stable position. CONCLUSION: No significant change. Persistent right basilar airspace disease. Electronically signed by: Lasha Sotomayor MD 02/25/2018 9:54 AM EST
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
[2018-02-25] MEDS: Acetaminophen 325 MG Tablet PO PRN (12:26)
[2018-02-26] MEDS: HYDROmorphone PF Inj 1 MG/ML Ampul IV.PUSH PRN ×5 (00:22→19:51)
--- NOTE | 2018-02-26 06:37 | P.PNOP ---
Subjective Interval history: Resting in bed with pain control no changes Physical Exam Vital signs: Vital Signs 02/25/18 08:00 02/25/18 10:00 02/25/18 12:20 Temperature 100.7 F H 101.9 F H Pulse Rate 110 H 100 H Respiratory Rate 18 18 Blood Pressure 118/64 115/64 Pulse Oximetry 93 L 92 L 93 L 02/25/18 18:31 02/25/18 20:00 02/25/18 21:00 Temperature 99.9 F H 98.6 F Pulse Rate 98 H 86 Respiratory Rate 18 16 18 Blood Pressure 118/66 103/58 L Pulse Oximetry 94 L 99 02/25/18 22:20 02/25/18 23:50 02/26/18 00:04 Temperature 101.1 F H 101.1 F H Pulse Rate 99 H Respiratory Rate 18 16 Blood Pressure 113/55 L Pulse Oximetry 95 02/26/18 00:59 02/26/18 03:30 02/26/18 05:23 Temperature Pulse Rate Respiratory Rate 17 18 18 Blood Pressure Pulse Oximetry Intake & Output 02/25/18 02/25/18 02/26/18 06:59 18:59 06:59 Intake Total 320 / 320 490 / 490 Balance 320 / 320 490 / 490 Weight 52.1 kg 52.1 kg Intake: Oral 320 / 320 490 / 490 Other: # Voids 3 3 Date of Last Bowel Movement 02/22/18 02/23/18 02/23/18 # Bowel Movements 0 Narrative: External fixator in place. Moderate drainage to right pin site. Pin sites have been cleaned and dressed. She has intact sensation bilateral lower extremities with active dorsiflexion and plantarflexion of feet. Good capillary refill distal pulses noted - Urinary Catheter Management Indwelling Temp Sensing Catheter Cath placed during this visit: yes, but has since been removed by the nurse Reason for continuing: Acute urinary retention Insertion date: 02/10/18 Removal date: 02/18/18 Removal time: 11:45 Results - Labs CBC & Chem 7: 02/23/18 05:59 02/23/18 05:59 Microbiology 02/25/18 04:35 Wound - Other Gram Stain - Final - Imaging Impressions Chest X-Ray 02/25/18 06:00 CONCLUSION: No significant change. Persistent right basilar airspace disease. Assessment and Plan - Assessment and Plan 1) Right Hemipelvis disruption s/p exfix - POD 15 (02/11) -Transfer training from bed to wheelchair.Toe-touch weightbearing right leg, weight-bear as tolerated left leg for transfers only. No gait training -pin care TID -Orthopedic surgeries complete at this time. We will continue to treat the iliac wing nonoperatively. Case management for rehab placement
[2018-02-26] MEDS: Enoxaparin Inj 30 MG/0.3 ML Syringe SQ SCH ×2 (09:48→20:13)
[2018-02-26] MEDS: Calcium/Vitamin D 250/125 MG Tablet PO SCH ×3 (09:49→17:51)
[2018-02-26] MEDS: Multivitamin/Minerals Therapeutic Tablet PO SCH (09:49)
[2018-02-26] MEDS: Metoclopramide 10 MG Tablet PO SCH ×3 (09:49→20:14)
[2018-02-26] MEDS: Senna/Docusate Sodium 8.6/50 MG Tablet PO SCH ×2 (09:50→20:14)
[2018-02-26] MEDS: Sertraline 50 MG Tablet PO SCH (09:50)
[2018-02-26] MEDS: Famotidine 20 MG Tablet PO SCH ×2 (09:50→20:13)
[2018-02-26] MEDS: Heparin Central Flush 100 UNIT/ML 5 ML Vial IV.FLUSH SCH (09:51)
[2018-02-26] MEDS: Lidocaine 5% Patch T-DERMAL SCH (11:24)
[2018-02-26] MEDS ORDERED: Diatrizoate Meglum/Diatrizoate Sod Liq 9 ML UDC PO ONE (12:00)
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
[2018-02-26 13:23] LABS: Hemoglobin 10.2 gm/dL (11.6-15.3); Mean Corpuscular Hemoglobin 26.6 pg (27.0-34.0); Mean Corpuscular Volume 80.6 fL (80.0-100.0); Mean Platelet Volume 7.3 fL (7.0-11.0); Platelet Count 945 th/mm3 (150-450); Red Blood Count 3.84 mil/mm3 (4.00-5.30); Red Cell Distribution Width 19.2 % (11.6-17.2); White Blood Count 8.6 th/mm3 (4.0-11.0)
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
[2018-02-26] MEDS ORDERED: Vancomycin Inj 1,000 MG in Sodium Chlor 0.9% Inj 250 ML IV.SIG SCH ×2 (14:00→18:00)
[2018-02-26 14:03] LABS: Eosinophils 5 % (0-4); Monocytes 6 % (0-8)
[2018-02-26 14:04] LABS: Lymphocytes 10 % (9-44); Platelet Morphology Normal (Normal)
[2018-02-26 14:05] LABS: Target Cells 1+
--- NOTE | 2018-02-26 16:19 | CT ---
EXAM DATE: 02/26/2018 4:10 PM EST AGE/SEX: 32 years / Female INDICATIONS: Fever post trauma evalute for infection CLINICAL DATA: This is the patient's initial encounter. Patient reports that signs and symptoms have been present for 1 day and indicates a pain score of 6/10. MEDICAL/SURGICAL HISTORY: None. . orthopedic RADIATION DOSE: 7.63 CTDI (mGy) COMPARISON: [facility] – [place], CT ABDOMEN & PELVIS W CONTRAST, 02/12/2018. . TECHNIQUE: Multiple contiguous axial images were obtained through the abdomen. Images were obtained using multiple row detector helical technique. Using automated exposure control and adjustment of the mA and/or kV according to patient size, radiation dose was kept as low as reasonably achievable to o btain optimal diagnostic quality images. DICOM format image data is available electronically for rev iew and comparison. FINDINGS: Lower Lungs: Small right pleural effusion with overlying airspace disease is noted. Liver: The liver has a homogeneous density without space-occupying lesion. There is no dilation of th e biliary tree. Spleen: Status post splenectomy. Pancreas: Unremarkable without mass or calcification. No evidence of peripancreatic fluid collection s. Kidneys: Normal in size and shape. No evidence of mass or hydronephrosis. Adrenal Glands: Unremarkable. Aorta: The aorta and proximal iliac vessels are grossly unremarkable without aneurysmal dilation. Bowel/Mesentery: Nonspecific gas pattern with scattered air-fluid levels throughout the small intest inal tract are noted. There is no evidence of pathologic distention. Gas and stool is present through out the colon. There are no extraintestinal fluid collections suspicious for abscess formation. Abdominal Wall: Intact. Retroperitoneum: No evidence of adenopathy in the retrocrural, para-aortic, or deep pelvic regions. Bladder: Contours are smooth. Reproductive Organs: No abnormal masses or calcifications seen. Inguinal: The inguinal region is unremarkable without evidence of adenopathy. Bony Structures: Pelvic external fixator is noted. Significant subcutaneous fluid stranding and induration is identified extending from the mid abdomen into the proximal thighs. There are no discrete loculated fluid collections. CONCLUSION: 1. Small right pleural effusion with associated mild airspace disease. 2. Status post splenectomy. 3. No evidence of extra intestinal fluid collections suspicious for abscess. 4. Pelvic external fixator again noted. 5. Significant subcutaneous fat induration extending from the abdomen to the proximal thighs without discrete fluid collection. Electronically signed by: Lasha Sotomayor MD 02/26/2018 4:17 PM EST
[2018-02-26 16:23] LABS: Amorphous Sediment,Urine Rare /hpf; Bacteria,Urine Rare /hpf; Bilirubin,Urine Negative (Negative); Clarity,Urine Cloudy (Clear); Color,Urine Yellow (Yellw/Straw); Glucose,Urine (UA) Negative (Negative); Leukocyte Esterase,Urine Small (Negative); Mucus,Urine Few /lpf (Occasional); Nitrite,Urine Negative (Negative); Specific Gravity,Urine 1.015 (1.002-1.035); Squamous Epithelial Cell,Urine 8 /hpf (0-5)
--- NOTE | 2018-02-26 16:31 | CT ---
EXAM DATE: 02/26/2018 4:27 PM EST AGE/SEX: 32 years / Female INDICATIONS: Fever post traum evaluate for infection CLINICAL DATA: This is the patient's initial encounter. Patient reports that signs and symptoms have been present for 1 day and indicates a pain score of 7/10. MEDICAL/SURGICAL HISTORY: None. . Ortopedic RADIATION DOSE: 7.63 CTDI (mGy) [place] [facility] [place]/2018. . TECHNIQUE: Multiple contiguous axial images were obtained through the chest without contrast. Image s were obtained in suspended respiration using multiple row detector helical technique. Using automa sudhir exposure control and adjustment of the mA and/or kV according to patient size, radiation dose was kept as low as reasonably achievable to obtain optimal diagnostic quality images. DICOM format imag e data is available electronically for review and comparison. FINDINGS: Lungs: Right lower lobe airspace disease is noted. Left lung is relatively clear. Mediastinum: There is good visualization of the great vessels of the middle mediastinum. No evidenc e of mediastinal or hilar adenopathy/mass. Pleurae: Small right sided pleural effusion is identified. Axillae: Right upper extremity PICC line is noted. Bony Structures: Unremarkable. Miscellaneous: The examination was extended to include the upper abdomen, and both adrenal glands ar e normal in size and configuration. CONCLUSION: 1. Right lower lobe airspace disease with parapneumonic effusion 2. Otherwise stable chest. Electronically signed by: Lasha Sotomayor MD 02/26/2018 4:30 PM EST
[2018-02-26] MEDS: Acetaminophen 325 MG Tablet PO PRN (17:53)
[2018-02-26] MEDS ORDERED: Cathflo Activase Inj 2 MG Vial I-CATHETER ONE (20:30)
[2018-02-26] MEDS: Melatonin 5 MG Tablet PO PRN (23:06)
[2018-02-27] MEDS: HYDROmorphone PF Inj 1 MG/ML Ampul IV.PUSH PRN ×5 (01:12→20:02)
[2018-02-27] MEDS: Sertraline 50 MG Tablet PO SCH (08:00)
[2018-02-27] MEDS: Multivitamin/Minerals Therapeutic Tablet PO SCH (08:00)
[2018-02-27] MEDS: Famotidine 20 MG Tablet PO SCH ×2 (08:00→20:03)
[2018-02-27] MEDS: Calcium/Vitamin D 250/125 MG Tablet PO SCH ×3 (08:00→18:03)
[2018-02-27] MEDS: Senna/Docusate Sodium 8.6/50 MG Tablet PO SCH ×2 (08:00→20:03)
[2018-02-27] MEDS: Metoclopramide 10 MG Tablet PO SCH ×4 (08:00→20:03)
[2018-02-27] MEDS: Enoxaparin Inj 30 MG/0.3 ML Syringe SQ SCH ×2 (08:01→20:03)
[2018-02-27] MEDS: Lidocaine 5% Patch T-DERMAL SCH (08:01)
[2018-02-27] MEDS: Heparin Central Flush 100 UNIT/ML 5 ML Vial IV.FLUSH SCH (08:02)
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
[2018-02-28] MEDS: HYDROmorphone PF Inj 1 MG/ML Ampul IV.PUSH PRN ×4 (03:07→20:26)
[2018-02-28 05:50] LABS: Hematocrit 27.6 % (35.0-46.0); Hemoglobin 9.2 gm/dL (11.6-15.3); Mean Corpuscular HGB Conc 33.2 % (32.0-36.0); Mean Corpuscular Hemoglobin 26.8 pg (27.0-34.0); Mean Corpuscular Volume 80.5 fL (80.0-100.0); Mean Platelet Volume 7.5 fL (7.0-11.0); Platelet Count 956 th/mm3 (150-450); Red Blood Count 3.43 mil/mm3 (4.00-5.30); Red Cell Distribution Width 18.7 % (11.6-17.2); White Blood Count 6.9 th/mm3 (4.0-11.0)
[2018-02-28 06:06] LABS: Anion Gap 6 meq/L (5-15); Blood Urea Nitrogen 12 mg/dL (7-18); Calcium 8.6 mg/dL (8.5-10.1); Chloride 98 meq/L (98-107); Glomerular Filtration Rate Greater Than 89 mL/min (>89); Glucose,Random 89 mg/dL (74-106); Potassium 4.1 meq/L (3.5-5.1); Sodium 137 meq/L (136-145)
[2018-02-28 07:41] LABS: Eosinophils 14 % (0-4); Lymphocytes 20 % (9-44); Monocytes 7 % (0-8)
[2018-02-28 07:42] LABS: Howell-Jolly Bodies Present; Platelet Morphology Normal (Normal)
[2018-02-28] MEDS: Enoxaparin Inj 30 MG/0.3 ML Syringe SQ SCH ×2 (07:45→20:25)
[2018-02-28] MEDS: Calcium/Vitamin D 250/125 MG Tablet PO SCH ×3 (07:45→17:27)
[2018-02-28] MEDS: Sertraline 50 MG Tablet PO SCH (07:45)
[2018-02-28] MEDS: Senna/Docusate Sodium 8.6/50 MG Tablet PO SCH ×2 (07:45→20:25)
[2018-02-28] MEDS: Multivitamin/Minerals Therapeutic Tablet PO SCH (07:45)
[2018-02-28] MEDS: Metoclopramide 10 MG Tablet PO SCH ×4 (07:45→20:25)
[2018-02-28] MEDS: Heparin Central Flush 100 UNIT/ML 5 ML Vial IV.FLUSH SCH (07:45)
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
[2018-02-28] MEDS: Lidocaine 5% Patch T-DERMAL SCH (09:40)
[2018-02-28] MEDS: Famotidine 20 MG Tablet PO SCH ×2 (09:41→20:25)
[2018-02-28] MEDS: Acetaminophen 325 MG Tablet PO PRN (12:15)
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
[2018-02-28] MEDS: Scopalamine 1.5 MG Patch T-DERMAL SCH (14:01)
[2018-02-28] MEDS ORDERED: ceFAZolin Inj 2,000 MG in Sodium Chlor 0.9% Inj 80 ML IV.SIG SCH (16:00)
[2018-02-28] MEDS: ceFAZolin 2 GM Premix Inj 2 GM/50 ML PIGGYBACK IV.SIG SCH (16:02)
[2018-02-28] MEDS: levoFLOXacin 750 MG Tablet PO SCH (17:27)
[2018-03-01] MEDS: ceFAZolin 2 GM Premix Inj 2 GM/50 ML PIGGYBACK IV.SIG SCH ×3 (00:21→16:19)
[2018-03-01] MEDS: HYDROmorphone PF Inj 1 MG/ML Ampul IV.PUSH PRN ×6 (00:54→22:41)
[2018-03-01] MEDS: Multivitamin/Minerals Therapeutic Tablet PO SCH (08:13)
[2018-03-01] MEDS: Senna/Docusate Sodium 8.6/50 MG Tablet PO SCH ×2 (08:13→20:36)
[2018-03-01] MEDS: Famotidine 20 MG Tablet PO SCH ×2 (08:14→20:36)
[2018-03-01] MEDS: levoFLOXacin 750 MG Tablet PO SCH (08:14)
[2018-03-01] MEDS: Calcium/Vitamin D 250/125 MG Tablet PO SCH ×4 (08:14→19:02)
[2018-03-01] MEDS: Sertraline 50 MG Tablet PO SCH (08:14)
[2018-03-01] MEDS: Enoxaparin Inj 30 MG/0.3 ML Syringe SQ SCH ×2 (08:15→20:38)
[2018-03-01] MEDS: Heparin Central Flush 100 UNIT/ML 5 ML Vial IV.FLUSH SCH (08:15)
[2018-03-01] MEDS: Metoclopramide 10 MG Tablet PO SCH ×4 (08:26→20:36)
[2018-03-01] MEDS: Lidocaine 5% Patch T-DERMAL SCH (08:27)
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
[2018-03-02] MEDS: ceFAZolin 2 GM Premix Inj 2 GM/50 ML PIGGYBACK IV.SIG SCH ×4 (00:32→23:47)
[2018-03-02] MEDS: Melatonin 5 MG Tablet PO PRN (01:28)
[2018-03-02] MEDS: HYDROmorphone PF Inj 1 MG/ML Ampul IV.PUSH PRN ×5 (02:50→20:31)
[2018-03-02] MEDS: Lidocaine 5% Patch T-DERMAL SCH (09:15)
[2018-03-02] MEDS: Famotidine 20 MG Tablet PO SCH ×2 (09:16→20:31)
[2018-03-02] MEDS: levoFLOXacin 750 MG Tablet PO SCH (09:16)
[2018-03-02] MEDS: Enoxaparin Inj 30 MG/0.3 ML Syringe SQ SCH ×2 (09:19→20:32)
[2018-03-02] MEDS: Sertraline 50 MG Tablet PO SCH (09:19)
[2018-03-02] MEDS: Heparin Central Flush 100 UNIT/ML 5 ML Vial IV.FLUSH SCH (09:21)
[2018-03-02] MEDS: Metoclopramide 10 MG Tablet PO SCH ×4 (09:38→20:31)
[2018-03-02] MEDS: Calcium/Vitamin D 250/125 MG Tablet PO SCH ×3 (10:56→17:46)
[2018-03-02] MEDS: Multivitamin/Minerals Therapeutic Tablet PO SCH (10:56)
[2018-03-02] MEDS: Senna/Docusate Sodium 8.6/50 MG Tablet PO SCH ×2 (10:57→20:43)
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
[2018-03-03] MEDS: HYDROmorphone PF Inj 1 MG/ML Ampul IV.PUSH PRN ×5 (01:01→19:19)
--- NOTE | 2018-03-03 06:45 | P.PNOP ---
Subjective Interval history: Pain controlled with no new complaints Physical Exam Vital signs: Vital Signs 03/02/18 08:00 03/02/18 12:00 03/02/18 19:55 Temperature 98.2 F 98.2 F 97.6 F Pulse Rate 88 101 H 84 Respiratory Rate 16 16 18 Blood Pressure 108/64 118/71 96/58 L Pulse Oximetry 98 98 96 03/02/18 20:15 03/02/18 23:50 03/03/18 03:35 Temperature 98.1 F 98.4 F Pulse Rate 86 84 Respiratory Rate 18 17 Blood Pressure 106/67 109/86 97/56 L Pulse Oximetry 97 97 03/03/18 06:20 Temperature Pulse Rate 83 Respiratory Rate Blood Pressure 110/55 L Pulse Oximetry Intake & Output 03/02/18 03/02/18 03/03/18 06:59 18:59 06:59 Intake Total 150 / 150 700 / 700 1000 / 1000 Balance 150 / 150 700 / 700 1000 / 1000 Weight 53.6 kg Intake: IV 150 / 150 200 / 200 100 / 100 Maxipime Inj 2,000 MG In NS Inj 100 / 100 100 / 100 100 / 100 100 ML @ 200 mls/hr IV.SIG Q12H [facility] Rx#:[id number] Ancef 2 GM Premix Inj 2 gm In 50 / 50 100 / 100 50 ml @ 100 mls/hr IV.SIG Q8H [facility] Rx#:[id number] Oral 500 / 500 Oral Supplement 900 / 900 Other: # Voids 3 3 Date of Last Bowel Movement 03/01/18 03/02/18 # Bowel Movements 0 Narrative: External fixator in place. Eschar noted over the right pin site. Left pin site is clean and dry Distally neurovascular intact bilateral lower extremities with active dorsiflexion and plantar flexion of feet - Urinary Catheter Management Indwelling Temp Sensing Catheter Cath placed during this visit: yes, but has since been removed by the nurse Reason for continuing: Acute urinary retention Insertion date: 02/10/18 Removal date: 02/18/18 Removal time: 11:45 Results - Labs CBC & Chem 7: 02/28/18 04:05 02/28/18 04:05 Microbiology 02/26/18 12:50 Blood - Peripheral Aerobic Blood Culture - Preliminary No growth in 4 days 02/26/18 12:50 Blood - Peripheral Anaerobic Blood Culture - Preliminary No growth in 4 days 02/26/18 12:55 Blood - Peripheral Aerobic Blood Culture - Preliminary No growth in 4 days 02/26/18 12:55 Blood - Peripheral Anaerobic Blood Culture - Final QNS - See aerobic report. Assessment and Plan - Assessment and Plan 1) Right Hemipelvis disruption s/p exfix - (02/11) -Transfer training from bed to wheelchair.Toe-touch weightbearing right leg, weight-bear as tolerated left leg for transfers only. No gait training -pin care TID X-rays today for pelvis -Orthopedic surgeries complete at this time. We will continue to treat the iliac wing nonoperatively. Case management for rehab placement
[2018-03-03] MEDS: Multivitamin/Minerals Therapeutic Tablet PO SCH (08:21)
[2018-03-03] MEDS: Sertraline 50 MG Tablet PO SCH (08:21)
[2018-03-03] MEDS: Metoclopramide 10 MG Tablet PO SCH ×4 (08:21→20:42)
[2018-03-03] MEDS: Calcium/Vitamin D 250/125 MG Tablet PO SCH ×3 (08:21→17:20)
[2018-03-03] MEDS: Senna/Docusate Sodium 8.6/50 MG Tablet PO SCH ×2 (08:22→20:42)
[2018-03-03] MEDS: Heparin Central Flush 100 UNIT/ML 5 ML Vial IV.FLUSH SCH (08:22)
[2018-03-03] MEDS: Famotidine 20 MG Tablet PO SCH ×2 (08:22→20:42)
[2018-03-03] MEDS: Enoxaparin Inj 30 MG/0.3 ML Syringe SQ SCH ×2 (08:24→20:41)
[2018-03-03] MEDS: ceFAZolin 2 GM Premix Inj 2 GM/50 ML PIGGYBACK IV.SIG SCH (08:24)
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
[2018-03-03] MEDS: levoFLOXacin 750 MG Tablet PO SCH (11:03)
[2018-03-03] MEDS: Lidocaine 5% Patch T-DERMAL SCH (11:05)
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
[2018-03-03] MEDS: Scopalamine 1.5 MG Patch T-DERMAL SCH (15:03)
[2018-03-03] MEDS: Ampicillin/Sulbactam Inj 3 GM in Sodium Chloride 0.9% Inj 100 ML IV.SIG SCH ×2 (19:20→20:34)
[2018-03-03] MEDS: clonazePAM 0.5 MG Tablet PO SCH (20:41)
[2018-03-03] MEDS: Mirtazapine 15 MG Tablet PO SCH (20:42)
[2018-03-04] MEDS: HYDROmorphone PF Inj 1 MG/ML Ampul IV.PUSH PRN ×5 (00:35→22:21)
[2018-03-04] MEDS: Ampicillin/Sulbactam Inj 3 GM in Sodium Chloride 0.9% Inj 100 ML IV.SIG SCH ×4 (00:35→20:28)
--- NOTE | 2018-03-04 06:49 | P.PNOP ---
Subjective Interval history: Pain controlled with no new complaints Physical Exam Vital signs: Vital Signs 03/03/18 08:00 03/03/18 12:00 03/03/18 16:00 Temperature 98.2 F 98.6 F 98.4 F Pulse Rate 90 90 96 H Respiratory Rate 18 18 18 Blood Pressure 106/55 L 106/57 L 112/75 Pulse Oximetry 98 97 97 03/03/18 20:03 03/03/18 20:46 03/03/18 22:40 Temperature 97.8 F Pulse Rate 99 H Respiratory Rate 18 17 18 Blood Pressure 107/54 L Pulse Oximetry 97 03/03/18 23:24 03/04/18 01:24 03/04/18 01:38 Temperature 98.2 F Pulse Rate 91 H Respiratory Rate 17 18 17 Blood Pressure 112/69 Pulse Oximetry 96 03/04/18 03:43 Temperature Pulse Rate Respiratory Rate 18 Blood Pressure Pulse Oximetry Intake & Output 03/03/18 03/03/18 03/04/18 06:59 18:59 06:59 Intake Total 1000 / 1000 2360 / 2360 680 / 680 Balance 1000 / 1000 2360 / 2360 680 / 680 Weight 53.6 kg Intake: IV 100 / 100 50 / 50 200 / 200 Unasyn Inj 3 GM In NS Inj 100 200 / 200 ML @ 200 mls/hr IV.SIG Q6H [facility] Rx#:[id number] Maxipime Inj 2,000 MG In NS Inj 100 / 100 100 ML @ 200 mls/hr IV.SIG Q12H [facility] Rx#:[id number] Ancef 2 GM Premix Inj 2 gm In 50 / 50 50 ml @ 100 mls/hr IV.SIG Q8H [facility] Rx#:[id number] Oral 2310 / 2310 480 / 480 Oral Supplement 900 / 900 Other: # Voids 3 6 5 Date of Last Bowel Movement 03/02/18 03/02/18 03/03/18 # Bowel Movements 0 1 0 Narrative: External fixation in place. Mild drainage right external fixator pin site. Bilateral lower extremities neurovascularly intact with active dorsiflexion and plantarflexion of feet. Intact sensation and good capillary refills and distal pulses - Urinary Catheter Management Indwelling Temp Sensing Catheter Cath placed during this visit: yes, but has since been removed by the nurse Reason for continuing: Acute urinary retention Insertion date: 02/10/18 Removal date: 02/18/18 Removal time: 11:45 Results - Labs CBC & Chem 7: 02/28/18 04:05 02/28/18 04:05 Microbiology 02/26/18 12:50 Blood - Peripheral Aerobic Blood Culture - Final No growth in 5 days 02/26/18 12:50 Blood - Peripheral Anaerobic Blood Culture - Final No growth in 5 days 02/26/18 12:55 Blood - Peripheral Aerobic Blood Culture - Final No growth in 5 days 02/26/18 12:55 Blood - Peripheral Anaerobic Blood Culture - Final QNS - See aerobic report. - Imaging Impressions Pelvis X-Ray 03/03/18 00:00 CONCLUSION: Moderate displacement of multiple right pelvic fractures Pelvis X-Ray 03/03/18 00:00 CONCLUSION: Moderately displaced right-sided pelvic fractures. Assessment and Plan - Assessment and Plan 1) Right Hemipelvis disruption s/p exfix - (02/11) -Transfer training from bed to wheelchair.Toe-touch weightbearing right leg, weight-bear as tolerated left leg for transfers only. No gait training -pin care TID Due to slight shift of hemipelvis and x-rays from yesterday we will plan on surgery tomorrow. N.p.o. after midnight Hold Sheri Signed consents on chart
[2018-03-04] MEDS: levoFLOXacin 750 MG Tablet PO SCH (08:31)
[2018-03-04] MEDS: Multivitamin/Minerals Therapeutic Tablet PO SCH (08:31)
[2018-03-04] MEDS: clonazePAM 0.5 MG Tablet PO SCH ×2 (08:31→20:27)
[2018-03-04] MEDS: Sertraline 50 MG Tablet PO SCH (08:32)
[2018-03-04] MEDS: Famotidine 20 MG Tablet PO SCH ×2 (08:33→20:27)
[2018-03-04] MEDS: Lidocaine 5% Patch T-DERMAL SCH (08:34)
[2018-03-04] MEDS: Heparin Central Flush 100 UNIT/ML 5 ML Vial IV.FLUSH SCH (08:34)
[2018-03-04] MEDS: Calcium/Vitamin D 250/125 MG Tablet PO SCH ×3 (08:35→18:11)
[2018-03-04] MEDS: Senna/Docusate Sodium 8.6/50 MG Tablet PO SCH ×2 (08:36→20:28)
[2018-03-04] MEDS: Metoclopramide 10 MG Tablet PO SCH ×4 (08:43→21:54)
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
[2018-03-04 09:37] LABS: Hematocrit 30.6 % (35.0-46.0); Mean Corpuscular HGB Conc 32.6 % (32.0-36.0); Mean Corpuscular Hemoglobin 26.2 pg (27.0-34.0); Mean Corpuscular Volume 80.4 fL (80.0-100.0); Platelet Count 1005 th/mm3 (150-450); Red Blood Count 3.81 mil/mm3 (4.00-5.30); Red Cell Distribution Width 19.2 % (11.6-17.2); White Blood Count 7.2 th/mm3 (4.0-11.0)
[2018-03-04 10:01] LABS: Calcium 9.8 mg/dL (8.5-10.1); Carbon Dioxide 32.5 meq/L (21.0-32.0); Potassium 3.9 meq/L (3.5-5.1)
[2018-03-04] MEDS: Mirtazapine 15 MG Tablet PO SCH (20:28)
[2018-03-05] MEDS: Ampicillin/Sulbactam Inj 3 GM in Sodium Chloride 0.9% Inj 100 ML IV.SIG SCH ×3 (01:12→19:30)
[2018-03-05] MEDS: HYDROmorphone PF Inj 1 MG/ML Ampul IV.PUSH PRN ×5 (03:37→22:26)
[2018-03-05] MEDS ORDERED: Thrombin Topical Soln 5,000 UNIT Vial TOPICAL ONE (07:20)
[2018-03-05] MEDS ORDERED: Heparin - SQ 10,000 UNITS/ML Vial ONE (07:20)
[2018-03-05] MEDS ORDERED: Gelatin Size 100 Topical Foam ONE (07:21)
[2018-03-05] MEDS ORDERED: Tobramycin Sulfate 1,200 MG Vial (for ortho/sterile core) OTHER ONE (07:21)
[2018-03-05] MEDS ORDERED: Ketamine Inj 50 MG/5 ML Syringe IV.PUSH ONE (07:28)
[2018-03-05] MEDS ORDERED: Tranexamic Acid Inj 954 MG in Sodium Chlor 0.9% Inj 100 ML IV.SIG ONE (08:00)
[2018-03-05] MEDS ORDERED: Post-op Orders (for Pharmacy) OTHER STA (09:47)
--- NOTE | 2018-03-05 09:56 | P.OP ---
- Preoperative Diagnosis (1) Closed pelvic fracture Date of procedure: 03/05/18 Procedure: Open reduction internal fixation pelvic ring fractures, revision of external fixation Anesthesia: SHAMAR Surgeon: Klaus Ferraro MD Picking Crew Supervisor: DASHAWN Steven PA-C The surgical procedure was assisted by my physician liaison inspection laboratory assistant. My P.A. presence was necessary throughout this case for the manipulation and positioning of the surgical extremity. My P.A. was assisting me throughout the duration of this procedure. The skill set of a physician liaison inspection laboratory assistant was medically necessary to complete this procedure. During the surgical case the surgical training specialist was working at the back table and the physician liaison inspection laboratory assistant was directly assisting me. Operation and Findings: Patient was seen and evaluated preoperatively. Patient has complex pelvic ring fracture. She was initially treated with closed reduction and external fixation. Follow-up x-rays this week revealed significant rotational deformity of the right hemipelvis. I discussed the risk and benefits of surgery with patient. Informed consent was obtained after detailed discussion of risk and benefits of surgery. The operative site was marked. Patient was brought to the OR and placed on the OR table. IV sedation and general endotracheal anesthesia were administered. A Collazo catheter was placed. A timeout procedure was performed. IV antibiotics were given prior to incision. The procedure began removal of a portion of the external fixation. Clamps were loosened. Clamps and bars were removed. Pin sites were thoroughly scrubbed. Pins were left in place to aid in manipulation of the fracture. The pelvic region was prepped with alcohol followed by Hibiclens and draped in the usual sterile fashion. Next, a five-inch Pfannenstiel incision over the lower abdomen. The subcutaneous tissue was dissected with Bovie. The linea alba was split in line with fibers. The bladder was identified. The bladder was adherent to the fracture. A portion of the bladder was caught within early fracture callus of the pubic rami fractures. The bladder was mobilized. At this point a tear in the bladder was identified. Urology was consulted intraoperatively for bladder repair. There was of the right hemipelvis and pubic rami fractures. At this point the fractures were gently mobilized. Curettes were used to debride early fracture callus formation. Using fracture tenaculums the right hemipelvis was reduced to the pubic symphysis. Fluoroscopy confirmed excellent alignment of the pelvic ring. A Synthes pelvic plate was selected and contoured along the right hemipelvis and across the pubic symphysis to the left pubic rami. The plate was provisionally held to bone with K-wires. 3.5 cortical screws were used to compress plate to bone. Multiple screws were placed on each side of the pubic fractures. All screws were pre-drilled and pre-measured for appropriate length. Final fluoroscopy revealed well-aligned fracture with well- placed hardware. Dr Reyes of Urology was consulted intraoperatively for bladder repair. A BRAYDEN drain was placed deep in the wound. Fascial layer was closed with #1 Vicryl. Subcutaneous tissues closed with 3-0 Vicryl. Skin was closed with lidia. Sterile dressings were applied. Needle and sponge counts were correct.
--- NOTE | 2018-03-05 11:00 | MP ---
cc: Ponce Lees MD DATE OF OPERATION: 03/05/2018 PREOPERATIVE DIAGNOSES: 1. Bladder injury. 2. Pelvic ring fracture. POSTOPERATIVE DIAGNOSES: 1. Bladder injury. 2. Pelvic ring fracture. PROCEDURE PERFORMED: Closure of bladder cystotomy. SURGEON: Ponce Lees MD ANESTHESIA: General. COMPLICATIONS: None. DRAINS: 1. BRAYDEN drain to bulb suction. 2. Collazo catheter to gravity drainage. ESTIMATED BLOOD LOSS: Minimal. DISPOSITION: Stable. INDICATIONS: The patient is a 32-year-old female who was undergoing open reduction internal fixation of pelvic ring fractures and revision of her external fixation by Dr. Sargent. During the procedure, a tear in the bladder was identified after seeing the Collazo catheter balloon. Urology was consulted intraoperatively for this repair of the bladder injury. DETAILS OF PROCEDURE: The wound was carefully examined. The Collazo catheter was clearly visible. There appeared to be an approximately 5 cm horizontal tear across the anterior portion of the bladder. Both ureteral orifices were inspected along the trigone and clear urine was seen bilaterally, therefore the ureters were not interrogated. At this time, a 2-0 Vicryl suture was then used in a running fashion to whipstitch the bladder cystotomy closed. The middle portion of the bladder muscle did have some small tears in it. These were reinforced with a [id number] 2-0 Vicryl as well. The bladder was irrigated with 100 mL of normal saline. No evidence of any leak was seen. At this point, a BRAYDEN drain was then placed through the left lower quadrant and above the peritoneum. Vancomycin/tobramycin powder was then placed on top of the bladder to help prevent infection. At this point, the fascia was then closed with 2 separate running 1-0 PDS, which were tied in the middle. This concluded my portion of the procedure. The patient remained intubated and stable on the table for the orthopedic teams final closure. Recommend continue Collazo catheter for approximately 5-7 days and then would perform a cystogram prior to removal just due to the nature of the bladder injury and what her bladder appeared like with the friable muscle. Ponce Lees MD EMF/narayan , 10:38 AM , 10:46 AM LISA
[2018-03-05] MEDS ORDERED: fentaNYL Citrate Inj 100 MCG/2 ML Ampul ONE ×2 (11:07)
[2018-03-05] MEDS ORDERED: *Meperidine Inj 25 MG/ML Vial PERIprocedural Use ONLY ONE (11:16)
[2018-03-05] MEDS ORDERED: *morphine SULFATE 10 MG/ML PERIprocedure ONLY ONE (11:26)
[2018-03-05] MEDS ORDERED: *HYDROmorphone PF Inj 1 MG/ML Ampul PERIprocedural Use ONLY ONE ×3 (11:35→12:02)
--- NOTE | 2018-03-05 11:37 | XR ---
EXAM DATE: 03/05/2018 11:32 AM EST AGE/SEX: 32 years / Female INDICATIONS: Open reduction internal fixation pelvis. CLINICAL DATA: This is the patient's initial encounter. Patient reports that signs and symptoms have been present for 1 day and indicates a pain score of Nonresponsive. MEDICAL/SURGICAL HISTORY: Non-responsive. Non-responsive. COMPARISON: No prior exams available for comparison. FINDINGS: Intraoperative examination demonstrates plating of the patient's pelvic floor. The alignment of the p sri is excellent. There is no evidence of complication. CONCLUSION: Excellent alignment of the pelvis post fixation. Electronically signed by: Poncho Vásquez MD 03/05/2018 11:36 AM EST
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
[2018-03-05] MEDS: Metoclopramide 10 MG Tablet PO SCH ×3 (13:00→20:44)
[2018-03-05] MEDS: Calcium/Vitamin D 250/125 MG Tablet PO SCH (13:16)
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
[2018-03-05] MEDS: clonazePAM 0.5 MG Tablet PO SCH (20:33)
[2018-03-05] MEDS: Famotidine 20 MG Tablet PO SCH (20:34)
[2018-03-05] MEDS: Mirtazapine 15 MG Tablet PO SCH (20:44)
[2018-03-06] MEDS: Melatonin 5 MG Tablet PO PRN (01:26)
[2018-03-06] MEDS: Ampicillin/Sulbactam Inj 3 GM in Sodium Chloride 0.9% Inj 100 ML IV.SIG SCH ×4 (01:45→19:55)
[2018-03-06] MEDS: HYDROmorphone PF Inj 1 MG/ML Ampul IV.PUSH PRN ×5 (02:34→22:27)
--- NOTE | 2018-03-06 06:48 | P.PNOP ---
Subjective Interval history: Stable after surgery POD 1 Physical Exam Vital signs: Vital Signs 03/05/18 10:57 03/05/18 11:00 03/05/18 11:15 Temperature 98.3 F Pulse Rate 89 85 84 Respiratory Rate 14 14 14 Blood Pressure 125/73 124/74 138/80 Pulse Oximetry 94 L 95 96 03/05/18 11:30 03/05/18 11:42 03/05/18 11:45 Temperature 98.3 F Pulse Rate 87 89 98 H Respiratory Rate 14 16 14 Blood Pressure 117/58 L 125/73 131/69 Pulse Oximetry 96 95 03/05/18 12:00 03/05/18 16:00 03/05/18 20:00 Temperature 98.4 F 97.7 F Pulse Rate 94 H 129 H 120 H Respiratory Rate 14 18 18 Blood Pressure 135/69 136/81 115/76 Pulse Oximetry 95 97 03/05/18 21:04 03/05/18 22:56 03/06/18 00:00 Temperature 98.8 F Pulse Rate 119 H Respiratory Rate 18 18 17 Blood Pressure 122/89 Pulse Oximetry 94 L 03/06/18 00:55 Temperature Pulse Rate Respiratory Rate 18 Blood Pressure Pulse Oximetry Intake & Output 03/05/18 03/05/18 03/06/18 06:59 18:59 06:59 Intake Total 200 / 200 800 / 800 Output Total 50 / 50 1115 / 1115 Balance 200 / 200 -50 / -50 -315 / -315 Weight 63.6 kg 52.3 kg Intake: IV 200 / 200 200 / 200 Unasyn Inj 3 GM In NS Inj 100 200 / 200 200 / 200 ML @ 200 mls/hr IV.SIG Q6H VAMSHI Rx#:[id number] Oral 0 / 0 600 / 600 Output: Urine 1100 / 1100 Wound Drainage 50 / 50 15 / 15 # 1 Lower Medial Abdomen BRAYDEN 50 / 50 15 / 15 Drain Other: # Voids 4 Date of Last Bowel Movement 03/03/18 03/03/18 # Bowel Movements 0 Narrative: Clean dry dressings intact with drain in place. External fixator in place. Collazo intact. Bilateral lower extremities with active dorsiflexion and plantarflexion of feet and good capillary refills with distal pulses - Urinary Catheter Management Indwelling Temp Sensing Catheter Cath placed during this visit: yes, but has since been removed by the nurse Reason for continuing: Acute urinary retention Insertion date: 02/10/18 Insertion time: 08:10 Removal date: 02/18/18 Removal time: 11:45 Results - Labs CBC & Chem 7: 03/04/18 08:43 03/04/18 08:43 Laboratory Results - last 24 hr 03/04/18 07:17 MTS Gel Crossmatch See Detail - Imaging Impressions Pelvis X-Ray 03/05/18 00:00 CONCLUSION: Excellent alignment of the pelvis post fixation. Assessment and Plan - Assessment and Plan 1) Right Hemipelvis disruption s/p open reduction internal fixation with revision of external fixation POD 1 -Transfer training from bed to wheelchair.Toe-touch weightbearing right leg, weight-bear as tolerated left leg for transfers only. No gait training -pin care TID Begin daily dressing changes POD 2 Maintain Collazo to be managed by Dr. Lees. Bladder repair POD 1
[2018-03-06] MEDS: Heparin Central Flush 100 UNIT/ML 5 ML Vial IV.FLUSH SCH (08:05)
[2018-03-06] MEDS: Metoclopramide 10 MG Tablet PO SCH ×4 (08:05→20:22)
[2018-03-06] MEDS: Sertraline 50 MG Tablet PO SCH (08:06)
[2018-03-06] MEDS: clonazePAM 0.5 MG Tablet PO SCH ×2 (08:06→20:14)
[2018-03-06] MEDS: Multivitamin/Minerals Therapeutic Tablet PO SCH (08:06)
[2018-03-06] MEDS: levoFLOXacin 750 MG Tablet PO SCH (08:06)
[2018-03-06] MEDS: Calcium/Vitamin D 250/125 MG Tablet PO SCH ×3 (08:07→18:16)
[2018-03-06] MEDS: Famotidine 20 MG Tablet PO SCH ×2 (08:07→20:15)
[2018-03-06] MEDS: Senna/Docusate Sodium 8.6/50 MG Tablet PO SCH ×2 (08:07→20:14)
[2018-03-06] MEDS: Lidocaine 5% Patch T-DERMAL SCH (08:08)
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
[2018-03-06] MEDS: Scopalamine 1.5 MG Patch T-DERMAL SCH (13:57)
--- NOTE | 2018-03-06 14:55 | P.PNURO ---
Subjective Patient symptoms today: Pt is s/p pelvic fracture repair, urology was called intraop for repair of bladder injury, yesterday. She c/o pain issues. Also has BRAYDEN drain with minimal output, possibly clogged. Velazco is in place draining clear yellow urine. VS are stable. c/o leaking urine around velazco, possibly due to bladder spasms Objective Vital Signs: Vital Signs 03/05/18 16:00 03/05/18 20:00 03/05/18 21:04 Temperature 97.7 F Pulse Rate 129 H 120 H Respiratory Rate 18 18 18 Blood Pressure 136/81 115/76 Pulse Oximetry 97 03/05/18 22:56 03/06/18 00:00 03/06/18 00:55 Temperature 98.8 F Pulse Rate 119 H Respiratory Rate 18 17 18 Blood Pressure 122/89 Pulse Oximetry 94 L 03/06/18 07:31 03/06/18 07:32 03/06/18 09:07 Temperature Pulse Rate Respiratory Rate 18 18 18 Blood Pressure Pulse Oximetry 03/06/18 12:49 Temperature Pulse Rate Respiratory Rate 18 Blood Pressure Pulse Oximetry Intake & Output 03/05/18 03/06/18 03/06/18 18:59 06:59 18:59 Intake Total 800 / 800 100 / 100 Output Total 50 / 50 1115 / 1115 300 / 300 Balance -50 / -50 -315 / -315 -200 / -200 Weight 52.3 kg Intake: IV 200 / 200 100 / 100 Unasyn Inj 3 GM In NS Inj 100 200 / 200 100 / 100 ML @ 200 mls/hr IV.SIG Q6H [facility] Rx#:[id number] Oral 600 / 600 Output: Urine 1100 / 1100 Urine Amount (Catheter) 300 / 300 Indwelling Temp Sensing 300 / 300 Catheter Wound Drainage 50 / 50 15 / 15 # 1 Lower Medial Abdomen BRAYDEN 50 / 50 15 / 15 Drain Other: Date of Last Bowel Movement 03/03/18 Result Diagrams: 03/04/18 08:43 03/04/18 08:43 Other Results: NAD Clear lungs RRR Velazco is in place Medications and IVs: Active Medications Generic Name Dose Route Start Last Admin Trade Name Freq PRN Reason Stop Dose Admin Acetaminophen 650 mg 02/25/18 12:00 02/28/18 12:15 Tylenol PO 650 mg Q4H PRN Administration GEORGE, Pain 1-10 or Fever > 101 F Al Hydroxide/Mg Hydroxide 30 ml 02/13/18 09:00 03/06/18 08:08 Milk Of Akin Howard PO Not Given BID [facility] Bacitracin 1 applicatio 02/10/18 21:00 03/06/18 08:05 Baciguent Oint TOPICAL 1 applicatio BID VAMSHI Administration Calcium/Vitamin D 1 tab 02/11/18 13:00 03/06/18 12:18 Oscal With D 250/125 Mg PO 1 tab TID VAMSHI Administration Clonazepam 0.5 mg 03/03/18 21:00 03/06/18 08:06 Klonopin PO 0.5 mg Q12HR VAMSHI Administration Cyclobenzaprine HCl 10 mg 02/28/18 13:00 03/06/18 13:56 Flexeril PO 10 mg Q8HR VAMSHI Administration Diphenhydramine HCl 25 mg 02/11/18 11:03 Benadryl PO Q6H PRN ITCHING Enoxaparin Sodium 30 mg 02/12/18 21:00 03/03/18 20:41 Lovenox Inj SQ 30 mg Q12HR VAMSHI Administration Famotidine 20 mg 02/19/18 09:00 03/06/18 08:07 Pepcid PO 20 mg BID VAMSHI Administration Heparin Sodium (Porcine) 0 unit 02/14/18 16:10 Heparin Central Flush IV.FLUSH PRN PRN Flush PICC Line Heparin Sodium (Porcine) 0 unit 02/15/18 09:00 03/06/18 08:05 Heparin Central Flush IV.FLUSH 200 unit DAILY VAMSHI Administration Hydromorphone HCl 0.5 mg 02/18/18 12:14 03/06/18 13:55 Dilaudid Pf Inj IV.PUSH 0.5 mg Q4HR PRN Administration breakthrough pain Hydromorphone HCl 2 mg 02/18/18 12:10 03/06/18 12:19 Dilaudid PO 2 mg Q4H PRN Administration Pain > 3 Ampicillin Sodium/Sulbactam 100 mls @ 200 mls/hr 03/04/18 01:30 03/06/18 13: 57 Sodium 3 gm/ Sodium Chloride IV.SIG 200 mls/hr Q6H V[facility]I Administration Lactulose 30 ml 02/14/18 10:15 03/06/18 08:09 Lactulose Liq PO Not Given BID VAMSHI Levofloxacin 750 mg 02/28/18 15:30 03/06/18 08:06 Levaquin PO 03/07/18 15:29 750 mg DAILY VAMSHI Administration Lidocaine HCl 1 patch 02/11/18 16:00 03/06/18 08:08 Lidoderm 5% Patch.12 Hr T-DERMAL Not Given DAILY VAMSHI Melatonin 5 mg 02/17/18 09:33 03/06/18 01:26 Melatonin PO 5 mg HS PRN Administration SLEEP Metoclopramide HCl 10 mg 02/20/18 12:00 03/06/18 13:55 Reglan PO 10 mg ACHS VAMSHI Administration Mirtazapine 15 mg 03/03/18 21:00 03/05/18 20:44 Remeron PO 15 mg HS VAMSHI Administration Multivitamins 1 tab 02/14/18 10:15 03/06/18 08:06 Theragran PO 1 tab DAILY VAMSHI Administration Multivitamins/Minerals 1 tab 02/13/18 09:00 03/06/18 08:06 Theragran-M PO 1 tab DAILY VAMSHI Administration Ondansetron HCl 4 mg 02/23/18 13:58 03/06/18 08:15 Zofran Inj IV.PUSH 4 mg Q8H PRN Administration NAUSEA OR VOMITING Patch Removal 1 each 02/11/18 21:00 03/05/18 22:47 Remove Old Patch T-DERMAL Not Given HS VAMSHI Patch Removal 1 each 03/03/18 14:00 03/06/18 14:07 Remove Old Patch T-DERMAL 1 each Q3D VAMSHI Administration Scopolamine 1 patch 02/28/18 14:00 03/06/18 13:57 Transderm-Scop 1.5 Mg Patch.72hr T-DERMAL 1 patch Q3D V[facility] Administration Senna/Docusate Sodium 1 tab 02/19/18 09:00 03/06/18 08:07 Elisha-Colace PO 1 tab BID VAMSHI Administration Sertraline HCl 25 mg 02/20/18 15:45 03/06/18 08:06 Zoloft PO 25 mg DAILY VAMSHI Administration Sodium Chloride 2 ml 02/10/18 19:07 02/12/18 20:37 Ns Flush IV.FLUSH 2 ml UNSCH PRN Administration FLUSH AFTER USING IV ACCESS Sodium Chloride 0 ml 02/14/18 16:10 Ns Flush IV.FLUSH PRN PRN Flush After Blood Draws Sodium Chloride 0 ml 02/14/18 16:10 Ns Flush IV.FLUSH PRN PRN FLUSH AFTER USING IV ACCESS Sodium Chloride 0 ml 02/15/18 09:00 03/06/18 08:08 Ns Flush IV.FLUSH 2 ml DAILY VAMSHI Administration Vitamin D 5,000 unit 02/12/18 09:00 03/06/18 08:07 Vitamin D3 PO 5,000 unit DAILY VAMSHI Administration Assessment and Plan - Plan Pt is POD#1 s/p Right Hemipelvis disruption s/p open reduction internal fixation with revision of external fixation and intraop bladder repair - Continue care as per primary team - Keep velazco in x 7-10 days, then needs cystogram prior to velazco removal - B&O suppository for bladder spasms if pt will refuse can use PO oxybutynin 5mg x 1-2times a day No additional intervention needed. Discussed Condition With: Dr Lees and Pt's RN
[2018-03-06] MEDS: Belladonna Alkaloid/Opium 60 MG Supp RECTAL PRN (19:40)
[2018-03-06] MEDS: Mirtazapine 15 MG Tablet PO SCH (20:15)
[2018-03-07] MEDS: Ampicillin/Sulbactam Inj 3 GM in Sodium Chloride 0.9% Inj 100 ML IV.SIG SCH ×4 (01:00→19:15)
[2018-03-07] MEDS: HYDROmorphone PF Inj 1 MG/ML Ampul IV.PUSH PRN ×5 (02:39→19:18)
[2018-03-07] MEDS: Belladonna Alkaloid/Opium 60 MG Supp RECTAL PRN ×3 (02:47→21:16)
[2018-03-07 06:25] LABS: Mean Corpuscular HGB Conc 32.1 % (32.0-36.0); Mean Corpuscular Hemoglobin 25.9 pg (27.0-34.0); Mean Corpuscular Volume 80.7 fL (80.0-100.0); Mean Platelet Volume 6.7 fL (7.0-11.0); Platelet Count 610 th/mm3 (150-450); Red Blood Count 2.24 mil/mm3 (4.00-5.30); Red Cell Distribution Width 19.3 % (11.6-17.2); White Blood Count 8.5 th/mm3 (4.0-11.0)
[2018-03-07 06:48] LABS: Hemoglobin 5.8 gm/dL (11.6-15.3)
[2018-03-07 06:49] LABS: Hematocrit 18.1 % (35.0-46.0)
[2018-03-07 07:33] LABS: Eosinophils 9 % (0-4); Lymphocytes 23 % (9-44); Monocytes 6 % (0-8); Myelocytes 1 % (0-0)
[2018-03-07 07:34] LABS: Platelet Morphology Normal (Normal)
[2018-03-07 07:35] LABS: Howell-Jolly Bodies Present
--- NOTE | 2018-03-07 07:43 | P.PNOP ---
Subjective Interval history: Still having some difficulty with pain control. States she is still urinating even with a Collazo inserted. Drain was removed today Physical Exam Vital signs: Vital Signs 03/06/18 09:07 03/06/18 12:49 03/06/18 14:25 Temperature Pulse Rate Respiratory Rate 18 18 17 Blood Pressure Pulse Oximetry 03/06/18 16:00 03/06/18 16:40 03/06/18 18:31 Temperature 97.9 F Pulse Rate 119 H Respiratory Rate 17 18 18 Blood Pressure 135/78 Pulse Oximetry 98 03/06/18 20:00 Temperature 98.5 F Pulse Rate 120 H Respiratory Rate 18 Blood Pressure 111/60 Pulse Oximetry 99 Intake & Output 03/06/18 03/07/18 03/07/18 18:59 06:59 18:59 Intake Total 680 / 680 400 / 400 Output Total 1250 / 1250 0 / 0 Balance -570 / -570 400 / 400 Weight 55 kg Intake: IV 200 / 200 200 / 200 Unasyn Inj 3 GM In NS Inj 100 200 / 200 200 / 200 ML @ 200 mls/hr IV.SIG Q6H [facility] Rx#:[id number] Oral 480 / 480 200 / 200 Output: Urine 950 / 950 Urine/Stool Mix 0 / 0 Urine Amount (Catheter) 300 / 300 Indwelling Temp Sensing 300 / 300 Catheter Other: # Voids 5 Date of Last Bowel Movement 03/04/18 03/04/18 # Bowel Movements 0 Narrative: External fixator is in place. Pin sites are clean and dry with mild drainage over the right pin site. Surgical incision is well approximated and clean dressings are in place. Drain is been removed with dressing over. Bilateral lower extremities reveals full range of motion and neurovascularly intact. Good capillary refills and distal pulses - Urinary Catheter Management Indwelling Temp Sensing Catheter Cath placed during this visit: yes, but has since been removed by the nurse Reason for continuing: Acute urinary retention Insertion date: 02/10/18 Insertion time: 08:10 Removal date: 02/18/18 Removal time: 11:45 Results - Labs CBC & Chem 7: 03/07/18 06:05 03/04/18 08:43 Laboratory Results - last 24 hr 03/04/18 03/07/18 07:17 06:05 WBC 8.5 RBC 2.24 L Hgb 5.8 L* Hct 18.1 L* MCV 80.7 MCH 25.9 L MCHC 32.1 RDW 19.3 H Plt Count 610 H D MPV 6.7 L Prelim Diff (Auto) Manual diff required WBC Differential Manual diff final Seg Neuts % (Manual) 57 Band Neuts % (Manual) 3 Lymphocytes % (Manual) 23 Monocytes % (Manual) 6 Eosinophils % (Manual) 9 H Basophils % (Manual) 1 Myelocytes % (Man) 1 H Abs Neuts (Manual) 5.2 Differential Comment . Platelet Estimate High H Platelet Morphology Normal Basophilic Stippling Faint H [place] Bodies Present H MTS Gel Crossmatch See Detail Assessment and Plan - Assessment and Plan 1) Right Hemipelvis disruption s/p open reduction internal fixation with revision of external fixation POD 2 -Transfer training from bed to wheelchair.Toe-touch weightbearing right leg, weight-bear as tolerated left leg for transfers only. No gait training -pin care TID Daily dressing changes with Xeroform and Primapore Repeat stat H&H due to significant drop in values Maintain Collazo to be managed by Dr. Lees. Bladder repair POD 2
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
[2018-03-07] MEDS: Senna/Docusate Sodium 8.6/50 MG Tablet PO SCH ×3 (08:40→20:49)
[2018-03-07] MEDS: Calcium/Vitamin D 250/125 MG Tablet PO SCH ×5 (08:40→18:44)
[2018-03-07] MEDS: clonazePAM 0.5 MG Tablet PO SCH ×3 (08:40→20:49)
[2018-03-07] MEDS: levoFLOXacin 750 MG Tablet PO SCH ×2 (08:51→08:56)
[2018-03-07] MEDS: Famotidine 20 MG Tablet PO SCH ×3 (08:52→20:49)
[2018-03-07] MEDS: Multivitamin/Minerals Therapeutic Tablet PO SCH (08:54)
[2018-03-07] MEDS: Sertraline 50 MG Tablet PO SCH (08:54)
[2018-03-07] MEDS: Heparin Central Flush 100 UNIT/ML 5 ML Vial IV.FLUSH SCH (08:55)
[2018-03-07] MEDS: Metoclopramide 10 MG Tablet PO SCH ×4 (08:55→20:53)
[2018-03-07] MEDS: Lidocaine 5% Patch T-DERMAL SCH (08:56)
[2018-03-07 10:29] LABS: Hematocrit 17.6 % (35.0-46.0); Hemoglobin 5.6 gm/dL (11.6-15.3)
[2018-03-07] MEDS: Mirtazapine 15 MG Tablet PO SCH (20:50)
[2018-03-08] MEDS: HYDROmorphone PF Inj 1 MG/ML Ampul IV.PUSH PRN ×5 (00:07→21:17)
[2018-03-08] MEDS: Ampicillin/Sulbactam Inj 3 GM in Sodium Chloride 0.9% Inj 100 ML IV.SIG SCH ×4 (00:34→19:26)
[2018-03-08 04:56] LABS: Baso # (Auto) 0.1 th/mm3 (0.0-0.2); Baso % (Auto) 1.1 % (0.0-2.0); Eos # (Auto) 0.8 th/mm3 (0.0-0.4); Eos % (Auto) 10.4 % (0.0-4.0); Hemoglobin 7.7 gm/dL (11.6-15.3); Lymph # (Auto) 2.1 th/mm3 (1.0-4.8); Lymph % (Auto) 27.6 % (9.0-44.0); Mean Corpuscular HGB Conc 33.7 % (32.0-36.0); Mean Corpuscular Hemoglobin 27.2 pg (27.0-34.0); Mean Corpuscular Volume 80.7 fL (80.0-100.0); Mean Platelet Volume 7.2 fL (7.0-11.0); Mono # (Auto) 1.3 th/mm3 (0.0-0.9); Mono % (Auto) 16.6 % (0.0-8.0); Neut # (Auto) 3.3 th/mm3 (1.8-7.7); Neut % (Auto) 44.3 % (16.0-70.0); Platelet Count 537 th/mm3 (150-450); Red Blood Count 2.85 mil/mm3 (4.00-5.30); Red Cell Distribution Width 18.3 % (11.6-17.2); White Blood Count 7.6 th/mm3 (4.0-11.0)
[2018-03-08 05:19] LABS: Anion Gap 6 meq/L (5-15); Blood Urea Nitrogen 13 mg/dL (7-18); Calcium 9.3 mg/dL (8.5-10.1); Chloride 101 meq/L (98-107); Glomerular Filtration Rate Greater Than 89 mL/min (>89); Glucose,Random 91 mg/dL (74-106); Potassium 3.7 meq/L (3.5-5.1); Sodium 138 meq/L (136-145)
--- NOTE | 2018-03-08 07:25 | P.PNOP ---
Subjective Interval history: pt complains of pain involving her pelvis also complaining of leakage with her velazco and urinary burning Physical Exam Vital signs: Vital Signs 03/07/18 08:00 03/07/18 12:00 03/07/18 14:18 Temperature 97.7 F 98.1 F 98.2 F Pulse Rate 113 H 114 H 112 H Respiratory Rate 16 16 20 Blood Pressure 108/63 120/72 114/70 Pulse Oximetry 98 100 99 03/07/18 14:35 03/07/18 16:00 03/07/18 16:05 Temperature 98.5 F 98.1 F 98.7 F Pulse Rate 111 H 103 H 95 H Respiratory Rate 18 16 18 Blood Pressure 120/75 115/72 114/74 Pulse Oximetry 100 03/07/18 20:00 03/07/18 20:10 03/07/18 22:44 Temperature 98.7 F Pulse Rate 112 H Respiratory Rate 18 18 18 Blood Pressure 119/55 L Pulse Oximetry 95 03/08/18 00:33 03/08/18 03:44 Temperature Pulse Rate Respiratory Rate 17 18 Blood Pressure Pulse Oximetry Intake & Output 03/07/18 03/08/18 03/08/18 18:59 06:59 18:59 Intake Total 1010 / 1010 200 / 200 Output Total 300 / 300 Balance 1010 / 1010 -100 / -100 Weight 56.7 kg Intake: IV 200 / 200 200 / 200 Unasyn Inj 3 GM In NS Inj 100 200 / 200 200 / 200 ML @ 200 mls/hr IV.SIG Q6H [facility] Rx#:[id number] Other Rbc As-3 Leukoreduced Unit [id number] Intake (Blood Product) Amt 800 / 800 Rbc As-3 Leukoreduced Unit 400 / 400 [id number] Rbc As-3 Leukoreduced Unit 400 / 400 [id number] Output: Urine 300 / 300 Other: # Voids 2 Date of Last Bowel Movement 03/05/18 03/05/18 Narrative: also seen and examined by Dr. Aubrey Montero patient has ex fix to pelvis velazco catheter was re-inserted but patient states she is having leakage and burning bilateral lower extremities reveals full range of motion and neurovascularly intact. Good capillary refills and distal pulses - Urinary Catheter Management Indwelling Temp Sensing Catheter Cath placed during this visit: yes, but has since been removed by the nurse Reason for continuing: Other continuation reason Insertion date: 03/05/18 Insertion time: 08:10 Removal date: 02/18/18 Removal time: 11:45 Results - Labs CBC & Chem 7: 03/08/18 04:05 03/08/18 04:05 Laboratory Results - last 24 hr 02/11/18 03/07/18 03/07/18 09:52 06:05 09:21 WBC RBC Hgb 5.6 L* Hct 17.6 L* MCV MCH MCHC RDW Plt Count MPV Neut % (Auto) Lymph % (Auto) [place] % (Auto) Eos % (Auto) Baso % (Auto) Neut # (Auto) Lymph # (Auto) [place] # (Auto) Eos # (Auto) Baso # (Auto) WBC Differential Manual diff final Seg Neuts % (Manual) 57 Band Neuts % (Manual) 3 Lymphocytes % (Manual) 23 Monocytes % (Manual) 6 Eosinophils % (Manual) 9 H Basophils % (Manual) 1 Myelocytes % (Man) 1 H Abs Neuts (Manual) 5.2 Differential Comment Platelet Estimate High H Platelet Morphology Normal Basophilic Stippling Faint H [place] Bodies Present H Sodium Potassium Chloride Carbon Dioxide Anion Gap BUN Creatinine Estimated GFR Random Glucose Calcium Blood Type Antibody Screen MTS Gel Crossmatch See Detail Bld Prod Order Comment 03/07/18 03/08/18 03/08/18 11:20 04:05 04:05 WBC 7.6 RBC 2.85 L Hgb 7.7 L D Hct 23.0 L MCV 80.7 MCH 27.2 MCHC 33.7 RDW 18.3 H Plt Count 537 H MPV 7.2 Neut % (Auto) 44.3 Lymph % (Auto) 27.6 [place] % (Auto) 16.6 H Eos % (Auto) 10.4 H Baso % (Auto) 1.1 Neut # (Auto) 3.3 Lymph # (Auto) 2.1 [place] # (Auto) 1.3 H Eos # (Auto) 0.8 H Baso # (Auto) 0.1 WBC Differential . Seg Neuts % (Manual) Band Neuts % (Manual) Lymphocytes % (Manual) Monocytes % (Manual) Eosinophils % (Manual) Basophils % (Manual) Myelocytes % (Man) Abs Neuts (Manual) Differential Comment Auto diff final Platelet Estimate Platelet Morphology Basophilic Stippling [place] Bodies Sodium 138 Potassium 3.7 Chloride 101 Carbon Dioxide 31.0 Anion Gap 6 BUN 13 Creatinine 0.65 Estimated GFR Greater than 89 Random Glucose 91 Calcium 9.3 Blood Type O Positive Antibody Screen Negative MTS Gel Crossmatch See Detail Bld Prod Order Comment Assessment and Plan - Assessment and Plan 1) Right Hemipelvis disruption s/p open reduction internal fixation with revision of external fixation POD #3 -Transfer training from bed to wheelchair. Toe-touch weightbearing right leg , weight-bear as tolerated left leg for transfers only. No gait training -pin care TID Daily dressing changes with Xeroform and Primapore Repeat hgb is 7.7 this morning Maintain Velazco to be managed by Dr. Lees. Bladder repair POD #3 Recommend repeat evaluation by urology due today to velazco issues
[2018-03-08] MEDS: Famotidine 20 MG Tablet PO SCH ×2 (08:07→21:18)
[2018-03-08] MEDS: Sertraline 50 MG Tablet PO SCH ×2 (08:07→08:08)
[2018-03-08] MEDS: Calcium/Vitamin D 250/125 MG Tablet PO SCH ×3 (08:07→17:39)
[2018-03-08] MEDS: Heparin Central Flush 100 UNIT/ML 5 ML Vial IV.FLUSH SCH (08:08)
[2018-03-08] MEDS: Senna/Docusate Sodium 8.6/50 MG Tablet PO SCH ×2 (08:08→21:19)
[2018-03-08] MEDS: clonazePAM 0.5 MG Tablet PO SCH ×2 (08:08→21:19)
[2018-03-08] MEDS: Multivitamin/Minerals Therapeutic Tablet PO SCH (08:08)
[2018-03-08] MEDS: Metoclopramide 10 MG Tablet PO SCH ×4 (08:15→21:18)
[2018-03-08] MEDS: Lidocaine 5% Patch T-DERMAL SCH (08:16)
[2018-03-08] MEDS: Belladonna Alkaloid/Opium 60 MG Supp RECTAL PRN ×3 (09:42→22:54)
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
[2018-03-08] MEDS: Mirtazapine 15 MG Tablet PO SCH (21:18)
[2018-03-09] MEDS: Ampicillin/Sulbactam Inj 3 GM in Sodium Chloride 0.9% Inj 100 ML IV.SIG SCH ×4 (02:04→19:38)
[2018-03-09] MEDS: HYDROmorphone PF Inj 1 MG/ML Ampul IV.PUSH PRN ×5 (05:42→21:52)
[2018-03-09 06:32] LABS: Hematocrit 23.6 % (35.0-46.0); Hemoglobin 8.1 gm/dL (11.6-15.3)
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
[2018-03-09] MEDS: Calcium/Vitamin D 250/125 MG Tablet PO SCH ×3 (08:32→17:25)
[2018-03-09] MEDS: Sertraline 50 MG Tablet PO SCH (08:32)
[2018-03-09] MEDS: Famotidine 20 MG Tablet PO SCH ×3 (08:32→20:02)
[2018-03-09] MEDS: Senna/Docusate Sodium 8.6/50 MG Tablet PO SCH ×3 (08:32→20:03)
[2018-03-09] MEDS: clonazePAM 0.5 MG Tablet PO SCH ×3 (08:33→20:02)
[2018-03-09] MEDS: Metoclopramide 10 MG Tablet PO SCH ×5 (08:41→20:03)
[2018-03-09] MEDS: Heparin Central Flush 100 UNIT/ML 5 ML Vial IV.FLUSH SCH (08:41)
[2018-03-09] MEDS: Enoxaparin Inj 30 MG/0.3 ML Syringe SQ SCH ×3 (08:42→20:02)
[2018-03-09] MEDS: Lidocaine 5% Patch T-DERMAL SCH (08:42)
[2018-03-09] MEDS: Belladonna Alkaloid/Opium 60 MG Supp RECTAL PRN ×2 (08:44→15:33)
[2018-03-09] MEDS: Multivitamin/Minerals Therapeutic Tablet PO SCH (08:44)
[2018-03-09] MEDS: Scopalamine 1.5 MG Patch T-DERMAL SCH (13:31)
[2018-03-09] MEDS: Mirtazapine 15 MG Tablet PO SCH ×2 (19:41→20:03)
[2018-03-10] MEDS: Ampicillin/Sulbactam Inj 3 GM in Sodium Chloride 0.9% Inj 100 ML IV.SIG SCH ×4 (01:55→18:56)
[2018-03-10] MEDS: HYDROmorphone PF Inj 1 MG/ML Ampul IV.PUSH PRN ×4 (04:59→20:24)
[2018-03-10] MEDS: Senna/Docusate Sodium 8.6/50 MG Tablet PO SCH ×3 (07:25→20:26)
[2018-03-10] MEDS: Calcium/Vitamin D 250/125 MG Tablet PO SCH ×4 (07:27→16:59)
[2018-03-10] MEDS: Multivitamin/Minerals Therapeutic Tablet PO SCH ×2 (07:28→10:23)
[2018-03-10] MEDS: Heparin Central Flush 100 UNIT/ML 5 ML Vial IV.FLUSH SCH ×2 (07:28→10:22)
[2018-03-10] MEDS: Sertraline 50 MG Tablet PO SCH ×2 (07:29→10:23)
[2018-03-10] MEDS: clonazePAM 0.5 MG Tablet PO SCH ×3 (07:29→20:25)
[2018-03-10] MEDS: Famotidine 20 MG Tablet PO SCH ×3 (07:29→20:25)
[2018-03-10] MEDS: Metoclopramide 10 MG Tablet PO SCH ×4 (07:38→20:37)
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
[2018-03-10] MEDS: Enoxaparin Inj 30 MG/0.3 ML Syringe SQ SCH ×2 (10:22→20:25)
[2018-03-10] MEDS: Lidocaine 5% Patch T-DERMAL SCH (10:22)
[2018-03-10] MEDS ORDERED: Diatrizoate Meglumine 30% Inj 300 ML Bottle (for RAD DIAG) I-VESICULR ONE (16:54)
--- NOTE | 2018-03-10 17:01 | FL ---
EXAM DATE: 03/10/2018 4:52 PM EST AGE/SEX: 32 years / Female INDICATIONS: Post bladder cystotomy. Evaluate for leak for velazco removal. CLINICAL DATA: This is the patient's initial encounter. Patient reports that signs and symptoms have been present for 4 - 6 days and indicates a pain score of 10/10. MEDICAL/SURGICAL HISTORY: None. . Pelvic ORIF. COMPARISON: No prior exams available for comparison. FINDINGS: Preliminary film is unremarkable. No abnormal calcifications are identified. Following placement of a Velazco catheter the bladder was filled in retrograde fashion to adequate dist ention. There was no evidence of extravasation of contrast outside the urinary bladder. A post film w as performed. There was good drainage of the contrast from the urinary bladder. No extravasation is d emonstrated.. CONCLUSION: No evidence of extravasation of contrast outside the urinary bladder. Electronically signed by: Wan Wilks MD 03/10/2018 5:00 PM EST
[2018-03-10] MEDS: Mirtazapine 15 MG Tablet PO SCH (20:25)
[2018-03-11] MEDS: HYDROmorphone PF Inj 1 MG/ML Ampul IV.PUSH PRN ×5 (00:37→18:14)
[2018-03-11] MEDS: Ampicillin/Sulbactam Inj 3 GM in Sodium Chloride 0.9% Inj 100 ML IV.SIG SCH ×5 (03:00→18:15)
[2018-03-11] MEDS: Heparin Central Flush 100 UNIT/ML 5 ML Vial IV.FLUSH SCH ×2 (07:29→11:40)
[2018-03-11] MEDS: Enoxaparin Inj 30 MG/0.3 ML Syringe SQ SCH ×3 (07:30→22:04)
[2018-03-11] MEDS: clonazePAM 0.5 MG Tablet PO SCH ×3 (07:30→22:03)
[2018-03-11] MEDS: Sertraline 50 MG Tablet PO SCH ×2 (07:30→10:02)
[2018-03-11] MEDS: Famotidine 20 MG Tablet PO SCH ×3 (07:30→22:04)
[2018-03-11] MEDS: Calcium/Vitamin D 250/125 MG Tablet PO SCH ×5 (07:31→17:01)
[2018-03-11] MEDS: Multivitamin/Minerals Therapeutic Tablet PO SCH ×2 (07:31→11:42)
[2018-03-11] MEDS: Senna/Docusate Sodium 8.6/50 MG Tablet PO SCH ×3 (07:31→22:03)
[2018-03-11] MEDS: Metoclopramide 10 MG Tablet PO SCH ×4 (07:34→22:00)
[2018-03-11] MEDS: Lidocaine 5% Patch T-DERMAL SCH (11:40)
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
[2018-03-11] MEDS: Mirtazapine 15 MG Tablet PO SCH (22:04)
[2018-03-12] MEDS: Ampicillin/Sulbactam Inj 3 GM in Sodium Chloride 0.9% Inj 100 ML IV.SIG SCH ×3 (00:45→08:27)
[2018-03-12] MEDS: HYDROmorphone PF Inj 1 MG/ML Ampul IV.PUSH PRN ×5 (00:46→23:00)
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
[2018-03-12] MEDS: Calcium/Vitamin D 250/125 MG Tablet PO SCH ×3 (08:51→17:38)
[2018-03-12] MEDS: Sertraline 50 MG Tablet PO SCH (08:51)
[2018-03-12] MEDS: Enoxaparin Inj 30 MG/0.3 ML Syringe SQ SCH ×2 (08:52→20:18)
[2018-03-12] MEDS: clonazePAM 0.5 MG Tablet PO SCH ×2 (08:53→20:18)
[2018-03-12] MEDS: Heparin Central Flush 100 UNIT/ML 5 ML Vial IV.FLUSH SCH (08:53)
[2018-03-12] MEDS: Metoclopramide 10 MG Tablet PO SCH ×4 (08:53→20:21)
[2018-03-12] MEDS: Lidocaine 5% Patch T-DERMAL SCH (08:54)
[2018-03-12] MEDS: Senna/Docusate Sodium 8.6/50 MG Tablet PO SCH ×2 (10:37→20:20)
[2018-03-12] MEDS: Famotidine 20 MG Tablet PO SCH ×2 (10:37→20:18)
[2018-03-12] MEDS: Multivitamin/Minerals Therapeutic Tablet PO SCH (10:38)
[2018-03-12] MEDS: Amoxicillin/Clavulanate 500/125 MG Tablet PO SCH ×4 (16:18→22:23)
[2018-03-12] MEDS: Scopalamine 1.5 MG Patch T-DERMAL SCH (16:20)
[2018-03-12] MEDS: Mirtazapine 15 MG Tablet PO SCH (20:20)
[2018-03-13] MEDS: HYDROmorphone PF Inj 1 MG/ML Ampul IV.PUSH PRN ×3 (03:11→12:24)
[2018-03-13] MEDS: Amoxicillin/Clavulanate 500/125 MG Tablet PO SCH ×4 (05:29→22:29)
[2018-03-13] MEDS: Calcium/Vitamin D 250/125 MG Tablet PO SCH ×3 (07:59→18:24)
[2018-03-13] MEDS: Senna/Docusate Sodium 8.6/50 MG Tablet PO SCH ×2 (07:59→20:35)
[2018-03-13] MEDS: clonazePAM 0.5 MG Tablet PO SCH ×2 (07:59→20:35)
[2018-03-13] MEDS: Sertraline 50 MG Tablet PO SCH (07:59)
[2018-03-13] MEDS: Famotidine 20 MG Tablet PO SCH ×2 (07:59→20:35)
[2018-03-13] MEDS: Heparin Central Flush 100 UNIT/ML 5 ML Vial IV.FLUSH SCH (08:00)
[2018-03-13] MEDS: Metoclopramide 10 MG Tablet PO SCH ×4 (08:06→20:36)
[2018-03-13] MEDS: Enoxaparin Inj 30 MG/0.3 ML Syringe SQ SCH ×2 (08:15→20:35)
[2018-03-13] MEDS: Lidocaine 5% Patch T-DERMAL SCH (08:16)
[2018-03-13] MEDS: Multivitamin/Minerals Therapeutic Tablet PO SCH (08:16)
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
[2018-03-13] MEDS: Mirtazapine 15 MG Tablet PO SCH (20:35)
[2018-03-14] MEDS: Acetaminophen 325 MG Tablet PO PRN ×2 (04:34→12:37)
[2018-03-14] MEDS: Amoxicillin/Clavulanate 500/125 MG Tablet PO SCH ×4 (06:04→23:18)
[2018-03-14] MEDS: Lidocaine 5% Patch T-DERMAL SCH (10:44)
[2018-03-14] MEDS: Enoxaparin Inj 30 MG/0.3 ML Syringe SQ SCH ×2 (10:44→20:18)
[2018-03-14] MEDS: Sertraline 50 MG Tablet PO SCH (10:45)
[2018-03-14] MEDS: Famotidine 20 MG Tablet PO SCH ×2 (10:45→20:18)
[2018-03-14] MEDS: Heparin Central Flush 100 UNIT/ML 5 ML Vial IV.FLUSH SCH (10:45)
[2018-03-14] MEDS: Senna/Docusate Sodium 8.6/50 MG Tablet PO SCH ×2 (10:45→20:18)
[2018-03-14] MEDS: Calcium/Vitamin D 250/125 MG Tablet PO SCH ×3 (10:45→18:25)
[2018-03-14] MEDS: clonazePAM 0.5 MG Tablet PO SCH ×2 (10:46→20:18)
[2018-03-14] MEDS: Multivitamin/Minerals Therapeutic Tablet PO SCH (10:47)
[2018-03-14] MEDS: Metoclopramide 10 MG Tablet PO SCH ×4 (10:48→20:19)
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
[2018-03-14] MEDS: Mirtazapine 15 MG Tablet PO SCH (20:19)
[2018-03-15] MEDS: Amoxicillin/Clavulanate 500/125 MG Tablet PO SCH ×4 (04:51→21:12)
[2018-03-15] MEDS: Enoxaparin Inj 30 MG/0.3 ML Syringe SQ SCH ×2 (10:02→21:12)
[2018-03-15] MEDS: Sertraline 50 MG Tablet PO SCH (10:03)
[2018-03-15] MEDS: Multivitamin/Minerals Therapeutic Tablet PO SCH (10:04)
[2018-03-15] MEDS: Calcium/Vitamin D 250/125 MG Tablet PO SCH ×3 (10:04→17:53)
[2018-03-15] MEDS: Famotidine 20 MG Tablet PO SCH ×2 (10:04→21:12)
[2018-03-15] MEDS: Senna/Docusate Sodium 8.6/50 MG Tablet PO SCH ×2 (10:04→21:12)
[2018-03-15] MEDS: clonazePAM 0.5 MG Tablet PO SCH ×2 (10:04→21:12)
[2018-03-15] MEDS: Lidocaine 5% Patch T-DERMAL SCH (10:05)
[2018-03-15] MEDS: Metoclopramide 10 MG Tablet PO SCH ×4 (10:23→21:13)
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
[2018-03-15] MEDS: Heparin Central Flush 100 UNIT/ML 5 ML Vial IV.FLUSH SCH (13:22)
[2018-03-15] MEDS: Scopalamine 1.5 MG Patch T-DERMAL SCH (13:22)
[2018-03-15] MEDS: Mirtazapine 15 MG Tablet PO SCH (21:12)
[2018-03-16] MEDS: Amoxicillin/Clavulanate 500/125 MG Tablet PO SCH ×3 (06:32→21:01)
[2018-03-16] MEDS: Multivitamin/Minerals Therapeutic Tablet PO SCH (08:17)
[2018-03-16] MEDS: Calcium/Vitamin D 250/125 MG Tablet PO SCH ×4 (08:17→17:46)
[2018-03-16] MEDS: Famotidine 20 MG Tablet PO SCH ×2 (08:17→20:40)
[2018-03-16] MEDS: Senna/Docusate Sodium 8.6/50 MG Tablet PO SCH ×2 (08:18→20:40)
[2018-03-16] MEDS: Metoclopramide 10 MG Tablet PO SCH ×4 (08:18→20:40)
[2018-03-16] MEDS: Sertraline 50 MG Tablet PO SCH (08:18)
[2018-03-16] MEDS: Enoxaparin Inj 30 MG/0.3 ML Syringe SQ SCH ×2 (08:19→20:39)
[2018-03-16] MEDS: clonazePAM 0.5 MG Tablet PO SCH ×2 (08:19→20:40)
[2018-03-16] MEDS: Heparin Central Flush 100 UNIT/ML 5 ML Vial IV.FLUSH SCH (08:19)
[2018-03-16] MEDS: Lidocaine 5% Patch T-DERMAL SCH (08:20)
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
[2018-03-16] MEDS: Mirtazapine 15 MG Tablet PO SCH (20:40)
[2018-03-17] MEDS: Amoxicillin/Clavulanate 500/125 MG Tablet PO SCH ×4 (05:23→22:40)
[2018-03-17] MEDS: Metoclopramide 10 MG Tablet PO SCH ×5 (08:38→20:21)
[2018-03-17] MEDS: Multivitamin/Minerals Therapeutic Tablet PO SCH (08:38)
[2018-03-17] MEDS: Senna/Docusate Sodium 8.6/50 MG Tablet PO SCH ×3 (08:38→20:21)
[2018-03-17] MEDS: Calcium/Vitamin D 250/125 MG Tablet PO SCH ×3 (08:38→18:24)
[2018-03-17] MEDS: clonazePAM 0.5 MG Tablet PO SCH ×3 (08:38→20:20)
[2018-03-17] MEDS: Sertraline 50 MG Tablet PO SCH (08:38)
[2018-03-17] MEDS: Famotidine 20 MG Tablet PO SCH ×3 (08:38→20:21)
[2018-03-17] MEDS: Lidocaine 5% Patch T-DERMAL SCH (08:39)
[2018-03-17] MEDS: Enoxaparin Inj 30 MG/0.3 ML Syringe SQ SCH ×3 (08:39→20:20)
[2018-03-17] MEDS: Heparin Central Flush 100 UNIT/ML 5 ML Vial IV.FLUSH SCH (10:23)
--- NOTE | 2018-03-17 15:15 | XR ---
EXAM DATE: 03/17/2018 3:08 PM EST AGE/SEX: 32 years / Female INDICATIONS: Evaluate pelvic fractures CLINICAL DATA: This is the patient's subsequent encounter. Patient reports that signs and symptoms h ave been present for 3 weeks and indicates a pain score of 7/10. MEDICAL/SURGICAL HISTORY: None. . ORIF pelvis COMPARISON: [facility], CYSTOGRAM MIN 3V, 03/10/2018. . FINDINGS: Multiple views of the pelvis were obtained and again demonstrate an external fixation device with pin s in both iliac wings. The comminuted fracture deformity of the right ilium is again noted and does n ot appear significantly changed. A screw-plate fixation device is again noted along the superior pubi c rami and right acetabulum transfixing the right pubic rami fractures. The fragments remain in near anatomic alignment. CONCLUSION: Stable appearance status post internal and external fixation Electronically signed by: Je Nino MD 03/17/2018 3:14 PM EST
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
[2018-03-17] MEDS: Mirtazapine 15 MG Tablet PO SCH (20:22)
[2018-03-17] MEDS: Acetaminophen 325 MG Tablet PO PRN (23:57)
[2018-03-18] MEDS: Amoxicillin/Clavulanate 500/125 MG Tablet PO SCH (06:07)
[2018-03-18] MEDS: Calcium/Vitamin D 250/125 MG Tablet PO SCH ×2 (07:45→12:05)
[2018-03-18] MEDS: clonazePAM 0.5 MG Tablet PO SCH (07:45)
[2018-03-18] MEDS: Sertraline 50 MG Tablet PO SCH (07:45)
[2018-03-18] MEDS: Enoxaparin Inj 30 MG/0.3 ML Syringe SQ SCH (07:45)
[2018-03-18] MEDS: Multivitamin/Minerals Therapeutic Tablet PO SCH (07:45)
[2018-03-18] MEDS: Famotidine 20 MG Tablet PO SCH (07:45)
[2018-03-18] MEDS: Metoclopramide 10 MG Tablet PO SCH ×2 (07:45→12:05)
[2018-03-18] MEDS: Lidocaine 5% Patch T-DERMAL SCH (10:14)
[2018-03-18] MEDS: Senna/Docusate Sodium 8.6/50 MG Tablet PO SCH (10:15)
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
== END 2018-03-18 14:30 | disposition home or self-care (01) ==
LOC: NEPI 17:55 → NEDA 18:43 → EDBD 18:43 → MERGE 18:43 → N03 19:09 → N06 02-17 18:08
PROVIDERS: ADMIT Surgery; ATTEND Surgery
PROC: SPLCTMY (ICD-10-PCS; 2018-02-11 10:05)